=== PATIENT | male | born 2000 | race Caucasian/White ===

== ENCOUNTER 2022-08-26 15:40 | Emergency (ER) | payer BC, SELFPAY ==
[2022-08-26 15:51] VITALS: BP 135/107; PULSE 92; TEMP 37; O2SAT 97; BMI 24.4
--- NOTE | 2022-08-26 16:00 | CRLHL7_ITS ---
For Patients: As a result of the Century Cures Act, medical imaging exams and procedure reports are released immediately into your electronic medical record. You may view this report before your referring provider. If you have questions, please contact your health care provider. CLINICAL HISTORY: Right testicular pain TECHNIQUE: Alexandre scale imaging was performed of the scrotum. In addition color Doppler and spectral Doppler analysis was performed of the testes. FINDINGS: The testes demonstrate normal arterial and venous blood flow on color Doppler and spectral Doppler analysis. The testes have uniform echogenicity with no evidence of a suspicious mass or area of inflammation. The right testis measures 4.4 x 2.4 x 3 cm in size and the left testis measures 4 x 2.4 x 2.9. The epididymis appears normal bilaterally. There is no evidence of a hydrocele or varicocele. IMPRESSION: Unremarkable scrotal ultrasound Dictated by Evi Min MD @ 08/26/2022 5:34:05 PM (Electronically Signed)
--- NOTE | 2022-08-26 16:13 | ED_ITS ---
HPI - General Adult General Time Seen by Provider: 16:13 <Santy Parks MD - Last Filed: 08/26/22 16:16> Date Seen: 08/26/22 <Santy Parks MD - Last Filed: 08/26/22 16:16> Chief complaint: Urogenital Problems, Male <Santy Parks MD - Last Filed: 08/26/22 16:16> Stated complaint: Testicular pain <Santy Parks MD - Last Filed: 08/26/22 16:16> Time Seen by Provider: 08/26/22 15:55 <Santy Parks MD - Last Filed: 08/26/22 16:16> Source: patient <Santy Parks MD - Last Filed: 08/26/22 16:16> Mode of arrival: ambulatory <Santy Parks MD - Last Filed: 08/26/22 16:16> Limitations: no limitations <Santy Parks MD - Last Filed: 08/26/22 16:16> History of Present Illness HPI narrative: Patient is a very pleasant 22 year white male who has developed some right testicular pain over the last couple of days, he does not report any trauma, recent sexual contacts. Patient denies dysuria. He is active in lift weights regularly. He has had no similar symptoms reports the pain is just above his testicle on the right. No palpable bulging or herniations. His medical history is reviewed including she even arthritis some anxiety palpitations, history of concussion <Santy Parks MD - Last Filed: 08/26/22 16:16> Related Data Home medications: Home Medications Medication Instructions Recorded Confirmed isotretinoin 40 mg capsule mg PO 08/26/22 (Claravis) Previous Rx's Medication Instructions Recorded sulfamethoxazole 800 1 tab PO BID 7 days #14 tabs 08/26/22 mg-trimethoprim 160 mg tablet <Santy Parks MD - Last Filed: 08/26/22 16:16> Allergies/adverse reactions: Allergies Allergy/AdvReac Type Severity Reaction Status Date / Time No Known Drug Allergy Allergy Unknown Uncoded 08/07/22 21:29 <Santy Parks MD - Last Filed: 08/26/22 16:16> Review of Systems Status of ROS: Reports: 6 or more systems reviewed and unremarkable except as noted in History and below <Santy Parks MD - Last Filed: 08/26/22 16:16> [facility] Medical History: Medical History Concussion Thumb injury <Santy Parks MD - Last Filed: 08/26/22 16:16> Social History: Social History Smoking Status: Never smoker Do you use any of these nicotine containing products: None Second hand tobacco smoke exposure: No How often do you have a drink containing alcohol: monthly or less How many standard drinks containing alcohol do you have on a typical day: 3 or 4 How often do you have six or more drinks on one occasion: Never AUDIT-C Alcohol total score: 2 Non-prescribed substance use: denies use <Santy Parks MD - Last Filed: 08/26/22 16:16> Exam Narrative: Exam Narrative: Objective: Patient's right testicle shows some mild epididymal tenderness the testicle itself is not tender he has got no redness or erythema or no swelling in his groin testicle is not high riding does not appear to be have a lateral lie <Santy Parks MD - Last Filed: 08/26/22 16:16> Const: Vital Signs, click to edit/add: Vital Signs - 24 hr 08/26/22 15:51 Temperature 98.6 F Pulse Rate [Left P ulse Oximeter] 92 Blood Pressure [Le ft Upper Arm] 135/107 H Pulse Oximetry 97 Oxygen Delivery Me thod Room Air <Santy Parks MD - Last Filed: 08/26/22 16:16> Vital Signs, click to edit/add: Vital Signs - 24 hr 08/26/22 15:51 Temperature 98.6 F Pulse Rate [Left P ulse Oximeter] 92 Blood Pressure [Le ft Upper Arm] 135/107 H Pulse Oximetry 97 Oxygen Delivery Me thod Room Air <Michelle Friend MD - Last Filed: 08/26/22 17:40> Course Course Hospital Course: Ultrasound was done and was unremarkable. <Santy Parks MD - Last Filed: 08/26/22 16:16> Vital Signs Vital signs: Initial Vital Signs Temperature 98.6 F 08/26/22 15:51 Temperature Source Temporal Artery Scan 08/26/22 15:51 Pulse Rate 92 08/26/22 15:51 Blood Pressure 135/107 H 08/26/22 15:51 Blood Pressure Mean 116 08/26/22 15:51 Blood Pressure Position Supine 08/26/22 15:51 Pulse Oximetry 97 08/26/22 15:51 Oxygen Delivery Method 08/26/22 15:51 Vital Signs Temperature 98.6 F 08/26/22 15:51 Pulse Rate 92 08/26/22 15:51 Blood Pressure 135/107 H 08/26/22 15:51 Pulse Oximetry 97 08/26/22 15:51 Oxygen Delivery Method 08/26/22 15:51 Temperature 98.6 F 08/26/22 15:51 Pulse Rate 92 08/26/22 15:51 Blood Pressure 135/107 H 08/26/22 15:51 Pulse Oximetry 97 08/26/22 15:51 Oxygen Delivery Method 08/26/22 15:51 <Santy Parks MD - Last Filed: 08/26/22 16:16> Initial Vital Signs Temperature 98.6 F 08/26/22 15:51 Temperature Source Temporal Artery Scan 08/26/22 15:51 Pulse Rate 92 08/26/22 15:51 Blood Pressure 135/107 H 08/26/22 15:51 Blood Pressure Mean 116 08/26/22 15:51 Blood Pressure Position Supine 08/26/22 15:51 Pulse Oximetry 97 08/26/22 15:51 Oxygen Delivery Method 08/26/22 15:51 Vital Signs Temperature 98.6 F 08/26/22 15:51 Pulse Rate 92 08/26/22 15:51 Blood Pressure 135/107 H 08/26/22 15:51 Pulse Oximetry 97 08/26/22 15:51 Oxygen Delivery Method 08/26/22 15:51 Temperature 98.6 F 08/26/22 15:51 Pulse Rate 92 08/26/22 15:51 Blood Pressure 135/107 H 08/26/22 15:51 Pulse Oximetry 97 08/26/22 15:51 Oxygen Delivery Method 08/26/22 15:51 <Michelle Friend MD - Last Filed: 08/26/22 17:40> Medical Decision Making MDM Narrative Medical decision making narrative: Patient is a very pleasant 22 year white male with right testicular pain likely epididymitis rule out torsion. Patient will get a scrotal ultrasound. If this is negative a or only shows epididymal tenderness would recommend antibiotics. Because of the interaction of isotretinoin and doxycycline, would give him Septra DS 1 p.o. b.i.d. x7 days as he is at low risk for an STD per up-to-date. Will need light activity, firm fitting underwear, follow-up primary care in the next few days if not resolved. Would also recommend Aleve 2 twice a day for the next few days as well. Change of shift Dr. Friend will follow up the ultrasound results. <Santy Parks MD - Last Filed: 08/26/22 16:16> Imaging Data Scrotal US: Attestation: I have reviewed the pertinent imaging results. <Michelle Friend MD - Last Filed: 08/26/22 17:40> Radiologist's impression: TECHNIQUE: Alexandre scale imaging was performed of the scrotum. In addition color Doppler and spectral Doppler analysis was performed of the testes. FINDINGS: The testes demonstrate normal arterial and venous blood flow on color Doppler and spectral Doppler analysis. The testes have uniform echogenicity with no evidence of a suspicious mass or area of inflammation. The right testis measures 4.4 x 2.4 x 3 cm in size and the left testis measures 4 x 2.4 x 2.9. The epididymis appears normal bilaterally. There is no evidence of a hydrocele or varicocele. IMPRESSION: Unremarkable scrotal ultrasound <Michelle Friend MD - Last Filed: 08/26/22 17:40> Discharge Plan Discharge Clinical Impression: Acute epididymitis <Santy Parks MD - Last Filed: 08/26/22 16:16> Patient Disposition: Home, Self-Care <Santy Parks MD - Last Filed: 08/26/22 16:16> Condition: Stable <Santy Parks MD - Last Filed: 08/26/22 16:16> Additional Instructions: Firm fitting underwear, Septra DS 1 p.o. b.i.d. x7 days. Will need light activity, firm fitting underwear, follow-up primary care in the next few days if not resolved. Would also recommend Aleve 2 twice a day for the next few days as well. <Santy Parks MD - Last Filed: 08/26/22 16:16> Activity Level: Light activity <Santy Parks MD - Last Filed: 08/26/22 16:16> Light activity <Michelle Friend MD - Last Filed: 08/26/22 17:40> Discharge Diet: Regular <Santy Parks MD - Last Filed: 08/26/22 16:16> Regular <Michelle Friend MD - Last Filed: 08/26/22 17:40> Prescriptions: New sulfamethoxazole-trimethoprim 800-160 mg tablet 1 tab PO BID 7 Days Qty: 14 0RF No Action isotretinoin [Claravis] 40 mg capsule PO Label Comments: TAKE ONE PILL ONCE DAILY FOR ACNE. <Santy Parks MD - Last Filed: 08/26/22 16:16> Follow Up/Referrals: Demarco Lyn MD [Primary Care Provider] - <Santy Parks MD - Last Filed: 08/26/22 16:16> Stand Alone Forms: [facility] Info Instructions <Santy Parks MD - Last Filed: 08/26/22 16:16>
--- OUTSIDE RECORDS SUMMARY | 2022-08-26 16:25 | XMS_ITS | Encounter Summary ---
:2000 Author Organization [facility] Address [address] [place] [id number] Care Team Providers Name Role Phone Josh Parekh MD Unavailable Mary Dowell DO Primary Care Provider Encounter Details Date Type Department Care Team Description 04/12/[address] [phone] Social History Tobacco Use Types Packs/Day Years Used Date Never Smoker 0 Smokeless Tobacco: Never Used Alcohol Use Standard Drinks/Week Comments Not Asked 0 (1 standard drink = 0.6 oz pure alcoho l) Sex Assigned at Date Recorded Not on file documented as of this encounter Plan of Treatment Not on filedocumented as of this encounter Visit Diagnoses Not on filedocumented in this encounter Care Teams Stockkeeper Relationship Specialty Start Date End Date Mary Dowell DO PCP - General 12/27/18 [facility] [address] [place] [address] Josh Parekh MD MD Pediatrics 11/30/[address] [place] [id number] documented as of this encounter
--- OUTSIDE RECORDS SUMMARY | 2022-08-26 16:25 | XMS_ITS | Encounter Summary ---
:2000 Author Organization [facility] Address [address] [place] [address] Care Team Providers Name Role Phone Josh Parekh MD Unavailable Mary Dowell DO Primary Care Provider Encounter Details Date Type Department Care Team Description 05/03/2021 Immunization [facility] - [facility] [id number] [place] [phone] Social History Tobacco Use Types Packs/Day Years [...] on filedocumented in this encounter Care Teams Biscuit Machine Operator Relationship Specialty Start Date End Date Mary Dowell DO PCP - General 12/27/18 [facility] [address] [place] [address] Josh Parekh MD MD Pediatrics 11/30/[address] [place] [id number] documented as of this encounter
--- OUTSIDE RECORDS SUMMARY | 2022-08-26 16:25 | XMS_ITS | Encounter Summary ---
:2000 Author Organization [facility] Address [address] [facility] [place] [address] Care Team Providers Name Role Phone Josh Parekh MD Unavailable Mary Dowell DO Primary Care Provider Reason for Visit Reason Comments Urgent Care Throat Pain st, white spots on tonsils, red spotted rash developing all over his body x 3d Was tested negative for strep, then rash started developing and itching rash. Mom would like strep test re-done Encounter Details Date Type Department Care Team Description 08/27/2019 Office Visit [facility] Billy, Throat lawrence n (Primary Dx); Urgent Care Eddie Porter, [place] [address] [place] [phone] Social History Tobacco Use Types Packs/Day Years Used Date Never Smoker 0 Smokeless Tobacco: Never Used Alcohol Use Standard Drinks/Week Comments Not Asked 0 (1 standard drink = 0.6 oz pure alcoho l) Sex Assigned at Date Recorded Not on file documented as of this encounter Last Filed Vital Signs Vital Sign Reading Time Taken Comments Blood Pressure 124/70 08/27/2019 8:26 PM CDT Pulse 78 08/27/2019 8:26 PM CDT Temperature 37.1 ??C (98.8 ??F) 08/27/2019 8:26 PM CDT Respiratory Rate 16 08/27/2019 8:26 PM CDT Oxygen Saturation 99% 08/27/2019 8:26 PM CDT Inhaled Oxygen Concentration - - Weight 73.5 kg (162 lb) 08/27/2019 8:26 PM CDT Height 181.6 cm (5' 11.5) 08/27/2019 8:26 PM CDT Body Mass Index 22.28 08/27/2019 8:26 PM CDT Body Mass Index Percentile 61.76 % 08/27/2019 8:26 PM CD T Growth Chart: [facility] (Boys, 2-20 Years) documented in this encounter Patient Instructions Patient InstructionsDeGerman merino CNP - 08/27/2019 8:05 PM CDT Prednisone daily for 5 days Vistaril three times a day as needed for itching Push Fluids Plenty of rest Tylenol and ibuprofen to help with pain or fever Humidified air can help with congestion Nasal saline or Flonase nasal spray to help with congestion Salt water gargles, anesthetic throat spray, or lozenges to help with sore throat. Can continue with over the counter anti-itch cream documented in this encounter Progress Notes German Cervantes CNP - 08/27/2019 8:05 PM CDT SUBJECTIVE: Cameron Manuel is a 19 year old male presenting with a chief complaint of Chief Complaint Patient presents with ??? Urgent Care ??? Throat Pain st, white spots on tonsils, red spotted rash developing all over his body x 3d Was tested negative for strep, then rash started developing and itching rash. Mom would like strep test re-done He is a new patient of [facility]. URI Peds Onset of symptoms was 3 day(s) ago. Course of illness is same. Severity moderate Current and Associated symptoms: fever, stuffy nose, sore throat, headache and body aches, rash Treatment measures tried include None tried Predisposing factors include ill contact: School Rash Onset of rash was 3 day(s) ago. Course of illness is unchanged. Severity moderate Current and Associated symptoms: itching and red Location of the rash: abdomen, back and neck. Previous history of a similar rash? No Recent exposure history: none known Denies exposure to: animals, environmental allergens, medications, new household products, new skincare products, recent immunization and strep Associated symptoms include: sore throat and fever. Treatment measures tried include: anti-itch cream Review of Systems Constitutional: Positive for fever. HENT: Positive for congestion, ear pain, rhinorrhea and sore throat. Respiratory: Negative for cough. Gastrointestinal: Negative for abdominal pain, diarrhea, nausea and vomiting. Musculoskeletal: Positive for neck pain. Negative for myalgias. Skin: Positive for rash. Neurological: Positive for light-headedness and headaches. Past Medical History: Diagnosis Date ??? 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 Other speech disturbance Family History Problem Relation Age of Onset ??? Diabetes Other paternal family hx of diabetes- great grandfather ??? Heart Disease Paternal Grandfather pace maker placed when father was in 40's ??? Musculoskeletal Disorder Paternal Uncle MD ??? Arthritis Paternal Grandmother ??? Arthritis Paternal Aunt ??? Cancer Maternal Uncle lymphoma ??? Heart Disease Other paternal great-grandfather of [place] Current Outpatient Medications Medication Sig Dispense Refill ??? FLUoxetine (PROZAC) 20 MG capsule TAKE 1 CAPSULE BY MOUTH ONCE DAILY 0 ??? hydrOXYzine (VISTARIL) 25 MG capsule Take 1 capsule (25 mg) by mouth 3 times daily as needed foritching 30 capsule 0 ??? predniSONE (DELTASONE) 20 MG tablet Take 2 tablets (40 mg) by mouth daily for 5 days 10 tablet 0 ??? busPIRone (BUSPAR) 5 MG tablet Take 5 mg by mouth 2 times daily 1 ??? omeprazole (PRILOSEC) [address] capsule TAKE 1 CAPSULE BY MOUTH ONCE DAILY 0 Social History Tobacco Use ??? Smoking status: Never Smoker ??? Smokeless tobacco: Never Used Substance Use Topics ??? Alcohol use: Not on file OBJECTIVE BP 124/70 (BP Location: Right arm, Patient Position: Sitting, Cuff Size: Adult Regular) Pulse 78 Temp 98.8 ??F (37.1 ??C) (Tympanic) Resp 16 Ht 1.816 m (5' 11.5) Wt 73.5 kg (162 lb) SpO2 99% BMI 22.28 kg/m?? Physical Exam Vitals signs and nursing note reviewed. Constitutional: Appearance: He is well-developed. HENT: Head: Normocephalic and atraumatic. Right Ear: Tympanic membrane, ear canal and external ear normal. Left Ear: Tympanic membrane, ear canal and external ear normal. Nose: Rhinorrhea present. Right Sinus: No maxillary sinus tenderness or frontal sinus tenderness. Left Sinus: No maxillary sinus tenderness or frontal sinus tenderness. Mouth/Throat: Pharynx: Posterior oropharyngeal erythema present. No oropharyngeal exudate. Tonsils: No tonsillar exudate or tonsillar abscesses. Swellin+ on the right. 1+ on the left. Eyes: Conjunctiva/sclera: Conjunctivae normal. Pupils: Pupils are equal, round, and reactive to light. Neck: Musculoskeletal: Normal range of motion and neck supple. Cardiovascular: Rate and Rhythm: Normal rate and regular rhythm. Heart sounds: Normal heart sounds. Pulmonary: Effort: Pulmonary effort is normal. Breath sounds: Normal breath sounds. Lymphadenopathy: Head: Right side of head: Submandibular and tonsillar adenopathy present. Left side of head: Submandibular and tonsillar adenopathy present. Cervical: Cervical adenopathy present. Skin: General: Skin is warm and dry. Capillary Refill: Capillary refill takes less than 2 seconds. Comments: Patient has papular rash to back, neck, and chest Neurological: Mental Status: He is alert and oriented to person, place, and time. Psychiatric: Behavior: Behavior is cooperative. Labs: Results for orders placed or performed in visit on 08/27/19 (from the past 24 hour(s)) Rapid strep screen Result Value Ref Range Specimen Description Throat Rapid Strep A Screen NEGATIVE: No Group A streptococcal antigen detected by immunoassay, await culture report. WBC with Diff Result Value Ref Range WBC 8.8 4.0 - 11.0 10e9/L Diff Method Automated Method % Neutrophils 57.6 % % Lymphocytes 28.9 % % Monocytes 11.5 % % Eosinophils 1.8 % % Basophils 0.2 % Absolute Neutrophil 5.1 1.3 - 7.0 10e9/L Absolute Lymphocytes 2.6 1.0 - 5.8 10e9/L Absolute Monocytes 1.0 0.0 - 1.3 10e9/L Absolute Eosinophils 0.2 0.0 - 0.7 10e9/L Absolute Basophils 0.0 0.0 - 0.2 10e9/L Mononucleosis screen Result Value Ref Range Mononucleosis Screen Negative NEG^Negative X-Ray was not done. ASSESSMENT: ICD-10-CM 1. Throat pain R07.0 Rapid strep screen Beta strep group A culture WBC with Diff Mononucleosis screen 2. Rash R21 WBC with Diff hydrOXYzine (VISTARIL) 25 MG capsule predniSONE (DELTASONE) 20 MG tablet Medical Decision Making: Differential Diagnosis: URI Adult/Peds: Laryngitis, Mononucleosis, Sinusitis, Strep pharyngitis, Tonsilitis, Viral pharyngitis and Viral upper respiratory illness Rash: Dermatitis Drug eruption Folliculitis Inflammation Non-specific rash Rash Viral exanthem Serious Comorbid Conditions: Peds: None PLAN: Discussed with patient and mom that rapid strep was negative. Will do confirmatory testing. WBC was normal. [place] was negative. Favor a viral illness with viral exanthem. Will do prednisone daily for 5 days and vistaril three times a day as needed. Additional symptomatic treatment recommendations discus sed. Education was added to AVS. Patient was agreeable to plan and verbalized understanding. Followup: If not improving 3-5 days or if condition worsens, follow up with your Primary Care Provider Patient Instructions Prednisone daily for 5 days Vistaril three times a day as needed for itching Push Fluids Plenty of rest Tylenol and ibuprofen to help with pain or fever Humidified air can help with congestion Nasal saline or Flonase nasal spray to help with congestion Salt water gargles, anesthetic throat spray, or lozenges to help with sore throat. Can continue with over the counter anti-itch cream documented in this encounter Plan of Treatment Not on filedocumented as of this encounter Procedures Procedure Name Priority Date/Time Associated Comments Diagnosis WBC AND DIFFERENTIAL Routine 08/27/2019 8:58 PM Throat p ain Results for this CDT Rash procedure are i n the results section. MONONUCLEOSIS SCREEN Routine 08/27/2019 8:58 PM Throat pain R esults for this CDT procedure are i n the results section. BETA HEMOLYTIC STREP Routine 08/27/2019 8:47 PM Throat pain R esults for this GROUP A CULTURE CDT procedure ar e in the results section. RAPID STREP SCREEN Routine 08/27/2019 8:29 PM Throat pain Res ults for this THROAT SWAB CDT procedure are i n the results section. documented in this encounter Results Mononucleosis screen (08/27/2019 8:58 PM CDT) [facility] [employer] Method Time Signature Mononucleosis Negative NEG^Negat 08/27/2019 [place] Screen gilles 9:21 PM CDT [facility] Specimen Anatomical Collection Method Collection Time Receive d Time (Source) Location / / Volume Laterality Blood specimen 08/27/2019 8:58 PM 019 9:04 (specimen) CDT PM CDT German Cervantes CNP LAB - BLOOD ORDERABLES Performing Organization Address City/State/ZIP Code Phon e Number [facility] [id number] [place] [address] WBC with Diff (08/27/2019 8:58 PM CDT) [facility] [employer] Method Time Signature WBC 8.8 4.0 - 08/27/2019 [place] 11.0 9:22 PM CDT [facility] 10e9/L [place] Diff Method Automated 08/27/2019 [place] Method 9:22 PM CDT [facility] % Neutrophils 57.6 % 08/27/2019 [place] 9:22 PM CDT [facility] [place] % Lymphocytes 28.9 % 08/27/2019 [place] 9:22 PM CDT [facility] [place] % Monocytes 11.5 % 08/27/2019 [place] 9:22 PM CDT [facility] % Eosinophils 1.8 % 08/27/2019 [place] 9:22 PM CDT [facility] [place] % Basophils 0.2 % 08/27/2019 [place] 9:22 PM CDT [facility] [place] Absolute 5.1 1.3 - 7.0 08/27/2019 [place] Neutrophil 10e9/L 9:22 PM CDT [facility] [place] Absolute 2.6 1.0 - 5.8 08/27/2019 [place] Lymphocytes 10e9/L 9:22 PM CDT [facility] [place] Absolute 1.0 0.0 - 1.3 [facility] Monocytes 10e9/L 9:22 PM CDT [facility] [place] Absolute 0.2 0.0 - 0.7 08/27/2019 [facility] Eosinophils 10e9/L 9:22 PM CDT [facility] Absolute 0.0 0.0 - 0.2 08/27/2019 [place] Basophils 10e9/L 9:22 PM CDT [facility] Specimen Anatomical Collection Method Collection Time Receive d Time (Source) Location / / Volume Laterality Blood specimen 08/27/2019 8:58 PM 019 9:04 (specimen) CDT PM CDT German Cervantes CNP LAB - BLOOD ORDERABLES Performing Organization Address City/[facility]/ZIP Code Phon e Number [facility] [id number] [place] [address] Beta strep group A culture (08/27/2019 8:47 PM CDT) Component Value Ref Test Analysis [facility] Range Method Time Signature Specimen Throat [facility] Culture Micro No beta 08/28/2019 [place] hemolytic 7:49 PM CDT [facility] Streptococcus [place] Group A isolated Specimen Anatomical Collection Method Collection Time Receive d Time (Source) Location / / Volume Laterality Specimen from 08/27/2019 8:47 PM 08/27/20 19 8:52 throat CDT PM CDT (specimen) Germanpatrick Khannaamanda [place] LAB - MICRO GENERAL ORDERABL ES Performing Organization Address City/[facility]/ZIP Code Phon e Number [facility] [id number] [place] [address] Rapid strep screen (08/27/2019 8:29 PM CDT) Component Value Ref Test Analysis Performed At [facility] gist Range Method Time Signature Specimen Throat [facility] Rapid Strep A NEGATIVE: No 08/27/2019 [place] Screen Group A 8:51 PM CDT CLINICS streptococcal [place] antigen detected by immunoassay, await culture report. Specimen Anatomical Collection Method Collection Time Receive d Time (Source) Location / / Volume Laterality Specimen from 08/27/2019 8:29 PM 08/27/20 19 8:34 throat CDT PM CDT (specimen) German Khannaamanda [place] [facility] - MICRO GENERAL ORDERABL ES Performing Organization Address City/[facility]/ZIP Code Phon e Number [facility] [id number] [place] [address] documented in this encounter Visit Diagnoses Diagnosis Throat pain - Primary Rash Rash and other nonspecific skin eruption documented in this encounter Care Teams Laboratory Animal Facility Supervisor Relationship Specialty Start Date End Date Mary Dowell DO PCP - General 12/27/18 [facility] [address] [place] [address] Josh Parekh MD MD Pediatrics 11/30/16 [address] [place] [address] documented as of this encounter
--- OUTSIDE RECORDS SUMMARY | 2022-08-26 16:25 | XMS_ITS | Encounter Summary ---
:2002 Author Organization [facility] Address [address] [facility] [place] [address] Care Team Providers Name Role Phone Josh Parekh MD Unavailable Mary Dowell DO Primary Care Provider Reason for Visit Reason Comments Urgent Care Stomache on and off Fever Started last Sun. they come and go Dizziness Started yesterday night, no longer today, felt like vertigo Anxiety States he has health anxiety Cough With sore throat Encounter Details Date Type Department Care Team Description 09/26/[address] [facility] Deepali Barrera Sorethr oat (Primary Dx); Urgent Care Eddie gauthier MD Fever in adult; [id number] Ear congestion, bilateral [place], [place] [address] [phone] [place], [place] [phone] [id number] Social History Tobacco Use Types Packs/Day Years Used Date Never Smoker 0 Smokeless Tobacco: Never Used Alcohol Use Standard Drinks/Week Comments Not Asked 0 (1 standard drink = 0.6 oz pure alcoho l) Sex Assigned at Date Recorded Not on file COVID-19 Exposure Response Date Recorded In the last month, have you been in contact with No / Unsure 09/26/2020 11:09 AM AUTOMOTIVE AIRCONDITIONING MECHANIC someone who was confirmed or suspected to have Coronavirus / COVID-19? documented as of this encounter Last Filed Vital Signs Vital Sign Reading Time Taken Comments Blood Pressure 131/72 09/26/2020 11:16 AM AUTOMOTIVE AIRCONDITIONING MECHANIC Pulse 88 09/26/2020 11:16 AM AUTOMOTIVE AIRCONDITIONING MECHANIC Temperature 36.5 ??C (97.7 ??F) 09/26/2020 11:16 AM AUTOMOTIVE AIRCONDITIONING MECHANIC Respiratory Rate 16 09/26/2020 11:16 AM AUTOMOTIVE AIRCONDITIONING MECHANIC Oxygen Saturation 100% 09/26/2020 11:16 AM AUTOMOTIVE AIRCONDITIONING MECHANIC Inhaled Oxygen Concentration - - Weight 74.8 kg (165 lb) 09/26/2020 11:16 AM AUTOMOTIVE AIRCONDITIONING MECHANIC per pt. Height - - Body Mass Index 22.69 08/27/2019 8:26 PM CDT Body Mass Index Percentile 58.04 % 09/26/2020 11:[address] Growth Chart: [facility] (Boys, 2-20 Years) documented in this encounter Progress Notes Deepali Barrera MD - 09/26/2020 11:10 AM CST Chief Complaint Patient presents with ??? Urgent Care Stomache on and off ??? Fever Started last Sun. they come and go ??? Dizziness Started yesterday night, no longer today, felt like vertigo ??? Anxiety States he has health anxiety ??? Cough With sore throat SUBJECTIVE: Cameron Manuel is a 20 year old male presenting with a chief complaint of sore throat. He is anestablished patient of [facility]. Onset of symptoms was 3 day(s) ago., there was no noted high fever Temp max was less than 99.8 Course of illness is waxing and waning. Severity moderate Current and Associated symptoms: some dizziness which is resolved now Treatment measures tried include Tylenol/Ibuprofen. Predisposing factors include None. Has some dry coughing Full PPE was worn to see the pt Past Medical History: Diagnosis Date ??? 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 Other speech disturbance Current Outpatient Medications Medication Sig Dispense Refill ??? busPIRone (BUSPAR) 5 MG tablet Take 5 mg by mouth 2 times daily 1 ??? FLUoxetine (PROZAC) 20 MG capsule TAKE 1 CAPSULE BY MOUTH ONCE DAILY 0 ??? hydrOXYzine (VISTARIL) 25 MG capsule Take 1 capsule (25 mg) by mouth 3 times daily as needed foritching (Patient not taking: Reported on 09/26/2020) 30 capsule 0 ??? omeprazole (PRILOSEC) [address] capsule TAKE 1 CAPSULE BY MOUTH ONCE DAILY 0 Social History Tobacco Use ??? Smoking status: Never Smoker ??? Smokeless tobacco: Never Used Substance Use Topics ??? Alcohol use: Not on file Family History Problem Relation Age of Onset ??? Diabetes Other paternal family hx of diabetes- great grandfather ??? Heart Disease Paternal Grandfather pace maker placed when father was in 40's ??? Musculoskeletal Disorder Paternal Uncle MD ??? Arthritis Paternal Grandmother ??? Arthritis Paternal Aunt ??? Cancer Maternal Uncle lymphoma ??? Heart Disease Other paternal great-grandfather of [place] ROS: 10 point ROS of systems including Constitutional, Eyes, Respiratory, Cardiovascular, Gastroenterology, Genitourinary, Integumentary, Muscularskeletal, Psychiatric were all negative except for pertinentpositives noted in my HPI OBJECTIVE: BP 131/72 Pulse 88 Temp 97.7 ??F (36.5 ??C) Resp 16 Wt 74.8 kg (165 lb) SpO2 100% BMI 22.69 kg/m?? GENERAL APPEARANCE: healthy, alert and no distress EYES: EOMI, PERRL, conjunctiva clear HENT: ear canals and TM's normal. Nose and mouth without ulcers, erythema or lesions NECK: supple, nontender, no lymphadenopathy RESP: lungs clear to auscultation - no rales, rhonchi or wheezes CV: regular rates and rhythm, normal S1 S2, no murmur noted ABDOMEN: soft, nontender, no HSM or masses and bowel sounds normal SKIN: no suspicious lesions or rashes PSYCH: mentation appears normal Physical Exam X-Ray was not done. Medical Decision Making: Differential Diagnosis: URI Adult/Peds: Bronchitis-viral, Sinusitis, Strep pharyngitis, Tonsilitis, Viral pharyngitis, Viralsyndrome, Viral upper respiratory illness and covid ASSESSMENT: Cameron was seen today for urgent care, fever, dizziness, anxiety and cough. Diagnoses and all orders for this visit: Sorethroat - Streptococcus A Rapid Scr w Reflx to PCR - Cancel: Symptomatic COVID-19 Virus (Coronavirus) by PCR Fever in adult - Streptococcus A Rapid Scr w Reflx to PCR - Symptomatic COVID-19 Virus (Coronavirus) by PCR Ear congestion, bilateral Results for orders placed or performed in visit on 09/26/20 Streptococcus A Rapid Scr w Reflx to PCR Status: None Specimen: Throat Result Value Ref Range Strep Specimen Description Throat Streptococcus Group A Rapid Screen Negative NEG^Negative PLAN: Tylenol, Ibuprofen, Fluids, Rest, Saline gargles, Saline nasal spray and Vaporizer See orders in Epic Discussed dizziness is possibly from ear congestion Suggested to do antihistamines with decongestants Follow up if symptoms fail to improve or worsens Pt understood and agreed with plan Deepali Barrera MD MOTIVE AIRCONDITIONING MECHANIC documented in this encounter Plan of Treatment Not on filedocumented as of this encounter Procedures Procedure Name Priority Date/Time Associated Comments Diagnosis COVID-19 VIRUS Routine 09/26/2020 11:25 Fever in adult Results for this (CORONAVIRUS) BY PCR AM AUTOMOTIVE AIRCONDITIONING MECHANIC procedu re are in the results section. STREPTOCOCCUS A RAPID Routine 09/26/2020 11:19 Fever in adult Results for this SCREEN W REFELX TO PCR AM AUTOMOTIVE AIRCONDITIONING MECHANIC proce dure are in the results section. GROUP A STREPTOCOCCUS Routine 09/26/2020 11:19 Sorethroat Re sults for this PCR THROAT SWAB AM AUTOMOTIVE AIRCONDITIONING MECHANIC procedure ar e in the results section. documented in this encounter Results Symptomatic COVID-19 Virus (Coronavirus) by PCR (09/26/2020 11:25 AM AUTOMOTIVE AIRCONDITIONING MECHANIC) [facility] Method Time Signature COVID-19 Nasopharyngeal 09/26/2020 [facility] to 11:53 AM [facility] - AUTOMOTIVE AIRCONDITIONING MECHANIC [place] Source COVID-19 Not Detected 09/27/2020 [facility] Virus PCR to 6:31 PM AUTOMOTIVE AIRCONDITIONING MECHANIC [facility] - DIAGNOSTIC Result LABORATORY, [facility] Comment: Collection of multiple specimens from th e same patient may be necessary to detect the virus. The possibility of a f alse negative should be considered if the patient's recent exposure or clinica l presentation suggests 2019 nCOV infection and diagnostic tests for other causes of illness are negative. Repeat testing may be considered in this setting. Patient sample was heat inactivated and amplified using the HDPCR SARS-CoV-2 assay ([employer] The HDPCRTM STIVEN S-CoV-2 assay is a reverse senior administrative associate real-time polymerase chain reaction (qRT-PCR) test intended for the qualitative detection of nucleic aci d from SARS-CoV-2 in human nasopharyngeal swabs, oropharyngeal swabs, anterior nasal swabs, mid-turbinate nasal swabs a s well as nasal aspirate, nasal wash, and bronchoalveolar lavage (BAL) specime ns from individuals who are suspected of COVID-19 by their healthcare provider . A negative result does not rule out the presence of real-time PCR inhibitors in the specimen or COVID-19 RNA in fabricio ntrations below the limit of detection of the assay. The possibility of a fals e negative should be considered if the patients recent exposure or clinical pr esentation suggests COVID-19. Additional testing or repeat testing req uires consultation with the laboratory. Nasopharyngeal specimen is the preferred choice for swab-based SARS CoV2 testing. When collection of a nasopharyn geal swab is not possible the following are acceptable alternatives: an oropharyngeal (OP) specimen collected by a healthcare professional, or a nasal mid-turbinate (NMT) swab collected by a healthcare professional or by onsite self-collection (using a flocked tapered swab), or an anterior nares specimen collected by a healthcare profe ssional or by onsite self-collection (using a round foam swab). (Centers for Disease Control) Testing performed by [facility] ([facility]) [address] [address] [facility] [address] The test performance characteristics wer e determined by [facility]. It has not been cleared or approved by the FDA. The laboratory is regulated under the Cl inical Laboratory Improvement Amendments of 1988 (CLIA-88) as qualifie d to perform high-complexity testing. This test is used for clinical purposes. It should not be regarded as investigational or for research. Specimen (Source) Anatomical Collection Method Collection Time Re ceived Time Location / / Volume Laterality Specimen from 09/26/2020 11:25 09/26/2020 nasopharyngeal AM AUTOMOTIVE AIRCONDITIONING MECHANIC 11:51 AM AUTOMOTIVE AIRCONDITIONING MECHANIC structure (specimen) Deepali Barrera MD LAB - MICRO GENERAL ORDERABL ES Performing Organization Address City/State/ZIP Code Phon e Number [employer] [place] [address] DIAGNOSTIC LABORATORY, [address] [place] [address] [address] [address] Group A Streptococcus PCR Throat Swab (09/26/2020 11:19 AM AUTOMOTIVE AIRCONDITIONING MECHANIC) [facility] Method Time Signature Specimen Throat 09/26/2020 [place] Description 11:[address] [facility] Strep Group A Not Detected NDET^Not 09/26/2020 [facility] PCR Detected 4:04 PM [facility] Comment: Group A Streptococcus DNA is not detecte d. FDA approved assay performed using [employer] GeneXpert real-time PCR. Specimen Anatomical Collection Method Collection Time Receive d Time (Source) Location / / Volume Laterality Specimen from 09/26/2020 11:19 09/26/2020 throat AM AUTOMOTIVE AIRCONDITIONING MECHANIC 11:24 AM AUTOMOTIVE AIRCONDITIONING MECHANIC (specimen) Deepali Barrera MD LAB - MICRO GENERAL ORDERABL ES Performing Organization Address City/State/ZIP Code Phon e Number [id number] [place] [id number] [place] [address] Streptococcus A Rapid Scr w Reflx to PCR (09/26/2020 11:19 AM AUTOMOTIVE AIRCONDITIONING MECHANIC) [facility] Method Time Signature Strep Specimen Throat 09/26/2020 [place] Description 11:23 AM [facility] Streptococcus Negative NEG^Negat 09/26/2020 [place] Group A Rapid gilles 11:54 AM [facility] Comment: No Group A streptococcal antigen detecte d by immunoassay. Confirmatory testing in progress. Specimen Anatomical Collection Method Collection Time Receive d Time (Source) Location / / Volume Laterality Specimen from 09/26/2020 11:19 09/26/2020 throat AM AUTOMOTIVE AIRCONDITIONING MECHANIC 11:24 AM AUTOMOTIVE AIRCONDITIONING MECHANIC (specimen) Deepali Barrera MD LAB - MICRO GENERAL ORDERABL ES Performing Organization Address City/State/ZIP Code Phon e Number [facility] [address] [facility] [place] [address] documented in this encounter Visit Diagnoses Diagnosis Sorethroat - Primary Acute pharyngitis Fever in adult Ear congestion, bilateral documented in this encounter Additional Health Concerns Infection Onset Date Last Indicated Resolved Time Rule Out COVID-19 09/26/2020 09/26/2020 09/27/2020 6:3 4 PM AUTOMOTIVE AIRCONDITIONING MECHANIC documented as of this encounter Care Teams Coat Hanger Shaper Machine Operator Relationship Specialty Start Date End Date Mary Dowell DO PCP - General 12/27/18 [facility] [address] [place] [address] Josh Parekh MD MD Pediatrics 11/30/16 [address] [place] [address] documented as of this encounter
--- OUTSIDE RECORDS SUMMARY | 2022-08-26 16:25 | XMS_ITS | Encounter Summary ---
:2002 Author Organization [facility] Address [address] [place] [address] Care Team Providers Name Role Phone Josh Parekh MD Unavailable Mary Dowell DO Primary Care Provider Encounter Details Date Type Department Care Team Description 09/26/2020 Travel Social History Tobacco Use Types Packs/Day Years Used Date Never Smoker 0 Smokeless Tobacco: Never Used Alcohol Use Standard Drinks/Week Comments Not Asked 0 (1 standard drink = 0.6 oz pure alcoho l) Sex Assigned at Date Recorded Not on file COVID-19 Exposure Response Date Recorded In the last month, have you been in contact with No / Unsure 09/26/2020 11:09 AM HOMICIDE SQUAD COMMANDING OFFICER someone who was confirmed or suspected to have Coronavirus / COVID-19? documented as of this encounter Plan of Treatment Not on filedocumented as of this encounter Visit Diagnoses Not on filedocumented in this encounter Additional Health Concerns Infection Onset Date Last Indicated Resolved Time Rule Out COVID-19 09/26/2020 09/26/2020 09/27/2020 6:3 4 PM HOMICIDE SQUAD COMMANDING OFFICER documented as of this encounter Care Teams Engine Hostler Relationship Specialty Start Date End Date Mary Dowell, PCP - General 12/27/18 [facility] [address] [place] [address] Josh Parekh MD MD Pediatrics 11/30/[address] [place] [address] documented as of this encounter
--- OUTSIDE RECORDS SUMMARY | 2022-08-26 16:25 | XMS_ITS | Encounter Summary ---
:2002 Author Organization [facility] Address [address] [place] [address] Care Team Providers Name Role Phone Josh Parekh MD Unavailable Mary Dowell DO Primary Care Provider Reason for Visit Reason Comments acp Encounter Details Date Type Department Care Team Description 07/18/2022 Documentation Only [place] Maryjo Ackerman acp [address] [facility] [address] [place] [phone] Social History Tobacco Use Types Packs/Day Years [...] on filedocumented in this encounter Care Teams Automobile Service Advisor Relationship Specialty Start Date End Date Mary Dowell, PCP - General 12/27/18 [facility] [address] [place] [address] Josh Parekh MD MD Pediatrics 11/30/[address] [place] [id number] documented as of this encounter
--- OUTSIDE RECORDS SUMMARY | 2022-08-26 16:25 | XMS_ITS | Encounter Summary ---
:2002 Author Organization [facility] Address [address] [place] [address] Care Team Providers Name Role Phone Josh Parekh MD Unavailable Mary Dowell DO Primary Care Provider Encounter Details Date Type Department Care Team Description 08/27/2019 Travel Social History Tobacco Use Types Packs/Day [...] on filedocumented in this encounter Care Teams Car Wash Manager Relationship Specialty Start Date End Date Mary Dowell, PCP - General 12/27/18 [facility] [address] [place], [place] [id number] Josh Parekh MD MD Pediatrics 11/30/[address] [place] [address] documented as of this encounter
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
--- OUTSIDE RECORDS SUMMARY | 2022-08-26 16:25 | XMS_ITS | Encounter Summary ---
:2000 Author Organization [facility] Address [address] [place] [id number] Care Team Providers Name Role Phone Josh Parekh MD Unavailable Mary Dowell DO Primary Care Provider Encounter Details Date Type Department Care Team Description 08/06/2022 Travel Social History Tobacco Use Types Packs/Day [...] have Coronavirus/COVID-19? documented as of this encounter Plan of Treatment Not on filedocumented as of this encounter Visit Diagnoses Not on filedocumented in this encounter Care Teams Field Counsel Relationship Specialty Start Date End Date Mary Dowell, PCP - General 12/27/18 [facility] [address] [place] [address] Josh Parekh MD MD Pediatrics 11/30/[address] [place] [id number] documented as of this encounter
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
--- OUTSIDE RECORDS SUMMARY | 2022-08-26 16:25 | XMS_ITS | Encounter Summary ---
:2002 Author Organization [facility] Address [address] [place] [address] Care Team Providers Name Role Phone Josh Parekh MD Unavailable Mary Dowell DO Primary Care Provider Encounter Details Date Type Department Care Team Description 05/04/2021 Documentation Only INTERFACED REPORT Unknown, Provider Social History Tobacco Use Types Packs/Day Years [...] on filedocumented in this encounter Care Teams Telecom Specialist Relationship Specialty Start Date End Date Mary Dowell, PCP - General 12/27/18 [facility] [address], [place] [id number] Josh Parekh MD MD Pediatrics 11/30/[address] [place] [address] documented as of this encounter
--- OUTSIDE RECORDS SUMMARY | 2022-08-26 16:26 | XMS_ITS | Encounter Summary ---
:2002 Author Organization [facility] Address [address] [place] [address] Care Team Providers Name Role Phone Kumar Celestin MD Primary Care Provider Encounter Details Date Type Department Care Team Description 08/30/2011 Medical Correspondence [facility] Galilea Celestin [facility] Patricia Newman MD [address] [place] [phone] Social History Tobacco Use Types Packs/Day Years Used Date Never Smoker Alcohol Use Standard Drinks/Week Comments Not Asked 0 (1 standard drink = 0.6 oz pure alcoho l) Sex Assigned at Date Recorded Not on file documented as of this encounter Plan of Treatment Not on filedocumented as of this encounter Visit Diagnoses Not on filedocumented in this encounter Care Teams Limehouse Worker Relationship Specialty Start Date End Date Kumar Celestin MD PCP - General 02 12/26/[address] [place] [address] documented as of this encounter
--- OUTSIDE RECORDS SUMMARY | 2022-08-26 16:26 | XMS_ITS | Encounter Summary ---
:2002 Author Organization [facility] Address [address] [place] [address]. [place] [address] Care Team Providers Name Role Phone Kumar Celestin MD Primary Care Provider Encounter Details Date Type Department Care Team Description 10/17/2010 Office Visit-[facility] Natalya Muñiz MD [facility] [address] [place] [address] 16 Social History Tobacco Use Types Packs/Day Years Used Date Never Smoker Alcohol Use Standard Drinks/Week Comments Not Asked 0 (1 standard drink = 0.6 oz pure alcoho l) Sex Assigned at Date Recorded Not on file documented as of this encounter Progress Notes Natalya Sky L - 10/17/2010 12:00 AM CST Patient Scheduling Manager: Natalya Sky Status: Final - Signature Encounter: 17 Oct 2010 Type: Chart Note Recorded as Task Date: 10/02/2010 06:16 PM, Created By: Natalya Sky Task Name: Follow Up Assigned To: Natalya Sky Regarding Patient: TAHMINA MARY, Status: Active Comment: Natalya Sky - 02 Oct 2010 6:16 PM TASK CREATED Chris Love. Tahmina's creatinine is a little elevated, and, hemoglobin and platelets were missed with the labs checked at his recent appointment. Can you please have them obtain repeat labs (CBC/diff/platelets, BUN and creatinine) within the next week or two? Much thanks! Kate De Souza - 19 Oct 2010 9:07 AM TASK REPLIED TO: Previously Assigned To Kate De Souza Tahmina had repeat labs (in [employer] now). Creatinine is still a little high. Mom said that Tahmina hasn't really been taking Naprosyn very consistently for the last month and completely stopped it 2 weeks ago becauase he was feeling so good. Natalya Sky - 21 Oct 2010 10:14 AM TASK REPLIED TO: Previously Assigned To Josh Parekh Dr., Tahmina's Cr is a little elevated, but his UA (Sep 23) and BPs have been normal. Not takingNSAID regularly. We'll just monitor. Ok? Josh Parekh - 24 Oct 2010 5:16 PM TASK REPLIED TO: Previously Assigned To Josh Parekh Electronically signed by:Natalya Newell M.D.,Fellow Oct 24 2010 8:30PM EQUITY RESEARCH ANALYST Co-author TY RESEARCH ANALYST documented in this encounter Plan of Treatment Not on filedocumented as of this encounter Visit Diagnoses Not on filedocumented in this encounter Care Teams Marine Cargo Specialist Relationship Specialty Start Date End Date Kumar Celestin MD PCP - General 02 12/26/18 [address] [facility] [address] [place] [phone] documented as of this encounter
--- OUTSIDE RECORDS SUMMARY | 2022-08-26 16:26 | XMS_ITS | Encounter Summary ---
:2002 Author Organization [facility] Address [address] [place] [address]. [place] [address] Care Team Providers Name Role Phone Omid Celestin MD Primary Care Provider Reason for Visit Reason Comments RECHECK JRA return Encounter Details Date Type Department Care Team Description [facility] [address] [place] [address] [facility] [place], [place] enth esitis related [address]ldg [address] arthritis (H) 12th Floor (Primary Dx) [address] [place] [address] [place] [address] Social History Tobacco Use Types Packs/Day Years Used Date Never Smoker Alcohol Use Standard Drinks/Week Comments Not Asked 0 (1 standard drink = 0.6 oz pure alcoho l) Sex Assigned at Date Recorded Not on file documented as of this encounter Last Filed Vital Signs Vital Sign Reading Time Taken Comments Blood Pressure 107/72 10/09/2013 10:11 AM NATURAL SCIENCES DEPARTMENT CHAIR Pulse 98 10/09/2013 10:11 AM NATURAL SCIENCES DEPARTMENT CHAIR Temperature 36.7 ??C (98.1 ??F) 10/09/2013 10:11 AM NATURAL SCIENCES DEPARTMENT CHAIR Respiratory Rate - - Oxygen Saturation - - Inhaled Oxygen Concentration - - Weight 38.4 kg (84 lb 10.5 oz) 10/09/2013 10:11 AM NATURAL SCIENCES DEPARTMENT CHAIR Height 149.9 cm (4' 11.02) 10/09/2013 10:11 AM NATURAL SCIENCES DEPARTMENT CHAIR Body Mass Index 17.09 10/09/2013 10:11 AM NATURAL SCIENCES DEPARTMENT CHAIR Body Mass Index Percentile 44.45 % 10/09/2013 10:[address] Growth Chart: [facility] (Boys, 2-20 Years) documented in this encounter Patient Instructions Patient InstructionsCatherine Delaney GILBERT Zapata - 10/09/2013 10:13 AM CST ?? Continue prednisone 10 mg once daily through next Sunday, then switch to half pill daily (or one pill every other day) for another week, then try to stop ?? Start naproxen ?? Labs in 1 month at any [facility] Pediatric Rheumatology -- General Help For routine appointments, please call the Pediatric Call Center at [phone]. For other general help (such as medical records), please call [phone] or toll free at [email or web address] ([phone]). -- Specific Help If you have any questions or concerns about your child, please do not hesitate to call us. Corey Townsend, our??administrative??coordinator, can help with appointments, prescription refills, records forwarding, and other office matters. She can be reached directly at [phone] or toll free via [phone] ([phone]). YEHUDA Jara, our primary nurse for the Division of Pediatric Rheumatology, can help answer questions about your child's rheumatic condition, medications, and tests. She can be reached directly [phone] or toll free via [email or web address] ([phone]). For emergencies after hours or on the weekends, please call the paging barrel line operator at [phone] or toll free at [phone] ([phone])and ask to speak to the physician on-call for Pediatric Rheumatology. More information can be found at: [email or web address] RAL SCIENCES DEPARTMENT CHAIR documented in this encounter Progress Notes Josh Parekh MD - 10/09/2013 12:19 PM CST Allergies: Allergies Allergen Reactions ??? No Known Drug Allergies Medications: As of completion of this visit: Current Outpatient Prescriptions Medication Status Sig ??? naproxen (NAPROSYN) 375 MG tablet Active Take 1 tablet (375 mg) by mouth 2 times daily (with meals) ??? predniSONE (DELTASONE) 10 MG tablet Active Take 2-3 tabs once a day for five days then decrease by one tablet every 4 days. ??? FISH OIL Active ??? CHILDRENS ASPIRIN PO Active Take by mouth. 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 As noted in Epic, he started having symptoms flare about 4 weeks ago with really no explanation. In the past has had trouble flare up withinfectious illnesses but in this case there was not an obvious infectious trigger. He has been active in basketball but that has not clearly been the trigger. He was evaluated last week, including lab work, and this evaluation was reassuring. He has now developed symptoms in the last 4 days with some sniffles and a little bit of a cough and sore throat. In the last day, he has had a little trouble with hearing from his left ear. The cough he had when he was evaluated last week, which only appeared during the visit, has disappeared. His mother wonders if there is something about whether having set this off or maybe the traveling basketball. She knows that if he plays really hard, he will be sore the next day, but it does not seem to explain the whole story. They are still using the heating pad as they have done before. He can no longer do special seating such as a large ball at school, so he does get a little more sore at school. They started meloxicam when symptoms appeared, but it provided no relief whatsoever. He therefore started prednisone last Sunday at a dose of 30 mg daily through Sunday, then on Sunday dropped to 20mg and then 2 days ago dropped to 10 mg. Comprehensive Review of Systems is otherwise negative. Information per our standardized questionnaire is as below: Last Exam Last Eye Exam: 05/22/11 Self Report Patient Pain Status: 7.5 Patient Global Assessment Of Disease Activity: 5.5 Score Reported By: Mom/Stepmom Arthritis History Morning stiffness in the past week: > 15 - 30 min Has your arthritis stopped from trying any athletic or rigorous activities, or interfaced with your ability to do these activities: Yes Have you been limited your ability to do normal daily activities in the past week: No Did you needed help from other people to do normal activities in the past week: No Have you used any aids or devices to help you do normal daily activities in the past week: No Important Medical Events Hospitalized Since Last Visit: No Examination: Blood pressure 107/72, pulse 98, temperature 98.1 ??F (36.7 ??C), temperature source Tympanic, height 4' 11.02 (149.9 cm), weight 84 lb 10.5 oz (38.4 kg). Cameron appears generally well and in good spirits. Head: Normal head and hair. Eyes: No scleral injection, pupils normal. Ears: Normal external structures, tympanic membranes normal except for retraction on left. Nose: No cartilage deformity; clear nasal congestion. Mouth: Normal teeth, gums, tongue, mucosa. Throat: Normal, without erythema or exudate. Neck: Normal, without thyromegaly Nodes: No cervical, supraclavicular, axillary, inguinal adenopathy. Lungs: Normal effort, clear to ausculation. Heart: Regular rate and rhythm, S1 and S2, no murmurs; normal peripheral pulses and perfusion. Abdomen: Soft, non-tender, without hepatomegaly, splenomegaly, or masses. Skin: No inflammatory lesions, only normal scratches and bruises. Nails: No pitting, infection. Neurological: Alert, appropriately interactive, normal cranial nerves, no deficits, normal gait. Musculoskeletal: No evidence of current synovitis of the cervical spine, TMJ, sternoclavicular, acromioclavicular, glenohumeral, elbow, wrists, finger, sacroiliac, hip, knee, ankle, or toe joints. No tendonitis or bursitis. No enthesitis. Last Lab Results: Office Visit on 09/30/2013 Component Date Value ??? Sodium 09/30/2013 144* ??? Potassium 09/30/2013 4.2 ??? Chloride 09/30/2013 104 ??? Carbon Dioxide 09/30/2013 26 ??? Anion Gap 09/30/2013 15 ??? Glucose 09/30/2013 100* ??? Urea Nitrogen 09/30/2013 17 ??? Creatinine 09/30/2013 0.56 ? ? GFR Estimate 09/30/2013 GFR not calculated, patient <16 years old. ? ? GFR Estimate If Black 09/30/2013 GFR not calculated, patient <16 years old. ??? Calcium 09/30/2013 9.4 ? ? Bilirubin Total 09/30/2013 <0.1* ??? Albumin 09/30/2013 4.2 ??? Protein Total 09/30/2013 7.2 ??? Alkaline Phosphatase 09/30/2013 165 ??? ALT 09/30/2013 33 ??? AST 09/30/2013 25 ??? Antistreptolysin O 09/30/2013 119 ? ? CRP Inflammation 09/30/2013 <5.0 ??? Color Urine 09/30/2013 Yellow ??? Appearance Urine 09/30/2013 Slightly Cloudy ??? Glucose Urine 09/30/2013 Negative ??? Bilirubin Urine 09/30/2013 Negative ??? Ketones Urine 09/30/2013 Negative ??? Specific [place] Urine 09/30/2013 1.025 ??? Blood Urine 09/30/2013 Negative ??? pH Urine 09/30/2013 7.0 ??? Protein Albumin Urine 09/30/2013 Negative ??? Urobilinogen Urine 09/30/2013 0.2 ??? Nitrite Urine 09/30/2013 Negative ??? Leukocyte Esterase Urine 09/30/2013 Negative ??? Source 09/30/2013 Value:Midstream Urine Midstream Urine ??? WBC 09/30/2013 5.6 ??? RBC Count 09/30/2013 4.69 ??? Hemoglobin 09/30/2013 12.7 ??? Hematocrit 09/30/2013 38.3 ??? MCV 09/30/2013 82 ??? MCH 09/30/2013 27.1 ??? MCHC 09/30/2013 33.2 ??? RDW 09/30/2013 12.9 ??? Platelet Count 09/30/2013 279 ??? Diff Method 09/30/2013 Automated Method ??? % Neutrophils 09/30/2013 47.2 ??? % Lymphocytes 09/30/2013 40.4 ??? % Monocytes 09/30/2013 10.9 ??? % Eosinophils 09/30/2013 1.3 ??? % Basophils 09/30/2013 0.2 ??? Absolute Neutrophil 09/30/2013 2.7 ??? Absolute Lymphocytes 09/30/2013 2.3 ??? Absolute Monoctyes 09/30/2013 0.6 ??? Absolute Eosinophils 09/30/2013 0.1 ??? Absolute Basophils 09/30/2013 0.0 ??? ANT DNASE B ANTIBODIES 09/30/2013 Value:<50 A single DNase B analysis may not be meaningful due to the variability of DNse B values within the normal population. Both clinical and laboratory findings should be considered in reaching a diagnosis. ??? WBC Urine 09/30/2013 O - 2 ??? RBC Urine 09/30/2013 O - 2 ??? Amorphous Crystals 09/30/2013 Many* Assessment: Cameron has a reassuring physical examination at this time. He has a little bit of retraction of his left ear drum which would explain his hearing difficulty, but I do not see another infectious illness besides his nasal congestion, and I do not see anything that requires additional treatment. Because he had mood sensitivity on the 30 mg of prednisone, I suggest we very slowly back him off his remaining dose of prednisone. In addition, I think having an NSAID on board again like naproxen would be a good idea. Change Since Last Visit: Same ACR Functional Class: Normal Provider Global Assessment Of Disease Activity: Inactive (0) (This is measured on the scale of 0(Inactive)-10) On Medication For Treatment Of NAFISA?: No Normal ESR: Not Done Normal CRP: Not Done MORENA Status: Negative Rheumatoid Factor: Negative In Compliance With Screening Interval For NAFISA: Yes Plan: 1. Continue prednisone 10 mg once daily through next Sunday, then switch to half pill daily (or one pill every other day) for another week, then try to stop 2. He will start Naproxen 375 mg twice a day in place of the Meloxicam. 3. If he has additional difficulty with his ear or with his current URI, he will follow up with Dr. Celestin. 4. If he stays on the naproxen, he needs labs every 4 months and a standing order was placed, so he can have labs done at any [facility] lab. 5. I would like to see him back for reevaluation in the next 3 months. Josh Parekh MD CC Patient Care Team: Omid Celestin MD as PCP - General OMID CELESTIN Copy to patient Lucrecia Manuel [address] [facility] [phone] RAL SCIENCES DEPARTMENT CHAIR documented in this encounter Nursing Notes 10/09/2013 10:00 AM CST >> Delaney Alexander LPN [facility] Oct 09, 2013 10:13 AM Patient presents with: RECHECK - JRA return Delaney Alexander LPN documented in this encounter Plan of Treatment Not on filedocumented as of this encounter Visit Diagnoses Diagnosis NAFISA (juvenile idiopathic arthritis), ent hesitis related arthritis (H) - Primary Other specified inflammatory polyarthrop athies documented in this encounter Care Teams Central Supply Aide Relationship Specialty Start Date End Date Omid Celestin MD PCP - General 02 12/26/18 [address] [facility] [address] [place] [address] documented as of this encounter
--- OUTSIDE RECORDS SUMMARY | 2022-08-26 16:26 | XMS_ITS | Encounter Summary ---
:2000 Author Organization [place] Address [address] [place] [address] Care Team Providers Name Role Phone Kumar Celestin MD Primary Care Provider Encounter Details Date Type Department Care Team Description 05/27/2010 Office Visit-[facility] D[facility] [address], 3rd [address] [place] [address] [place] [address] [place] [address] Social History Tobacco Use Types Packs/Day Years Used Date Never Smoker Alcohol Use Standard Drinks/Week Comments Not Asked 0 (1 standard drink = 0.6 oz pure alcoho l) Sex Assigned at Date Recorded Not on file documented as of this encounter Progress Notes Natalya Sky - 05/27/2010 10:00 AM CDT Rest Room Matron: Natalya Sky Status: Final - Signature Encounter: 27 May 2010 Type: Peds Visit Division of Pediatric Rheumatology Department of Pediatrics [place] Mail Code 587 [address] [place] [address] Office: [phone] [facility] - [facility] Fourth Floor, Clinic [address] [place] [address] RE: Cameron Manuel : 2000 JULIAN: 05/27/2010 OUTPATIENT VISIT NOTE MEDICATIONS: None. 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 Our last visit was on March 02. He demonstrated some improvement on treatment with naproxen, but continued to have tight hamstrings and plantar fasciitis. We had anticipated that he would achieve further benefit with ongoing medical therapy as well as PT, OT and institution of SMO orthotics. In the interim of that visit, Cameron has continued to improve. On a scale for how much pain he has had in the past week, with zero being no pain and ten being very severe pain, he miranda a zero. On a similar scale for how well he has been doing this past week, he miranda very well. He reports no joint stiffness or difficulty moving first thing in the morning. Arthralgias and enthesalgias have not stopped him from trying any athletics or rigorous activities. He participated fully in his baseball season and has been spending timewith his cousins playing at [employer]. As he was doing so well, he stopped taking naproxen a couple of weeks ago. He took two doses six days ago for achiness precipitated by activity. Shortly after our last visit, several household members developed a presumed viral illness. His mother and sister developed significant arthralgias and enthesalgias (involving the Achilles and plantar fascia). His mother saw a technology recruiter who suspected she had fibromyalgia. Both have now recovered. Although Cameron did have strep pharyngitis in April, his musculoskeletal symptoms have not worsened. As he was continuing to improve and other family members were dealing with illness, he was not seen for followup in PT or OT. SMO orthotics have not been obtained. Today he is wearing tennis shoes although often during the summer does wear flip-flops. He himself feels he is 100% better. REVIEW OF SYSTEMS: A comprehensive 12-point review of systems was obtained, is as already noted above, and is otherwise negative. PHYSICAL EXAMINATION: VITAL SIGNS: Temperature is 97.9 degrees Fahrenheit. Blood pressure is 93/59. Pulse rate is 91, and respiratory rate is 16. Height is 133.5 cm, which is a 2.7-cm increase from the previous visit. Weight is 28.3 kg, which is a 0.1-kg decrease. APPEARANCE: Cameron appears to be in excellent health and comfortable. HEENT: Head and hair are normal. Sclerae and conjunctivae are clear. Pupils are equal, round and reactive to light. Nasal passages are clear. There are no oral or nasal lesions. Mucous membranes are moist, and there is good saliva pool. The TMs are normal bilaterally. The gingiva and dentition appear healthy. The oropharynx is clear. NECK: Supple. No mass. NODES: No cervical, occipital, or supraclavicular lymphadenopathy. LUNGS: Normal pattern and effort and respiration. Clear to auscultation bilaterally. HEART: Regular rate and rhythm. Normal S1 and S2. No murmurs, gallops or rubs. Hands and feet are well-perfused. No edema. ABDOMEN: Flat. Bowel sounds normoactive. No hepatosplenomegaly. No mass. Nontender to palpation. SKIN: Clear of rash. No nodules. NEURO: Alert. No focal deficits appreciated. Coordination is normal. MUSCULOSKELETAL: The mandible appears symmetric. Cameron is able to open his mouth wide with ease. There is no abnormal tracking of the jaw appreciated. There is no swelling or pain with pressure at the temporomandibular, sternoclavicular, or acromioclavicular joints. There is no pain with range of motion, and range of motion is normal at the C-spine, hips and subtalar joints. There is no swelling, no pain with range of motion or pressure, and the range of motion is full at the shoulders, elbows, wrists, knees, ankles, MCPs, MTPs, PIPs, and DIPs. There is no pain with pressure at the sacroiliac joints or tendon insertions onto the pelvis. There continues to be very mild discomfort reported on pressure along the right Achilles tendon. There is no tenderness along the left Achilles tendon. There is no pain at the plantar fascia insertions today. There is no pain on palpation of any of his muscles. He hyperextends his elbows, but not greater than 10 degrees. He is hypermobile at the hips, with nearly 180-degree rotational ability per hip. He also is able to hyperextend at both knees, but not as remarkably. Straight leg raising is still limited to approximately 45 degrees bilaterally. On standing, he continues to flatten his arches but does not have prominent pronation. He is not able to touch histoes when keeping his knees straight, although forward flexion of the spine appears normal. Ambulation is normal, and he runs with ease. IMPRESSION: In summary, Cameron is a nearly myqba-tafb-tvj with arthralgias and a history of enthesitis, who previously demonstrated clinical and laboratory improvement in inflammatory markers on treatment with naproxen, and who is currently symptom-free off of medical therapy. Although he is hypermobile in several areas, he is quite tight in the hamstrings and has pes planus, which in the group home, may contribute to musculoskeletal problems. PLAN: 1. At this time, we will see how Cameron does off of NSAID therapy. As he has discontinued naproxen, laboratory studies for therapeutic drug monitoring are not needed today. Should problems recur, we have asked that his mother notify us. We anticipate that we would reinstitute treatment, as well as assess markers of inflammation. We advised followup with Physical Therapy to establish a home regimen for stretching of the hamstrings and core muscle strengthening. A new prescription was provided. For followup, we have asked that Cameron return in four to six months. His mother was encouraged to call should problems arise in the interim. I have personally examined the patient, reviewed and edited the fellow's note, and agree with the plan of care. Josh Parekh M.D. [facility] Pediatric Rheumatology [phone] Dictated by Natalya Newell M.D., Pediatric Rheumatology Fellow TW:11 cc: Kumar Celestin MD [facility] [address] [facility] [address] [place] [address] Parents of Cameron Manuel [address] [place] [address] DD 05/28/2010 Electronically signed by:Josh Parekh M.D. Jun 01 2010 7:30PM MASH TUB COOKER documented in this encounter Plan of Treatment Not on filedocumented as of this encounter Visit Diagnoses Not on filedocumented in this encounter Care Teams Scheduler Relationship Specialty Start Date End Date Kumar Celestin MD PCP - General 02 12/26/18 [facility] [address] [address] documented as of this encounter
--- OUTSIDE RECORDS SUMMARY | 2022-08-26 16:26 | XMS_ITS | Encounter Summary ---
:2000 Author Organization [place] Address [address] [place] [address]. [place] [address] Care Team Providers Name Role Phone Kumar Celestin MD Primary Care Provider Reason for Visit Reason Comments RECHECK Patient here for follow up o n bilateral leg pain. Knee, ankle and feet pain, some back pain as well. Has enthicitis, is going to starting taking Aleve instead of meloxicam, as it isn't working. Was supposed to see PMD as they can't see thier specialist u ntil October. 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 [address] [place] [address] arthriti s), [place] [address] enthesitis related [place], [place] arthritis ( H) [phone] (Primary Dx) [phone] (Wo rk) Social History Tobacco Use Types Packs/Day Years Used Date Never Smoker Alcohol Use Standard Drinks/Week Comments Not Asked 0 (1 standard drink = 0.6 oz pure alcoho l) Sex Assigned at Date Recorded Not on file documented as of this encounter Last Filed Vital Signs Vital Sign Reading Time Taken Comments Blood Pressure - - Pulse - - Temperature 37 ??C (98.6 ??F) 09/30/2013 3:00 PM BOILER REPAIRMAN Respiratory Rate - - Oxygen Saturation - - Inhaled Oxygen Concentration - - Weight 38.5 kg (84 lb 12.8 oz) 09/30/2013 3:00 PM BOILER REPAIRMAN Height 149.9 cm (4' 11) 09/30/2013 3:00 PM BOILER REPAIRMAN Body Mass Index 17.13 09/30/2013 3:00 PM BOILER REPAIRMAN Body Mass Index Percentile 45.47 % 09/30/2013 3:00 PM CS T Growth Chart: [facility] (Boys, 2-20 Years) documented in this encounter Progress Notes Kumar Celestin MD - 09/30/2013 3:00 PM CST SUBJECTIVE: Cmaeron Manuel is a 13 year old male who presents to clinic today for the following health issues: Bilateral leg pain, back pain, hands hurting, has enthicitis and can't see specialist until October. NAFISA. Has history of flaring with infections. No obvious symptoms or illness, but coughed 2-3 times and was deep. Breathing ok, no fever, no vomiting or diarrhea.runny nose. Little bit of headaches, he gets lots of headaches. Car sick headache. Has history of his pain issues getting worse with mild infections. Physical Exam: 13 year old well developed, well nourished male in no apparent distress. Tympanic membranes with good landmarks bilaterally. Normal color. Conjunctiva without erythema or mattering. Nares without erythema or drainage. Throat without erythema or exudate. No tonsilar hypertrophy. No lymphadenopathy Lungs clear to auscultation. Abdomen soft, non-distended, non-tender, no hepatosplenomegally. No obvious swelling or redness. Assessment: Enthesitis. No obvious infection. Really looks good on exam. Plan: Discussed with cooking chef international sales representative. Recommend prednisone as ordered. Labs. Can stop previous med while on prednisone and to follow up in clinic with rheumatology. ER REPAIRMAN documented in this encounter Nursing Notes 09/30/2013 2:40 PM CST >> LASHONDA Steele Sep 30, 2013 3:01 PM Patient presents with: RECHECK - Patient here for follow up on bilateral leg pain. Knee, ankle and feet pain, some back pain as well. Has enthicitis, is going to starting taking Aleve instead of meloxicam, as it isn't working. Was supposed to see PMD as they can't see thier specialist until October. Initial Temp 98.6 ??F (37 ??C) (Oral) Ht 4' 11 (1.499 m) Wt 84 lb 12.8 oz (38.465 kg) BMI 17.13 kg/m2 Estimated Body mass index is 17.13 kg/(m^2) as calculated from the following: Height as of this encounter: 4' 11(1.499 m). Weight as of this encounter: 84 lb 12.8 oz(38.465 kg). BP completed using cuff size: NA (Not Taken). Lashonda Tomlin CMA documented in this encounter Plan of Treatment Not on filedocumented as of this encounter Procedures Procedure Name Priority Date/Time Associated Comments Diagnosis URINE MICROSCOPIC Routine 09/30/2013 4:47 Results for this PM BOILER REPAIRMAN procedure are i n the results section. UA MACROSCOPIC WITH Routine 09/30/2013 4:47 NAFISA (juvenile Resu lts for this REFLEX TO MICROSCOPIC PM BOILER REPAIRMAN idiopathic proced ure are in AND CULTURE arthritis), the results enthesitis related section. arthritis (H) ANTI DNASE ANTIBODIES Routine 09/30/2013 4:46 NAFISA (juvenile Re sults for this PM BOILER REPAIRMAN idiopathic procedure are i n arthritis), the results enthesitis related section. arthritis (H) CBC WITH PLATELETS & Routine 09/30/2013 4:46 NAFISA (juvenile Res ults for this DIFFERENTIAL PM BOILER REPAIRMAN idiopathic procedure are i n arthritis), the results enthesitis related section. arthritis (H) CRP INFLAMMATION Routine 09/30/2013 4:46 NAFISA (juvenile Results for this PM BOILER REPAIRMAN idiopathic procedure are i n arthritis), the results enthesitis related section. arthritis (H) COMPREHENSIVE METABOLIC Routine 09/30/2013 4:46 NAFISA (juvenile Results for this PANEL PM BOILER REPAIRMAN idiopathic procedure are i n arthritis), the results enthesitis related section. arthritis (H) ANTISTREPTOLYSIN O Routine 09/30/2013 4:46 NAFISA (juvenile Resul ts for this PM BOILER REPAIRMAN idiopathic procedure are i n arthritis), the results enthesitis related section. arthritis (H) documented in this encounter Results (ABNORMAL) Urine Microscopic (09/30/2013 4:47 PM BOILER REPAIRMAN) Analysis Performed At Patho logist Time Signature WBC Urine O - 2 0 - 2 /HPF [facility] RBC Urine O - 2 0 - 2 /HPF [facility] Amorphous Many (A) NEG /HPF [place] Crystals [facility] Specimen Anatomical Collection Method Collection Time Receive d Time (Source) Location / / Volume Laterality 09/30/2013 4:47 PM 3 4:49 BOILER REPAIRMAN PM BOILER REPAIRMAN Kumar Celestin MD LAB - URINE ORDERABLES Performing Organization Address [facility]/ZIP [facility] Phon e Number [facility] [address] [place] [address] [address] *UA reflex to Microscopic and Culture (09/30/2013 4:47 PM BOILER REPAIRMAN) [facility] Method Time Signature Color Urine Yellow [facility] Appearance Urine Slightly [place] Cloudy [facility] Glucose Urine Negative NEG mg/dL [facility] Bilirubin Urine Negative NEG [facility] Ketones Urine Negative NEG mg/dL [facility] Specific [place] 1.025 1.003 - [place] Urine 1.035 [facility] Blood Urine Negative NEG [facility] pH Urine 7.0 5.0 - 7.0 [place] pH [facility] Protein Albumin Negative NEG mg/dL [place] Urine [facility] Urobilinogen 0.2 0.2 - 1.0 [place] Urine EU/dL [facility] Nitrite Urine Negative NEG [facility] Leukocyte Negative NEG [place] Esterase Urine [facility] Source Midstream Urine [place] Midstream Urine [facility] Specimen Anatomical Collection Method Collection Time Receive d Time (Source) Location / / Volume Laterality Urine specimen 09/30/2013 4:47 PM 013 4:49 (specimen) BOILER REPAIRMAN PM BOILER REPAIRMAN Kumar Celestin MD LAB - URINE ORDERABLES Performing Organization Address City/[facility]/ZIP Code Phon e Number [facility] [address] [place], [place] [address] [address] Anti Dnase B antibody (09/30/2013 4:46 PM BOILER REPAIRMAN) [facility] Method Time Signature ANT DNASE B <50 <188 U/mL [facility] ANTIBODIES A single DNase B analysis ma y not be meaningful due to the variability of DNse B UNIVERSITY values within the normal population. ??Both cli nical and laboratory findings CAMPUS LABS should be considered in reaching a diagnosis. Specimen Anatomical Collection Method Collection Time Receive d Time (Source) Location / / Volume Laterality Blood specimen 09/30/2013 4:46 PM 013 4:48 (specimen) BOILER REPAIRMAN PM BOILER REPAIRMAN Kumar Celestin MD LAB - BLOOD ORDERABLES Performing Organization Address City/State/ZIP Code Phon e Number [facility] [address] [place], [place] [id number] [place] [address] LABS CBC with platelets and differential (09/30/2013 4:46 PM BOILER REPAIRMAN) [facility] gist Method Time Signature WBC 5.6 4.0 - [facility] 11.0 CLINICS 10e9/L [place] RBC Count 4.69 3.7 - 5.3 [place] 10e12/L [facility] Hemoglobin 12.7 11.7 - [place] 15.7 g/dL [facility] Hematocrit 38.3 35.0 - [place] 47.0 % [facility] MCV 82 77 - 100 [place] fl [facility] MCH 27.1 26.5 - [facility] 33.0 pg [facility] MCHC 33.2 31.5 - [place] 36.5 g/dL [facility] RDW 12.9 10.0 - [place] 15.0 % [facility] Platelet Count 279 150 - 450 [place] 10e9/L [facility] Diff Method Automated [facility] % Neutrophils 47.2 % [facility] % Lymphocytes 40.4 % [facility] % Monocytes 10.9 % [facility] % Eosinophils 1.3 % [facility] % Basophils 0.2 % [facility] Absolute 2.7 1.3 - 7.0 [place] Neutrophil 10e9/L [facility] Absolute 2.3 1.0 - 5.8 [place] Lymphocytes 10e9/L [facility] Absolute 0.6 0.0 - 1.3 [place] Monocytes 10e9/L [facility] Absolute 0.1 0.0 - 0.7 [place] Eosinophils 10e9/L [facility] Absolute 0.0 0.0 - 0.2 [place] Basophils 10e9/L [facility] Specimen Anatomical Collection Method Collection Time Receive d Time (Source) Location / / Volume Laterality Blood specimen 09/30/2013 4:46 PM 013 4:48 (specimen) BOILER REPAIRMAN PM BOILER REPAIRMAN uKmar Celestin MD LAB - BLOOD ORDERABLES Performing Organization Address City/[facility]/ZIP Code Phon e Number [facility] [address] [place], [place] [address] [address] CRP, inflammation (09/30/2013 4:46 PM BOILER REPAIRMAN) Analysis Performed At Patho logist Time Signature CRP Inflammation <5.0 0.0 - 8.0 [facility] mg/L [facility] LABS Specimen Anatomical Collection Method Collection Time Receive d Time (Source) Location / / Volume Laterality Blood specimen 09/30/2013 4:46 PM 013 4:48 (specimen) BOILER REPAIRMAN PM BOILER REPAIRMAN Kumar Celestin MD LAB - BLOOD ORDERABLES Performing Organization Address City/[facility]/ZIP Code Phon e Number [facility] [address] [place] [address] [facility] LABS Antistreptolysin O (09/30/2013 4:46 PM BOILER REPAIRMAN) [facility] Method Time Signature Antistreptolysin O 119 0 - 320 [facility] IU/mL [facility] LABS Comment: A single ASO analysis may not be meaning ful due to the variability of ASO values within the normal population. ??Both cl inical and laboratory findings should be considered in reaching a diagnosis. ??A single analysis may be less informative than a repeat analysis showing a change . Specimen Anatomical Collection Method Collection Time Receive d Time (Source) Location / / Volume Laterality Blood specimen 09/30/2013 4:46 PM 013 4:48 (specimen) BOILER REPAIRMAN PM BOILER REPAIRMAN Kumar Celestin MD LAB - BLOOD ORDERABLES Performing Organization Address City/[facility]/ZIP Code Phon e Number [facility] [address] [place] [address] [facility] LABS (ABNORMAL) Comprehensive metabolic panel (BMP + Alb, Alk Phos, ALT, AST, Total. Bili, TP) (09/30/2013 4:46 PM BOILER REPAIRMAN) [facility] Method Time Signature Sodium 144 (H) 133 - 143 [place] mmol/L [facility] Potassium 4.2 3.4 - 5.3 [place] mmol/L [facility] Chloride 104 98 - 110 [place] mmol/L [facility] Carbon Dioxide 26 20 - 32 [place] mmol/L [facility] Anion Gap 15 6 - 17 [place] mmol/L [facility] Glucose 100 (H) 60 - 99 [place] mg/dL [facility] Urea Nitrogen 17 5 - 24 [place] mg/dL [facility] Creatinine 0.56 0.39 - [place] 0.73 [facility] mg/dL GFR Estimate GFR not mL/min/1. [facility] calculated, 7m2 [facility] patient <16 years old. GFR Estimate If GFR not mL/min/1. [facility] Black calculated, 7m2 [facility] patient <16 years old. Calcium 9.4 8.7 - [facility] 10.8 [facility] mg/dL Bilirubin Total <0.1 (L) 0.2 - 1.3 [place] mg/dL [facility] Albumin 4.2 3.9 - 5.1 [place] g/dL [facility] Comment: Reference range changed on 07/21. Protein Total 7.2 6.8 - 8.8 g/dL [place] [facility] [place] Comment: As of 08, reference range reflects plasma specimen type. Alkaline Phosphatase 165 130 - 530 U/L [facility] IEW [facility] COLT ALT 33 0 - 50 U/L [facility] EA [place] AST 25 0 - 50 U/L [facility] EA [place] Specimen Anatomical Collection Method Collection Time Receive d Time (Source) Location / / Volume Laterality Blood specimen 09/30/2013 4:46 PM 013 4:48 (specimen) BOILER REPAIRMAN PM BOILER REPAIRMAN Kumar Celestin MD LAB - BLOOD ORDERABLES Performing Organization Address City/State/ZIP Code Phon e Number [facility] [address] [place] [address] documented in this encounter Visit Diagnoses Diagnosis NAFISA (juvenile idiopathic arthritis), 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
--- OUTSIDE RECORDS SUMMARY | 2022-08-26 16:26 | XMS_ITS | Encounter Summary ---
:2000 Author Organization [facility] Address [address] [place] [address]. [place] [address] Care Team Providers Name Role Phone Omid Celestin MD Primary Care Provider Josh Parekh MD Unavailable Reason for Referral Rehab Therapy Physical Therapy - Closed Specialty Diagnoses / Procedures Referred By Contact Refer red To Contact Diagnoses NAFISA (juvenile idiopathic arthritis), enthesitis related arthritis (H) Josh Parekh MD [address] [place] [address] [phone] Referral ID Status Reason Start Date Expiration Date Visits Requ ested Visits Authorized [id number] Closed 12/13/2016 12/13/2017 1 1 NICAL ASSOCIATE Reason for Visit Reason Comments RECHECK pATIENT IS HERE TODAY FOR JI A (juvenile idiopathic arthritis), enthesitis related arthritis (H) follow up Encounter Details Date Type Department Care Team Description 12/13/2016 Office Visit [facility] Josh Parekh MD NAFISA (juvenile [facility] [address] [place] [address] [facility]io [facility] arthritis), [facility] [place], [place] enthesit is related CLinic [id number] arthritis (H) [address] [place] [address] (Primary Dx) [facility] [address] Social History Tobacco Use Types Packs/Day Years Used Date Never Smoker Alcohol Use Standard Drinks/Week Comments Not Asked 0 (1 standard drink = 0.6 oz pure alcoho l) Sex Assigned at Date Recorded Not on file documented as of this encounter Last Filed Vital Signs Vital Sign Reading Time Taken Comments Blood Pressure 127/67 12/13/2016 1:37 PM TECHNICAL ASSOCIATE Pulse 75 12/13/2016 1:37 PM TECHNICAL ASSOCIATE Temperature 37 ??C (98.6 ??F) 12/13/2016 1:37 PM TECHNICAL ASSOCIATE Respiratory Rate 18 12/13/2016 1:37 PM TECHNICAL ASSOCIATE Oxygen Saturation 100% 12/13/2016 1:37 PM TECHNICAL ASSOCIATE Inhaled Oxygen Concentration - - Weight 55.3 kg (121 lb 14.6 oz) 12/13/2016 1:37 PM TECHNICAL ASSOCIATE Height 170.3 cm (5' 7.05) 12/13/2016 1:37 PM TECHNICAL ASSOCIATE Body Mass Index 19.07 12/13/2016 1:37 PM TECHNICAL ASSOCIATE Body Mass Index Percentile 43.20 % 12/13/2016 1:37 PM CS T Growth Chart: [facility] (Boys, 2-20 Years) documented in this encounter Patient Instructions Patient InstructionsJohana Flannery LPN - 12/13/2016 1:38 PM CST [facility] Pediatric Rheumatology For Help: The Pediatric Call Center at [phone] can help with scheduling of routine follow up visits. Corey Townsend is the Rivet Sticker for the Division of Pediatric Rheumatology and is available Sunday through Sunday from 7:00am to 3:30pm. Please call Corey at [phone] to: ??? Schedule joint injections ??? Coordinate your follow up visits with other specialties or procedure for the same day ??? Request a call back from a nurse or your child???s doctor ??? Request refills or lab and x-ray orders ??? Forward medical records ??? Schedule or cancel infusions (please give us 72 hours so other patients can benefit from this opening). Please try to schedule infusions 3 months in advance. Note: Insurance authorization must be obtained before any infusion can be scheduled. If you change health insurance, you must notify our office as soon as possible, so that the infusion can be reauthorized. Ktae De Souza and Mary Karimi are the Nurse Coordinators for the Division of Pediatric Rheumatology and can be reached directly at [phone]. They can help with questions about your child???s rheumatic condition, medications, and test results. For emergencies after hours or on the weekends, please call the page mine motor operator at [phone] and ask to speak to the physician on-call for Pediatric Rheumatology. Please do not use tydy for urgent requests. Main [employer]: [phone] o Hmong/Wes/Sinhala: [phone] o Angolan: [phone] o Sudanese: [phone] o NICAL ASSOCIATE documented in this encounter Progress Notes Josh Parekh MD - 12/13/2016 4:49 PM CST Problem list: Patient Active Problem List Diagnosis Date Noted ??? NAFISA (juvenile idiopathic arthritis), enthesitis related arthritis (H) 08/29/2012 Allergies: Allergies Allergen Reactions ??? No Known Drug Allergies Medications: No current outpatient prescriptions on file. Subjective: Cameron is a 16 year old male who was seen in Pediatric Rheumatology clinic today for follow up. Cameronwas last seen in our clinic on 10/09/2013 and returns today accompanied by his mother. The encounterdiagnosis was NAFISA (juvenile idiopathic arthritis), enthesitis related arthritis (H). Cameron is seen back in followup for his history of enthesitis related NAFISA. The thing that brings him back is injuries. On 09/26/2016, he felt something pop behind his right knee. He ended up with a swollen calf. He was evaluated at urgent care in [facility] and it was thought that this was due to a ruptured plantaris tendon. He needed to wear a boot and use crutches because he simply could not bear weight, and it took 5 weeks to recover. He then injured himself again on 11/29/2016 but in this case it was the left side. Again, while he is a basketball play, it doesn't sound as though he did anything terribly unusual. He was getting out of the shower and suddenly he had trouble with his left leg. His examination raised the question for problems with an insertion of a tendon or the tendon itself. Ibuprofen, crutches and a boot were recommended as well as Rheumatology followup. He used the crutches only briefly. He was out of the boot within a week and a half. Currently, he is not having any trouble with these areas or joints. He is not aware of any enthesitis. He is in basketball and knows that he is sensitive to what happens there. Just this past weekend, his ankles became quite sore because of basketball. This used to not be such a problem. It has been a while since I saw them last and they brought along some information regarding family history. It has been found that there are autoimmune disorders in multiple family members on dad's side. The paternal grandmother has lupus. A paternal uncle as Crohn disease. He also has a mutation of the LMNA gene and there is workup going on to see the relevance. Mom knows that there is both musculardystrophy and cardiomyopathy-like problems. She is not aware of Ratthrw-Aamjm-Rihtk in the family, something of interest given Cameron's high arches. The specific mutations been found in Cameron's uncle julien C. 961C>T change. There is also written on a sheet P. [id number]. Dad has not yet been tested. The only other problem Cameron has had is that his heart sometimes seems to race after he eats a bag of chips (an entire multiserve package of chips); he has not checked his heart rate. He does have a history of what sounds like GERD as an infant, having to sleep sitting upright. Comprehensive Review ofSystems is otherwise negative. He is currently in 8th grade. Examination: Blood pressure 127/67, pulse 75, temperature 98.6 ??F (37 ??C), temperature source Oral, resp. rate 18, height 5' 7.05 (170.3 cm), weight 121 lb 14.6 oz (55.3 kg), SpO2 100 %. Cameron appears generally well and in good spirits. Head: Normal head and hair. Eyes: No scleral injection, pupils normal. Ears: Normal external structures, tympanic membranes. Nose: No cartilage deformity, congestion. Mouth: Normal teeth, gums, tongue, mucosa. [...] cervical spine, TMJ, sternoclavicular, acromioclavicular, glenohumeral, elbow, wrist, finger, lumbar spine, sacroiliac (?tender), hip, knee, ankle, or toe joints. No tendonitis or bursitis. No enthesitis. SLR ~ 50 degrees. Assessment: Cameron has a reassuring examination at this time without evidence of enthesitis or arthritis. He mentioned a little bit of minimal irritation of his SI joints when I palpate him, but he had no visible reaction and this is within the limits of normal. His straight leg raising angle is limited and that means he has predisposed to injuries and would benefit from stretching exercises. As a rapidly growing, tall, gangly kid, I really think conditioning if necessary for him to participate in sports like basketball. He needs to optimize both his strength and his flexibility if he is to avoid injuries. As to his heart racing, I think the first steps would be dietary modification and actual measurement of his pulse rate during an episode. Plan: 1. I recommended that he see physical therapy and I would particularly emphasize Sports Medicine oriented physical therapy evaluation. They could also work with an industrial trainer if that is an easieroption in their area. 2. I do not see a need for labs or x-rays today. 3. As to the family history, he is certainly at risk for enthesitis related NAFISA given his uncle's health problems. 4. In terms of Genetics, it would be important to first make sure that dad is tested. If dad has LMNA mutation then Cameron will need testing as well and may need followup in Genetics or Neurology. 5. At this point, any followup with me can just be on an as needed basis. If there are any new questions or concerns, I would be glad to help and can be reached through our main office at [phone] or our paging mine motor operator at [phone]. Josh Parekh MD CC Patient Care Team: Omid Celestin MD as PCP - General Josh Parekh MD as MD (Pediatrics) OMID CELESTIN Copy to patient Lucrecia Manuel [facility] [id number] NICAL ASSOCIATE documented in this encounter Nursing Notes Johana Flannery LPN - 12/13/2016 1:37 PM CST Chief Complaint Patient presents with ??? RECHECK pATIENT IS HERE TODAY FOR NAFISA (juvenile idiopathic arthritis), enthesitis related arthritis (H) follow up BP 127/67 mmHg Pulse 75 Temp(Src) 98.6 ??F (37 ??C) (Oral) Resp 18 Ht 1.703 m (5' 7.05) Wt 55.3 kg (121 lb 14.6 oz) BMI 19.07 kg/m2 SpO2 100% Johana Flannery LPN NICAL ASSOCIATE documented in this encounter Plan of Treatment Scheduled Referrals Name Type Priority Associated Diagnoses Order S [facility] PHYSICAL THERAPY Referral Routine NAFISA (juvenile idiopathic Ordered: 12/13/2016 REFERRAL arthritis), enthesitis related arthritis (H) documented as of this encounter Visit Diagnoses Diagnosis NAFISA (juvenile idiopathic arthritis), ent hesitis related arthritis (H) - Primary Other specified inflammatory polyarthrop athies documented in this encounter Care Teams Wildlife Veterinarian Relationship Specialty Start Date End Date Omid Celestin MD PCP - General 02 12/26/[address] [place] [address] Josh Parekh MD MD Pediatrics 11/30/16 [address] [place] [address] documented as of this encounter
--- OUTSIDE RECORDS SUMMARY | 2022-08-26 16:26 | XMS_ITS | Encounter Summary ---
:2002 Author Organization [facility] Address [address] [place] [address] Care Team Providers Name Role Phone Kumar Celestin MD Primary Care Provider Josh Parekh MD Unavailable Mary Dowell DO Primary Care Provider Reason for Visit Reason Onset Date Comments Panel Management 06/12/2018 Encounter Details Date Type Department Care Team Description 06/12/2018 Telephone [employer] Kumar Celestin MD Panel Management [place] [address] [place] [address] [place], [place] [phone] [address] (Wo rk) Social History Tobacco Use Types Packs/Day Years Used Date Never Smoker Alcohol Use Standard Drinks/Week Comments Not Asked 0 (1 standard drink = 0.6 oz pure alcoho l) Sex Assigned at Date Recorded Not on file documented as of this encounter Miscellaneous Notes Telephone Encounter - Guadalupe Richardsonmulugeta F - 06/12/2018 2:38 PM CDT Pediatric Panel Management Review Patient has the following on his problem list: Immunizations Immunizations are needed. Patient is due for:Well Child Hep A, HPV and Menactra. Summary: Patient is due/failing the following: Immunizations. Action needed: Patient needs office visit for well child and immunization. Type of outreach: Sent letter Questions for provider review: None. Torin Richardson MA Chart routed to No Action Needed . 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
--- OUTSIDE RECORDS SUMMARY | 2022-08-26 16:26 | XMS_ITS | Encounter Summary ---
:2000 Author Organization [place] Address [address] [facility] [place] [address] Care Team Providers Name Role Phone Josh Parekh MD Unavailable Mary Dowell DO Primary Care Provider Reason for Visit Reason Comments Abdominal Pain Encounter Details Date Type Department Care Team Description 12/27/2018 [facility] [place] Shahbaz Ponce MD Abdominal pain, [facility] [facility] generalized [address] [place], [place] [id number] [place], [place] [phone] (Wo rk) Social History Tobacco Use Types Packs/Day Years Used Date Never Smoker Alcohol Use Standard Drinks/Week Comments Not Asked 0 (1 standard drink = 0.6 oz pure alcoho l) Sex Assigned at Date Recorded Not on file documented as of this encounter Last Filed Vital Signs Vital Sign Reading Time Taken Comments Blood Pressure 134/73 12/27/2018 4:49 PM [employer] CLAIM EXAMINER Pulse 102 12/27/2018 4:49 PM [employer] INS[employer]ANCE CLAIM EXAMINER Temperature 37.1 ??C (98.7 ??F) 12/27/2018 1:40 PM [employer] CLAIM EXAMINER Respiratory Rate 20 12/27/2018 1:40 PM [employer] INS[employer]ANCE CLAIM EXAMINER Oxygen Saturation 98% 12/27/2018 4:49 PM [employer] INS[employer]ANCE CLAIM EXAMINER Inhaled Oxygen Concentration - - Weight - - Height - - Body Mass Index - - documented in this encounter Discharge Instructions Discharge InstructionsShahbaz Ponce MD - 12/27/2018 7:09 PM CST Discharge Instructions Abdominal Pain Abdominal pain (belly pain) can be caused by many things. Your evaluation today does not show the exact cause for your pain. Your provider today has decided that it is unlikely your pain is due to a life threatening problem, or a problem requiring surgery or hospital admission. Sometimes those problems cannot be found right away, so it is very important that you follow up as directed. Sometimes only the changes which occur over time allow the cause of your pain to be found. Generally, every Emergency Department visit should have a follow-up clinic visit with either a primary or a specialty clinic/provider. Please follow-up as instructed by your emergency provider today. With abdominal pain, we often recommend very close follow-up, such as the following day. ADULTS: Return to the Emergency Department right away if: You get an oral temperature above 102oF or as directed by your provider. You have blood in your stools. This may be bright red or appear as black, tarry stools. You keep vomiting (throwing up) or cannot drink liquids. You see blood when you vomit. You cannot have a bowel movement or you cannot pass gas. Your stomach gets bloated or bigger. Your skin or the whites of your eyes look yellow. You faint. You have bloody, frequent or painful urination (peeing). You have new symptoms or anything that worries you. MORE INFORMATION: Appendicitis: A possible cause of abdominal pain in any person who still has their appendix is acuteappendicitis. Appendicitis is often hard to diagnose. Testing does not always rule out early appendicitis or other causes of abdominal pain. Close follow-up with your provider and re-evaluations may beneeded to figure out the reason for your abdominal pain. Follow-up: It is very important that you make an appointment with your clinic and go to the appointment. If you do not follow-up with your primary provider, it may result in missing an important development which could result in permanent injury or disability and/or lasting pain. If there is any problem keeping your appointment, call your provider or return to the Emergency Department. Medications: Take your medications as directed by your provider today. Before using [id number], ask your provider and make sure to take the medications as directed. If you have any questions about medications, ask your provider. Diet: Resume your normal diet as much as possible, but do not eat fried, fatty or spicy foods while you have pain. Do not drink alcohol or have caffeine. Do not smoke tobacco. Probiotics: If you have been given an antibiotic, you may want to also take a probiotic pill or eat yogurt with live cultures. Probiotics have good bacteria to help your intestines stay healthy. Studies have shown that probiotics help prevent diarrhea (loose stools) and other intestine problems (including C. diff infection) when you take antibiotics. You can buy these without a prescription in the pharmacy section of the store. If you were given a prescription for medicine here today, be sure to read all of the information (including the package insert) that comes with your prescription. This will include important information about the medicine, its side effects, and any warnings that you need to know about. The pharmacist who fills the prescription can provide more information and answer questions you may have about the medicine. If you have questions or concerns that the pharmacist cannot address, please call or return to the Emergency Department. Remember that you can always come back to the Emergency Department if you are not able to see your regular provider in the amount of time listed above, if you get any new symptoms, or if there is anything that worries you. [employer]BI[employer] INSURANCE CLAIM EXAMINER documented in this encounter Medications at Time of Discharge Medication Sig Dispensed Refills Start Date End Date ranitidine (ZANTAC) 150 Take 1 tablet (150 20 tablet 0 06/201901/06/2019 MG tablet mg) by mouth 2 times daily for 10 days documented as of this encounter Progress Notes Shanae Johnson CCLS - 12/27/2018 4:35 PM CST 12/27/18 1635 Child Life Location ED Intervention Initial Assessment;Therapeutic Intervention;Procedure Support;Supportive Check In Anxiety Appropriate Major Change/Loss/Stressor/Fears denies Techniques to [place] with Loss/Stress/Change diversional activity;family presence Outcomes/Follow Up Continue to Follow/Support [employer]ANCE CLAIM EXAMINER documented in this encounter ED Notes Nel Cook RN - 12/27/2018 1:42 PM CST Patient brought in by mother states he was seen on 12/[address] scan with early appendicitis. Patient was placed on antibiotics and was feeling better until Sunday when he began having abdominal pain and nausea again. ABC Intact alert and no distress. MOBILE INSURANCE CLAIM EXAMINER Shahbaz Ponce MD - 12/27/2018 1:19 PM CST History Chief Complaint: Abdominal Pain HPI Cameron Manuel is an immunized 18 year old male with a history of enthesitis who presents with his mother for evaluation of abdominal pain. The patient reports that around 11/28 he developed severe generalized abdominal pain and bloating. This pain floats around his abdomen, but he notes that thepain often ends up in the right lower quadrant. He was seen at urgent care shortly after, where CT was obtained as seen below. The CT showed early appendicitis, and the patient was started on antibiotics. He did finish the course of antibiotics, and was able to go home. He does note he felt somewhat improved after eating at that time. This week, his mother states that the generalized abdominal pain and bloating returned, and he developed nausea, vomiting, and diarrhea two days ago. This abdominal pain does not radiate into his groin, and he does not note any alleviating factors. The mother also reports that the patient had a fever yesterday. The patient attests to developing new lower back pain while sitting up on his was into the ED today. He does have medical history of enthesitis, although he denies any pain from this currently. CT Abdomen/Pelvis- 12/05/2018: Findings most consistent with an early appendicitis. No abscess or free air identified. Allergies: No known drug allergies Medications: The patient is currently on no regular medications. Past Medical History: Juvenile idiopathic arthritis, enthesitis related arthritis Other speech disturbance Past Surgical History: History reviewed. No pertinent surgical history. Family History: History reviewed. No pertinent family history. Social History: The patient presents to the ED accompanied by is mother. The patient is up-to-date on most immunizations. Smoking status: Never smoker Review of Systems Constitutional: Positive for fever. Gastrointestinal: Positive for abdominal distention, abdominal pain (generalized, floating), diarrhea, nausea and vomiting. Musculoskeletal: Positive for back pain (lower back). Negative for arthralgias. All other systems reviewed and are negative. Physical Exam Patient Vitals for the past 24 hrs: BP Temp Pulse Resp SpO2 12/27/18 1649 134/73 -- 102 -- 98 % 12/27/18 1340 127/86 98.7 ??F (37.1 ??C) 114 20 97 % Physical Exam Constitutional: vitals reviewed HENT: Moist oral mucosa. Eyes: Grossly normal vision. Pupils are equal and round. Extraocular movements intact. Sclera clear and without icterus. Cardiovascular: Normal rate. Regular rhythm. Respiratory: Effort normal. Clear breath sounds bilaterally. Gastrointestinal: Soft. No distension. Mild tenderness of the periumbilical region. No rebound or guarding. Neurologic: Alert and awake. Coordinated movement of extremities. Speech normal. Skin: No diaphoresis, rashes, ecchymoses, or lesions. Musculoskeletal: No lower extremity edema. No gross deformity. No joint swelling. Psychiatric: Appropriate affect. Behavior is normal. Intact recent and remote memory. Linear thoughtprocess. Emergency Department Course Imaging: Radiographic findings were communicated with the patient who voiced understanding of the findings. Abd/Pel CT, IV Contrast Only- Trauma/AAA: No acute abnormality in the abdomen or pelvis. No cause for abdominal pain is identified. As read by Radiology. US Appendix Only Nonvisualization of the appendix. Appendicitis cannot be excluded on the basis of this exam. As read by Radiology. Laboratory: CBC: WNL (WBC 6.6, HGB 15.2, PLT 208) CMP: WNL (Creatinine 0.67) Lipase: 41 Lactic Acid: 1.7 Interventions: 1650: GI Cocktail - Maalox 15 mL, Viscous Lidocaine 15 mL, 30 mL suspension PO 1735: LR 2L IV Bolus Emergency Department Course: Past medical records, nursing notes, and vitals reviewed. 1540: I performed an exam of the patient and obtained history, as documented above. IV inserted and blood drawn. The patient was sent for an ultrasound of the appendix and CT of the abdomen/pelvis while in the emergency department, findings above. I rechecked the patient. Findings and plan explained to the patient and mother. Patient discharged home with instructions regarding supportive care, medications, and reasons to return. The importance of close follow-up was reviewed. Impression & Plan Medical Decision Making: Patient who presents with ongoing abdominal pain and worsening symptoms over the last few days sincebeing diagnosed with potential early appendicitis approximately [address] scan. The read for this CT scan is visible, and shows inflammation consistent with early appendicitis. He was treatedwith antibiotics alone and had some improvement, but is now worsening again. His symptoms are very atypical for appendicitis, although the presence of antibiotics confounds his presentation and this needs to be ruled out. Other potential etiologies are gastritis, given that the patient has alleviationof symptoms after using Tums. It could also be a side effect of antibiotics causing GI discomfort. He has finished his antibiotics at this point. His laboratory studies are unremarkable. Ultrasound is unable to visualize the appendix. CT scan without abnormality. The patient had no recurrence of his symptoms in the emergency department. We will treated as gastritis given that he has improvement in Tums and that his symptoms seem to be predominant at nighttime. He was given a set 10-day course of Zantac. He was instructed to poultry picker and start taking probiotics. Follow-up with primary care. Return precautions were discussed for worsening symptoms, and especially localized and persistent right lower quadrant pain. He left the emergency department in stable condition. Diagnosis: ICD-10-CM 1. Abdominal pain, generalized R10.84 Disposition: Discharged to home with his mother. Discharge Medications: Started ranitidine 150 MG tablet Commonly known as: ZANTAC 150 mg, Oral, 2 TIMES DAILY Sea Panchal 12/27/2018 [facility] EMERGENCY DEPARTMENT I, Sea Panchal, am serving as a scribe at 3:40 PM on 12/27/2018 to document services personally performed by Shahbaz Ponce MD based on my observations and the provider's statements to me. Shahbaz Ponce MD 12/27/181940 [employer]BILE INSURANCE CLAIM EXAMINER documented in this encounter Plan of Treatment Not on filedocumented as of this encounter Procedures Procedure Name Priority Date/Time Associated Comments Diagnosis CT ABDOMEN PELVIS W STAT 12/27/2018 6:35 PM Re sults for this CONTRAST [employer] CLAIM EXAMINER procedure are i n the results section. US APPENDIX ONLY STAT 12/27/2018 5:24 PM Resul ts for this [employer]ANCE CLAIM EXAMINER procedure are i n the results section. CBC WITH PLATELETS & STAT 12/27/2018 4:30 PM R esults for this DIFFERENTIAL [employer]ANCE CLAIM EXAMINER procedure are i n the results section. LIPASE STAT 12/27/2018 4:30 PM Results f or this [employer]ANCE CLAIM EXAMINER procedure are i n the results section. LACTIC ACID WHOLE STAT 12/27/2018 4:30 PM Resu lts for this BLOOD [employer]ANCE CLAIM EXAMINER procedure are i n the results section. COMPREHENSIVE STAT 12/27/2018 4:30 PM Results for this METABOLIC PANEL [employer]BILE INSURANCE CLAIM EXAMINER procedure ar e in the results section. documented in this encounter Results Abd/pelvis CT, IV contrast only TRAUMA / AAA (12/27/2018 6:35 PM AUTOMOBILE INSURANCE CLAIM EXAMINER) Anatomical Region Laterality Modality Abdomen/Pelvis, SUBRAD CT BODY, UMP CT ABDOMEN PELVIS, Computed Tomography RAD CT Specimen (Source) Anatomical Location Collection Method / Collectio n Time Received Time / Laterality Volume Impressions 12/27/2018 8:43 PM AUT[employer]OBILE INSURANCE CLAIM EXAMINER IMPRESSION: No acute abnormality in the abdomen or pelvis. No cause for abdominal pain is identified. WANDER CAMPOS MD Narrative 12/27/2018 8:43 PM AUTOMOBILE INSURANCE CLAIM EXAMINER CT ABDOMEN AND PELVIS WITH CONTRAST ?? 12/27/2018 6:35 PM HISTORY: Abdominal pain. TECHNIQUE: 61mL Isovue-370 IV were admin istered. After contrast administration, volumetric helical secti ons were acquired from the lung bases to the ischial tuberosities. Coronal images were also reconstructed. Radiation dose for this s can was reduced using automated exposure control, adjustment o f the mA and/or kV according to patient size, or iterative reconstruc tion technique. COMPARISON: None. FINDINGS: No bowel obstruction. The appe ndix is partially visualized, and appears unremarkable where seen. No convincing evidence for appendicitis. No evidence for colitis or diverticulitis. No free fluid in the pelvis. The liver, gallbladder, s pleen, adrenal glands, pancreas, and kidneys are unremarkable. No hydronephrosis. The visualized lung bases are clear. Procedure Note Wander Campos MD - 12/27/2018Forma tting of this note might be different from the original. CT ABDOMEN AND PELVIS WITH CONTRAST 2018 6:35 PM HISTORY: Abdominal pain. TECHNIQUE: 61mL Isovue-370 IV were admin istered. After contrast administration, volumetric helical secti ons were acquired from the lung bases to the ischial tuberosities. Coronal images were also reconstructed. Radiation dose for this s can was reduced using automated exposure control, adjustment o f the mA and/or kV according to patient size, or iterative reconstruc tion technique. COMPARISON: None. FINDINGS: No bowel obstruction. The appe ndix is partially visualized, and appears unremarkable where seen. No convincing evidence for appendicitis. No evidence for colitis or diverticulitis. No free fluid in the pelvis. The liver, gallbladder, s pleen, adrenal glands, pancreas, and kidneys are unremarkable. No hydronephrosis. The visualized lung bases are clear. IMPRESSION: No acute abnormality in the abdomen or pelvis. No cause for abdominal pain is identified. WANDER CAMPOS MD Shahbaz Ponce MD [facility] CT ORDERABLES US Appendix Only (12/27/2018 5:24 PM AUTOMOBILE INSURANCE CLAIM EXAMINER) Anatomical Region Laterality Modality Abdomen/Pelvis Ultrasound Specimen (Source) Anatomical Location Collection Method / Collectio n Time Received Time / Laterality Volume Impressions 12/27/2018 5:32 PM [employer] INSURANCE CLAIM EXAMINER IMPRESSION: Nonvisualization of the appendix. Appendicitis cannot be excluded on the basis of this exam. WANDER CAMPOS MD Narrative 12/27/2018 5:32 PM AUT[employer]OBILE INSURANCE CLAIM EXAMINER US APPENDIX ONLY ?? 12/27/2018 5:24 PM HISTORY: Abdominal pain. COMPARISON: None. FINDINGS: The appendix is not visualized , and therefore appendicitis cannot be excluded. No right lower quadr ant masses or fluid collections are identified. No other son ographic abnormalities are seen in the right lower quadrant. Procedure Note Wander Campos MD - 12/27/2018Forma tting of this note might be different from the original. US APPENDIX ONLY 12/27/2018 5:24 PM HISTORY: Abdominal pain. COMPARISON: None. FINDINGS: The appendix is not visualized , and therefore appendicitis cannot be excluded. No right lower quadr ant masses or fluid collections are identified. No other son ographic abnormalities are seen in the right lower quadrant. IMPRESSION: Nonvisualization of the appe ndix. Appendicitis cannot be excluded on the basis of this exam. WANDER CAMPOS MD Shahbaz Ponce MD [facility] US ORDERABLES Lactic acid whole blood (12/27/2018 4:30 PM AUTOMOBILE INSURANCE CLAIM EXAMINER) athologist Signature Lactic Acid 1.7 0.7 - 2.0 12/27/2018 [facility] mmol/L 4:41 PM [facility] Specimen Anatomical Collection Method Collection Time Receive d Time (Source) Location / / Volume Laterality Blood specimen 12/27/2018 4:30 PM 019 4:36 (specimen) [employer] INSURANCE CLAIM EXAMINER PM [employer] INSURANCE CLAIM EXAMINER Shahbaz Ponce MD LAB - BLOOD ORDERABLES Performing Organization Address [facility]/ZIP [facility] Phon e Number [facility] [address], [place] [address] [facility] [address] [address], [facility] [phone] Lipase (12/27/2018 4:30 PM AUTOMOBILE INSURANCE CLAIM EXAMINER) P athologist Signature Lipase 41 0 - 194 U/L 12/27/2018 [facility] 5:03 PM [facility] Specimen Anatomical Collection Method Collection Time Receive d Time (Source) Location / / Volume Laterality Blood specimen 12/27/2018 4:30 PM 019 4:36 (specimen) [employer] INSURANCE CLAIM EXAMINER PM [employer] INSURANCE CLAIM EXAMINER Shahbaz Ponce MD LAB - BLOOD ORDERABLES Performing Organization Address City/[facility] Phon e Number [facility] [address], [place] [address] [address] [address] [place], [place] [address], [facility] [phone] Comprehensive metabolic panel (12/27/2018 4:30 PM AUT[employer]OBILE INSURANCE CLAIM EXAMINER) Patholo gist Method Time Signature Sodium 137 133 - 144 12/27/2018 [facility] mmol/L 4:55 PM [facility] Potassium 4.2 3.4 - 5.3 12/27/2018 [facility] mmol/L 4:55 PM [facility] Chloride 101 98 - 110 12/27/2018 [facility] mmol/L 4:55 PM [facility] Carbon Dioxide 25 20 - 32 12/27/2018 [facility] mmol/L 5:00 PM [facility] Anion Gap 11 3 - 14 12/27/2018 [facility] mmol/L 5:00 PM [facility] Glucose 82 70 - 99 12/27/2018 [facility] mg/dL 5:00 PM [facility] Urea Nitrogen 11 7 - 21 12/27/2018 [facility] mg/dL 5:00 PM [facility] Creatinine 0.67 0.50 - 12/27/2018 [facility] 1.00 5:00 PM [facility] mg/dL [facility] GFR Estimate GFR not >60 12/27/2018 [facility] calculated, mL/min/{1 5:00 PM [facility] patient <18 .73_m2} HOSPITAL years old. Comment: Non GFR Calc Starting 11/05/2018, serum creatinine ba sed estimated GFR (eGFR) will be calculated using the Chronic Kidney Dise [facility] Epidemiology Collaboration (CKD-EPI) equation. GFR Estimate GFR not >60 mL/min/{1.73_m2} 12/27/2018 5:00 [place] If Black calculated, PM [facility] patient <18 years HOSPITAL old. Comment: GFR Calc Starting 11/05/2018, serum creatinine ba sed estimated GFR (eGFR) will be calculated using the Chronic Kidney Dise [facility] Epidemiology Collaboration (CKD-EPI) equation. Calcium 9.7 9.1 - 10.3 mg/dL 12/27/2018 5:00 PM [facility] Bilirubin Total 0.5 0.2 - 1.3 mg/dL 12/27/2018 5:03 PM [facility] Albumin 4.4 3.4 - 5.0 g/dL 12/27/2018 5:03 PM [facility] Protein Total 8.7 6.8 - 8.8 g/dL 12/27/2018 5:03 PM [facility] Alkaline Phosphatase 100 65 - 260 U/L 12/27/2018 5:03 PM [facility] ALT 16 0 - 50 U/L 12/27/2018 5:03 PM [facility] AST 19 0 - 35 U/L 12/27/2018 5:03 PM [facility] Specimen Anatomical Collection Method Collection Time Receive d Time (Source) Location / / Volume Laterality Blood specimen 12/27/2018 4:30 PM 019 4:36 (specimen) AUTOMOBILE INSURANCE CLAIM EXAMINER [facility] Shahbaz Ponce MD LAB - BLOOD ORDERABLES Performing Organization Address City/State/ZIP Code Phon e Number [facility] [address] [address] [facility] [address] [phone] (ABNORMAL) CBC with platelets differential (12/27/2018 4:30 PM [facility]) [facility] gist Method Time Signature WBC 6.6 4.0 - 12/27/2018 [facility] 11.0 4:44 PM [facility] 10e9/L [facility] RBC Count 5.51 (H) 3.7 - 5.3 12/27/2018 [facility] 10e12/L 4:44 PM [facility] Hemoglobin 15.2 11.7 - 12/27/2018 [facility] 15.7 g/dL 4:44 PM [facility] Hematocrit 45.8 35.0 - 12/27/2018 [facility] 47.0 % 4:44 PM [facility] MCV 83 77 - 100 12/27/2018 [facility] fl 4:44 PM [facility] MCH 27.6 26.5 - 12/27/2018 [facility] 33.0 pg 4:44 PM [facility] MCHC 33.2 31.5 - 12/27/2018 [facility] 36.5 g/dL 4:44 PM [facility] RDW 12.1 10.0 - 12/27/2018 [facility] 15.0 % 4:44 PM [facility] Platelet Count 208 150 - 450 12/27/2018 [facility] 10e9/L 4:44 PM [facility] Diff Method Automated 12/27/2018 [facility] Method 5:54 PM [facility] % Neutrophils 72.1 % 12/27/2018 [facility] 5:54 PM [facility] % Lymphocytes 16.4 % 12/27/2018 [facility] 5:54 PM [facility] % Monocytes 10.0 % 12/27/2018 [facility] 5:54 PM [facility] % Eosinophils 0.9 % 12/27/2018 [facility] 5:54 PM [facility] % Basophils 0.3 % 12/27/2018 [facility] 5:54 PM [facility] % Immature 0.3 % 12/27/2018 [facility] Granulocytes 5:54 PM [facility] Nucleated RBCs 0 0 /100 12/27/2018 [facility] 5:54 PM [facility] Absolute 4.7 1.3 - 7.0 12/27/2018 [facility] Neutrophil 10e9/L 5:54 PM [facility] Absolute 1.1 1.0 - 5.8 12/27/2018 [facility] Lymphocytes 10e9/L 5:54 PM [facility] Absolute 0.7 0.0 - 1.3 12/27/2018 [facility] Monocytes 10e9/L 5:54 PM [facility] Absolute 0.1 0.0 - 0.7 12/27/2018 [facility] Eosinophils 10e9/L 5:54 PM [facility] Absolute 0.0 0.0 - 0.2 12/27/2018 [facility] Basophils 10e9/L 5:54 PM [facility] Abs Immature 0.0 0 - 0.4 12/27/2018 [facility] Granulocytes 10e9/L 5:54 PM [facility] Absolute 0.0 12/27/2018 [facility] Nucleated RBC 5:54 PM [facility] RBC Morphology Consistent 12/27/2018 [place] with reported 5:54 PM [facility] HOSPITAL Platelet Automated 12/27/2018 [place] Estimate count 5:54 PM [facility] confirmed. HOSPITAL Platelet morphology is normal. Specimen Anatomical Collection Method Collection Time Receive d Time (Source) Location / / Volume Laterality Blood specimen 12/27/2018 4:30 PM 019 4:36 (specimen) [employer] CLAIM EXAMINER PM [employer]UR[employer] CLAIM EXAMINER Shahbaz Ponce MD LAB - BLOOD ORDERABLES Performing Organization Address City/State/ZIP Code Phon e Number [place] [address] [phone] documented in this encounter Visit Diagnoses Diagnosis Abdominal pain, generalized documented in this encounter Administered Medications Inactive Administered Medications - up to 3 most recent administrations Medication Order MAR Action Action Date Dose Rate Site 0.9% sodium chloride BOLUS New Bag 12/27/2018 6:24 PM [employer] CLAIM EXAMINER 56 mLs Intravenous, 100 mL, ONCE, On Sun12/27/18 at 1825, For 1 dose iopamidol (ISOVUE-370) solution 500 mL Given 12/27/2018 6:24 PM [employer] INSURANCE CLAIM EXAMINER 61 mLs 500 mL, Intravenous, ONCE, On Sun12/27/18 at 1825, For 1 dose lactated ringers BOLUS 2,000 mL New Bag 12/27/2018 5:35 PM [employer] INSURANCE CLAIM EXAMINER 2,000 mLs 2000 mL/hr Intravenous, 2,000 mL, ONCE, at 2,000 mL/hr, Administer over 1 Hours, On Sun12/27/18 at 1550, For 1 dose lidocaine VISCOUS (XYLOCAINE) 2 % 15 mL, alum Given 4:50 PM [employer] INSURANCE CLAIM EXAMINER 30 mLs & mag hydroxide-simethicone (MYLANTA ES/MAALOX ES) 15 mL GI Cocktail 30 mL, Oral, ONCE, On Sun12/27/18 at 1550, For 1 dose documented in this encounter Active and Recently Administered Medications Times are shown in [employer] CLAIM EXAMINER. Scheduled Medication Order 12/25/2018 12/26/2018 12/27/2018 0.9% sodium chloride BOLUS (COMPLETED) 1823 (New Bag - Provider: Jose Guadalupe Hernandez)183 (Stopped - Provider: Jose Guadalupe Hernandez) Intravenous, 100 mL, ONCE, Sun12/27/18 at 1825, For 1 dose iopamidol (ISOVUE-370) solution 500 mL (COMPLETED) 182 (Given - Provider: Jose Guadalupe Hernandez) 500 mL, Intravenous, ONCE, Sun12/27/18 at 1825, For 1 dose lactated ringers BOLUS 2,000 mL (COMPLETED) 1735 (New Bag - Provider: Cortez Henriquez, ADÁN)1917 (Stopped - Provider: Timothy Schulz RN) Intravenous, 2,000 mL, ONCE, at 2,000 mL /hr, Administer over 1 Hours, On Sun12/27/18 at 1550, For 1 dose lidocaine VISCOUS (XYLOCAINE) 2 % 15 mL, alum & mag hydroxide-simethicone (MYLANTA ES/MAALOX ES) 15 mL GI Cocktail (COMPLETED) 1650 (Given - Provider: Cortez Henriquez, ADÁN) 30 mL, Oral, ONCE, Sun12/27/18 at 1550, For 1 dose ondansetron (ZOFRAN) injection 4 mg 1550 (Canceled Entry - Provider: Orders Generic Provider - Comment: Automatically canceled at discontinue of medication order) 4 mg, Intravenous, ONCE, Administer over 2-5 Minutes, Sun12/27/18 at 1550, For 1 dose, Irritant. For ordered IV doses 0.1-4 mg, give IV Push undiluted over 2-5 minutes. documented in this encounter Care Teams Quartz Miner Blasting Relationship Specialty Start Date End Date Mary Dowell DO PCP - General 12/27/18 [facility] [address] [place] [address] Josh Parekh MD MD Pediatrics 11/30/16 [facility] [place] [address] documented as of this encounter
--- OUTSIDE RECORDS SUMMARY | 2022-08-26 16:26 | XMS_ITS | Encounter Summary ---
:2000 Author Organization [facility] Address [address] [place] [address]. [place] [address] Care Team Providers Name Role Phone Kumar Celestin MD Primary Care Provider Reason for Visit Reason Onset Date Comments Previsit 11/21/2013 Encounter Details Date Type Department Care Team Description 11/21/2013 PRE VISIT [facility], [facility] Peds Nurse Previsit Pediatric Specialty Clinic Explorer [facility] 12th [address] [place], [place] [phone] Social History Tobacco Use Types Packs/Day Years Used Date Never Smoker Alcohol Use Standard Drinks/Week Comments Not Asked 0 (1 standard drink = 0.6 oz pure alcoho l) Sex Assigned at Date Recorded Not on file documented as of this encounter Miscellaneous Notes Telephone Encounter - Madeline Bell LPN - 11/21/2013 9:54 AM CST Patient: Cameron Manuel : 2000 Encounter: 11/21/13 Pre Visit Assessment Patient confirmed he/she will attend appointment: Left VM If no, transferred to call center? NA Parent/guardian was notified to arrive 15 mins prior to appointment/lab: Yes MADELINE BELL E MANAGER documented in this encounter Plan of Treatment Not on filedocumented as of this encounter Visit Diagnoses Not on filedocumented in this encounter Care Teams Felt Hanger Relationship Specialty Start Date End Date Kumar Celestin MD PCP - General 02 12/26/18 [address] [facility] [address] [place] [address] documented as of this encounter
--- OUTSIDE RECORDS SUMMARY | 2022-08-26 16:26 | XMS_ITS | Encounter Summary ---
:2000 Author Organization [place] Address [address] [place] [address] Care Team Providers Name Role Phone Kumar Celestin MD Primary Care Provider Encounter Details Date Type Department Care Team Description 07/21/2012 Medical Correspondence [facility] Galilea Celestin [facility] Patricia Newman MD [address] [place] [address] [place] [phone] Social History Tobacco Use Types Packs/Day Years Used Date Never Smoker Alcohol Use Standard Drinks/Week Comments Not Asked 0 (1 standard drink = 0.6 oz pure alcoho l) Sex Assigned at Date Recorded Not on file documented as of this encounter Plan of Treatment Not on filedocumented as of this encounter Visit Diagnoses Not on filedocumented in this encounter Care Teams Sales And Business Development Manager Relationship Specialty Start Date End Date Kumar Celestin MD PCP - General 02 12/26/[address] [place] [address] documented as of this encounter
--- OUTSIDE RECORDS SUMMARY | 2022-08-26 16:26 | XMS_ITS | Encounter Summary ---
:2000 Author Organization [facility] Address [address] [place] [address] Care Team Providers Name Role Phone Kumar Celestin MD Primary Care Provider Reason for Visit Reason Comments Derm Problem Patient here to have wart on right great toe treated. Has tried OTC with no help. Encounter Details Date Type Department Care Team Description 11/25/2015 Office Visit [facility] Kumar Celestin, Com mon lori (Primary Clinic Patricia STEVENS Dx) [address] [place] [address] [place] [address] [place] [phone] (Wo rk) Social History Tobacco Use Types Packs/Day Years Used Date Never Smoker Alcohol Use Standard Drinks/Week Comments Not Asked 0 (1 standard drink = 0.6 oz pure alcoho l) Sex Assigned at Date Recorded Not on file documented as of this encounter Last Filed Vital Signs Vital Sign Reading Time Taken Comments Blood Pressure 101/54 11/25/2015 3:14 PM BUTTON FACING MACHINE OPERATOR Pulse 75 11/25/2015 3:14 PM BUTTON FACING MACHINE OPERATOR Temperature 36.2 ??C (97.1 ??F) 11/25/2015 3:14 PM BUTTON FACING MACHINE OPERATOR Respiratory Rate - - Oxygen Saturation - - Inhaled Oxygen Concentration - - Weight 48.4 kg (106 lb 9.6 oz) 11/25/2015 3:14 PM BUTTON FACING MACHINE OPERATOR Height 160.7 cm (5' 3.25) 11/25/2015 3:14 PM BUTTON FACING MACHINE OPERATOR Body Mass Index 18.73 11/25/2015 3:14 PM BUTTON FACING MACHINE OPERATOR Body Mass Index Percentile 49.27 % 11/25/2015 3:14 PM CS T Growth Chart: [facility] (Boys, 2-20 Years) documented in this encounter Progress Notes Kumar Celestin MD - 11/25/2015 3:16 PM CST SUBJECTIVE: Cameron Manuel is a 15 year old male who presents to clinic today with mother because of: Chief Complaint Patient presents with ??? Derm Problem Patient here to have wart on right great toe treated. Has tried OTC with no help. HPI: Large wart and several satellitees. Frozen.. SUBJECTIVE: Cameron is a 15 year old male who presents today with concerns over wart(s). Pt. has 1 wart(s) locatedin the following areas: toes. OBJECTIVE: Exam shows lesion(s) in the above mentioned areas. Size(s) 5 mm. Treatment discussed with patient. Cameron agrees to treatment with liquid nitrogen. Liquid nitrogen is then applied for 15-20 seconds. Procedure tolerated well. ASSESSMENT: Viral wart removal (078.10) PLAN: Post-treatment care instructions discussed. Follow-up in 2-3 weeks for retreatment prn. ON FACING MACHINE OPERATOR documented in this encounter Nursing Notes Lashonda Tomlin - 11/25/2015 3:15 PM CST Chief Complaint Patient presents with ??? Derm Problem Patient here to have wart on right great toe treated. Has tried OTC with no help. Initial BP 101/54 mmHg Pulse 75 Temp(Src) 97.1 ??F (36.2 ??C) (Oral) Ht 5' 3.25 (1.607 m) Wt 106 lb 9.6 oz (48.353 kg) BMI 18.72 kg/m2 Estimated body mass index is 18.72 kg/(m^2) as calculated from the following: Height as of this encounter: 5' 3.25 (1.607 m). Weight as of this encounter: 106 lb 9.6 oz (48.353 kg). BP completed using cuff size: regular. Lashonda Nabor, CONCRETE MIXER OPERATOR ON FACING MACHINE OPERATOR documented in this encounter Plan of Treatment Not on filedocumented as of this encounter Procedures Procedure Name Priority Date/Time Associated Diagnosis Comme nts HC DESTRUCT BENIGN Routine 01/05/2016 11:24 PM BUTTON FACING MACHINE OPERATOR Common wart LESION, UP TO 14 documented in this encounter Visit Diagnoses Diagnosis Common wart - Primary Other specified viral warts documented in this encounter Care Teams Renal Nurse Relationship Specialty Start Date End Date Kumar Celestin MD PCP - General 02 12/26/18 [address] [facility] [address] [place] [address] documented as of this encounter
--- OUTSIDE RECORDS SUMMARY | 2022-08-26 16:26 | XMS_ITS | Encounter Summary ---
:2000 Author Organization [facility] Address [address] [place] [address]. [place] [address] Care Team Providers Name Role Phone Kumar Celestin MD Primary Care Provider Encounter Details Date Type Department Care Team Description 03/02/2010 Office Visit-[facility]PT Unknown, Provider Social History Tobacco Use Types Packs/Day Years Used Date Never Smoker Alcohol Use Standard Drinks/Week Comments Not Asked 0 (1 standard drink = 0.6 oz pure alcoho l) Sex Assigned at Date Recorded Not on file documented as of this encounter Progress Notes Unknown, Provider - 03/02/2010 1:20 PM CDT Entomology Professor: Angella Glover Status: Final Encounter: 02 Mar 2010 Type: Rooming Note Informant Parent is informant unless otherwise noted. Reason For Visit Check-up. Do you have any other appointments, tests or procedures within the [facility] system for this same day? No. Pain Eval Current history of pain associated with this visit is as follows: Location: Legs, ankles, cafs Quality: feelings like someone is squeezing them Severity: 5 (Pain scale 1-10, with 10 being the worst) Duration: off and on Timing: NA Context: NA Modifying factors: basketball, running makes worse, sit makes but not sitting for a long period of time Associated signs/symptoms: sitting, running. 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 Personal Hx Behavioral history: No tobacco use. Home environment: No secondhand tobacco smoke in home. Vital Signs Position for height measurement: standing Blood pressure taken with: electronic BP machine. Recorded by [email or web address] on 02 Mar 2010 01:15 PM BP:104/56, RUE, Sitting, HR: 107 b/min, R Radial, Normal, Resp: 16 r/min, Temp: 95.6 F, Oral, Height: 130.8 cm, Weight: 28.4 kg, BMI: 16.6 kg/m2, Pain Scale: 0. Immunizations Immunizations are reported as current. Allergies No Known Allergies No Known Drug Allergy. Current Meds Med list offered and patient declined. Naproxen 125 MG/5ML Suspension;TAKE 10 ML TWICE DAILY WITH FOOD; Rx AAA-MED RECONCILE;Per patient.; RPT. Signature Signed By: Angella Glover MA; 03/02/2010 1:18 PM PRECISION DANCER. documented in this encounter Plan of Treatment Not on filedocumented as of this encounter Visit Diagnoses Not on filedocumented in this encounter Care Teams Optomechanical Engineer Relationship Specialty Start Date End Date Kumar Celestin MD PCP - General 02 12/26/18 [address] [facility] [address] [place] [address] documented as of this encounter
--- OUTSIDE RECORDS SUMMARY | 2022-08-26 16:26 | XMS_ITS | Encounter Summary ---
:2000 Author Organization [place] Address [address] [place] [address] Care Team Providers Name Role Phone Kumar Celestin MD Primary Care Provider Encounter Details Date Type Department Care Team Description 09/23/2010 Abstract [facility] Abstract, Provider DIAG NOSIS NOT YET [facility] [place] DEFINED (Primary Dx) [address] [place] [address] Social History Tobacco Use Types Packs/Day Years Used Date Never Smoker Alcohol Use Standard Drinks/Week Comments Not Asked 0 (1 standard drink = 0.6 oz pure alcoho l) Sex Assigned at Date Recorded Not on file documented as of this encounter Plan of Treatment Not on filedocumented as of this encounter Procedures Procedure Name Priority Date/Time Associated Diagnosis Comme nts AST Routine 09/23/2010 DIAGNOSIS NOT YET DEFINED Re sults for this procedure are i n the results section . ALT Routine 09/23/2010 DIAGNOSIS NOT YET DEFINED Re sults for this procedure are i n the results section . documented in this encounter Results ALT (09/23/2010) P athologist Signature ALT 14@ U/L [facility] Specimen (Source) Anatomical Location Collection Method / Collectio n Time Received Time / Laterality Volume Blood specimen (specimen) Impressions [facility] - 09/23/2010 LAB RESULT FROM RHEUMATOLOGY CONSULT [facility] ED: 09/23/2010 Provider Abstract LAB - BLOOD ORDERABLES Performing Organization Address City/State/ZIP Code Phon e Number [facility] AST (09/23/2010) P athologist Signature AST 31@ U/L [facility] Specimen (Source) Anatomical Location Collection Method / Collectio n Time Received Time / Laterality Volume Blood specimen (specimen) Impressions [facility] - 09/23/2010 LAB RESULT FROM RHEUMATOLOGY CONSULT DANISHA ED: 09/23/2010 Provider Abstract LAB - BLOOD ORDERABLES Performing Organization Address City/State/ZIP Code Phon e Number [facility] documented in this encounter Visit Diagnoses Diagnosis DIAGNOSIS NOT YET DEFINED - Primary documented in this encounter Care Teams Mechanical Engineering Teacher Relationship Specialty Start Date End Date Kumar Celestin MD PCP - General 02 12/26/[address] [facility] [address] [place] [address] documented as of this encounter
--- OUTSIDE RECORDS SUMMARY | 2022-08-26 16:26 | XMS_ITS | Encounter Summary ---
:2000 Author Organization [place] Address [facility] [place] [address] Care Team Providers Name Role Phone Kumar Celestin MD Primary Care Provider Encounter Details Date Type Department Care Team Description 09/23/2010 Office Visit-[facility] Josh Parekh MD [facility] [address] [facility] [place] [address] [facility] [address] [place] [address] [address] [place] [phone] Social History Tobacco Use Types Packs/Day Years Used Date Never Smoker Alcohol Use Standard Drinks/Week Comments Not Asked 0 (1 standard drink = 0.6 oz pure alcoho l) Sex Assigned at Date Recorded Not on file documented as of this encounter Progress Notes Josh Parekh - 09/23/2010 10:40 AM CDT Substance Abuse Services Director: Josh Parekh Status: Final - Signature Encounter: 23 Sep 2010 Type: Peds Visit Division of Pediatric Rheumatology Department of Pediatrics [place] Mail [address] [place] [address] Office: [phone] Pediatric [facility]ty [facility] - [facility] Fourth Floor, Clinic [address] [place] [address] RE: Cameron Manuel : 2000 JULIAN: 09/23/2010 OUTPATIENT VISIT NOTE MEDICATIONS: Naproxen 250 mg twice daily with food. INTERIM HISTORY: Cameron is an [id number] male who presents accompanied by his mother and sister for follow-up of arthralgias and enthesitis. Our last visit was on May 27. He previously demonstrated clinical improvement and improvement of inflammatory markers on treatment with naproxen. At the time of our last visit, he was symptom-free off of medical therapy. He has hypermobility affecting several areas and has tight hamstrings and pes planus, which have contributed to his musculoskeletal problems. Following our last visit he remained off of NSAID therapy for approximately three weeks, but ultimately restartedtreatment due to obvious reemergence of his previous complaints when he had enthesitis. Since resuming the medication, he has significantly improved. On our survey, he miranda his neck, low back and both heels. He reports that his neck is sore sometimes in the morning. He has been advised by his mother to sleep with one pillow, although at times does sleep with two. His mother has noticed that he seems to move stiffly in the neck area in the mornings. He has complained of his mid lower back hurting when he gets into the car after school or when sitting to eat a snack. After a long day of play and going up stairs (two sets) at home, he has had pain at the proximal aspect of the Achilles tendons and has requested help from his mother. He was evaluated by physical therapy on August 04. The visit note was reviewed. The therapist noted that he was having significantly less pain than when he was first evaluated in February and that hehad less passive motion of both feet, which was an improvement. He had tight musculature throughout the trunk and lower extremities. He was prescribed a home exercise program including quad stretches in prone, assisted hamstring stretches in supine and trunk strength stretches in supine over a ball. They had planned to see him back for additional visits. However, his mother received a letter from [employer] that P.T. would no longer be covered. In addition to the home regimen, P.T. recomme nded that Cameron receive an O.T. evaluation through the school system and that he have a chair at school that fits him well, so that his feet may rest on the floor and improve posture. They advised using a ball for sitting in school at his desk, and that he have some sort of support when doing floor time with his classmates, such as a corner chair. Cameron's mother reports that the school requires a letter in order for them to accommodate these recommendations. Cameron adds that when he is cold he seems to be more stiff. His mother plans for him to use hand warmers regularly this winter. He has been participating fully in gym and has not been sitting out of activities during recess. On a scale for how much pain he has had this past week with ten being very severe pain and zero being no pain he miranda between a one and two. On a similar scale for how well he has been doing, with ten being very poorly and zero being very well, he miranda between a zero and one. He agrees that his chair and desk need to be higher at school. REVIEW OF SYSTEMS: Cameron reports that he occasionally gets canker sores right before he gets a cold,although he has had no none recently. Occasionally he feels some discomfort under his rib cage likesome air is stuck. His mother reports that he has developed some back pain and lower abdominal painwhen he has held his urine for prolonged periods. The remainder of a ten point comprehensive review of systems was obtained, is as already noted above and is otherwise negative. PHYSICAL EXAMINATION: Vital signs: Temperature is 98.8 degrees Fahrenheit, blood pressure is 92/60, pulse rate is 85. Weight is 28.8 kilograms which is a 0.5 kilogram increase. Height is 134.8 centimeters, which is a 1.3 centimeter increase. Appearance: Cameron appears to be in excellent health and comfortable. HEENT: Head and hair are normal. Sclerae and conjunctiva are clear. Pupils are equal, round and reactive to light. He has some dried mucous adherent to his nasal passages and his turbinates are mildly edematous. There are no oral or nasal lesions. Mucous membranes are moist and there is a normal salival pool. The TMs are normal bilaterally. The gingivae and dentition appear healthy. The oropharynx isclear. Neck: Supple, no mass. Nodes: No cervical, occipital, or supraclavicular lymphadenopathy. Lungs: Normal pattern and effort. Clear to auscultation bilaterally. Heart: Regular rate and rhythm. Normal S1 and S2. No murmurs, gallops or rubs. Hands and feet are warm and well perfused. No livedo or cyanosis. No edema. Abdomen: Flat, bowel sounds are normoactive. No hepatosplenomegaly. No mass. Nontender to palpation. Skin: Clear of rash. No nodules. Neuro: Alert. Coordination is normal. Musculoskeletal: The mandible appears symmetric. He is able to open his mouth wide with ease and there is no abnormal tracking of the jaw. There is no swelling or pain with pressure at the TM, SC or ACjoints. There is no pain with range of motion and range of motion is full at the c-spine, hips and subtalar joints. There is no evidence for synovitis at the shoulders, elbows, wrist, knees, ankles, MCPs, MPTs, PIPs and DIPs. There is no pain with pressure at the SI joints or tendon insertions onto the pelvis. There continues to be discomfort reported on pressure along the right Achilles tendon. There is no tenderness along the left Achilles tendon. There is no pain at the plantar fascia insertions today. There is no pain on palpation of any of his muscles. He is hypermobile at the c-spine. He hyperextend's his elbows but not greater than ten degrees. He remains hypermobile at the hips, with nearly 180 degree rotational ability per hip. He is also able to hyperextend both knees but not as remarkab ly. Straight leg raising is improved from previous (45 degrees bilaterally) although remains limited(60 degrees bilaterally). On standing his arches seem a little better preserved and he no longer hasprominent pronation. He is not able to touch his toes when keeping his knees straight although forward flexion of the spine appears normal. Modified Clifton distance is normal. Ambulation is normal andhe runs with ease. IMPRESSION: In summary, Cameron is an [age] year old with enthesitis as well as arthralgias related tohypermobility. He had a clear reemergence of symptoms when off of naproxen and has demonstrated improvement since resuming the medication, although still has some relatively minor complaints. It is suspected that the c- spine and low back complaints remain mechanical in nature and that addressing theseissues, as was also advised by the physical therapist, is warranted. PLAN: 1. Laboratory studies were obtained today for monitoring of his medical therapy and markers of inflammation. WBC count is 9,800 with a normal absolute differential; hemoglobin 12.7; platelets 296,000; albumin 4.6; AST 31, ALT 14; CRP < 5.0; ESR 5. These are normal. UA has a few amorphous crystals and is otherwise normal. Creatinine is 0.57. In February, creatinine was 0.44. Given the change in creatinine, we will ask that creatinine be repeated in the next couple of weeks. If it remains elevated, wewill adjust his NSAID treatment. He will continue naproxen 250 mg p.o. twice daily with food. Should he continue to have problems despite addressing the mechanical issues and during this winter, the family will notify us. Should this occur, we would consider a trial of another NSAID such as meloxicam. He would benefit from follow-up with physical therapy as well as from an occupational therapy assessment at school. A letter will be written to his insurance company as well as to the school in supportof this. He received an influenza vaccine in clinic today. He should have an eye exam annually. We've asked that he return for follow-up in four months. His mother was encouraged to call should problems arise in the interim. Thank you for allowing us to continue to take part in the care of Cameron. Please feel free to contactus if you have questions regarding the above. I have personally examined the patient, reviewed and edited the fellow's note and agree with the plan of care. Josh Parekh M.D. [facility] Pediatric Rheumatology [phone] Dictated by Natalya Carballo M.D. Pediatric Rheumatology Fellow [id number] cc: Kumar Celestin MD [facility] [address] [facility] [address] [place] [address] Parents of Cameron Manuel [id number] [place] [address] DD 09/23/2010 Electronically signed by:Josh Parekh M.D. Oct 03 2010 7:51AM CORK FLOOR INSTALLER documented in this encounter Plan of Treatment Not on filedocumented as of this encounter Visit Diagnoses Not on filedocumented in this encounter Care Teams Physician Support Coordinator Relationship Specialty Start Date End Date Kumar Celestin MD PCP - General 02 12/26/18 [address] [place] [phone] documented as of this encounter
--- OUTSIDE RECORDS SUMMARY | 2022-08-26 16:26 | XMS_ITS | Encounter Summary ---
:2000 Author Organization [place] Address [address] [place] [address]. [place] [address] Care Team Providers Name Role Phone Omid Celestin MD Primary Care Provider Reason for Visit Reason Comments Other JRA check Encounter Details Date Type Department Care Team Description 08/29[facility] ([facility] [address] [place] [address] [facility] [place], [place] enth esitis related [address] [id number] arthritis (H) 12th Floor (Primary Dx) [address] [place] [address] [place] [address] Social History Tobacco Use Types Packs/Day Years Used Date Never Smoker Alcohol Use Standard Drinks/Week Comments Not Asked 0 (1 standard drink = 0.6 oz pure alcoho l) Sex Assigned at Date Recorded Not on file documented as of this encounter Last Filed Vital Signs Vital Sign Reading Time Taken Comments Blood Pressure 105/71 08/29/2012 11:09 AM CDT Pulse 68 08/29/2012 11:09 AM CDT Temperature 37.1 ??C (98.8 ??F) 08/29/2012 11:09 AM CDT Respiratory Rate - - Oxygen Saturation - - Inhaled Oxygen Concentration - - Weight 34.1 kg (75 lb 2.8 oz) 08/29/2012 11:09 AM CDT Height 144.9 cm (4' 9.05) 08/29/2012 11:09 AM CDT Body Mass Index 16.24 08/29/2012 11:09 AM CDT Body Mass Index Percentile 39.41 % 08/29/2012 11:09 AM C DT Growth Chart: [facility] (Boys, 2-20 Years) documented in this encounter Patient Instructions Patient InstructionsAiden Jacobs MD - 08/29/2012 11:38 AM CDT 1. If a flare, can use ibuprofen (up to 2 tablets three times a day) or naproxen (up to 1 tablet three times a day) with food, or meloxicam one tablet once a day. 2. If he gets a medicine most days, then labs should be done to make sure things are being used safely. Those recommendations will be in the clinic note. documented in this encounter Progress Notes Aiden Jacobs MD - 08/29/2012 12:36 PM CDT Allergies: Allergies Allergen Reactions ??? No Known Drug Allergies Medications: As of completion of this visit: Current Outpatient Prescriptions Medication Sig ??? meloxicam (MOBIC) 7.5 MG tablet Take 1 tablet by mouth daily. 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 I saw him last in 03/2011 and he did great after that except for until just recently. He took Meloxicam for about a week, then came off of it. He was able play soccer, basketball and baseball without any real problems. However, at the start, right after the start of the school year he developed a sore throat and fever and this seemed to precipitate a flare of musculoskeletal pain. He has not had strep infection according to a Rapid Strep screen and on the culture he grew a form of strep thatsounds like non-group A beta hemolytic strep. He has not been treated with antibiotics. In the last day or so he is just starting to feel well after 2-3 weeks of difficulty. He had his last eye examination sometime during the summer of 2010 and this was reassuring. He has had no other health concerns,suggesting a generalized flare or other associated problems developing. Comprehensive Review of Systems is otherwise negative. He is in 4th grade this year. Information per our standardized questionnaire is as below: Last Exam Last Eye Exam: 05/22/11 Self Report Patient Pain Status: 5 Patient Global Assessment Of Disease Activity: 5 Score Reported By: Mom/Stepmom Arthritis History Morning stiffness in the past week: > 15 - 30 min Has your arthritis stopped from trying any athletic or rigorous activities, or interfaced with your ability to do these activities: No Have you been limited your ability to do normal daily activities in the past week: No Did you needed help from other people to do normal activities in the past week: No Have you used any aids or devices to help you do normal daily activities in the past week: No Important Medical Events Hospitalized Since Last Visit: No Examination: Blood pressure 105/71, pulse 68, temperature 98.8 ??F (37.1 ??C), temperature source Oral, height 4'9.05 (144.9 cm), weight 75 lb 2.8 oz (34.1 kg). Cameron appears generally well and in good spirits. Head: Normal head and hair. Eyes: No scleral or conjunctival injection, pupils normal. Ears: Normal external structures, tympanic membranes. Nose: No cartilage deformity, congestion. Mouth: Normal teeth, gums, tongue, mucosa. Throat: Normal, without erythema or exudate. Neck: Normal, without thyromegaly, Nodes: No cervical, supraclavicular, axillary, inguinal adenopathy. Lungs: Normal effort, clear to ausculation. Heart: Regular rate and rhythm, S1 and S2, no murmurs; normal peripheral pulses and perfusion. Abdomen: Soft, non-tender, without hepatomegaly, splenomegaly, or masses. Skin: No inflammatory lesions, only normal scratches and bruises. Nails: No pitting, infection. Neurological: Alert, appropriately interactive, normal cranial nerves, no deficits, normal strength. Musculoskeletal: No evidence of current or past synovitis of the cervical spine, TMJ, sternoclavicular, acromioclavicular, glenohumeral, elbow, wrists, finger, hip, knee, ankle, or toe joints. No tendonitis or bursitis. No enthesitis. He is generally hypermobile. NAFISA Exam Details: Axial Skeleton Sacro-Iliac: R Tender;L Tender Upper Extremity Normal Lower Extremity Normal Entheses Normal Last Imaging Results: Radiology results from 03/20/11 -X-RAY SACROILIAC JOINT IMAGECAST RESULT Value: EXAM: Single view of the SI joints 03/20/2011 at 1100 hours. HISTORY: Pain, evaluate for arthritis. COMPARISON: Radiograph of the abdomen and pelvis 01/29/2005. FINDINGS: The bilateral sacroiliac joints are unremarkable. No evidence of erosions or sclerosis. IMPRESSION: Normal sacroiliac joints. I have personally reviewed the image and initial interpretation, and I agree with findings. Assessment: Cameron appears to be doing well today, but had a significant flareup recently of his musculoskeletal pain (not entirely clear whether it was all arthritis or enthesitis). I explained that in kids with enthesitis related NAFISA are prone to infectious illnesses triggering flares. Since this does not appearto be a group A beta hemolytic strep related illness and no further laboratory testing is needed to specifically to look for the Infectious trigger or to treat it. At this point, it could be purely symptomatic management. The expectation would be that he might still have a few days of breakthrough symptoms out to 6 weeks, but then he should be basically fine. If not, we would want to reassess him. Change Since Last Visit: Same ACR Functional Class: Normal Provider Global Assessment Of Disease Activity: 0.5 (This is measured on the scale of 0(Inactive)-10) On Medication For Treatment Of NAFISA?: No Normal ESR: Not Done Normal CRP: Not Done MORENA Status: Negative Rheumatoid Factor: Negative In Compliance With Screening Interval For NAFISA: No Plan: 1. Instructions were provided regarding safe use of an NSAID, such as ibuprofen 400 mg up to 3 timesa day, Naproxen sodium 220 mg up to 3 times a day or Meloxicam 7.5 mg once a day. These should always be given with food. 2. If he stays on him regularly he should have monitoring labs periodically (usually a month after starting then every 3-4 months thereafter). These labs include a CBC with differential and platelet count, ALT, creatinine, urinalysis and I would do a followup ESR and CRP. 3. I did not schedule a followup at this point, but I would see him back in a year's time if he is still having ups and downs and needs this medication, or sooner if he is having more trouble. 4. I would recommend getting a slit lamp eye examination annually to make sure we do not overlook a rare case of silent uveitis. AIDEN JACOBS MD CC Patient Care Team: Omid Celestin MD as PCP - General OMID CELESTIN Copy to patient Lucrecia Manuel [facility] [phone] documented in this encounter Nursing Notes 08/29/2012 11:20 AM CDT >> MADELINE BELL [facility] Aug 29, 2012 11:09 AM Patient presents with: Other - JRA check Madeline Bell documented in this encounter Plan of Treatment Not on filedocumented as of this encounter Visit Diagnoses Diagnosis NAFISA (juvenile idiopathic arthritis), ent hesitis related arthritis (H) - Primary Other specified inflammatory polyarthrop athies documented in this encounter Care Teams Capacitor Inspector Relationship Specialty Start Date End Date Omid Celestin MD PCP - General 02 12/26/18 [facility] [address] [place] [address] documented as of this encounter
--- OUTSIDE RECORDS SUMMARY | 2022-08-26 16:26 | XMS_ITS | Encounter Summary ---
:2000 Author Organization [place] Address [address] [place] [address]. [place] [address] Care Team Providers Name Role Phone Kumar Celestin MD Primary Care Provider Encounter Details Date Type Department Care Team Description 10/17/2010 Historic Results Specialty Infusion and Vehe, Ri drew Newman MD Procedure Center [address] [place], [place] [address] [place] [phone] Social History Tobacco Use Types Packs/Day Years Used Date Never Smoker Alcohol Use Standard Drinks/Week Comments Not Asked 0 (1 standard drink = 0.6 oz pure alcoho l) Sex Assigned at Date Recorded Not on file documented as of this encounter Plan of Treatment Not on filedocumented as of this encounter Procedures Procedure Name Priority Date/Time Associated Comments Diagnosis CBC WITH PLATELETS & Routine 10/17/2010 3:50 PM R esults for this DIFFERENTIAL HARVEST CONTRACTOR procedure are i n the results section. UREA NITROGEN (BUN) Routine 10/17/2010 3:50 PM Re sults for this HARVEST CONTRACTOR procedure are i n the results section. CREATININE Routine 10/17/2010 3:50 PM Results f or this HARVEST CONTRACTOR procedure are i n the results section. documented in this encounter Results Urea nitrogen (10/17/2010 3:50 PM HARVEST CONTRACTOR) P athologist Signature Urea Nitrogen 16 5 - 24 MISYS mg/dL Specimen Anatomical Collection Method Collection Time Receive d Time (Source) Location / / Volume Laterality 10/17/2010 3:50 PM 0 3:43 HARVEST CONTRACTOR PM HARVEST CONTRACTOR Josh Parekh MD LAB - BLOOD ORDERABLES Performing Organization Address City/State/ZIP Code Phon e Number MISYS (ABNORMAL) CBC with platelets differential (10/17/2010 3:50 PM HARVEST CONTRACTOR) [facility] gist Method Time Signature MCV 78 70 - 100 [place]IS[place] fl MCH 25.4 (L) 26.5 - MISYS 33.0 pg MCHC 32.5 31.5 - MISYS 36.5 g/dL RDW 13.5 10.0 - MIS[facility] 15.0 % WBC 10.1 5.0 - MISYS 14.5 10e9/L RBC Count 4.88 3.7 - 5.3 MIS[facility] 10e12/L Hemoglobin 12.4 10.5 - MISYS 14.0 g/dL Hematocrit 38.2 31.5 - MISYS 43.0 % % Neutrophils 61 (H) 32 - 54 % MISYS % Lymphocytes 28 27 - 57 % MISYS % Monocytes 10 0 - 10 % MISYS % Eosinophils 1 0 - 6 % MISYS % Basophils 0 0 - 1 % MIS[facility] Platelet Count 259 150 - 450 MIS[facility] 10e9/L Absolute 6.1 1.3 - 8.1 M[facility] Neutrophil 10e9/L Absolute 2.8 1.1 - 8.6 MIS[facility] Lymphocytes 10e9/L Absolute 1.0 0.0 - 1.1 MIS[facility] Monocytes 10e9/L Absolute 0.1 0.0 - 0.7 MIS[facility] Eosinophils 10e9/L Absolute 0.0 0.0 - 0.2 MIS[facility] Basophils 10e9/L Diff Method Automated MISYS Method Specimen Anatomical Collection Method Collection Time Receive d Time (Source) Location / / Volume Laterality 10/17/2010 3:50 PM 0 3:43 HARVEST CONTRACTOR PM HARVEST CONTRACTOR Josh Parekh MD LAB - BLOOD ORDERABLES Performing Organization Address City/State/[facility] Code Phon e Number MISYS (ABNORMAL) Creatinine (10/17/2010 3:50 PM HARVEST CONTRACTOR) athologist Signature Creatinine 0.59 (H) 0.15 - 0.53 MISYS mg/dL Comment: New IDMS-traceable calibration beginning 03/19/08 GFR Estimate GFR not calculated, patient <16 years mL/min/1.7m2 MISYS old. GFR Estimate If Black GFR not calculated, patient <16 years mL/min/1. 7m2 MISYS old. Specimen Anatomical Collection Method Collection Time Receive d Time (Source) Location / / Volume Laterality 10/17/2010 3:50 PM 0 3:43 HARVEST CONTRACTOR PM HARVEST CONTRACTOR Josh Parekh MD LAB - BLOOD ORDERABLES Performing Organization Address City/State/ZIP Code Phon e Number MISYS documented in this encounter Visit Diagnoses Not on filedocumented in this encounter Care Teams Phlebotomist Supervisor/Instructor Relationship Specialty Start Date End Date Kumar Celestin MD PCP - General 02 12/26/18 [address] [place] [id number] documented as of this encounter
--- OUTSIDE RECORDS SUMMARY | 2022-08-26 16:26 | XMS_ITS | Encounter Summary ---
:2000 Author Organization [place] Address [address] [place] [address]. [place] [address] Care Team Providers Name Role Phone Kumar Celestin MD Primary Care Provider Reason for Visit Reason Onset Date Comments Pre Visit Planning - Done 08/26/2012 for appt 08-29 Dr. Parekh Encounter Details Date Type Department Care Team Description 08/26/2012 PRE VISIT [place] [id number], [facility] [place] Peds Pre Visi t Planning - Explorer Pediatric Nurse Done (for appt 08-29-[address] Parekh) Explorer Clinic [facility] 12th Floor [facility] [place] [address] Social History Tobacco Use Types Packs/Day Years Used Date Never Smoker Alcohol Use Standard Drinks/Week Comments Not Asked 0 (1 standard drink = 0.6 oz pure alcoho l) Sex Assigned at Date Recorded Not on file documented as of this encounter Miscellaneous Notes Telephone Encounter - John Mclaughlin - 08/26/2012 12:59 PM CDT Patient: Cameron Manuel : 2000 Encounter: 08/26/12 Pre Visit Assessment Patient confirmed he/she will attend appointment: Yes If no, transferred to call center? ALDA Mclaughlin CMA documented in this encounter Plan of Treatment Not on filedocumented as of this encounter Visit Diagnoses Not on filedocumented in this encounter Care Teams Pilot Plant Operator Relationship Specialty Start Date End Date Kumar Celestin MD PCP - General 02 12/26/18 [address] [place] [id number] documented as of this encounter
--- OUTSIDE RECORDS SUMMARY | 2022-08-26 16:26 | XMS_ITS | Encounter Summary ---
:2000 Author Organization [place] Address [facility] [place] [address] Care Team Providers Name Role Phone Kumar Celestin MD Primary Care Provider Encounter Details Date Type Department Care Team Description 12/02/2010 Office Visit-[facility] Josh Parekh MD [facility] Pediatric [address] [facility] [address] [facility] [address] [place] [address] [address] [place] [phone] Social History Tobacco Use Types Packs/Day Years Used Date Never Smoker Alcohol Use Standard Drinks/Week Comments Not Asked 0 (1 standard drink = 0.6 oz pure alcoho l) Sex Assigned at Date Recorded Not on file documented as of this encounter Progress Notes Josh Parekh - 12/02/2010 12:00 AM CST Surgical Instrument Technician: Josh Parekh Status: Final - Signature Encounter: 02 Dec 2010 Type: Peds Letter Division of Pediatric Rheumatology Department of Pediatrics [place] Mail Code [address] [place] [address] Office: [phone] Pediatric [facility] - [facility] Fourth Floor, Clinic [address] [place] [address] December 02, 2010 RE: Cameron Manuel : 2000 JULIAN: 12/02/2010 Dear Application Support Consultant: I am writing on behalf of my patient, Cameron Manuel. 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 Hypermobility refers to joints that stretch farther than normal. Patients with hypermobility syndrome may experience many difficulties. Their joints may be easily injured (being more pr one to dislocation), they may develop problems from muscle fatigue (as muscles work harder to compensate for excessive weakness of the ligaments that support the joints), and they may develop chronic pain. Some experience problems with handwriting tasks, have major limitations in physical activities and miss significant periods of schooling because of symptoms. The assessment and management of patients with hypermobility is often complicated, requiring a comprehensive patient-centered approach and coordinated input from a range of medical, health and fitness professionals. The functional rehabilitation process is frequently lengthy. Education of the patient and family, carefully prescribed and monitored physical therapy interventions and facilitation of lifestyle and behavior modifications are the mainstays of treatment. If not adequately managed, hypermobility affects the patient's quality of life, and may lead to joint damage, early degenerative arthritis and significant disability. Cameron has already demonstrated apparent benefit from physical therapy. His physical therapist noted that over a period of six months, he was having significantly less pain and that he had less passive motion of both feet, which was an improvement. He had tight musculature throughout the trunk and lower extremities. Additional physical therapy sessions were recommended. However, his mother received a letter from you that physical therapy would no longer be covered. Over the past six months, since physical therapy was discontinued, his pain has reemerged. Please reconsider coverage for additional physical therapy for Cameron. As it has in the past, physical therapy guided by a pediatric physical therapist will allow us to achieve better control of the symptoms of his hypermobility. Furthermore, additional sessions will allow for the follow-up assessmentsthat are best provided by an expert in physical therapy, and should allow for facilitation of lifestyle and behavior modifications, including a reinforcement of the home exercise program which should help prevent disability in the long-term. Please feel free to contact me if you have additional questions regarding this request. Sincerely, Josh Parekh M.D. Developmental Mathematics Instructor of Pediatrics Pediatric Rheumatology [phone] Dictated by Natalya Carballo M.D. Pediatric Rheumatology Fellow References: 1. Morgan N, et al. Rheumatology ([place]) 2005; 44(2) 416-45. Oh DYSON and Jose E JACOBS. [employer] therapy 2008; 13: e1-e11.2. RV:11 Electronically signed by:Josh Parekh M.D. Dec 07 2010 7:55AM ALARM SECURITY OR SURVEILLANCE MONITOR M SECURITY OR SURVEILLANCE MONITOR documented in this encounter Plan of Treatment Not on filedocumented as of this encounter Visit Diagnoses Not on filedocumented in this encounter Care Teams Running Specialist Relationship Specialty Start Date End Date Kumar Celestin MD PCP - General 02 12/26/18 [address] [phone] documented as of this encounter
--- OUTSIDE RECORDS SUMMARY | 2022-08-26 16:26 | XMS_ITS | Encounter Summary ---
:2000 Author Organization [place] Address [address] [facility] [place] [address] Care Team Providers Name Role Phone Kumar Celestin MD Primary Care Provider Encounter Details Date Type Department Care Team Description 09/23/[address] [facility] Osiris Hermosillo Explorer Pediatric Natalya Zapata MD Specialty Clinic DWAIN SPEARS [facility] [address] [place] [address] [address] [facility] [place] [address] Social History Tobacco Use Types [...] Associated Comments Diagnosis WBC AND DIFFERENTIAL Routine 09/23/2010 12:03 Res ults for this PANEL PM CDT procedure are i n the results section. WBC COUNT Routine 09/23/2010 12:03 Results for this PM CDT procedure are i n the results section. ROUTINE UA WITH Routine 09/23/2010 12:03 Results for this MICROSCOPIC PM CDT procedure are i n the results section. PROTEIN RANDOM URINE Routine 09/23/2010 12:03 Res ults for this PM CDT procedure are i n the results section. PLATELET COUNT Routine 09/23/2010 12:03 Results f or this PM CDT procedure are i n the results section. HEMOGLOBIN Routine 09/23/2010 12:03 Results for this PM CDT procedure are i n the results section. HEMATOCRIT Routine 09/23/2010 12:03 Results for this PM CDT procedure are i n the results section. ERYTHROCYTE Routine 09/23/2010 12:03 Results for this SEDIMENTATION RATE PM CDT procedure are in AUTO the results section. CRP INFLAMMATION Routine 09/23/2010 12:03 Results for this PM CDT procedure are i n the results section. CREATININE URINE Routine 09/23/2010 12:03 Results for this CALCULATION ONLY (LAB PM CDT proced ure are in ONLY) the results section. CREATININE Routine 09/23/2010 12:03 Results for this PM CDT procedure are i n the results section. AST Routine 09/23/2010 12:03 Results for this PM CDT procedure are i n the results section. ALT Routine 09/23/2010 12:03 Results for this PM CDT procedure are i n the results section. documented in this encounter Results ALT (09/23/2010 12:03 PM CDT) athologist Signature ALT 14 0 - 50 U/L MISYS Specimen Anatomical Collection Method Collection Time Receive d Time (Source) Location / / Volume Laterality 09/23/2010 12:03 09/23/2010 PM CDT 12:04 PM CDT Natalya Hermosillo MD LAB - BLOOD ORDERABLES Performing Organization Address City/State/[facility] Code Phon e Number MISYS AST (09/23/2010 12:03 PM CDT) athologist Signature AST 31 0 - 50 U/L MISYS Specimen Anatomical Collection Method Collection Time Receive d Time (Source) Location / / Volume Laterality 09/23/2010 12:03 09/23/2010 PM CDT 12:04 PM CDT Natalya Hermosillo MD LAB - BLOOD ORDERABLES Performing Organization Address City/State/ZIP Code Phon e Number MISYS (ABNORMAL) Creatinine (09/23/2010 12:03 PM CDT) athologist Signature Creatinine 0.57 (H) 0.15 - 0.53 MISYS mg/dL Comment: New IDMS-traceable calibration beginning 03/19/08 GFR Estimate GFR not calculated, patient <16 years mL/min/1.7m2 MISYS old. GFR Estimate If Black GFR not calculated, patient <16 years mL/min/1. 7m2 MISYS old. Specimen Anatomical Collection Method Collection Time Receive d Time (Source) Location / / Volume Laterality 09/23/2010 12:03 09/23/2010 PM CDT 12:04 PM CDT Natalya Hermosillo MD LAB - BLOOD ORDERABLES Performing Organization Address City/State/[facility] Code Phon e Number MISYS CRP inflammation (09/23/2010 12:03 PM CDT) P athologist Signature CRP Inflammation <5.0 0.0 - 8.0 MISYS mg/L Specimen Anatomical Collection Method Collection Time Receive d Time (Source) Location / / Volume Laterality 09/23/2010 12:03 09/23/2010 PM CDT 12:04 PM CDT Natalya Hermosillo MD LAB - BLOOD ORDERABLES Performing Organization Address City/[facility] Code Phon e Number MISYS (ABNORMAL) WBC AND DIFFERENTIAL PANEL (09/23/2010 12:03 PM CDT) Patholo gist Method Time Signature % Neutrophils 67 (H) 32 - 54 % MISYS % Lymphocytes 20 (L) 27 - 57 % MISYS % Monocytes 12 (H) 0 - 10 % MISYS % Eosinophils 1 0 - 6 % MISYS % Basophils 0 0 - 1 % MISYS Absolute 6.7 1.3 - 8.1 MISYS Neutrophil 10e9/L Absolute 1.9 1.1 - 8.6 MISYS Lymphocytes 10e9/L Absolute 1.1 0.0 - 1.1 MISYS Monocytes 10e9/L Absolute 0.1 0.0 - 0.7 MISYS Eosinophils 10e9/L Absolute 0.0 0.0 - 0.2 MISYS Basophils 10e9/L Diff Method Automated MISYS Method Specimen Anatomical Collection Method Collection Time Receive d Time (Source) Location / / Volume Laterality 09/23/2010 12:03 09/23/2010 PM CDT 12:04 PM CDT Natalya Hermosillo MD LAB - BLOOD ORDERABLES Performing Organization Address City/State/[facility] Code Phon e Number MISYS Erythrocyte sedimentation rate auto (09/23/2010 12:03 PM CDT) athologist Signature Sed Rate 5 0 - 15 mm/h MISYS Specimen Anatomical Collection Method Collection Time Receive d Time (Source) Location / / Volume Laterality 09/23/2010 12:03 09/23/2010 PM CDT 12:04 PM CDT Natalya Hermosillo MD LAB - BLOOD ORDERABLES Performing Organization Address City/State/ZIP Code Phon e Number MISYS (ABNORMAL) Routine UA with microscopic (09/23/2010 12:03 PM CDT) [facility] gist Method Time Signature Source Voided Urine MISYS Color Urine Yellow MISYS Appearance Urine Slightly MISYS Cloudy Glucose Urine Negative NEG mg/dL MISYS Bilirubin Urine Negative NEG MISYS Ketones Urine Negative NEG mg/dL MISYS Specific [place] 1.016 1.003 - MISYS Urine 1.035 Blood Urine Negative NEG MISYS pH Urine 6.0 5.0 - 7.0 MISYS pH Protein Albumin Negative NEG mg/dL MISYS Urine Urobilinogen Normal 0.0 - 2.0 MISYS mg/dL mg/dL Nitrite Urine Negative NEG MISYS Leukocyte Negative NEG MISYS Esterase Urine WBC Urine 1 0 - 2 MISYS /HPF RBC Urine 1 0 - 2 MISYS /HPF Amorphous Few (A) NEG /HPF MISYS Crystals Mucous Urine Present (A) NEG /LPF MISYS Specimen Anatomical Collection Method Collection Time Receive d Time (Source) Location / / Volume Laterality 09/23/2010 12:03 09/23/2010 PM CDT 12:05 PM CDT Natalya Hermosillo MD LAB - URINE ORDERABLES Performing Organization Address City/State/ZIP Code Phon e Number MISYS Creatinine urine calculation only (09/23/2010 12:03 PM CDT) athologist Signature Creatinine Urine 87 mg/dL MISYS Specimen Anatomical Collection Method Collection Time Receive d Time (Source) Location / / Volume Laterality 09/23/2010 12:03 09/23/2010 PM CDT 12:05 PM CDT Natalya Hermosillo MD LAB - URINE ORDERABLES Performing Organization Address City/State/ZIP Code Phon e Number MISYS Protein random urine (09/23/2010 12:03 PM CDT) P athologist Signature Protein Random 0.06 g/L MISYS Urine Protein Total 0.07 0 - 0.2 MISYS Urine g/gr g/g Cr Creatinine Specimen Anatomical Collection Method Collection Time Receive d Time (Source) Location / / Volume Laterality 09/23/2010 12:03 09/23/2010 PM CDT 12:05 PM CDT Natalya Hermosillo MD LAB - URINE ORDERABLES Performing Organization Address City/[facility] Phon e Number MISYS WBC count (09/23/2010 12:03 PM CDT) P athologist Signature WBC 9.8 5.0 - 14.5 MISYS 10e9/L Specimen Anatomical Collection Method Collection Time Receive d Time (Source) Location / / Volume Laterality 09/23/2010 12:03 09/23/2010 2:54 PM CDT PM CDT Natalya Hermosillo MD LAB - BLOOD ORDERABLES Performing Organization Address [facility] Phon e Number MISYS Hematocrit (09/23/2010 12:03 PM CDT) P athologist Signature Hematocrit 38.5 31.5 - 43.0 MISYS % Specimen Anatomical Collection Method Collection Time Receive d Time (Source) Location / / Volume Laterality 09/23/2010 12:03 10/02/2010 6:46 PM CDT PM WINDOWS SYSTEMS ADMINISTRATOR Natalya Hermosillo MD LAB - BLOOD ORDERABLES Performing Organization Address City/[facility] Code Phon e Number MISYS Hemoglobin (09/23/2010 12:03 PM CDT) P athologist Signature Hemoglobin 12.7 10.5 - 14.0 MISYS g/dL Specimen Anatomical Collection Method Collection Time Receive d Time (Source) Location / / Volume Laterality 09/23/2010 12:03 10/02/2010 6:46 PM CDT PM WINDOWS SYSTEMS ADMINISTRATOR Natalya Hermosillo MD LAB - BLOOD ORDERABLES Performing Organization Address City/[facility]/ZIP Code Phon e Number MISYS Platelet count (09/23/2010 12:03 PM CDT) P athologist Signature Platelet Count 296 150 - 450 MISYS 10e9/L Specimen Anatomical Collection Method Collection Time Receive d Time (Source) Location / / Volume Laterality 09/23/2010 12:03 10/02/2010 6:46 PM CDT PM WINDOWS SYSTEMS ADMINISTRATOR Natalya Hermosillo MD LAB - BLOOD ORDERABLES Performing Organization Address City/State/ZIP Code Phon e Number MISYS documented in this encounter Visit Diagnoses Not on filedocumented in this encounter Care Teams Billet Heater Operator Relationship Specialty Start Date End Date Kumar Celestin MD PCP - General 02 12/26/18 [address] [address] documented as of this encounter
--- OUTSIDE RECORDS SUMMARY | 2022-08-26 16:26 | XMS_ITS | Encounter Summary ---
:2000 Author Organization [facility] [address] Care Team Providers Name Role Phone Kumar Celestin MD Primary Care Provider Encounter Details Date Type Department Care Team Description 08/04/2010 Consultation [facility] Katy Sanchez, PT [facility] Results [address] [facility] [address] [place] [address] (Wo rk) Social History Tobacco Use Types Packs/Day Years Used Date Never Smoker Alcohol Use Standard Drinks/Week Comments Not Asked 0 (1 standard drink = 0.6 oz pure alcoho l) Sex Assigned at Date Recorded Not on file documented as of this encounter Procedure Notes Thi Sanchez - 08/06/2010 11:29 AM CDTAssociated Order(s): CONSULT MOO (PT & CHIRO) FINAL PEDIATRIC PHYSICAL THERAPY EVALUATION [facility] Summary: Tahmina Mary is an 10-year-old boy referred to physical therapy by Dr. Natalya Hector. He has a diagnosis of enthesitis. Tahmina was evaluated by physical therapy in February this year, and returns for a physical therapy visit today following [facility].Goals for this evaluation and visit are instruction in home exercise program for a tight lumbar areaas well as bilateral hamstrings and quads. Tahmina has had significantly less pain than when he was last evaluated in February this year. He also has less passive motion of both feet and may not require orthotics that were suggested at the February visit. PT Diagnosis: Tight musculature throughout trunk and lower extremities creating pain. Practice Pattern: Musculoskeletal. Impairments: Pain with prolonged sitting, increased muscle tightness with prolonged activity. Prognosis: Good. Plan of Care: A home exercise program was given to Tahmina and his mother including quad stretches inprone, assisted hamstring stretches in supine and trunk stretches in supine over a ball. We plan to see Tahmina back for 1 more physical therapy visit to update home exercise program as needed and monitor progress. Short Term Goals For Physical Therapy: To be met by approximately 10/04/2010. 1. The patient will be independent with home exercise program. 2. The patient will have pain-free gait and activity in order to participate in school and community life. Alf Goals: Tahmina will be able to manage muscle tightness and resulting pain on his own through good positioning and exercise. Interventions this session: Evaluation of muscle length and strength as compared to a visit in February, and formulation and practice of home exercise program. The patient, family and staff are in agreement with this plan of care. EXAMINATION: Physical Therapy Order/ Medical Diagnosis: Evaluate and treat enthesitis. Chief Complaint/ Functional Limitations: Pain with prolonged sitting, muscle tightness with prolonged activity. Pain: Tahmina has significantly less pain than he had earlier this spring. He does feel some pain in his low back and buttocks with prolonged sitting. He does feel tightness and pain in his hamstrings and gastrocs with prolonged walking and running. Patient Educational Assessment: Learning Barriers: None noted. Educational Needs: How to perform home exercise program with good technique. Caregiver Educational Assessment: Learning Barriers: None noted. Educational Needs: How to help Tahmina with stretching exercise program. Patient/Caregiver Stated Goals for Physical Therapy: To help decrease pain with activity. SYSTEMS REVIEW: MUSCULOSKELETAL SYSTEM Gross Symmetry: Tahmina is grossly symmetrical. Gross ROM: Tahmina does show some tightness at approximately 70 degrees in his straight leg raise of bilateral hamstrings. He does show significantly decreased mobility in his lower thoracic and lumbar spine. Gross Strength: Functional. Gross Motor Skills - Tests and Measures: Tahmina is an independent ambulator and runner. He has independent heel and toe walking. He is independent on stairs. NEUROMUSCULAR SYSTEM Righting and Protective Responses: In place. Sensation: No loss of sensation is noted. Tone: Within normal limits. Treatment today included: Home exercise program given today including the following exercises for core trunk strengthening as well as increased flexibility throughout the trunk and lower extremities. The home exercise program included the following recommended exercises: 1. Situps 5-10 reps. 2. All fours position with arch and sag for trunk; however, Tahmina needs to be careful of any upper extremity or wrist pain or fatigue that he may feel in this position. 3. Hamstring stretch. This is to be performed with the assistance of a parent. The hamstring stretch cannot be independently performed at this time due to compensations that Tahmina shows throughout his lower trunk. 4. Prone stretch for quads. This is to be performed with the assistance of an adult, as when Tahmina performs this activity on his own, he feels strain in his shoulders. 5. Ball activities in sit to increase balance and improve posture. Recommend [id number] activities with arms overhead or out to the side. 6. Lying supine on the ball that is large enough to support the entire spine to allow for gentle stretch of entire back. Also recommend that Tahmina receive an OT evaluation through the school system as he is experiencing some difficulties with handwriting. Also recommended that Tahmina have a chair at school that fits him well and so his feet may rest on the floor for decreased pain and improved posture. We also recommended that when Tahmina is doing floor time with his classmates that he have some sort of support when he is sitting such as a corner chair. It may also be useful for Tahmina to use a ball for sitting in school at his desk as this would allow for him to have easier weight shift and decreased pressure on his spine and pelvis. Thank you for referring Tahmina Mary to physical therapy. If you have questions, please call at [phone]. Electronically signed on 08/10/2010 09:56 by THI SANCHEZ PT MT: jeffrey Name: THAMINA MARY Account: [id number] : 2000 Visit Date: 08/04/2010 Sex: M Age: 10 Document: [id number] documented in this encounter Plan of Treatment Not on filedocumented as of this encounter Procedures Procedure Name Priority Date/Time Associated Diagnosis Comme safia [facility] PT AND HAND 08/05/2010 6:10 PM Res ults for this REFERRAL CDT procedure are i n the results section. documented in this encounter Results CONSULT MOO (PT & CHIRO) (08/05/2010 6:10 PM CDT) Transcriptions Thi Sanchez - 08/06/2010 11:29 AM CD T FINAL PEDIATRIC PHYSICAL THERAPY EVALUATION [facility] Summary: Tahmina Mary is an 10-year -old boy referred to physical therapy by Dr. Natalya Choudhury. He has a diagnosis of enthesitis. Tahmina was evaluated by physical therapy in February this year, and returns for a physical therapy visit today following his [facility] visit [facility]. Goals for this evaluation and visit are instruction in home exercise program for a tight lumbar area as well as bilateral hamstrings and quads. Tahmina has had sign ificantly less pain than when he was last evaluated in February this year. He also has less passive motion of both feet and may not require orthotics that were suggested at the February visit. PT Diagnosis: Tight musculature through out trunk and lower extremities creating pain. Practice Pattern: Musculoskeletal. Impairments: Pain with prolonged sittin g, increased muscle tightness with prolonged activity. Prognosis: Good. Plan of Care: A home exercise program w as given to Tahmina and his mother including quad stretches in prone, assisted hamstring stretches in supine and trunk stretches in supine over a ball. We plan to see Tahmina back for 1 more physical therapy visit to update ho ia exercise program as needed and monitor progress. Short Term Goals For Physical Therapy: To be met by approximately 10/04/2010. 1. The patient will be independent with home exercise program. 2. The patient will have pain-free gait and activity in order to participate in school and community life. Alf Goals: Tahmina will be able to manage muscle tightness and resulting pain on his own through good positioning and exercise. Interventions this session: Evaluation of muscle length and strength as compared to a visit in February, and formulation and practice of home exercise program. The patient, family and staff are in ag reement with this plan of care. EXAMINATION: Physical Therapy Order/ Medical Diagnos is: Evaluate and treat enthesitis. Chief Complaint/ Functional Limitations : Pain with prolonged sitting, muscle tightness with prolonged activity. Pain: Tahmina has significantly less pain than he had earlier this spring. He does feel some pain in his low back and buttocks with prolonged sitting. He does feel tightness and pain in his hamstrings and gastrocs with prolonged walking and running. Patient Educational Assessment: Learning Barriers: None noted. Educational Needs: How to perform home exercise program with good technique. Caregiver Educational Assessment: Learning Barriers: None noted. Educational Needs: How to help Tahmina wi th stretching exercise program. Patient/Caregiver Stated Goals for Phys ical Therapy: To help decrease pain with activity. SYSTEMS REVIEW: MUSCULOSKELETAL SYSTEM Gross Symmetry: Tahmina is grossly symmet rical. Gross ROM: Tahmina does show some tightne ss at approximately 70 degrees in his straight leg raise of bilateral hamstrings. He does show significantly decreased mobility in his lower thoracic and lumbar spine. Gross Strength: Functional. Gross Motor Skills - Tests and Measures : Tahmina is an independent ambulator and runner. He has independent heel and toe walking. He is independent on stairs. NEUROMUSCULAR SYSTEM Righting and Protective Responses: In p lace. Sensation: No loss of sensation is note d. Tone: Within normal limits. Treatment today included: Home exercise program given today including the following exercises for core trunk strengthening as well as increased flexibility throughout the trunk and lower extremities. The home exercise program included the following recommend ed exercises: 1. Situps 5-10 reps. 2. All fours position with arch and sag for trunk; however, Tahmina needs to be careful of any upper extremity or wrist pain or fatigue that he may feel in this position. 3. Hamstring stretch. This is to be performed with the assistance of a parent. The hamstrin g stretch cannot be independently performed at this time due to compensations that Tahmina shows throughout his lower trunk. 4. Prone stretch for quads. This is to be performed with the assistance of an adult, as when Swapnil johns performs this activity on his own, he feels strain in his shoulders. 5. Ball activities in sit to increase balance and improve posture. Recommend [id number] activities with arms overhead or out to the side. 6 . Lying supine on the ball that is large enough to support the entire spine to allow for gentle stretch of entire back. Also recommend that Tahmina receive an OT evaluation through the school system as he is experiencing some difficulties with handwriting. Also recommended that Tahmina have a chair at school that fits him well and so his feet may rest on the floor for decre ased pain and improved posture. We also recommended that when Tahmina is doing floor time with his classmates that he have some sort of support when he is sitting such as a corner chair. It may also be useful for Tahmina haile use a ball for sitting in school at his desk as this would allow for him to have easier weight shift and decreased pressure on his spine and pelvis. Thank you for referring Tahmina Servin us to physical therapy. If you have questions, please call at [phone]. Electronically signed on 08/10/2010 09: 56 by THI SANCHEZ PT MT: jeffrey Name: TAHMINA MARY MRN: [id number] Account: [id number] : 2000 Visit Date: 08/04/2010 Sex: M Age: 10 Document: [id number] Thi Sanchez PT REFERRAL documented in this encounter Visit Diagnoses Not on filedocumented in this encounter Care Teams Wildlife Removal Specialist Relationship Specialty Start Date End Date Kumar Celestin MD PCP - General 02 12/26/18 [address] [facility] [address] [place] [id number] documented as of this encounter
--- OUTSIDE RECORDS SUMMARY | 2022-08-26 16:26 | XMS_ITS | Encounter Summary ---
:2000 Author Organization [facility] Address [address] [place] [address] Care Team Providers Name Role Phone Kumar Celestin MD Primary Care Provider Reason for Referral Rehab Therapy Physical Therapy - Closed Specialty Diagnoses / Procedures Referred By Contact Refer red To Contact Diagnoses NAFISA (juvenile idiopathic arthritis), enthesitis related arthritis (H) Kumar Celestin MD [address] [place] [address] Referral ID Status Reason Start Date Expiration Date Visits Requ ested Visits Authorized [id number] Closed 04/02/2015 09/29/2015 1 1 Reason for Visit Reason Comments Well Child 14 yr px Encounter Details Date Type Department Care Team Description 04/02/2015 Office Visit [facility] Kumar Celestin Rou tine infant or child health check (Primary Dx); [facility] NAFISA (juvenile idiopathic arthritis), ent hesitis related arthritis (H) [address] [place] [address] [place] [address] [place] [phone] (Wo rk) Social History Tobacco Use Types Packs/Day Years Used Date Never Smoker Alcohol Use Standard Drinks/Week Comments Not Asked 0 (1 standard drink = 0.6 oz pure alcoho l) Sex Assigned at Date Recorded Not on file documented as of this encounter Last Filed Vital Signs Vital Sign Reading Time Taken Comments Blood Pressure 94/44 04/02/2015 3:27 PM CDT Pulse - - Temperature 37 ??C (98.6 ??F) 04/02/2015 3:27 PM CDT Respiratory Rate - - Oxygen Saturation - - Inhaled Oxygen Concentration - - Weight 44.8 kg (98 lb 12.8 oz) 04/02/2015 3:27 PM CDT Height 157.5 cm (5' 2) 04/02/2015 3:27 PM CDT Body Mass Index 18.07 04/02/2015 3:27 PM CDT Body Mass Index Percentile 45.56 % 04/02/2015 3:27 PM CD T Growth Chart: CDC (Boys, 2-20 Years) documented in this encounter Patient Instructions Patient InstructionsLashonda Tomlin Car - 04/02/2015 3:28 PM CDT Preventive Care at the 12 - 14 Year Visit Growth Percentiles & Measurements Weight: 98 lbs 12.8 oz / 44.82 kg / 50%ile based on CDC 2-20 Years [id number] data using vitals from 04/02/2015. Length: 5' 2 / 157.5 cm 63%ile based on CDC 2-20 Years [id number] data using vitals from 04/02/2015. BMI: Body mass index is 18.07 kg/(m^2). 46%ile based on CDC 2-20 Years BMI-for-age data using vitalsfrom 04/02/2015. Blood Pressure: 7.7% systolic and 5.0% diastolic of BP percentile by age, sex, and height. Acetaminophen (Tylenol) Doses: For a child who weighs over 96 pounds, the dose would be (640mg): 20mL of the Children's Acetaminophen (160mg/5mL) every 4 hours as needed OR 2 tablets of the Regular Strength Tylenol (325mg each) every 4 hours as needed Ibuprofen (Motrin, Advil) Doses: For a child who weighs Over 96 pounds, the dose would be (400mg): 20mL of the Children's Ibuprofen (100mg/5mL) every 6 hours as needed OR 4 tablets of the Children's Ibuprofen (100mg per tablet) every 6 hours as needed OR 2 caplets or tablets of Adult Ibuprofen (200mg per tablet) every 6 hours as needed Next Visit ??? Continue to see your health care provider every one to two years for preventive care. Nutrition ??? It???s very important to eat breakfast. This will help you make it through the morning. ??? Sit down with your family for a meal on a regular basis. ??? Eat healthy meals and snacks, including fruits and vegetables. Avoid salty and sugary snack foods. ??? Be sure to eat foods that are high in calcium and iron. ??? Avoid or limit caffeine (often found in soda pop). Sleeping ??? Your body needs about 9 hours of sleep each night. ??? Keep screens (TV, computer, and video) out of the bedroom / sleeping area. They can lead to poorsleep habits and increased obesity. Health ??? Limit TV, computer and video time to one to two hours per day. ??? Set a goal to be physically fit. Do some form of exercise every day. It can be an active sport like skating, running, swimming, team sports, etc. ??? Try to get 30 to 60 minutes of exercise at least three times a week. ??? Make healthy choices: don???t smoke or drink alcohol; don???t use drugs. In your teen years, you can expect . . . ??? To develop or strengthen hobbies. ??? To build strong friendships. ??? To be more responsible for yourself and your actions. ??? To be more independent. ??? To use words that best express your thoughts and feelings. ??? To develop self-confidence and a sense of self. ??? To see big differences in how you and your friends grow and develop. ??? To have body odor from perspiration (sweating). Use underarm deodorant each day. ??? To have some acne, sometimes or all the time. (Talk with your doctor or nurse about this.) ??? Girls will usually begin puberty about two years before boys. o Girls will develop breasts and pubic hair. They will also start their menstrual periods. o Boys will develop a larger penis and testicles, as well as pubic hair. Their voices will change, and they???ll start to have ???wet dreams.?? Sexuality ??? It is normal to have sexual feelings. ??? Find a supportive person who can answer questions about puberty, sexual development, sex, abstinence (choosing not to have sex), sexually transmitted diseases (STDs) and control. ??? Think about how you can say no to sex. Safety ??? Accidents are the greatest threat to your health and life. ??? Always wear a seat belt in the car. ??? Practice a fire escape plan at home. Check smoke detector batteries twice a year. ??? Keep electric items (like blow dryers, razors, curling irons, etc.) away from water. ??? Wear a helmet and other protective gear when bike riding, skating, skateboarding, etc. ??? Use sunscreen to reduce your risk of skin cancer. ??? Learn first aid and CPR (cardiopulmonary resuscitation). ??? Avoid dangerous behaviors and situations. For example, never get in a car if the company tanker truck driver has beendrinking or using drugs. ??? Avoid peers who try to pressure you into risky activities. ??? Learn skills to manage stress, anger and conflict. ??? Do not use or carry any kind of weapon. ??? Find a supportive person (teacher, parent, health provider, counselor) whom you can talk to whenyou feel sad, angry, lonely or like hurting yourself. ??? Find help if you are being abused physically or sexually, or if you fear being hurt by others. As a teenager, you will be given more responsibility for your health and health care decisions. While your parent or guardian still has an important role, you will likely start spending some time alonewith your health care provider as you get older. Some teen health issues are actually considered confidential, and are protected by law. Your health care team will discuss this and what it means with you. Our goal is for you to become comfortable and confident caring for your own health. documented in this encounter Progress Notes Kumar Celestin MD - 04/02/2015 4:05 PM CDT Had been heel and even jaw in past. Now bottom of foot insertation areas, knees, back. Going back to Dr. Parekh at end of April. Wants PT referral. Kumar Celestin MD - 04/02/2015 3:28 PM CDT SUBJECTIVE: Cameron Manuel is a 14 year old male, here for a routine health maintenance visit, accompanied by his mother. Patient was roomed by: Lashonda Tomlin CMA QUESTIONS/CONCERNS: Would like PT referral to help with enthesitis sxs. Also, needs sports form and vaccines. HOME Family members in house: mother, 2 sisters and stepfather Language(s) spoken at home: Tajik Recent family changes/social stressors: none noted HEALTH / RISKS TB exposure: No Cardiac risk assessment: none Do you monitor your child's screen use? Yes VISION: Testing not done--No concerns. HEARING: Testing not done: No concerns. DENTAL Dental health HIGH risk factors: none Water source: well water SPORTS QUESTIONNAIRE: School: [employer] Grade: 7th Sports: [employer]X, soccer, basketball, golf SAFETY Car seat belt always worn: Yes Helmet worn for bicycle/roller blades/skateboard? Yes Guns/firearms in the home: No ELECTRONIC MEDIA TV in bedroom: No < 2 hours/ day EDUCATION School performance / Academic skills: doing well in school Days of school missed: 5 or fewer Concerns: no ACTIVITIES Do you get at least 60 minutes per day of physical activity, including time in and out of school: Yes Extra-curricular activities: Organized / team sports: none DIET Do you get at least 4 helpings of a fruit or vegetable every day: Yes Do you eat breakfast every day: Yes How many servings of juice, non-diet soda, punch or sports drinks per day: Does your family eat out (take out, delivery, fast food, restaurant) more than one day per week: No SLEEP No concerns, sleeps well through night Allergies Allergen Reactions ??? No Known Drug Allergies Immunization History Administered Date(s) Administered ??? Comvax (HIB/HepB) 2002, 2002, 06/05/2003 ? ? DTAP (<7y) 2002, 2002, 2002, 09/07/2003, 08/15/2007 ??? IPV 2002, 2002, 03/06/2003, 08/15/2007 ??? Influenza (IIV3) 01/02/2007 ??? Influenza Intranasal Vaccine 09/05/2011 ??? MMR 09/07/2003, 08/15/2007 ??? Pneumococcal (PCV 7) 2002, 2002, 03/06/2003, 06/05/2003 ??? Varicella 06/05/2003, 08/15/2007 Patient Active Problem List Diagnosis ??? NAFISA (juvenile idiopathic arthritis), enthesitis related arthritis HEALTH HISTORY SINCE LAST VISIT No surgery, major illness or injury since last physical exam DRUGS Smoking: no Passive smoke exposure: no Alcohol: no Drugs: no SEXUALITY Sexual activity: No PSYCHO-SOCIAL/DEPRESSION General screening: No screening tool used No concerns Patient Active Problem List Diagnosis ??? NAFISA (juvenile idiopathic arthritis), enthesitis related arthritis Allergies Allergen Reactions ??? No Known Drug Allergies Immunization History Administered Date(s) Administered ??? Comvax (HIB/HepB) 2002, 2002, 06/05/2003 ? ? DTAP (<7y) 2002, 2002, 2002, 09/07/2003, 08/15/2007 ??? IPV 2002, 2002, 03/06/2003, 08/15/2007 ??? Influenza (IIV3) 01/02/2007 ??? Influenza Intranasal Vaccine 09/05/2011 ??? MMR 09/07/2003, 08/15/2007 ??? Pneumococcal (PCV 7) 2002, 2002, 03/06/2003, 06/05/2003 ??? Varicella 06/05/2003, 08/15/2007 ROS GENERAL: See health history, nutrition and daily activities SKIN: No rash, hives or significant lesions HEENT: Hearing/vision: see above. No eye, nasal, ear symptoms. RESP: No cough or other concerns CV: No concerns GI: See nutrition and elimination. No concerns. : See elimination. No concerns NEURO: No headaches or concerns. OBJECTIVE: EXAM BP 94/44 Temp(Src) 98.6 ??F (37 ??C) (Oral) Ht 5' 2 (1.575 m) Wt 98 lb 12.8 oz (44.815 kg) BMI 18.07 kg/m2 63%ile based on CDC 2-20 Years [id number] data using vitals from 04/02/2015. 50%ile based on CDC 2-20 Years [id number] data using vitals from 04/02/2015. 46%ile based on CDC 2-20 Years BMI-for-age data using vitals from 04/02/2015. 7.7% systolic and 5.0% diastolic of BP percentile by age, sex, and height. GENERAL: Active, alert, in no acute distress. SKIN: Clear. No significant rash, abnormal pigmentation or lesions HEAD: Normocephalic EYES: Sharp optic discs. Pupils equal, round, reactive, Extraocular muscles intact. Normal conjunctivae. EARS: Normal canals. Tympanic membranes are normal; merritt and translucent. NOSE: Normal without discharge. MOUTH/THROAT: Clear. No oral lesions. Teeth without obvious abnormalities. NECK: Supple, no masses. No thyromegaly. LYMPH NODES: No adenopathy LUNGS: Clear. No rales, rhonchi, wheezing or retractions HEART: Regular rhythm. Normal S1/S2. No murmurs. Normal pulses. ABDOMEN: Soft, non-tender, not distended, no masses or hepatosplenomegaly. Bowel sounds normal. NEUROLOGIC: No focal findings. Cranial nerves grossly intact: DTR's normal. Normal gait, strength and tone BACK: Spine is straight, no scoliosis. EXTREMITIES: high archers. Tender all thorugh plantar fascia area. No tenderness achilles. -M: Normal male external genitalia. Caden stage 1, both testes descended, no hernia. ASSESSMENT/PLAN: 1. Healthy with normal growth and development 2. Enthesitis. Starting to be more active and has contacted rheumatology for follow up, told to get PT. Question if little plantar fascitis, but other areas hurting mean more likely to be inflamatory. DENTAL VARNISH Dental Varnish not indicated Anticipatory Guidance The following topics were discussed: SOCIAL/ FAMILY: Peer pressure Increased responsibility NUTRITION: Healthy food choices HEALTH/ SAFETY: Adequate sleep/ exercise Sleep issues Dental care SEXUALITY: Preventive Care Plan Immunizations ?? Reviewed, up to date Referrals/Ongoing Specialty care: No See other orders in EpicCare. Dental visit recommended: Yes Vision: normal Hearing: normal Cleared for sports: Yes BMI at 46%ile based on CDC 2-20 Years BMI-for-age data using vitals from 04/02/2015. No weight concerns. FOLLOW-UP: in 1 year for a Preventive Care visit Kumar Celestin MD, MD [facility] documented in this encounter Nursing Notes Lashonda Tomlin - 04/02/2015 3:28 PM CDT Chief Complaint Patient presents with ??? Well Child 14 yr px Initial BP 94/44 Temp(Src) 98.6 ??F (37 ??C) (Oral) Ht 5' 2 (1.575 m) Wt 98 lb 12.8 oz (44.815 kg) BMI 18.07 kg/m2 Estimated body mass index is 18.07 kg/(m^2) as calculated from the following: Height as of this encounter: 5' 2 (1.575 m). Weight as of this encounter: 98 lb 12.8 oz (44.815 kg). BP completed using cuff size: regular. Lashonda Tomlin CMA documented in this encounter Plan of Treatment Scheduled Referrals Name Type Priority Associated Diagnoses Order S tavo PHYSICAL THERAPY Referral Routine NAFISA (juvenile idiopathic Ordered: 04/02/2015 REFERRAL arthritis), enthesitis related arthritis (H) documented as of this encounter Visit Diagnoses Diagnosis Routine or child health check - P rimary NAFISA (juvenile idiopathic arthritis), ent hesitis related arthritis (H) Other specified inflammatory polyarthrop athies documented in this encounter Care Teams Manager Pediatric Relationship Specialty Start Date End Date Kumar Celestin MD PCP - General 02 12/26/18 [facility] [address] [phone] documented as of this encounter
--- OUTSIDE RECORDS SUMMARY | 2022-08-26 16:26 | XMS_ITS | Encounter Summary ---
:2002 Author Organization [facility] Address [address] [place] [address] Care Team Providers Name Role Phone Josh Parekh MD Unavailable Mary Dowell DO Primary Care Provider Encounter Details Date Type Department Care Team Description 12/27/2018 Travel Social History Tobacco Use Types Packs/Day Years Used Date Never Smoker Alcohol Use Standard Drinks/Week Comments Not Asked 0 (1 standard drink = 0.6 oz pure alcoho l) Sex Assigned at Date Recorded Not on file documented as of this encounter Plan of Treatment Not on filedocumented as of this encounter Visit Diagnoses Not on filedocumented in this encounter Care Teams Special Needs Tutor Relationship Specialty Start Date End Date Mary Dowell, PCP - General 12/27/18 [facility] [address] [place] [address] Josh Parekh MD MD Pediatrics 11/30/16 [facility], [id number] [place], [place] [address] documented as of this encounter
--- OUTSIDE RECORDS SUMMARY | 2022-08-26 16:26 | XMS_ITS | Encounter Summary ---
:2002 Author Organization [facility] Address [address] [place] [address] Care Team Providers Name Role Phone Kumar Celestin MD Primary Care Provider Encounter Details Date Type Department Care Team Description 03/20/2011 Orders Only [facility] Abstract, Provider DIAG NOSIS NOT YET Clinic [place] DEFINED (Primary Dx) [address] [place] [address] Social History Tobacco Use Types Packs/Day Years Used Date Never Smoker Alcohol Use Standard Drinks/Week Comments Not Asked 0 (1 standard drink = 0.6 oz pure alcoho l) Sex Assigned at Date Recorded Not on file documented as of this encounter Plan of Treatment Not on filedocumented as of this encounter Procedures Procedure Name Priority Date/Time Associated Diagnosis Comme nts NON-CLINIC SCANNED LAB Routine 03/20/2011 DIAGNOSIS NOT YET DEFINED documented in this encounter Results NON-CLINIC SCANNED LAB (03/20/2011) Narrative This result has an attachment that is no t available. Provider Abstract LABORATORY Performing Organization Address City/State/ZIP Code Phon e Number [facility]IS[place] documented in this encounter Visit Diagnoses Diagnosis DIAGNOSIS NOT YET DEFINED - Primary documented in this encounter Care Teams [place] Bottom Maker Relationship Specialty Start Date End Date Kumar Celestin MD PCP - General 02 12/26/18 [address] [place] [id number] documented as of this encounter
--- OUTSIDE RECORDS SUMMARY | 2022-08-26 16:26 | XMS_ITS | Encounter Summary ---
:2000 Author Organization [place] Address [facility] [place] [address] Care Team Providers Name Role Phone Kumar Celestin MD Primary Care Provider Encounter Details Date Type Department Care Team Description 03/02/2010 Office Visit-[facility] Josh Parekh MD [facility] [address] [facility] [place] [address] [facility] [address] [place] [address] [address] [place] [phone] Social History Tobacco Use Types Packs/Day Years Used Date Never Smoker Alcohol Use Standard Drinks/Week Comments Not Asked 0 (1 standard drink = 0.6 oz pure alcoho l) Sex Assigned at Date Recorded Not on file documented as of this encounter Progress Notes Josh Parekh - 03/02/2010 1:20 PM CDT Restorer Paper And Prints: Josh Parekh Status: Final - Signature Encounter: 02 Mar 2010 Type: Peds Visit Division of Pediatric Rheumatology Department of Pediatrics [place] Mail Code [address] [place] [address] Office: [phone] Pediatric [facility] - [facility] Fourth Floor, Clinic [address] [place] [address] RE: Cameron Manuel : 2000 JULIAN: 03/02/2010 OUTPATIENT VISIT NOTE MEDICATIONS: Naproxen 250 mg p.o. twice daily with food. INTERIM HISTORY: Cameron is a zwhzv-[id number]-jse male who presents accompanied by his mother for followup of arthralgias and enthesitis. We initially saw Cameron on January 14, 2010. Our most recent visit was January 19. At that time, he had evidence for hypermobility in several joints as well as pain to pressure along the Achilles tendons (right more so than left), and pain along the plantar fascia insertions bilaterally (left more so than right). It was suspected that the intensity of his pain was related to hypermobility, pes planus, and enthesitis, and was likely increased related to recent illness. His medical treatment regimen was unchanged. Cameron feels that in comparison to our previous visit, he is doing much better. At the time of our last visit, on the 10-point visual analog scale for how much pain he had had in the previous week, he had marked between a 5 and a 6; this time he miranda between a 2 and a 3, with 10 being very severe painand 0 being no pain. On a similar scale for how well he has been doing this past week, he had markedbetween a 4 and a 5, but today miranda between a 2 and a 3, with 10 being very poorly and 0 being verywell. For additional supportive care, they have been using a heating blanket at night for the past three weeks. Whereas they started at a level of a warmth level of 5, he is now doing well with the heating blanket at a level of 2. He reports that when he awakens in the morning, he hurts for less or equal to 15 minutes. He describes this further as his thighs and feet ache. He then gets his muscles going. His mother notes that he is still fumbly with putting on his pants, but overall is much better. Earlier today, he was evaluated by Thi Tatum in Physical Therapy for an initial assessment. He was evaluated by Occupational Therapy as well. SMO orthosis was recommended. He has not been limping in the morning. However, after having undergone physical and occupational therapy today, and being tothe cafeteria and walking [place] [facility] [employer] [facility], he started limping on his way to clinic here. After sitting for five minutes, he also started to complain to his mother that his back was starting to ache. Just during physical therapy today, he complained that his hips ached. He and his mother have noticed a pattern of pain that is worsened the morning following a day of increased activity. Forexample, on Sunday, he played kickball for four hours. The next morning, he had significant difficulty with pain in his feet. Whereas previously his symptoms stopped him from trying athletic or rigorous activities, now he feels unrestricted. He received some tips today from the occupational therapist with regard to assistance with writing; a followup appointment is anticipated in six months. He has not needed any help from other people to do normal daily activities such as getting up or down,getting around, dressing, eating or writing. He has not been ill since our previous visit. Last night, when walking back from a neighborhood park, he grasped part of a fence where fiberglass was exposed; fiberglass was dispersed over his right hand. He was seen in the emergency department in [place] and advised to use masking tape to remove the fiberglass as much as possible. This has helped. REVIEW OF SYSTEMS: A comprehensive 12-point review of systems was obtained, is as already noted above, and is otherwise negative. PHYSICAL EXAMINATION: VITAL SIGNS: Temperature is 95.6 degrees Fahrenheit. Blood pressure is 104/56. Pulse rate is 107, and respiratory rate is 16. Height is 130.8 cm, which is a 0.5 cm increase. Weight is 28.4 kg, which julien 0.5 kg increase. APPEARANCE: Cameron appears to be in excellent health and comfortably during our visit. HEENT: Head is normocephalic. There is no alopecia. Sclerae and conjunctivae are clear. Pupils are equal, round and reactive to light. Nasal turbinates are very mildly edematous and erythematous; the passages are otherwise clear. There are no nasal or oral ulcers. Mucous membranes are moist, and thereis a good saliva pool. The TMs are normal bilaterally. The gingiva and dentition appear healthy. Theoropharynx is clear. NECK: Supple. No mass. NODES: No cervical, occipital or supraclavicular lymphadenopathy. LUNGS: Normal pattern and effort of respiration. Clear to auscultation bilaterally. HEART: Regular rate and rhythm. Normal S1 and S2. No murmurs, gallops or rubs. Hands and feet are warm and well-perfused. No edema. ABDOMEN: Flat. Bowel sounds are normoactive. No hepatosplenomegaly. No mass. Nontender to palpation. SKIN: Mildly dry patches of skin noted over the anterior aspect of the knees and extensor surfaces of the elbows. There are no excoriations. Nails and nailfolds appear normal. There continues to be faint erythema noted over the lateral aspect of the cheeks. There is no malar rash. No nodules. NEURO: Alert. No focal deficits appreciated. Coordination is normal. MUSCULOSKELETAL: Mandible appears symmetric. Cameron is able to fit at least three fingers between his incisors. There is no abnormal tracking of the jaw appreciated. There is no swelling or pain with pressure at the temporomandibular, sternoclavicular or acromioclavicular joints. There is no pain with range of motion, and range of motion is normal at the C-spine, hips, and subtalar joints. There is no swelling, no pain with range of motion or pressure, and range of motion is full to shoulders, elbows, wrists, knees, ankles, MCPs, MTPs, PIPs, and DIPs. There is no pain with pressure at the sacroiliac joints or tendoninsertions into the pelvis. There continues to be very mild discomfort reported on pressure along the right Achilles tendon but no longer on the left. There is pain at the plantar fascia insertions bilaterally. There is no pain elicited on palpation of any of his muscles. He hyperextends at the elbows, but not greater than 10 degrees. He is hypermobile at the hips, with nearly 180-degree rotational ab ility per hip. He is also able to hyperextend at both knees, but not as remarkably. He is not able to touch his toes when keeping his knees straight, although forward flexion of the spine is normal. Straight leg raising is still limited at approximately 45 degrees bilaterally. On standing, he continues to flatten his arches but does not have prominent pronation. He climbs onto the examination table with ease, but on getting down and when running, he is somewhat careful on putting pressure on his feet. IMPRESSION: In summary, Cameron is a htexj-fzfm-oik with arthralgias and enthesalgias. On exam, he continues to have evidence for hypermobility in several joints and signs of plantar fasciitis. Plantar fasciitis may be considered a type of enthesitis, although also may be more mechanical in nature. He has demonstrated clinical improvement on the current treatment with naproxen. It is anticipated that he will achieve further benefit with the current medical therapy as well as on-going PT, OT, and institution of orthotics. He appears to be tolerating NSAID therapy well. PLAN: 1. Laboratory studies were obtained for therapeutic drug monitoring and are normal. Creatinine is 0.44. Urine analysis is normal. WBC count is 6,500 with a normal differential; hemoglobin is 12.2 with normal red cell indices; platelet count is 372,000; AST is 38; and, albumin is 4.2. An ESR and CRP were obtained as part of monitoring for systemic signs of inflammation. ESR is now normal at 5, which is improved from the previous levels of 54 in December and 17 in January. CRP is now < 5, which is improved from 18 in December and 7.9 in January. For treatment of enthesitis and plantar fasciitis, Cameron should continue naproxen 250 mg p.o. b.i.d.with food. For symptomatic relief for episodes of more severe pain, Tylenol and additional supportive measures such as application of a heating pad have been advised. We concur with the recommendation for orthotics; a prescription for FMO orthosis was provided today. Cameron will be continuing physical therapy and occupational therapy. For followup, we have asked that Cameron return in two to three months. His mother was encouraged to call should problems arise in the interim. I personally examined the patient, reviewed and edited the fellow's note, and agree with the plan ofcare. Josh Parekh M.D. Military Equipment Specialist of Pediatrics Pediatric Rheumatology [phone] Dictated by Natalya Newell M.D., Pediatric and Adult Rheumatology Fellow RV:[id number] cc: Kumar Celestin MD [facility] [address] [facility] [address] [place] [address] Parents of Cameron Manuel [address] [facility] [place] [address] DD 03/02/2010 Electronically signed by:Josh Parekh M.D. Mar 06 2010 7:46PM SOFTWARE TOOLS DEVELOPER documented in this encounter Plan of Treatment Not on filedocumented as of this encounter Visit Diagnoses Not on filedocumented in this encounter Care Teams Blow Machine Tender Starch Spraying Relationship Specialty Start Date End Date Kumar Celestin MD PCP - General 02 12/26/18 [address] [address] documented as of this encounter
--- OUTSIDE RECORDS SUMMARY | 2022-08-26 16:26 | XMS_ITS | Encounter Summary ---
:2000 Author Organization [place] Address [address] [place] [address] Care Team Providers Name Role Phone Kumar Celestin MD Primary Care Provider Encounter Details Date Type Department Care Team Description 03/20/2011 Office Visit-[facility] DEPT Unknown, Provider Social History Tobacco Use Types Packs/Day Years Used Date Never Smoker Alcohol Use Standard Drinks/Week Comments Not Asked 0 (1 standard drink = 0.6 oz pure alcoho l) Sex Assigned at Date Recorded Not on file documented as of this encounter Progress Notes Unknown, Provider - 03/20/2011 9:20 AM CDT Ampoule Inspector: Rosalie Jung Status: Final Encounter: 2011-03-20 09:20:00.000 Type: Rooming Note Informant Parent is informant unless otherwise noted. Reason For Visit Arthalgias and enthesitis] Do you have any other appointments, tests or procedures within the [facility] system for this same day? No. Pain Eval Current history of pain associated with this visit is as follows: Location: knees Quality: aching Severity: 3 (Pain scale 1-10, with 10 being the worst) Duration: most of day Context: JRA Modifying factors: rest . Personal Hx Behavioral history: No tobacco use. Home environment: No secondhand tobacco smoke in home. Vital Signs Position for height measurement: standing Blood pressure taken with: electronic BP machine. Recorded by Rosalie Jung on 20 Mar 2011 09:43 AM BP:108/66, RUE, Sitting, HR: 92 b/min, Temp: 97.5 F, Height: 137.1 cm, Weight: 30.7 kg, BMI: 16.3 kg/m2. Immunizations Immunizations are reported as current. Allergies No Known Allergies No Known Drug Allergy. Current Meds Med list offered and patient declined. Naproxen 125 MG/5ML Suspension;TAKE 10 ML TWICE DAILY WITH FOOD; Rx AAA-MED RECONCILE;per mother; RPT. Signature Signed By: Rosalie EwingPDionne; 03/20/2011 9:49 AM MATERIALS TECHNICIAN. documented in this encounter Plan of Treatment Not on filedocumented as of this encounter Visit Diagnoses Not on filedocumented in this encounter Care Teams Employment Case Manager Relationship Specialty Start Date End Date Kumar Celestin MD PCP - General 02 12/26/[address] [phone] documented as of this encounter
--- OUTSIDE RECORDS SUMMARY | 2022-08-26 16:26 | XMS_ITS | Encounter Summary ---
:2000 Author Organization [place] Address [address] [place] [address]. [place] [id number] Care Team Providers Name Role Phone Kumar Celestin MD Primary Care Provider Reason for Visit Reason Onset Date Comments Flare 09/30/2013 Encounter Details Date Type Department Care Team Description 09/30/2013 Telephone [facility] Courtney Bonner MD [facility] [address] [place] [address] [address]th [address] [place], [place] [address] [place] [address] [place] [phone] Social History Tobacco Use Types Packs/Day Years Used Date Never Smoker Alcohol Use Standard Drinks/Week Comments Not Asked 0 (1 standard drink = 0.6 oz pure alcoho l) Sex Assigned at Date Recorded Not on file documented as of this encounter Miscellaneous Notes Telephone Encounter - Courtney José MD - 09/30/2013 4:[address] Celestin paged me at 1610 this afternoon to discuss Cameron. See telephone note from our RN, Kate De Souza, earlier today re: recent flare of enthesitis symptoms. Cameron presented to Dr. Celestin this afternoon for evaluation given recent flare, to assess for possible infection, etc. Same history related to Dr. Celestin: 3 weeks of symptoms of mostly knee and ankle pain, no association with ill symptoms (as previous flares have been). Been taking mobic x 3 weeks and worsening. Pain has been 5-6/10 in am, gets better as day progresses. No swelling, redness, fever. Worst this AM, new onset shoulder pain. Had to crawl down stairs this morning to breakfast. In the office afebrile. Looks good. Normal exam. ROS otherwise negative (See Dr. Celestin's note). Sound suspicious for enthesitis/synovitis flare with improved exam in end of day. Discussed options with Dr. Celestin, that if no suspicion for underlying infection, reasonable to do steroid burst afterobtaining labs (CBC d/p, ESR, CRP, hepatic panel, creatinine, UA and ASO/DNase B). Would do 20-30 mg prednisone (0.75 mg/kg) x 5 days and taper off. Should restart naproxen after steroids. Will work on getting follow up with Dr. Parekh. Courtney José M.D. Machine Cleaner of Pediatrics Pediatric Rheumatology LING BROKER documented in this encounter Plan of Treatment Not on filedocumented as of this encounter Visit Diagnoses Not on filedocumented in this encounter Care Teams Tallow Maker Relationship Specialty Start Date End Date Kumar Celestin MD PCP - General 02 12/26/18 [address] [facility] [address] [place] [phone] documented as of this encounter
--- OUTSIDE RECORDS SUMMARY | 2022-08-26 16:26 | XMS_ITS | Encounter Summary ---
:2000 Author Organization [facility] Address [address] [place] [address]. [place] [address] Care Team Providers Name Role Phone Kumar Celestin MD Primary Care Provider Encounter Details Date Type Department Care Team Description 05/27/2010 Office Visit-[facility] DEPT Unknown, Provider Social History Tobacco Use Types Packs/Day Years Used Date Never Smoker Alcohol Use Standard Drinks/Week Comments Not Asked 0 (1 standard drink = 0.6 oz pure alcoho l) Sex Assigned at Date Recorded Not on file documented as of this encounter Progress Notes Unknown, Provider - 05/27/2010 10:00 AM CDT Airport Manager: Danielle Cedeno Status: Final Encounter: 27 May 2010 Type: Rooming Note Informant Parent is informant unless otherwise noted. Reason For Visit Reason for visit: TAHMINA MARY is 9 year old male seen for follow up on Ethesopathy of the knee. Do you have any other appointments, tests or procedures within the [facility] system for this same day? No. Pain Eval Current history of pain associated with this visit is denied. 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 Personal Hx Behavioral history: No tobacco use. Home environment: No secondhand tobacco smoke in home. Vital Signs Position for height measurement: standing Blood pressure taken with: electronic BP machine. Recorded by Danielle Cedeno on 27 May 2010 10:35 AM BP:93/59, RUE, Sitting, HR: 91 b/min, Resp: 16 r/min, Normal, Temp: 97.9 F, Oral, Height: 133.5 cm, Weight: 28.3 kg, BMI: 15.9 kg/m2. Immunizations Immunizations are reported as current. Allergies No Known Allergies No Known Drug Allergy. Current Meds Meds List Printed and given to patient. Naproxen 125 MG/5ML Suspension;TAKE 10 ML TWICE DAILY WITH FOOD; Rx AAA-MED RECONCILE;per mother; RPT. Signature Signed By: Danielle Cedeno LPN; 05/27/2010 10:37 AM SAIL MAKER. documented in this encounter Plan of Treatment Not on filedocumented as of this encounter Visit Diagnoses Not on filedocumented in this encounter Care Teams Union Carpenter Relationship Specialty Start Date End Date Kumar Celestin MD PCP - General 02 12/26/18 [address] [facility] [address] [place] [address] documented as of this encounter
--- OUTSIDE RECORDS SUMMARY | 2022-08-26 16:26 | XMS_ITS | Encounter Summary ---
:2000 Author Organization [facility] Address [address] [place] [address]. [place] [address] Care Team Providers Name Role Phone Kumar Celestin MD Primary Care Provider Reason for Visit Reason Onset Date Comments Patient/info Update 09/30/2013 arthritis Encounter Details Date Type Department Care Team Description 09/30/2013 Telephone [facility] Kumar Celestin Pat ient/info Update Clinic Patricia STEVENS (arthritis) [address] [place], [place] [phone] [place] [phone] (Wo rk) Social History Tobacco Use Types Packs/Day Years Used Date Never Smoker Alcohol Use Standard Drinks/Week Comments Not Asked 0 (1 standard drink = 0.6 oz pure alcoho l) Sex Assigned at Date Recorded Not on file documented as of this encounter Miscellaneous Notes Telephone Encounter - Kasi, Krystina Zapata - 10/02/2013 9:14 AM CST Called and spoke with mom. Prednisone was started on Sunday evening. Mom has been administering 20 mg in the am and 10 mg in the pm. Pt's pain has improved, but he continues to have pain in his feet, one leg and knee. He has been a little mopey and has also had a little bit of tingling in his extremities. Mom has stopped the Aleve. Message routed to as an fyi. No call back needed unless there is a change in the treatment plan. Krystina Villaseñor RN N SERVICES CASE MANAGER Telephone Encounter - Kumar Celestin MD - 09/30/2013 6:15 PM CST Mom had left by time got call back from specialist (had long wait prior to being seen) and have leftmessage with following instructions. Start prednisone 30 mg per day and continue for 5 days. Cut down to 20 if any side effect issues. Wean off by one tablet every 3-4 days after done with 5 day course. Stop other meds and sounded like wanted to restart current medication once prednisone done, but could check in with rheumatology at that point. Labs recommended and done. Some still pending but those that are back are normal. This information was left on the mother's answering machine, please verify that she received and letme know if any questions. N SERVICES CASE MANAGER documented in this encounter Plan of Treatment Not on filedocumented as of this encounter Visit Diagnoses Not on filedocumented in this encounter Care Teams Senior Group Manager Relationship Specialty Start Date End Date Kumar Celestin MD PCP - General 02 12/26/18 [address] [facility] [address] [place] [phone] documented as of this encounter
--- OUTSIDE RECORDS SUMMARY | 2022-08-26 16:26 | XMS_ITS | Encounter Summary ---
:2000 Author Organization [facility] Address [address] [place] [address] Care Team Providers Name Role Phone Kumar Celestin MD Primary Care Provider Reason for Visit Reason Comments Flu Shot Encounter Details Date Type Department Care Team Description 09/05/2011 Allied Health/Nurse [facility] Flu Shot Visit [place] [address] [place] [address] Social History Tobacco Use Types Packs/Day Years Used Date Never Smoker Alcohol Use Standard Drinks/Week Comments Not Asked 0 (1 standard drink = 0.6 oz pure alcoho l) Sex Assigned at Date Recorded Not on file documented as of this encounter Progress Notes Lauren Parker - 09/05/2011 7:02 PM CDT INTRANASAL INFLUENZA IMMUNIZATION DOCUMENTATION 1. Has the patient received the information for the intranasal influenza vaccine? YES 2. Does the patient have any of the following contraindications: Severe allergy to eggs? No Severe allergic reaction to a previous intranasal influenza vaccine? No Severe allergic reaction to components of intranasal flu vaccine: MSG, arginine, gentamycin or gelatin? No Have a long-term health problem of chronic heart or lung disease, asthma, kidney or liver disease, metabolic disease (e.g. Diabetes), anemia or other blood disorders? No Have a weakened immune system because of HIV/AIDS or another disease that affects the immune system, long-term treatment with drugs such as steroids, or cancer treatment with radiation or drugs? No Live with or expect to have close contact with a person whose immune system is severely compromisedor work with bone marrow transplant or chemotherapy patients? No Have a muscle or nerve disorder, such as a seizure disorders or cerebral palsy, that can lead to breathing or swallowing problems? No A nasal condition serious enough to make breathing difficult, such as a very stuffy nose. No A child between the ages of 2 and 5 years with asthma or one or more episodes of wheezing within the past year? No A child or adolescent on long-term aspirin treatment? No Currently have moderate or severe illness? No Have received a live vaccine (MMR, MMRV, varicella, or yellow fever) within the last 4 weeks? No Have you been on any anti-viral medication within the last 48 hours (for example, Tamiflu)? No 3. Is the patient or planning on becoming within the next month? No 4. Is the patient between the ages of 2 years and 49 years of age? YES 5. The vaccine has been administered and the patient was instructed to wait 15 minutes before leaving the building in the event of an allergic reaction: YES Vaccine given by: Lauren Parker [facility] ([facility]) documented in this encounter Plan of Treatment Not on filedocumented as of this encounter Visit Diagnoses Diagnosis Need for prophylactic vaccination and in oculation against influenza - Primary documented in this encounter Care Teams Senior Systems Architect Relationship Specialty Start Date End Date Kumar Celestin MD PCP - General 02 12/26/18 [address] [phone] documented as of this encounter
--- OUTSIDE RECORDS SUMMARY | 2022-08-26 16:26 | XMS_ITS | Encounter Summary ---
:2002 Author Organization [place] Address [facility] [place] [address] Care Team Providers Name Role Phone Kumar Celestin MD Primary Care Provider Encounter Details Date Type Department Care Team Description 03/20/2011 Office Visit-[facility] Blanco Parekh MD [facility] [place] [address] (Wo rk) Social History Tobacco Use Types Packs/Day Years Used Date Never Smoker Alcohol Use Standard Drinks/Week Comments Not Asked 0 (1 standard drink = 0.6 oz pure alcoho l) Sex Assigned at Date Recorded Not on file documented as of this encounter Progress Notes Josh Parekh - 03/20/2011 9:20 AM CDT Tariff Clerk: Satishdisha Josh Status: Final - Signature Encounter: 2011-03-20 09:20:00.000 Type: Peds Letter Josh Parekh - 03/20/2011 9:20 AM CDT Tariff Clerk: Izabella Josh Status: Final - Signature Encounter: 2011-03-20 09:20:00.000 Type: Peds Visit documented in this encounter Plan of Treatment Not on filedocumented as of this encounter Visit Diagnoses Not on filedocumented in this encounter Care Teams Bark Spudder Relationship Specialty Start Date End Date Kumar Celestin MD PCP - General 02 12/26/18 [address] [facility] [address] [place] [address] documented as of this encounter
--- OUTSIDE RECORDS SUMMARY | 2022-08-26 16:26 | XMS_ITS | Encounter Summary ---
:2002 Author Organization [facility] Address [address] [place] [address]. [place] [address] Care Team Providers Name Role Phone Kumar Celestin MD Primary Care Provider Encounter Details Date Type Department Care Team Description 09/23/2010 Office Visit-[facility] Natalya Muñiz MD [facility] [facility] [address] [place] [address] 16 Social History Tobacco Use Types Packs/Day Years Used Date Never Smoker Alcohol Use Standard Drinks/Week Comments Not Asked 0 (1 standard drink = 0.6 oz pure alcoho l) Sex Assigned at Date Recorded Not on file documented as of this encounter Progress Notes Natalya Sky L - 09/23/2010 10:40 AM CDT Senior Advisor: Natalya Sky Status: Amended, Final Encounter: 23 Sep 2010 Type: Rooming Note Informant Parent is informant unless otherwise noted. Reason For Visit Patient is being seen today for enthesitis. Do you have any other appointments, tests or procedures within the [facility] system for this same day? No. Pain Eval Current history of pain associated with this visit is as follows: Location: left ankle Quality: dull Severity: 2 (Pain scale 1-10, with 10 being the worst) Duration: since school started Timing: intermittent Context: unknown Modifying factors: n/a Associated signs/symptoms: n/a. 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 Personal Hx Behavioral history: No tobacco use. Home environment: No secondhand tobacco smoke in home. Vital Signs Recorded by Tyrel Avelar on 23 Sep 2010 10:32 AM BP:92/60, RUE, Sitting, HR: 85 b/min, Temp: 98.8 F, Oral, Height: 134.8 cm, Weight: 28.8 kg, BMI: 15.8 kg/m2, Pain Scale: 2. Position for height measurement: standing Blood pressure taken with: electronic BP machine. Immunizations Immunizations are reported as current. Allergies No Known Allergies No Known Drug Allergy. Current Meds Naproxen 125 MG/5ML Suspension;TAKE 10 ML TWICE DAILY WITH FOOD; Rx [facility]-MED RECONCILE;per mother; RPT. Med list offered and patient declined. Signature Signed By: Tyrel Avelar MA; 09/23/2010 10:37 AM REMOVABLE PROSTHODONTIST. Signed By: Natalya Newell M.D.,Fellow; 10/02/2010 5:24 PM REMOVABLE PROSTHODONTIST; Acknowledgement. documented in this encounter Plan of Treatment Not on filedocumented as of this encounter Visit Diagnoses Not on filedocumented in this encounter Care Teams Plisse Machine Operator Relationship Specialty Start Date End Date Kumar Celestin MD PCP - General 02 12/26/18 [address] [address] documented as of this encounter
--- OUTSIDE RECORDS SUMMARY | 2022-08-26 16:26 | XMS_ITS | Encounter Summary ---
:2002 Author Organization [place] Address [address] [place] [address] Care Team Providers Name Role Phone Kumar Celestin MD Primary Care Provider Encounter Details Date Type Department Care Team Description 03/02/2010 Office Visit-[facility] INTERFACE [facility] DE[facility] Coordinator, [facility] P eds Rheumatology Care Social History Tobacco Use Types Packs/Day Years Used Date Never Smoker Alcohol Use Standard Drinks/Week Comments Not Asked 0 (1 standard drink = 0.6 oz pure alcoho l) Sex Assigned at Date Recorded Not on file documented as of this encounter Progress Notes Coordinator, [facility] Peds Rheumatology Care - 03/02/2010 1:35 PM CDT Weather Algorithm Scientist: Peds, Care Status: Final Encounter: 02 Mar 2010 Type: Nurse Note Visit Closing Mother verbalized an understanding of the clinic visit and plan of care. Medication refills were addressed. Mother's questions and concerns related to the plan of care were addressed. Parents will be notified with outstanding test/study results. Family is aware of and understands the plan of care: Yes Other: Given order for orthotics and information on foot supports that can be ordered through [facility]. Mother verbalized an understanding of the clinic visit and plan of care. Signature Signed By: Kate De Souza RN; 03/03/2010 10:32 AM WATER TAXI DRIVER. documented in this encounter Plan of Treatment Not on filedocumented as of this encounter Visit Diagnoses Not on filedocumented in this encounter Care Teams Grader Tender Relationship Specialty Start Date End Date Kumar Celestin MD PCP - General 02 12/26/18 [address] [facility] [address] [place] [address] documented as of this encounter
--- OUTSIDE RECORDS SUMMARY | 2022-08-26 16:26 | XMS_ITS | Encounter Summary ---
:2002 Author Organization [place] Address [address] [place] [address]. [place] [address] Care Team Providers Name Role Phone Kumar Celestin MD Primary Care Provider Reason for Visit Reason Onset Date Comments Arthritis 09/30/2013 Encounter Details Date Type Department Care Team Description 09/30/2013 Telephone [facility] Explore Josh Parekh MD [facility] [address] [place] [address] [facility] Floor [address] [place] [address] [place] [phone] Social History Tobacco Use Types Packs/Day Years Used Date Never Smoker Alcohol Use Standard Drinks/Week Comments Not Asked 0 (1 standard drink = 0.6 oz pure alcoho l) Sex Assigned at Date Recorded Not on file documented as of this encounter Miscellaneous Notes Telephone Encounter - Kate De Souza RN - 09/30/2013 9:08 AM CST Last saw Cameron in Aug, 2012. Given Mobic to use if needed.. Mom said that Cameron has only had a couple of flares and has taken Mobic for only a week at a time. However, about 3 weeks ago, he started having more enthesitis. Unlike previous episodes, Mom said this one was not associated with an illness. Cameron has been taking Mobic for the past 3 weeks, but is getting worse. At first he was complaining about his feet in the morning or after activity. Now is is having trouble all day with his hips, kneesand back (shoulder one day, but that is better now). Mom said he is starting to limp and could barely walk today. She says that he has not been sick and this is exactly how he has presented in the past(just worse). 1) We will try to get him on the schedule 2) Mom may try one of the other NSAIDs as outlined in the clinic note to see if they work better. (can add tylenol if needed) 3) Mom will take him in to see Dr. Heath and make sure nthing else is going on--she has the on-call page# so he can call if needed. K AND CASE MAKER documented in this encounter Plan of Treatment Not on filedocumented as of this encounter Visit Diagnoses Not on filedocumented in this encounter Care Teams Materials Recycler Relationship Specialty Start Date End Date Kumar Celestin MD PCP - General 02 12/26/18 [address] [phone] documented as of this encounter
--- OUTSIDE RECORDS SUMMARY | 2022-08-26 16:26 | XMS_ITS | Encounter Summary ---
:2002 Author Organization [facility] Address [address] [place] [address] Care Team Providers Name Role Phone Kumar Celestin MD Primary Care Provider Reason for Visit Reason Comments Cough has had a cough and woke up this morning with a sore throat, fever this morning of 99.9. Encounter Details Date Type Department Care Team Description 11/11/2012 Office Visit [facility] Kumar Celestin, Sin usitis (Primary Clinic Patricia STEVENS Dx) [address] [place] [address] [place] [address] [place] [phone] (Wo rk) Social History [...] Pressure - - Pulse - - Temperature 38.2 ??C (100.8 ??F) 11/11/2012 10:12 AM WET END TESTER Respiratory Rate - - Oxygen Saturation - - Inhaled Oxygen Concentration - - Weight 34.9 kg (77 lb) 11/11/2012 10:12 AM WET END TESTER Height 146.1 cm (4' 9.5) 11/11/2012 10:12 AM WET END TESTER Body Mass Index 16.37 11/11/2012 10:12 AM WET END TESTER Body Mass Index Percentile 40.03 % 11/11/2012 10:[address] Growth Chart: [facility] (Boys, 2-20 Years) documented in this encounter Progress Notes Kumar Celestin MD - 11/11/2012 10:29 AM CST Low grade fever, hint of runny nose, Headache. Sore throat. Stomach ache. No appetite. Drinking ok. No wheeze, shortness of breath, or lethargy. 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 Cough for couple weeks. Mild but not improving. Physical Exam: 12 year old well developed, well nourished male in no apparent distress. Tympanic membranes with good landmarks bilaterally. Normal color. Conjunctiva without erythema or mattering. Nares without erythema or drainage. Throat without erythema or exudate. No tonsilar hypertrophy. No lymphadenopathy Lungs clear to auscultation. Assessment: Sinusitis Plan: Symptomatic treatment reviewed. Prescription(s) given today as per orders. Follow-up in clinic if symptoms not resolving 1 week. END TESTER documented in this encounter Nursing Notes 11/11/2012 10:15 AM CST >> SOFIA CHOUDHARY Mon Nov 11, 2012 10:14 AM Patient presents with: Cough - has had a cough and woke up this morning with a sore throat, fever this morning of 99.9. Initial Temp(Src) 100.8 ??F (38.2 ??C) (Oral) Ht 4' 9.5 (1.461 m) Wt 77 lb (34.927 kg) BMI 16.37 kg/m2 Estimated Body mass index is 16.37 kg/(m^2) as calculated from the following: Height as of this encounter: 4' 9.5(1.461 m). Weight as of this encounter: 77 lb(34.927 kg).. BP completed using cuff size: NA (Not Taken) Sofia Choudhary CMA documented in this encounter Plan of Treatment Not on filedocumented as of this encounter Procedures Procedure Name Priority Date/Time Associated Diagnosis Comme nts RAPID STREP SCREEN Routine 11/11/2012 10:20 AM Sinusitis Re sults for this THROAT SWAB WET END TESTER procedure are i n the results section. BETA HEMOLYTIC Routine 11/11/2012 10:20 AM Sinusitis Result s for this STREP GROUP A WET END TESTER procedure are in CULTURE the results section. documented in this encounter Results Beta strep group A culture (11/11/2012 10:20 AM WET END TESTER) Component Value Ref Test Analysis Performed At Patholo gist Range Method Time Signature Specimen Throat [facility] Culture Micro No Beta [place] Streptococcus [facility] Micro Report FINAL 11/13/2012 [facility] LAB Specimen Anatomical Collection Method Collection Time Receive d Time (Source) Location / / Volume Laterality Specimen from 11/11/2012 10:20 11/11/2012 throat AM WET END TESTER 10:30 AM WET END TESTER (specimen) Kumar Celestin MD LAB - MICRO GENERAL ORDERABL ES Performing Organization Address City/[facility]/ZIP Code Phon e Number [facility] [address] [place], [place] [address] [address] [facility] LAB Rapid strep screen (11/11/2012 10:20 AM WET END TESTER) Component Value Ref Test Analysis Performed At [facility] gist Range Method Time Signature Specimen Throat [facility] Rapid Strep A NEGATIVE: No Group A strepto coccal antigen detected by immunoassay, await [place] Screen culture report. [facility] Micro Report FINAL 11/11/2012 [facility] LAB Specimen Anatomical Collection Method Collection Time Receive d Time (Source) Location / / Volume Laterality Specimen from 11/11/2012 10:20 11/11/2012 throat AM WET END TESTER 10:30 AM WET END TESTER (specimen) Kumar Celestin MD LAB - MICRO GENERAL ORDERABL ES Performing Organization Address City/[facility]/ZIP Code Phon e Number [facility] [address] [place], [place] [address] [address] [facility] documented in this encounter Visit Diagnoses Diagnosis Sinusitis - Primary Unspecified sinusitis (chronic) documented in this encounter Care Teams Interior Design Faculty Member Relationship Specialty Start Date End Date Kumar Celestin MD PCP - General 02 12/26/18 [address] [place] [phone] documented as of this encounter
--- OUTSIDE RECORDS SUMMARY | 2022-08-26 16:27 | XMS_ITS | Encounter Summary ---
:2002 Author Organization [facility] Address [address] [place] [address] Care Team Providers Name Role Phone Kumar Celestin MD Primary Care Provider Reason for Visit Reason Comments Cough cough mostly at noc and with exertion-sometimes leads to emesis, also low grade fevers at noc, itchy e yes too, last tylenol 930 Encounter Details Date Type Department Care Team Description 01/06/2009 Office Visit [facility] Kumar Celestin, Fev er, Unspecified Clinic Patricia STEVENS (Primary Dx) [address] [place] [address] [place] [address] [place] [phone] (Wo rk) Social History [...] Pressure - - Pulse - - Temperature 36.6 ??C (97.9 ??F) 01/06/2009 1:45 PM GEOSCIENCE TECHNICIAN Respiratory Rate - - Oxygen Saturation - - Inhaled Oxygen Concentration - - Weight 23.6 kg (52 lb) 01/06/2009 1:45 PM GEOSCIENCE TECHNICIAN Height 123.8 cm (4' 0.75) 01/06/2009 1:45 PM GEOSCIENCE TECHNICIAN Body Mass Index 15.38 01/06/2009 1:45 PM GEOSCIENCE TECHNICIAN Body Mass Index Percentile 48.29 % 01/06/2009 1:45 PM CS T Growth Chart: [facility] (Boys, 2-20 Years) documented in this encounter Progress Notes Kumar Celestin - 01/06/2009 2:02 PM CST 2.5 weeks of coughing, worse and first thing in am. Post tussive emesis. Fever was present at start for 1.5 weeeks went away and now back night since Sunday (5-6 days). Fevers up to 100-101. Coughing with exercise. Hint f runny nose at start. No short of breath. Headches off/on. Stomache ache real intermitant. Has wondered about asthma in past but not definite. No wheezing in past that momaware of. Physical Exam: 8 year old well developed, well nourished male in no apparent distress. Tympanic membranes with good landmarks bilaterally. Normal color. Conjunctiva without erythema or mattering. Nasal drainage thick. Throat without erythema or exudate. No tonsilar hypertrophy. No lymphadenopathy Lungs clear to auscultation. Assessment: Sinusitis Plan: Symptomatic treatment reviewed. Prescription(s) given today as per orders. Follow-up in clinic if no improvment 24-48 hours. Follow-up in clinic if symptoms not resolving 1-2 weeks. CIENCE TECHNICIAN documented in this encounter Nursing Notes 01/06/2009 1:45 PM CST >> OMAYRA LOO Wed Jan 06, 2009 1:48 PM Cameron Manuel presents for a cough at noc and with exertion, aslo fevers, itchy eyes. Initial Temp (Src) 97.9 ??F (36.6 ??C) (Oral) Ht 4' 0.75 (1.238 m) Wt 52 lb (23.587 kg) Body mass index is 15.38 kg/(m^2).. BP completed using cuff size: NA (Not Taken) documented in this encounter Plan of Treatment Not on filedocumented as of this encounter Procedures Procedure Name Priority Date/Time Associated Diagnosis Comme nts HC CHEST TWO VIEWS, Routine 01/06/2009 2:16 PM Fever, unspecif ied Results for this FRONT/LAT GEOSCIENCE TECHNICIAN procedure are i n the results section. documented in this encounter Results CHEST X-RAY 2 VW (01/06/2009 2:16 PM GEOSCIENCE TECHNICIAN) Anatomical Region Laterality Modality Other Specimen (Source) Anatomical Collection Method Collection Time Re ceived Time Location / / Volume Laterality 01/06/2009 2:16 PM GEOSCIENCE TECHNICIAN Impressions 01/06/2009 4:00 PM GEOSCIENCE TECHNICIAN CHEST, PA AND LATERAL ?? January 06 2:16:00 PM HISTORY: Fever. COMPARISON: None. IMPRESSION: Negative. Lungs are clear. Kumar Celestin MD GENERAL IMAGING documented in this encounter Visit Diagnoses Diagnosis Fever, unspecified - Primary documented in this encounter Care Teams Information Clerk Brokerage Relationship Specialty Start Date End Date Kumar Celestin MD PCP - General 02 12/26/18 [address] [facility] [address] [place] [phone] documented as of this encounter
--- OUTSIDE RECORDS SUMMARY | 2022-08-26 16:27 | XMS_ITS | Encounter Summary ---
:2002 Author Organization [place] Address [address] [place] [address] Care Team Providers Name Role Phone Kumar Celestin MD Primary Care Provider Reason for Visit Reason Comments Flu Shot Encounter Details Date Type Department Care Team Description 01/02/2007 Allied Health/Nurse [facility] Flu Shot Visit [place] [address] [place] [address] Social History Tobacco Use Types Packs/Day Years Used Date Never Smoker Alcohol Use Standard Drinks/Week Comments Not Asked 0 (1 standard drink = 0.6 oz pure alcoho l) Sex Assigned at Date Recorded Not on file documented as of this encounter Progress Notes Lizzette Varela - 01/02/2007 2:38 PM CST .1. Has the patient received the information for the influenza vaccine? YES 2. Does the patient have any of the following contraindications? Allergy to eggs? No Allergic reaction to previous influenza vaccines? No Any other problems to previous influenza vaccines? No Paralyzed by Guillain-Quentin syndrome? No Currently ? NO Current moderate or severe illness? No Allergy to contact lens solution? No 3. The vaccine has been administered in the usual fashion and the patient was instructed to wait 20 minutes before leaving the building in the event of an allergic reaction: YES T WAREHOUSE MANAGER documented in this encounter Plan of Treatment Not on filedocumented as of this encounter Visit Diagnoses Diagnosis Need for prophylactic vaccination and in oculation against influenza - Primary documented in this encounter Care Teams Tobacco Stripper Relationship Specialty Start Date End Date Kumar Celestin MD PCP - General 02 12/26/18 [address] [facility] [address] [place] [address] documented as of this encounter
--- OUTSIDE RECORDS SUMMARY | 2022-08-26 16:27 | XMS_ITS | Encounter Summary ---
:2002 Author Organization [place] Address [address] [place] [address] Care Team Providers Name Role Phone Kumar Celestin MD Primary Care Provider Reason for Referral Referral not Required - Closed Specialty Diagnoses / Procedures Referred By Contact Refer red To Contact Diagnoses Foot pain Kumar Celestin MD [facility] [address] [place] [phone] [facility] [address] [place] [address] Phone: [phone] Fax: Referral ID Status Reason Start Date Expiration Date Visits Requ ested Visits Authorized [id number] Closed 12/24/2009 11/18/2011 1 1 WAINER Reason for Visit Reason Onset Date Comments Patient Request 12/24/2009 Encounter Details Date Type Department Care Team Description 12/24/[address] [facility] Kumar Celestin MD Patient Request [place] [address] [place] [phone] (Wo rk) Social History Tobacco Use Types Packs/Day Years Used Date Never Smoker Alcohol Use Standard Drinks/Week Comments Not Asked 0 (1 standard drink = 0.6 oz pure alcoho l) Sex Assigned at Date Recorded Not on file documented as of this encounter Miscellaneous Notes Telephone Encounter - VinnyMaryse torres - 12/24/2009 1:49 PM CST Mom informed. WAINER Telephone Encounter - VinnyMaryse - 12/24/2009 12:20 PM CST Left message for mom to call back. WAINER Telephone Encounter - Kumar Celestin - 12/24/2009 12:01 PM CST Please notify of referral. WAINER Telephone Encounter - Tierra Miranda - 12/24/2009 8:28 AM CST Mom explains pt saw Outreach Worker a couple of weeks ago. That MD did not find anything wrong. The xray was negative & they gave patient an arch support. Pt continues with bilat. Foot pain which seems more frequent to mom & more painful. In addition, he now c/o bilat. Hand & neck pain. Mom is interested in Rheumatology referral as previously discussed. Please advise. WAINER documented in this encounter Plan of Treatment Not on filedocumented as of this encounter Procedures Procedure Name Priority Date/Time Associated Diagnosis Comme nts ZZ CONSULT RHEUMATOLOGY Routine 03/20/2011 Foot pain documented in this encounter Results CONSULT RHEUMATOLOGY (03/20/2011) Narrative This result has an attachment that is no t available. Kumar Celestin MD REFERRAL documented in this encounter Visit Diagnoses Diagnosis Foot pain - Primary Pain in limb documented in this encounter Care Teams Soft Boarder Relationship Specialty Start Date End Date Kumar Celestin MD PCP - General 02 12/26/18 [address] [facility] [address] [place] [phone] documented as of this encounter
--- OUTSIDE RECORDS SUMMARY | 2022-08-26 16:27 | XMS_ITS | Encounter Summary ---
:2002 Author Organization [facility] Address [address] [place] [address]. [place] [address] Care Team Providers Name Role Phone Kumar Celestin MD Primary Care Provider Encounter Details Date Type Department Care Team Description 03/02/2010 Historic Results Specialty Infusion and Vehe, Ri drew Newman MD Procedure Center [address] [place], [place] [address] [place] [phone] Social History Tobacco Use Types Packs/Day Years Used Date Never Smoker Alcohol Use Standard Drinks/Week Comments Not Asked 0 (1 standard drink = 0.6 oz pure alcoho l) Sex Assigned at Date Recorded Not on file documented as of this encounter Plan of Treatment Not on filedocumented as of this encounter Procedures Procedure Name Priority Date/Time Associated Comments Diagnosis ROUTINE UA WITH Routine 03/02/2010 2:15 PM Result s for this MICROSCOPIC CDT procedure are i n the results section. CBC WITH PLATELETS & Routine 03/02/2010 2:14 PM R esults for this DIFFERENTIAL CDT procedure are i n the results section. ERYTHROCYTE Routine 03/02/2010 2:14 PM Results f or this SEDIMENTATION RATE CDT procedure are in AUTO the results section. CRP INFLAMMATION Routine 03/02/2010 2:14 PM Resul ts for this CDT procedure are i n the results section. CREATININE Routine 03/02/2010 2:14 PM Results f or this CDT procedure are i n the results section. AST Routine 03/02/2010 2:14 PM Results f or this CDT procedure are i n the results section. ALBUMIN LEVEL Routine 03/02/2010 2:14 PM Results for this CDT procedure are i n the results section. documented in this encounter Results (ABNORMAL) Routine UA with microscopic (03/02/2010 2:15 PM CDT) [facility] Method Time Signature Source Midstream MISYS Urine Color Urine Yellow MISYS Appearance Urine Clear MISYS Glucose Urine Negative NEG mg/dL MISYS Bilirubin Urine Negative NEG MISYS Ketones Urine Negative NEG mg/dL MISYS Specific [place] 1.024 1.003 - MISYS Urine 1.035 Blood Urine Negative NEG MISYS pH Urine 7.0 5.0 - 7.0 MISYS pH Protein Albumin Negative NEG mg/dL MISYS Urine Urobilinogen Normal 0.0 - 2.0 MISYS mg/dL mg/dL Nitrite Urine Negative NEG MISYS Leukocyte Negative NEG MISYS Esterase Urine WBC Urine 1 0 - 2 MISYS /HPF RBC Urine 2 0 - 2 MISYS /HPF Squamous <1 0 - 1 MISYS Epithelial /HPF /HPF Urine Amorphous Few (A) NEG /HPF MISYS Crystals Mucous Urine Present (A) NEG /LPF MISYS Specimen Anatomical Collection Method Collection Time Receive d Time (Source) Location / / Volume Laterality 03/02/2010 2:15 PM 0 2:16 CDT PM CDT Josh Parekh MD LAB - URINE ORDERABLES Performing Organization Address City/State/ZIP Code Phon e Number MISYS Albumin level (03/02/2010 2:14 PM CDT) athologist Signature Albumin 4.2 3.9 - 5.1 MISYS g/dL Specimen Anatomical Collection Method Collection Time Receive d Time (Source) Location / / Volume Laterality 03/02/2010 2:14 PM 0 2:16 CDT PM CDT Josh Parekh MD LAB - BLOOD ORDERABLES Performing Organization Address City/State/ZIP Code Phon e Number MISYS AST (03/02/2010 2:14 PM CDT) athologist Signature AST 38 0 - 50 U/L MISYS Specimen Anatomical Collection Method Collection Time Receive d Time (Source) Location / / Volume Laterality 03/02/2010 2:14 PM 0 2:16 CDT PM CDT Josh Parekh MD LAB - BLOOD ORDERABLES Performing Organization Address City/State/ZIP Code Phon e Number MISYS (ABNORMAL) CBC with platelets differential (03/02/2010 2:14 PM CDT) [facility] Method Time Signature MCV 78 70 - 100 MISYS fl MCH 25.1 (L) 26.5 - MISYS 33.0 pg MCHC 32.1 31.5 - MISYS 36.5 g/dL RDW 14.4 10.0 - MISYS 15.0 % WBC 6.5 5.0 - MISYS 14.5 10e9/L RBC Count 4.86 3.7 - 5.3 MISYS 10e12/L Hemoglobin 12.2 10.5 - MISYS 14.0 g/dL Hematocrit 38.0 31.5 - MISYS 43.0 % % Neutrophils 44 32 - 54 % MISYS % Lymphocytes 43 27 - 57 % MISYS % Monocytes 11 (H) 0 - 10 % MISYS % Eosinophils 2 0 - 6 % MISYS % Basophils 0 0 - 1 % MISYS Platelet Count 372 150 - 450 MISYS 10e9/L Absolute 2.8 1.3 - 8.1 MISYS Neutrophil 10e9/L Absolute 2.8 1.1 - 8.6 MISYS Lymphocytes 10e9/L Absolute 0.7 0.0 - 1.1 MISYS Monocytes 10e9/L Absolute 0.1 0.0 - 0.7 MISYS Eosinophils 10e9/L Absolute 0.0 0.0 - 0.2 MISYS Basophils 10e9/L Diff Method Automated MISYS Method Specimen Anatomical Collection Method Collection Time Receive d Time (Source) Location / / Volume Laterality 03/02/2010 2:14 PM 0 2:16 CDT PM CDT Josh Parekh MD LAB - BLOOD ORDERABLES Performing Organization Address City/[facility] Phon e Number MISYS Creatinine (03/02/2010 2:14 PM CDT) athologist Signature Creatinine 0.44 0.15 - 0.53 MISYS mg/dL Comment: New IDMS-traceable calibration beginning 5/1/08 GFR Estimate GFR not calculated, patient <16 years mL/min/1.7m2 MISYS old. GFR Estimate If Black GFR not calculated, patient <16 years mL/min/1. 7m2 MISYS old. Specimen Anatomical Collection Method Collection Time Receive d Time (Source) Location / / Volume Laterality 03/02/2010 2:14 PM 0 2:16 CDT PM CDT Josh Parekh MD LAB - BLOOD ORDERABLES Performing Organization Address City/State/ZIP Code Phon e Number MISYS CRP inflammation (03/02/2010 2:14 PM CDT) P athologist Signature CRP Inflammation <5.0 0.0 - 8.0 MISYS mg/L Specimen Anatomical Collection Method Collection Time Receive d Time (Source) Location / / Volume Laterality 03/02/2010 2:14 PM 0 2:16 CDT PM CDT Josh Parekh MD LAB - BLOOD ORDERABLES Performing Organization Address City/[facility]/ZIP Code Phon e Number MISYS Erythrocyte sedimentation rate auto (03/02/2010 2:14 PM CDT) P athologist Signature Sed Rate 5 0 - 15 mm/h MISYS Specimen Anatomical Collection Method Collection Time Receive d Time (Source) Location / / Volume Laterality 03/02/2010 2:14 PM 0 2:16 CDT PM CDT Josh Parekh MD LAB - BLOOD ORDERABLES Performing Organization Address City/[facility]/ZIP Code Phon e Number MISYS documented in this encounter Visit Diagnoses Not on filedocumented in this encounter Care Teams Retail Store Clerk Relationship Specialty Start Date End Date Kumar Celestin MD PCP - General 02 12/26/[address] [place] [address] documented as of this encounter
--- OUTSIDE RECORDS SUMMARY | 2022-08-26 16:27 | XMS_ITS | Encounter Summary ---
:2002 Author Organization [facility] Address [address] [place] [id number] Care Team Providers Name Role Phone Kumar Celestin MD Primary Care Provider Reason for Visit Reason Comments Ear Problem right ear pain since 1 week ago Encounter Details Date Type Department Care Team Description 01/17/2010 Office Visit [facility] Simón Coello Otitis Media Treated Clinic Patricia Sinha MD with Antibiotics in [address] the Past 60 Day [address] [place] (Primary Dx) [place] [address] Social History Tobacco Use Types Packs/Day Years Used Date Never Smoker Alcohol Use Standard Drinks/Week Comments Not Asked 0 (1 standard drink = 0.6 oz pure alcoho l) Sex Assigned at Date Recorded Not on file documented as of this encounter Last Filed Vital Signs Vital Sign Reading Time Taken Comments Blood Pressure - - Pulse - - Temperature 36.7 ??C (98 ??F) 01/17/2010 2:25 PM SALES DEVELOPMENT COORDINATOR Respiratory Rate - - Oxygen Saturation - - Inhaled Oxygen Concentration - - Weight 28.1 kg (62 lb) 01/17/2010 2:25 PM SALES DEVELOPMENT COORDINATOR Height - - Body Mass Index 16.6 01/10/2010 2:32 PM SALES DEVELOPMENT COORDINATOR Body Mass Index Percentile 70.64 % 01/17/2010 2:25 PM CS T Growth Chart: [facility] (Boys, 2-20 Years) documented in this encounter Progress Notes Simón Coello R - 01/27/2010 8:03 AM CST Cameron is here today for cold symptoms of 4 days days duration. Main symptom(s) congestion, cough andproductive cough. Fever absent. Associated symptoms include right ear pain. Pertinent negatives include shortness of breath, wheezing, or lethargy. Recently treated for ear infection Physical Exam: 9 year old well developed, well nourished male in no apparent distress. Ears left catia,right TM red and dulll. Throat and pharynx normal. Neck supple. No adenopathy or masses in the neck or supraclavicular regions. Sinuses non tender.. Nasal drainage colored. Lungs clear to auscultation. Heart regular rate and rhythm without murmurs. No tachycardia. The abdomen is soft without tenderness, guarding, mass or organomegaly. Bowel sounds are normal. No CVA tenderness or inguinal adenopathy noted.. Assessment: Acute Otitis Media Plan: Prescription(s) given today as per orders. Follow-up in clinic in 1-2 weeks. OTC medications for respiratory symptom control. Examples and dosages reviewed. Follow up if symptomduration greater than two weeks or worsening symptoms. Otherwise per orders. S DEVELOPMENT COORDINATOR documented in this encounter Nursing Notes 01/17/2010 2:15 PM CST >> MADISON EWING Mon Jan 17, 2010 2:26 PM Patient presents with: Ear Problem - right ear pain since 1 week ago Initial Temp(Src) 98 ??F (36.7 ??C) (Oral) Wt 62 lb (28.123 kg) Estimated Body mass index is 16.60kg/(m^2) as calculated from the following: Height as of 01/10/10: 4' 3.25(1.302 m). Weight as of this encounter: 62 lb(28.123 kg). BP completed using cuff size: NA (Not Taken). Madison Ewing BACK ROLL LATHE OPERATOR (AAMA) documented in this encounter Plan of Treatment Not on filedocumented as of this encounter Visit Diagnoses Diagnosis Otitis media treated with antibiotics in the past 60 days - Primary Unspecified otitis media documented in this encounter Care Teams Wafer Fabrication Operator Relationship Specialty Start Date End Date Kumar Celestin MD PCP - General 02 12/26/18 Timbo FUNG [facility] [address] [place] [id number] documented as of this encounter
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
--- OUTSIDE RECORDS SUMMARY | 2022-08-26 16:27 | XMS_ITS | Encounter Summary ---
:2002 Author Organization [facility] Address [address] [place] [address] Care Team Providers Name Role Phone Kumar Celestin MD Primary Care Provider Encounter Details Date Type Department Care Team Description 01/19/2010 Office Visit-[facility] INTERFACE [facility] DEPT Coordinator, [facility] P eds Rheumatology Care Social History Tobacco Use Types Packs/Day Years Used Date Never Smoker Alcohol Use Standard Drinks/Week Comments Not Asked 0 (1 standard drink = 0.6 oz pure alcoho l) Sex Assigned at Date Recorded Not on file documented as of this encounter Progress Notes Coordinator, [facility] Peds Rheumatology Care - 01/19/2010 1:00 PM CST Marine Engineer: Peds, Care Status: Final Encounter: 19 Jan 2010 Type: Nurse Note Visit Closing Mother verbalized an understanding of the clinic visit and plan of care. Mother's questions and concerns related to the plan of care were addressed. Mother verbalized an understanding of upcoming tests and appointments. Family is aware of and understands the plan of care: Yes Other: f/u on OT/PT referral . Signature Signed By: Kate De Souza RN; 01/20/2010 9:04 AM HAIR ROOTING MACHINE OPERATOR. documented in this encounter Plan of Treatment Not on filedocumented as of this encounter Visit Diagnoses Not on filedocumented in this encounter Care Teams Steward/Stewardess Second Class Relationship Specialty Start Date End Date Kumar Celestin MD PCP - General 02 12/26/18 [address] [facility] [address] [place] [address] documented as of this encounter
--- OUTSIDE RECORDS SUMMARY | 2022-08-26 16:27 | XMS_ITS | Encounter Summary ---
:2000 Author Organization [place] Address [address] [place] [address]. [place] [address] Care Team Providers Name Role Phone Kumar Celestin MD Primary Care Provider Reason for Visit Reason Comments Fever starting on Sunday (101.8) c ough . vomiting since Sunday. Last emesis was this am. Taking clear li quids with succes since then. Pharyngitis started on Sunday along with cough. C/o headache as well. Last Tylenol at 2:30 pm Derm Problem raised red rash on face and extremities. Encounter Details Date Type Department Care Team Description 01/04/2010 Office Visit [facility] Amanda Saldana, Acute Pharyngitis (Primary Dx); Urgent Care Hernesto Chiu PA-C Cough [address] [address] [phone] Social History Tobacco Use Types Packs/Day Years Used Date Never Smoker Alcohol Use Standard Drinks/Week Comments Not Asked 0 (1 standard drink = 0.6 oz pure alcoho l) Sex Assigned at Date Recorded Not on file documented as of this encounter Last Filed Vital Signs Vital Sign Reading Time Taken Comments Blood Pressure - - Pulse - - Temperature 39.4 ??C (103 ??F) 01/04/2010 6:48 PM DEAF/HARD OF HEARING SPECIALIST Respiratory Rate 36 01/04/2010 6:48 PM DEAF/HARD OF HEARING SPECIALIST Oxygen Saturation - - Inhaled Oxygen Concentration - - Weight 27.5 kg (60 lb 11.2 oz) 01/04/2010 6:48 PM DEAF/HARD OF HEARING SPECIALIST Height - - Body Mass Index - - documented in this encounter Progress Notes Margarita Feliciano - 01/04/2010 7:14 PM CST SUBJECTIVE: Tahmina Mary is a 9 year old male presenting with a chief complaint of cough . Onset of symptoms was 4 day(s) ago. Post tussive emesis x 3 x 2 days. 2 emesis without cough. Fever up to 103. Sore throat. Course of illness is worsening.with sore throat and increasing fevers. Severity moderate Current and Associated symptoms: as above Treatment measures tried include OTC meds: last tylenol was 5 hours ago, but did not help fever much. Predisposing factors include None. Patient has an eczematous rash on his cheeks and arms which has been more red since he has had fevers. Had H1N1 nasal mist vaccination x 2, but did not have seasonal flu vaccination Past Medical History Diagnosis Date ??? Other Speech Disturbance Patient Active Problem List Diagnoses Code (none) - all problems resolved or deleted History Substance Use Topics ??? Tobacco Use: Never ??? Alcohol Use: Not on file ROS: CONSTITUTIONAL:NEGATIVE for fever, chills, change in weight ENT/MOUTH: NEGATIVE for ear, mouth and throat problems RESP:NEGATIVE for significant cough or SOB CV: NEGATIVE for chest pain, palpitations or peripheral edema OBJECTIVE :Temp 103 ??F (39.4 ??C) Resp 36 Wt 60 lb 11.2 oz (27.533 kg) GENERAL APPEARANCE: healthy, alert and no distress EYES: EOMI, PERRL, conjunctiva clear HENT: ear canals and TM's normal. Nose without ulcers, erythema or lesions HENT: erythematous OP with strong odor NECK: supple, nontender, no lymphadenopathy RESP: a few scatttered rhonchi posterior lower lung marquis. No respiratory distress. CV: regular rates and rhythm, normal S1 S2, no murmur noted ABDOMEN: soft, nontender, no HSM or masses and bowel sounds normal NEURO: Normal strength and tone, sensory exam grossly normal, normal speech and mentation SKIN: no suspicious lesions or rashes CXR: no infiltrates as per my interpretation. 462 Acute Pharyngitis (primary encounter diagnosis) Plan: STREP GROUP A ANTIGEN (RAPID), BETA STREP CONFIRM, CBC WITH PLATELETS, DIFF, MONO HETEROPHILE, CHEST X-RAY 2 VW, INFLUENZA A/B ANTIGEN, ZITHROMAX 200 MG/5ML OR SUSR Comment: with strep like odor to breath, will presumptively treat given his symptoms and clinical presentation. 786.2 Cough Plan: INFLUENZA A/B ANTIGEN, ZITHROMAX 200 MG/5ML OR SUSR Comment: F/U with PCP within 2-3 days for re-check. TO ED should symptoms persist or worsen. Try Ibuprofen alternating with Tylenol to control fever. /HARD OF HEARING SPECIALIST documented in this encounter Nursing Notes 01/04/2010 6:15 PM CST >> MADISON JOYCE Ivette Jan 04, 2010 6:51 PM Patient presents with: Fever - starting on Sunday (101.8) cough . vomiting since Sunday. Last emesis was this am. Taking clear liquids with succes since then. Pharyngitis - started on Sunday along with cough. C/o headache as well. Last Tylenol at 2:30 pm Derm Problem - raised red rash on face and extremities. Initial Temp 103 ??F (39.4 ??C) Resp 36 Wt 60 lb 11.2 oz (27.533 kg) Estimated Body mass index is 16.25 kg/(m^2) as calculated from the following: Height as of 12/13/09: 4' 3.25(1.302 m). Weight as of this encounter: 60 lb 11.2 oz(27.533 kg).. BP complted using cuff size: NA (Not Taken) ATimmRN documented in this encounter Plan of Treatment Not on filedocumented as of this encounter Procedures Procedure Name Priority Date/Time Associated Diagnosis Comme nts INFLUENZA A/B Routine 01/04/2010 7:44 PM Acute Pharyng itis Results for this ANTIGEN DEAF/HARD OF HEARING SPECIALIST Cough procedure are i n the results section. CL AFF CBC WITH Routine 01/04/2010 7:11 PM Acute Pharyngitis R esults for this PLATELETS, DIFF DEAF/HARD OF HEARING SPECIALIST procedure ar e in the results section. HCL MONO TEST Routine 01/04/2010 7:11 PM Acute Pharyngitis Res ults for this DEAF/HARD OF HEARING SPECIALIST procedure are i n the results section. HCL STREP GROUP A Routine 01/04/2010 6:58 PM Acute Pharyngitis Results for this ANTIGEN (RAPID) DEAF/HARD OF HEARING SPECIALIST procedure ar e in the results section. HCL BETA STREP Routine 01/04/2010 6:58 PM Acute Pharyngitis Re sults for this CONFIRM DEAF/HARD OF HEARING SPECIALIST procedure are i n the results section. HC CHEST TWO VIEWS, Routine 01/04/2010 Acute Pharyngitis Res ults for this FRONT/LAT procedure are i n the results section. documented in this encounter Results INFLUENZA A/B ANTIGEN (01/04/2010 7:44 PM DEAF/HARD OF HEARING SPECIALIST) [facility] Method Time Signature Influenza A/B Nasopharyngeal [place] Agn Specimen [facility] Influenza A Negative NEG [facility] Influenza B Negative NEG [facility] Specimen Anatomical Collection Method Collection Time Receive d Time (Source) Location / / Volume Laterality 01/04/2010 7:44 PM 0 7:49 DEAF/HARD OF HEARING SPECIALIST PM DEAF/HARD OF HEARING SPECIALIST Margarita Saldana PA-C LABORATORY Performing Organization Address City/[facility]/ZIP Code Phon e Number [facility] [address] [place] [id number] [facility] MONO HETEROPHILE (01/04/2010 7:11 PM DEAF/HARD OF HEARING SPECIALIST) [facility] Method Time Signature Mononucleosis Negative NEG [place] Screen [facility] Specimen Anatomical Collection Method Collection Time Receive d Time (Source) Location / / Volume Laterality 01/04/2010 7:11 PM 0 7:16 DEAF/HARD OF HEARING SPECIALIST PM DEAF/HARD OF HEARING SPECIALIST Margarita Saldana PA-C LABORATORY Performing Organization Address City/[facility] Code Phon e Number [facility] [address] [place] [id number] [facility] (ABNORMAL) CBC WITH PLATELETS, DIFF (01/04/2010 7:11 PM DEAF/HARD OF HEARING SPECIALIST) [facility] Method Time Signature WBC 7.3 5.0 - [place] 14.5 [facility] 10[facility] RBC Count 5.09 3.7 - 5.3 [place] 10e12/L [facility] Hemoglobin 13.2 10.5 - [place] 14.0 g/dL [facility] Hematocrit 39.8 31.5 - [place] 43.0 % [facility] MCV 78 70 - 100 [place] fl [facility] MCH 26.0 (L) 26.5 - [place] 33.0 pg [facility] MCHC 33.3 31.5 - [place] 36.5 g/dL [facility] RDW 10.7 10.0 - [place] 15.0 % [facility] Platelet Count 222 150 - 450 [place] 10e9/L [facility] Diff Method Automated [place] Method [facility] % Neutrophils 67 (H) 32 - 54 % [facility] % Lymphocytes 19 (L) 27 - 57 % [facility] % Monocytes 12 (H) 0 - 10 % [facility] % Eosinophils 0 0 - 6 % [facility] % Basophils 2 (H) 0 - 1 % [facility] Absolute 4.9 1.3 - 8.1 [place] Neutrophil 10e9/L [facility] Absolute 1.4 1.1 - 8.6 [place] Lymphocytes 10e9/L [facility] Absolute 0.8 0.0 - 1.1 [place] Monocytes 10e9/L [facility] Absolute 0.0 0.0 - 0.7 [place] Eosinophils 10e9/L [facility] Absolute 0.1 0.0 - 0.2 [place] Basophils 10e9/L [facility] Specimen Anatomical Collection Method Collection Time Receive d Time (Source) Location / / Volume Laterality 01/04/2010 7:11 PM 0 7:16 DEAF/HARD OF HEARING SPECIALIST PM DEAF/HARD OF HEARING SPECIALIST Margarita Saldana PA-C LABORATORY Performing Organization Address City/State/ZIP Code Phon e Number [facility] [address] [place] [address] [facility] BETA STREP CONFIRM (01/04/2010 6:58 PM DEAF/HARD OF HEARING SPECIALIST) Component Value Ref Test Analysis Performed At [facility] gist Range Method Time Signature Specimen Throat [place] Description [facility] Culture Micro No Beta [place] Streptococcus [facility] Report status FINAL 01/06/2010 [facility] Specimen Anatomical Collection Method Collection Time Receive d Time (Source) Location / / Volume Laterality 01/04/2010 6:58 PM 0 7:03 DEAF/HARD OF HEARING SPECIALIST PM DEAF/HARD OF HEARING SPECIALIST Margarita Saldana PA-C LABORATORY Performing Organization Address City/[facility]/ZIP Code Phon e Number [facility] [address] [place] [id number] [facility] STREP GROUP A ANTIGEN (RAPID) (01/04/2010 6:58 PM DEAF/HARD OF HEARING SPECIALIST) Component Value Ref Test Analysis Performed At [facility] Range Method Time Signature Specimen Throat [facility] Rapid Strep A NEGATIVE: No Group A strepto coccal antigen detected by immunoassay, await [place] Screen culture report. [facility] Report status FINAL 01/04/2010 [facility] Specimen Anatomical Collection Method Collection Time Receive d Time (Source) Location / / Volume Laterality 01/04/2010 6:58 PM 0 7:03 DEAF/HARD OF HEARING SPECIALIST PM DEAF/HARD OF HEARING SPECIALIST Margarita Saldana PA-C LABORATORY Performing Organization Address City/[facility]/ZIP Code Phon e Number [facility] [address] [place] [phone] [facility] CHEST X-RAY 2 VW (01/04/2010) Anatomical Region Laterality Modality Other Impressions 01/04/2010 REPORT OF OUTSIDE FILMS FROM [facility] TAHMINA MARY ?: 02 CHEST TWO VIEWS: 01/04/10 HISTORY: Cough and fever for four days. FINDINGS: Normal. Yovani Hoffman M.D./puma D/ Electronically filed by Courtney Stevens ??01/05/2010 ??11:25 AM Margarita Saldana PA-C GENERAL IMAGING documented in this encounter Visit Diagnoses Diagnosis Acute pharyngitis - Primary Cough documented in this encounter Care Teams System Configuration Specialist Relationship Specialty Start Date End Date Kumar Celestin MD PCP - General 02 12/26/18 [address] [facility] [address] [place] [address] documented as of this encounter
--- OUTSIDE RECORDS SUMMARY | 2022-08-26 16:27 | XMS_ITS | Encounter Summary ---
:2002 Author Organization [facility] Address [address] [place] [address] Care Team Providers Name Role Phone Kumar Celestin MD Primary Care Provider Reason for Visit Reason Comments Well Child 7 yr px Encounter Details Date Type Department Care Team Description 08/15/2007 Office Visit [facility] Kumar Celestin [facility] Patricia STEVENS EXAM (Primary Dx) [address] [place] [address] [place] [phone] (Wo rk) Social History Tobacco Use Types Packs/Day Years Used Date Never Smoker Alcohol Use Standard Drinks/Week Comments Not Asked 0 (1 standard drink = 0.6 oz pure alcoho l) Sex Assigned at Date Recorded Not on file documented as of this encounter Last Filed Vital Signs Vital Sign Reading Time Taken Comments Blood Pressure 84/44 08/15/2007 3:00 PM CDT Pulse - - Temperature 37.2 ??C (99 ??F) 08/15/2007 3:00 PM CDT Respiratory Rate - - Oxygen Saturation - - Inhaled Oxygen - - Concentration Weight 19.3 kg (42 lb 8 08/15/2007 3:00 Simultaneous f iling. oz) PM CDT User may not hav e seen previous data. Height 115.6 cm (3' 9.5) 08/15/2007 3:00 Simultaneous filing. PM CDT User may not hav e seen previous data. Yaouox-hjs-Orvzez 19.68 % 08/15/2007 3:00 Percentile PM CDT Growth Chart: [facility] (Boys, 2-20 Years) Body Mass Index 14.43 08/15/2007 3:00 PM CDT Body Mass Index Percentile 17.72 % 08/15/2007 3:00 PM CD T Growth Chart: [facility] (Boys, 2-20 Years) documented in this encounter Progress Notes Kumar Celestin - 08/15/2007 3:45 PM CDT Dry skin. Keratosis pilaris. Cameron is an 7 year old male here for a routine health maintenance visit. There are no current concerns.No significant parental concerns about growth, development, or behaviors. DAILY ACTIVITIES: Cameron is making satisfactory progress at school. No problems have been noted with peer interaction. No specific behavioral or emotional concerns noted. ROS: Review of systems negative for constitutional, HEENT, respiratory, cardiovascular, gastrointestinal,genitourinary, endocrine, neurological, skin, and hematologic issues, other than as above. PAST MEDICAL HISTORY: Past Medical History Diagnosis Date ??? SPEECH DISTURBANCE NEC No past surgical history on file. FAMILY / SOCIAL HISTORY: No recent family changes or environmental risk factors identified. PHYSICAL EXAMINATION: BP 84/44 Temp (Src) 99 (Oral) Ht 3' 9.5 (1.16m) Wt 42 lbs 8.0 oz (19.3kg) GENERAL: Alert, vigorous, in no acute distress. SKIN: Skin is clear of rashes SKIN: bumpy texture upper arm.. HEAD: The head is normocephalic. EYES: The eyes are normal. The conjunctivae and cornea normal. Corneal light reflex symmetric. No abnormalities noted on fundoscopic exam. EARS: The external auditory canals are clear and the tympanic membranes are normal. NOSE: Clear of drainage. Turbinates normal size and color. THROAT: The throat is clear. No tonsillar hypertrophy. NECK: The neck is supple and thyroid is nonpalpable. LYMPH NODES: There are no palpably enlarged lymph nodes. LUNGS: The lung marquis are clear to auscultation. HEART: The precordium is quiet. Regular rate and rhythm without murmur. S1 and S2 are normal. The femoral pulses are normal. ABDOMEN: . Abdomen is soft. No masses. No hepatosplenomegally. The bowel sounds are normal. GENITALIA: Caden stage I. Testes down bilaterally. No inguinal herniae are present. EXTREMITIES: FROM all joints. No rotational or angulation deformities. NEUROLOGIC: Normal tone throughout. Normal reflexes for age ANTICIPATORY GUIDANCE: Discussed monitoring TV content and issues, reasonable TV limits, and encouraging exercise. Regular dental care reviewed. Balanced diet and avoidance of snack foods reviewed. Discussed safety issues including general accident prevention (bike, rollerblade, household). IMMUNIZATIONS: Immunizations reviewed. No significant previous reactions. Shots per orders discussed and administered. ASSESSMENT: 7 year old Well Child Visit with normal growth. No problems identified today PLAN: No prescriptions or referrals given. RTC 6-7 year old well child visit. Addendum. Hives after vaccine. Did cry hard first. ?allergic rxn vs physical stim causing hives. Benadryl and monitored 20 minutes. Resolving. documented in this encounter Nursing Notes 08/15/2007 3:00 PM CDT >> LASHONDA TOMLIN 08/15/2007 4:17 pm 1.5 tsp Benadryl given after immunizations for itching where MMR and Varicella vaccines were given. Patient was instructed to wait for 15 mins to monitor for a more severe reaction. Lashonda Tomlin INVENTORY SPECIALIST >> LASHONDA TOMLIN 08/15/2007 3:00 pm Cameron is an 7 year old male here for a routine health maintenance visit, accompanied by his mother and sister(s). There are no concerns. No changes in family history since last physical. No recent social changes/stressors. [place] Prescreen: Form not completed at time roomed. Lead Risk Questionaire: Form not completed at time roomed. 4 years and older - Vision, hearing: No concerns. documented in this encounter Plan of Treatment Not on filedocumented as of this encounter Procedures Procedure Name Priority Date/Time Associated Diagnosis Comme nts HCL UA MICRO IF Routine 08/15/2007 4:42 PM Routine Child Healt h Results for this POSITIVE CDT Exam procedure are i n the results section. documented in this encounter Results UA MICRO IF POSITIVE (08/15/2007 4:42 PM CDT) Patholo gist Method Time Signature Color Urine Yellow [facility] Appearance Urine Clear [facility] Glucose Urine Negative NEG mg/dL [facility] Bilirubin Urine Negative NEG [facility] Ketones Urine Negative NEG mg/dL [facility] Specific [place] 1.025 1.003 - [place] Urine 1.035 [facility] Blood Urine Negative NEG [facility] pH Urine 5.0 5.0 - 7.0 [place] pH [facility] Protein Albumin Negative NEG mg/dL [place] Urine [facility] Urobilinogen 0.2 0.2 - 1.0 [place] Urine EU/dL [facility] Nitrite Urine Negative NEG [facility] Leukocyte Negative NEG [place] Esterase Urine [facility] Source [facility] Specimen Anatomical Collection Method Collection Time Receive d Time (Source) Location / / Volume Laterality 08/15/2007 4:42 PM 7 4:47 CDT PM CDT Kumar Celestin MD LABORATORY Performing Organization Address City/State/[facility] Code Phon e Number [facility] [address] [place] [address] [facility] documented in this encounter Visit Diagnoses Diagnosis Routine or child health check - P rimary documented in this encounter Care Teams Cargo And Container Inspector Relationship Specialty Start Date End Date Kumar Celestin MD PCP - General 02 12/26/18 [address] [place] [address] documented as of this encounter
--- OUTSIDE RECORDS SUMMARY | 2022-08-26 16:27 | XMS_ITS | Encounter Summary ---
:2002 Author Organization [facility] Address [address] [place] [address]. [place] [address] Care Team Providers Name Role Phone Kumar Celestin MD Primary Care Provider Reason for Visit Reason Comments Ear Problem onset 1 week. seen 5 days ag o at . neg. strep and flu. Tx'd with zithromax. c/o ear pain yest erday. Encounter Details Date Type Department Care Team Description 01/09/2010 Office Visit [facility] Villaseñor A cute Otitis Media Care MD (Primary Dx) [address] [place] [address] [place] [address] JOSSUE Jones [phone] JOSSUE GREGORY [id number] (Wo rk) Social History Tobacco Use Types Packs/Day Years Used Date Never Smoker Alcohol Use Standard Drinks/Week Comments Not Asked 0 (1 standard drink = 0.6 oz pure alcoho l) Sex Assigned at Date Recorded Not on file documented as of this encounter Last Filed Vital Signs Vital Sign Reading Time Taken Comments Blood Pressure - - Pulse - - Temperature 36.9 ??C (98.5 ??F) 01/09/2010 10:23 AM SYSTEMS INTEGRATION MANAGER Respiratory Rate 16 01/09/2010 10:23 AM SYSTEMS INTEGRATION MANAGER Oxygen Saturation - - Inhaled Oxygen Concentration - - Weight 27.3 kg (60 lb 3 oz) 01/09/2010 10:23 AM SYSTEMS INTEGRATION MANAGER Height - - Body Mass Index - - documented in this encounter Progress Notes Quyen [place] - 01/20/2010 9:46 PM CST SUBJECTIVE: Cameron Manuel is a 9 year old male who presents with right ear pain. Was seen in 5 days agoand treated with azithromycin. Last day of fever was . Ear pain worsened yesterday. Timing:sudden onset and worsening. Pain is severe, to the point of tears. Past Medical History Diagnosis Date ??? Other Speech Disturbance History Substance Use Topics ??? Tobacco Use: Never ??? Alcohol Use: Not on file ROS: Review of systems negative except as stated above. OBJECTIVE: Temp(Src) 98.5 ??F (36.9 ??C) (Oral) Resp 16 Wt 60 lb 3 oz (27.301 kg) EXAM: The right TM is bulging, erythematous and large purulent effusion. The right auditory canal is normal and without drainage, edema or erythema The left TM is normal: no effusions, no erythema, and normal landmarks The left auditory canal is normal and without drainage, edema or erythema Oropharynx exam is normal: no lesions, erythema, adenopathy or exudate. GENERAL: in mild distress due to pain EYES: conjunctiva clear NECK: supple, non-tender to palpation, no adenopathy noted RESP: lungs clear to auscultation - no rales, rhonchi or wheezes CV: regular rates and rhythm, normal S1 S2, no murmur noted SKIN: no suspicious lesions or rashes ASSESSMENT: Acute otitis media, right PLAN: See orders in [facility] for amoxicillin and Auralgan. F/U if not better in 3 days, sooner if worsening. EMS INTEGRATION MANAGER documented in this encounter Nursing Notes 01/09/2010 10:00 AM CST >> KAYLYN Upton Jan 09, 2010 10:25 AM Patient presents with: Ear Problem - onset 1 week. seen 5 days ago at . neg. strep and flu. Tx'd with zithromax. c/o earpain yesterday. Initial Temp(Src) 98.5 ??F (36.9 ??C) (Oral) Resp 16 Wt 60 lb 3 oz (27.301 kg) Estimated Body mass index is 16.11 kg/(m^2) as calculated from the following: Height as of 12/13/09: 4' 3.25(1.302 m). Weight as of this encounter: 60 lb 3 oz(27.301 kg).. BP completed using cuff size: NA (Not Taken) Kaylyn Vaca LPN documented in this encounter Plan of Treatment Not on filedocumented as of this encounter Visit Diagnoses Diagnosis Acute otitis media - Primary Unspecified otitis media documented in this encounter Care Teams Water Plant Pump Operator Supervisor Relationship Specialty Start Date End Date Kumar Celestin MD PCP - General 02 12/26/18 [address] [facility] [address] [place] [address] documented as of this encounter
--- OUTSIDE RECORDS SUMMARY | 2022-08-26 16:27 | XMS_ITS | Encounter Summary ---
:2002 Author Organization [facility] Address [address] [place] [address] Care Team Providers Name Role Phone Kumar Celestin MD Primary Care Provider Reason for Visit Reason Onset Date Comments Patient/info Update 01/14/2010 recent notes sent to Rheumatology Encounter Details Date Type Department Care Team Description 01/14/2010 Telephone [facility] Kumar Celestin Pat ient/info Update Clinic Patricia STEVENS (recent notes sent to [address] Rhe[facility]) [place], [place] [address] [place], [place] [phone] (Wo rk) Social History Tobacco Use Types Packs/Day Years Used Date Never Smoker Alcohol Use Standard Drinks/Week Comments Not Asked 0 (1 standard drink = 0.6 oz pure alcoho l) Sex Assigned at Date Recorded Not on file documented as of this encounter Miscellaneous Notes Telephone Encounter - Tierra Miranda - 01/14/2010 8:13 AM CST Per mom's request, recent notes (last 2 weeks) faxed to Rheumatology at [phone] attn: Becky. Walter mcintosh appt this a.m. TENDER documented in this encounter Plan of Treatment Not on filedocumented as of this encounter Visit Diagnoses Not on filedocumented in this encounter Care Teams Delivery Room Clerk Relationship Specialty Start Date End Date Kumar Celestin MD PCP - General 02 12/26/18 [address] [facility] [address] [place] [address] documented as of this encounter
--- OUTSIDE RECORDS SUMMARY | 2022-08-26 16:27 | XMS_ITS | Encounter Summary ---
:2000 Author Organization [place] Address [address] [facility] [place] [address] Care Team Providers Name Role Phone Kumar Celestin MD Primary Care Provider Reason for Referral - Closed Specialty Diagnoses / Procedures Referred By Contact Refer red To Contact Diagnoses Other speech disturbance Simón Coello MD [address] [place] [address] Referral ID Status Reason Start Date Expiration Date Visits Requ ested Visits Authorized [id number] Closed 05/17/2006 11/18/2011 1 1 Reason for Visit Reason Comments Well Child Encounter Details Date Type Department Care Team Description 05/17/2006 Office Visit [facility] Simón Coello SPEECH DISTURBANCE NEC (Primary Dx); Clinic Patricia Sinha MD ROUTINE CHILD HEALTH EXAM [address] [place] [phone] Social History Tobacco Use Types Packs/Day Years Used Date Never Smoker Alcohol Use Standard Drinks/Week Comments Not Asked 0 (1 standard drink = 0.6 oz pure alcoho l) Sex Assigned at Date Recorded Not on file documented as of this encounter Last Filed Vital Signs Vital Sign Reading Time Taken Comments Blood Pressure 84/44 05/17/2006 1:45 PM CDT Pulse - - Temperature 36.8 ??C (98.2 ??F) 05/17/2006 1:45 PM CDT Respiratory Rate - - Oxygen Saturation - - Inhaled Oxygen Concentration - - Weight 16.1 kg (35 lb 8 oz) 05/17/2006 1:45 PM CDT Height 106 cm (3' 5.75) 05/17/2006 1:45 PM CDT Ulzlzf-flv-Xafsuj Percentile 14.79 % 05/17/2006 1:45 PM CDT Growth Chart: [facility] (Boys, 2-20 Years) Body Mass Index 14.32 05/17/2006 1:45 PM CDT Body Mass Index Percentile 9.09 % 05/17/2006 1:45 PM CD T Growth Chart: [facility] (Boys, 2-20 Years) documented in this encounter Patient Instructions Patient InstructionsSimón Coello Aram - 05/27/2006 11:16 AM CDT [age]-YEAR OLD VISIT Date: 05/27/2006 Measurements: Blood pressure 84/44, temperature 98.2, temperature source Oral, height 3' 5.75 (1.06m), weight 35 lbs 8.0 oz (16.1 kg). Acetaminophen dose Today's visit includes: ?? Physical examination. ?? Review of your child's health, growth and development. ?? Blood pressure, vision and hearing check. Some things you might discuss at this visit: ?? How things are going at home; child-care arrangements. ?? Toilet training. ?? Keeping your child safe - car seat, crib, smoke-free environment, foods that cause choking, dealing with strangers. ?? Your child's eating and sleeping habits. ?? Thoughts about setting limits, child guidance and discipline; temper tantrums. ?? Oral health - assist with brushing teeth - visit the dentist. Your toddler's growth and development, what to expect: ?? Increasing vocabulary (about 1000 words), sentences of about four words. ?? Learning to sing, count and say the alphabet. ?? It's normal to be curious about body parts - can learn correct terms. ?? Showing signs of readiness for preschool, Sunday school and other opportunities. ?? Likes routine in daily activity. ?? Can dress and undress self; can ride a tricycle. The next visit will include: ?? Physical examination. ?? Your child's vision, hearing and blood pressure will be checked. Getting ready for the [age] year visit: ?? Keep track of illnesses and injuries, including visits to other health care facilities, emergencyrooms, urgent care, etc. ?? Bring in questions and observations about your child's sleeping and eating behaviors and possiblefood allergies. ?? Visit the dentist. ?? Be ready to talk about the safety of your home and neighborhood. ?? Keep a list of things you would like to discuss at the visit. ?? Fill out and bring in preschool health forms for the doctor to complete if appropriate. ?? Bring your child's Health and Immunization Record. NOTES: documented in this encounter Progress Notes Simón Coello - 05/27/2006 11:16 AM CDT Cameron Manuel is an 5 year old male here for a routine health maintenance visit, accompanied by his mother. QUESTIONS/CONCERNS: 1.speech 2.lump on the back of the head FAMILY/ SOCIAL HISTORY Child lives with: mother and father child care supervisor: Home with family member: mother Recent family changes/social stressors: none Family History: No changes since last physical Language(s) spoken at home: [place] ENVIRONMENTAL RISK ASSESSMENT Is your child around anyone who smokes? NO Car seat/ booster seat? YES Bike/sport helmet? N/A TB exposure? NO HEARING/VISION no concern REQUIRED VITAL SIGNS COMPLETED: yes BP 84/44 Temp (Src) 98.2 (Oral) Ht 3' 5.75 (1.06m) Wt 35 lbs 8.0 oz (16.1kg) 83.24% of growth percentile based on kiuuhlb-chz-ypb. 48.90% of growth percentile based on vggnos-lgf-jiz. 9.07% of growth percentile based on BMI-for-age. HEALTH HISTORY SINCE LAST VISIT No surgery, major illness or injury since last physical exam Immunization History Name Date(s) Administered ??? Comvax (HIB/HepB) 2002, 2002, 06/05/2003 ??? DTaP 2002, 2002, 2002, 09/07/2003 ??? IPV 2002, 2002, 03/06/2003 ??? MMR 09/07/2003 ??? Prevnar (Ped. Pneumococcal) 2002, 2002, 03/06/2003, 06/05/2003 ??? Varicella 06/05/2003 Allergies Allergen Reactions ??? No Known Drug Allergies DAILY ACTIVITIES NUTRITION: good appetite, eats variety of foods SLEEP: No concerns, sleeps well through night ELIMINATION: Normal bowel movements and Normal urination EXERCISE/ RECREATION: Age appropriate activities TV/ MEDIA: < 2 hours/ day DEVELOPMENT Screening tool used, reviewed with parent/guardian: PDQ- [place]: passed, not passed in the speech area ROS GENERAL: See health history, nutrition and daily activities SKIN: No rash, hives or significant lesions HEENT: Hearing/vision: see above. No eye redness/discharge, nasal congestion, sneezing, snoring HEAD: see history RESP: No cough, wheezing, SOB CV: No cyanosis, palpitations, syncope GI: See nutrition and elimination : See elimination MS: No swelling, arthralgia, weakness, gait problem NEURO: No headaches PSYCH: See development and behavior, or mental health EXAM GENERAL: Active, alert, in no acute distress. SKIN: Clear. No significant rash, abnormal pigmentation or lesions HEAD: Normocephalic. EYES: Symmetric light reflex and no eye movement on cover/uncover test. Normal conjunctivae. EARS: Normal canals. Tympanic membranes [...] no masses or hepatosplenomegaly. Bowel sounds normal. GENITALIA: Normal male external genitalia. Caden stage I, both testes descended, no hernia or hydrocele. EXTREMITIES: Full range of motion, no deformities NEUROLOGIC: No focal findings. Cranial nerves grossly intact: DTR's normal. Normal gait, strength and tone ANTICIPATORY GUIDANCE The following topics were discussed: SOCIAL/ FAMILY: Toilet training Positive discipline Outdoor activity/ physical play Reading to child Limit TV NUTRITION: Avoid food struggles Age related decreased appetite Healthy meals & snacks HEALTH/ SAFETY: Dental care Water/ playground safety Car seat ASSESSMENT 1. Well child with normal growth and development except speech delay PLAN Immunizations: Reviewed, up to date See other orders in EpicCare Referrals/Ongoing Specialty care: Yes, see orders in EpicCare Dental visit recommended: YES RTC: 6 y RHM visit documented in this encounter Nursing Notes 05/17/2006 1:45 PM CDT >> PATRICK FAJARDO 05/17/2006 1:48 pm Cameron is an 5 year old male here for a routine health maintenance visit, accompanied by his mother, father and sister(s). There are concerns about speech; check back of head has a lump; check tongue has red spot on end.. No recent social changes/stressors. [place] Prescreen: No items reported no below age in 90% column (passed). Lead Risk Questionaire: Negative for all risk factors on questionnaire documented in this encounter Plan of Treatment Not on filedocumented as of this encounter Procedures Procedure Name Priority Date/Time Associated Diagnosis Comme nts [facility] RE[facility]AB THERAPY PEDS REFERRAL Routine 06/21/2006 Speech Dis turbance Nec documented in this encounter Results CONSULT PEDS THERAPY (06/21/2006) Narrative This result has an attachment that is no t available. Simón Coello MD REFERRAL documented in this encounter Visit Diagnoses Diagnosis Other speech disturbance - Primary Routine or child health check documented in this encounter Care Teams Fundraising Assistant Relationship Specialty Start Date End Date Kumar Celestin MD PCP - General 02 12/26/18 [address] [facility] [address] [place] [address] documented as of this encounter
--- OUTSIDE RECORDS SUMMARY | 2022-08-26 16:27 | XMS_ITS | Encounter Summary ---
:2002 Author Organization [place] Address [address] [place] [address]. [place] [address] Care Team Providers Name Role Phone Kumar Celestin MD Primary Care Provider Encounter Details Date Type Department Care Team Description 01/14/2010 Historic Results Specialty Infusion and Vehe, Ri drew Newman MD Procedure Center [address] [place] [address] [address] [place] [phone] Social History Tobacco Use Types Packs/Day Years Used Date Never Smoker Alcohol Use Standard Drinks/Week Comments Not Asked 0 (1 standard drink = 0.6 oz pure alcoho l) Sex Assigned at Date Recorded Not on file documented as of this encounter Plan of Treatment Not on filedocumented as of this encounter Procedures Procedure Name Priority Date/Time Associated Comments Diagnosis IGG Routine 01/14/2010 12:31 Results for this PM RAISIN SEPARATOR OPERATOR procedure are i n the results section. CBC WITH PLATELETS & Routine 01/14/2010 12:31 Res ults for this DIFFERENTIAL PM RAISIN SEPARATOR OPERATOR procedure are i n the results section. ROUTINE UA WITH Routine 01/14/2010 12:31 Results for this MICROSCOPIC PM RAISIN SEPARATOR OPERATOR procedure are i n the results section. IGA Routine 01/14/2010 12:31 Results for this PM RAISIN SEPARATOR OPERATOR procedure are i n the results section. ERYTHROCYTE Routine 01/14/2010 12:31 Results for this SEDIMENTATION RATE PM RAISIN SEPARATOR OPERATOR procedure are in AUTO the results section. CRP INFLAMMATION Routine 01/14/2010 12:31 Results for this PM RAISIN SEPARATOR OPERATOR procedure are i n the results section. CREATININE Routine 01/14/2010 12:31 Results for this PM RAISIN SEPARATOR OPERATOR procedure are i n the results section. AST Routine 01/14/2010 12:31 Results for this PM RAISIN SEPARATOR OPERATOR procedure are i n the results section. documented in this encounter Results AST (01/14/2010 12:31 PM RAISIN SEPARATOR OPERATOR) P athologist Signature AST 28 0 - 50 U/L MISYS Specimen Anatomical Collection Method Collection Time Receive d Time (Source) Location / / Volume Laterality 01/14/2010 12:31 01/14/2010 PM RAISIN SEPARATOR OPERATOR 12:33 PM RAISIN SEPARATOR OPERATOR Josh Parekh MD LAB - BLOOD ORDERABLES Performing Organization Address City/State/ZIP Code Phon e Number MIS[facility] (ABNORMAL) CBC with platelets differential (01/14/2010 12:31 PM RAISIN SEPARATOR OPERATOR) Patholo gist Method Time Signature MCV 77 70 - 100 [facility] fl MCH 25.1 (L) 26.5 - MIS[facility] 33.0 pg MCHC 32.8 31.5 - MIS[facility] 36.5 g/dL RDW 13.1 10.0 - MIS[facility] 15.0 % WBC 6.7 5.0 - [facility]IS[facility] 14.5 10e9/L RBC Count 4.66 3.7 - 5.3 M[facility] 10e12/L Hemoglobin 11.7 10.5 - MISYS 14.0 g/dL Hematocrit 35.7 31.5 - MISYS 43.0 % % Neutrophils 48 32 - 54 % MISYS % Lymphocytes 37 27 - 57 % MISYS % Monocytes 14 (H) 0 - 10 % MISYS % Eosinophils 1 0 - 6 % MISYS % Basophils 0 0 - 1 % M[facility] Platelet Count 489 (H) 150 - 450 [facility] 10e9/L Absolute 3.2 1.3 - 8.1 [facility] Neutrophil 10e9/L Absolute 2.5 1.1 - 8.6 M[facility] Lymphocytes 10e9/L Absolute 1.0 0.0 - 1.1 [facility] Monocytes 10e9/L Absolute 0.1 0.0 - 0.7 M[facility] Eosinophils 10e9/L Absolute 0.0 0.0 - 0.2 M[facility] Basophils 10e9/L Diff Method Automated M[facility] Method Specimen Anatomical Collection Method Collection Time Receive d Time (Source) Location / / Volume Laterality 01/14/2010 12:31 01/14/2010 PM RAISIN SEPARATOR OPERATOR 12:33 PM RAISIN SEPARATOR OPERATOR Josh Parekh MD LAB - BLOOD ORDERABLES Performing Organization Address City/State/ZIP Code Phon e Number MISYS Creatinine (01/14/2010 12:31 PM RAISIN SEPARATOR OPERATOR) athologist Signature Creatinine 0.46 0.15 - 0.53 MISYS mg/dL Comment: New IDMS-traceable calibration beginning 03/19/08 GFR Estimate GFR not calculated, patient <16 years mL/min/1.7m2 MISYS old. GFR Estimate If Black GFR not calculated, patient <16 years mL/min/1. 7m2 MISYS old. Specimen Anatomical Collection Method Collection Time Receive d Time (Source) Location / / Volume Laterality 01/14/2010 12:31 01/14/2010 PM RAISIN SEPARATOR OPERATOR 12:33 PM RAISIN SEPARATOR OPERATOR Josh Parekh MD LAB - BLOOD ORDERABLES Performing Organization Address City/[facility] Phon e Number MISYS (ABNORMAL) CRP inflammation (01/14/2010 12:31 PM RAISIN SEPARATOR OPERATOR) [facility] Method Time Signature CRP Inflammation 18.0 (H) 0.0 - 8.0 MISYS mg/L Specimen Anatomical Collection Method Collection Time Receive d Time (Source) Location / / Volume Laterality 01/14/2010 12:31 01/14/2010 PM RAISIN SEPARATOR OPERATOR 12:33 PM RAISIN SEPARATOR OPERATOR Josh Parekh MD LAB - BLOOD ORDERABLES Performing Organization Address City/[facility]/ZIP Code Phon e Number MISYS (ABNORMAL) IgA (01/14/2010 12:31 PM RAISIN SEPARATOR OPERATOR) athologist Signature IGA 288 (H) 30 - 200 MISYS mg/dL Specimen Anatomical Collection Method Collection Time Receive d Time (Source) Location / / Volume Laterality 01/14/2010 12:31 01/14/2010 PM RAISIN SEPARATOR OPERATOR 12:33 PM RAISIN SEPARATOR OPERATOR Josh Parekh MD LAB - BLOOD ORDERABLES Performing Organization Address City/[facility]/ZIP Code Phon e Number MISYS IgG (01/14/2010 12:31 PM RAISIN SEPARATOR OPERATOR) athologist Signature IGG 1040 610 - 1230 MISYS mg/dL Specimen Anatomical Collection Method Collection Time Receive d Time (Source) Location / / Volume Laterality 01/14/2010 12:31 01/14/2010 PM RAISIN SEPARATOR OPERATOR 12:33 PM RAISIN SEPARATOR OPERATOR Josh Parekh MD LAB - BLOOD ORDERABLES Performing Organization Address City/State/ZIP Code Phon e Number MISYS (ABNORMAL) Routine UA with microscopic (01/14/2010 12:31 PM RAISIN SEPARATOR OPERATOR) Patholo gist Method Time Signature Source Midstream MISYS Urine Color Urine Yellow MISYS Appearance Urine Clear MISYS Glucose Urine Negative NEG mg/dL MISYS Bilirubin Urine Negative NEG MISYS Ketones Urine Negative NEG mg/dL MISYS Specific [place] 1.026 1.003 - MISYS Urine 1.035 Blood Urine Negative NEG MISYS pH Urine 5.0 5.0 - 7.0 MISYS pH Protein Albumin Negative NEG mg/dL MISYS Urine Urobilinogen Normal 0.0 - 2.0 MISYS mg/dL mg/dL Nitrite Urine Negative NEG MISYS Leukocyte Negative NEG MISYS Esterase Urine WBC Urine <1 0 - 2 MISYS /HPF RBC Urine 0 0 - 2 MISYS /HPF Mucous Urine Present (A) NEG /LPF MISYS Specimen Anatomical Collection Method Collection Time Receive d Time (Source) Location / / Volume Laterality 01/14/2010 12:31 01/14/2010 PM RAISIN SEPARATOR OPERATOR 12:33 PM RAISIN SEPARATOR OPERATOR Josh Parekh MD LAB - URINE ORDERABLES Performing Organization Address City/[facility] Phon e Number MISYS (ABNORMAL) Erythrocyte sedimentation rate auto (01/14/2010 12:31 PM RAISIN SEPARATOR OPERATOR) P athologist Signature Sed Rate 54 (H) 0 - 15 mm/h MISYS Specimen Anatomical Collection Method Collection Time Receive d Time (Source) Location / / Volume Laterality 01/14/2010 12:31 01/14/2010 PM RAISIN SEPARATOR OPERATOR 12:33 PM RAISIN SEPARATOR OPERATOR Josh Parekh MD LAB - BLOOD ORDERABLES Performing Organization Address City/[facility]/ZIP [facility] Phon e Number MISYS documented in this encounter Visit Diagnoses Not on filedocumented in this encounter Care Teams Electronic Assembler Relationship Specialty Start Date End Date Kumar Celestin MD PCP - General 02 12/26/18 [address] [facility] [address] [place] [address] documented as of this encounter
--- OUTSIDE RECORDS SUMMARY | 2022-08-26 16:27 | XMS_ITS | Encounter Summary ---
:2002 Author Organization [place] Address [address] [place] [address]. [place] [address] Care Team Providers Name Role Phone Kumar Celestin MD Primary Care Provider Encounter Details Date Type Department Care Team Description 01/14/2010 Office Visit-[facility] INTERFACE [facility] DEPT Coordinator, [facility] P eds Rheumatology Care Social History Tobacco Use Types Packs/Day Years Used Date Never Smoker Alcohol Use Standard Drinks/Week Comments Not Asked 0 (1 standard drink = 0.6 oz pure alcoho l) Sex Assigned at Date Recorded Not on file documented as of this encounter Progress Notes Coordinator, [facility] Peds Rheumatology Care - 01/14/2010 10:15 AM CST School Occupational Therapist: Peds, Care Status: Final Encounter: 14 Jan 2010 Type: Nurse Note Visit Closing Mother verbalized an understanding of the clinic visit and plan of care. Medication list updated per medication changes made during the visit. Mother's questions and concerns related to the plan of care were addressed. Mother verbalized an understanding of upcoming tests and appointments. Mother will be notified with outstanding test/study results. Family is aware of and understands the plan of care: Yes Education: JRA book given to Mom Other: Referral to PT @ [facility] given to Mom (and faxed) Mother verbalized an understanding of the clinic visit and plan of care. Signature Signed By: Kate De Souza RN; 01/14/2010 1:24 PM HYDROTHERAPIST. documented in this encounter Plan of Treatment Not on filedocumented as of this encounter Visit Diagnoses Not on filedocumented in this encounter Care Teams Creping Machine Operator Relationship Specialty Start Date End Date Kumar Celestin MD PCP - General 02 12/26/18 [address] [facility] [address] [place] [address] documented as of this encounter
--- OUTSIDE RECORDS SUMMARY | 2022-08-26 16:27 | XMS_ITS | Encounter Summary ---
:2002 Author Organization [place] Address [address] [place] [address] Care Team Providers Name Role Phone Kumar Celestin MD Primary Care Provider Reason for Visit Reason Comments Well Child 9 yr px Encounter Details Date Type Department Care Team Description 07/19/2009 Office Visit [facility] Kumar Celestin Rou tine or Clinic Patricia STEVENS Child Health Check [address] (Primary Dx) [place] [address] [place] [phone] (Wo rk) Social History Tobacco Use Types Packs/Day Years Used Date Never Smoker Alcohol Use Standard Drinks/Week Comments Not Asked 0 (1 standard drink = 0.6 oz pure alcoho l) Sex Assigned at Date Recorded Not on file documented as of this encounter Last Filed Vital Signs Vital Sign Reading Time Taken Comments Blood Pressure 96/46 07/19/2009 10:46 AM CDT Pulse - - Temperature 37.2 ??C (98.9 ??F) 07/19/2009 10:46 AM CDT Respiratory Rate - - Oxygen Saturation - - Inhaled Oxygen Concentration - - Weight 26.8 kg (59 lb) 07/19/2009 10:46 AM CDT Height 127.6 cm (4' 2.25) 07/19/2009 10:46 AM CDT Body Mass Index 16.43 07/19/2009 10:46 AM CDT Body Mass Index Percentile 70.89 % 07/19/2009 10:46 AM C DT Growth Chart: [facility] (Boys, 2-20 Years) documented in this encounter Progress Notes Kumar Celestin - 07/19/2009 11:27 AM CDT Headaches still. Glasses now. Mostly in the car that might get headache. Rare otherwise since glasses. Speech graduated. Kg went great last yaer. Made lot of progress. Cameron is an 9 year old male here for a routine health maintenance visit. There are no current concerns. No current emotional, behavioral, or schoolastic concerns. DAILY ACTIVITIES: Cameron is making satisfactory progress at school. No problems have been noted with peer interaction. No specific behavioral or emotional concerns noted. ROS: Review of systems negative for constitutional, HEENT, respiratory, cardiovascular, gastrointestinal,genitourinary, endocrine, neurological, skin, and hematologic issues, other than as above. PAST MEDICAL HISTORY: Past Medical History Diagnosis Date ??? Other Speech Disturbance No past surgical history on file. FAMILY / SOCIAL HISTORY: No recent family changes or environmental risk factors identified. PHYSICAL EXAMINATION: BP 96/46 Temp (Src) 98.9 ??F (37.2 ??C) (Oral) Ht 4' 2.25 (1.276 m) Wt 59 lb (26.762 kg) GENERAL: Alert, vigorous, in no acute distress. SKIN: Skin is clear of rashes HEAD: The head is normocephalic. EYES: The conjunctivae and cornea normal. Corneal light reflex symmetric. PERRLA. No abnormalities noted on funduscopic exam. EARS: The external auditory canals are clear and the tympanic membranes are normal. NOSE: Clear of drainage. Turbinates normal size and color. THROAT: The throat is clear. No tonsilar hypertrophy. MOUTH: Normal mouth. No obvious dental caries. NECK: The neck is supple and thyroid is non-palpable. LYMPH NODES: There are no palpably enlarged lymph nodes. LUNGS: The lung marquis are clear to auscultation. HEART: The precordium is quiet. Regular rate and rhythm without murmur. S1 and S2 are normal. The femoral pulses are normal. ABDOMEN: . Abdomen is soft. No masses. No hepatosplenomegally. The bowel sounds are normal. GENITALIA: Caden stage I. Testes down bilaterally. No inguinal hernia are present. EXTREMITIES: FROM all joints. NEUROLOGIC: Normal tone throughout. Normal reflexes for age ANTICIPATORY GUIDANCE: Parenting issues including monitoring TV content, reasonable TV limits, encouraging exercise and encouraging age appropriate decision making. Play/development issues including demonstrating interest in child's activities. Health issues including regular dental care. Nutrition issues including balanced diet and healthy snacks. Safety issues including accident prevention. IMMUNIZATIONS: Immunizations reviewed. No immunizations given today. ASSESSMENT: 9 year old Well Child Visit with normal growth. No problems identified today PLAN: No prescriptions or referrals given. RTC 1-2 years for next health maintenance visit. documented in this encounter Nursing Notes 07/19/2009 11:00 AM CDT >> KAILA Lazcano Jul 19, 2009 10:48 AM Cameron is here for a physical today. There are no concerns. No changes in family history since last physical. No recent social changes/stressors. Hearing: and Vision: No concerns. documented in this encounter Plan of Treatment Not on filedocumented as of this encounter Visit Diagnoses Diagnosis Routine or child health check - P rimary documented in this encounter Care Teams Talent Associate Relationship Specialty Start Date End Date Kumar Celestin MD PCP - General 02 12/26/18 [address] [place] [address] documented as of this encounter
--- OUTSIDE RECORDS SUMMARY | 2022-08-26 16:27 | XMS_ITS | Encounter Summary ---
:2000 Author Organization [facility] Address [facility] [place] [address] Care Team Providers Name Role Phone Kumar Celestin MD Primary Care Provider Encounter Details Date Type Department Care Team Description 01/14/2010 Office Visit-[facility] Josh Parekh MD [facility] [address] [facility] [place] [address] [facility] [address] [place] [address] [address] [place] [id number] Social History Tobacco Use Types Packs/Day Years Used Date Never Smoker Alcohol Use Standard Drinks/Week Comments Not Asked 0 (1 standard drink = 0.6 oz pure alcoho l) Sex Assigned at Date Recorded Not on file documented as of this encounter Progress Notes Josh Parekh - 01/14/2010 10:00 AM CST Contemporary Or Modern Dancer: Josh Parekh Status: Final - Signature Encounter: 14 Jan 2010 Type: Peds Visit Division of Pediatric Rheumatology Department of Pediatrics [place] Mail Code [address] [place] [address] Office: [phone] Pediatric Specialty [facility] - [facility] Fourth Floor, Clinic [address] [place] [address] RE: Cameron Manuel : 2000 JULIAN: 01/14/2010 CONSULTATION HISTORY OF PRESENT ILLNESS: Cameron is a previously-healthy vkmln-[id number]-fcu male who presents accompanied by his mother and maternal aunt for further evaluation of bilateral limb pain and arthralgias. He receives primary care from Dr. Kumar Celestin. He was recently seen by Dr. Miguel Lopez in Podiatry, who requested this consultation. Cameron was in his usual state of excellent health until approximately four months ago, when he began complaining of pain along the arches of his feet. The pain has progressed over the last two months toinvolve pain at the heels and bottom of the MTPs. He has also complained that his ankles hurt, particularly along the anterior aspects. Over the last three weeks, he has complained of pain at the back of his knees, and at the middle of the knees anteriorly. On January 03, Cameron became ill with fever and vomiting. Additional symptoms included a sore throat and cough. He was treated with azithromycin. Fever resolved, but recurred within a few days; he was seen for follow-up and found to have left otitis media. He has two days remaining of a course of amoxicillin for this. He finished the course of azithromycin. He missed school every day last week and Sunday of this week. During that time, he continued to have the pain mentioned above. In addition, hereported pain in his hands. He describes this further as the palms of his hands burning, and feeling hot and sweaty. He felt a stretching sensation. He also reports that they were easy to crack. D uring the course of the illness, Cameron's mother recalls that the hands looked puffy. One day after swimming last week, the feet appeared puffy, and there was a mottled appearance to the bottom of the feet. The puffiness has resolved. For the past 1-1/2 weeks, he has reported pain on the proximal aspect of his thighs. Yesterday, he complained of pain in the left hip (pointing to the lateral aspect). His mother has noticed that he ishaving trouble going up and down stairs. He has modified the way that he does so; he has been sitting in order to scoot down on his buttocks. Cameron reports that his hands and feet bother him whether heis laying or standing. The other lower extremity complaints are bothersome only when he is particularly active. He returned to school over the past three days and participated in gym class. However, Sunday night, after doing a kick as an expression of excitement, he collapsed and began crying in pain. He reports that it felt like the thigh stretched so far that it popped. While kids playing in [employer] recently, while his mother was signing him up for self-defense class, she noticed that Cameron ran to play basketball, but ultimately stopped and stood against the wall for the duration of the time, not wanting to play due to pain. For the pain, Cameron was given lsfq-wdi-[id number] Children's Motrin three times daily for one week, without noted improvement. They have noticed that it is harder for Cameron to get up in the morning over the last couple of weeks. They have attributed this to illness. He has had some loose bowel movements, which have been attributed to antibiotic therapy. He has not had blood in his stool. Cameron reports that he has had canker sores in the past twice, but none recently. He carries a diagnosis of eczema, which his mother has noticed has gotten worse over his knees and the extensor surfaces of his upper extremities. His eczema is not pruritic. He has not had additional rashes and has not had symptoms concerning for Raynaud's. He is no longer having fevers. They have not noticed swelling or warmth in any of the joints. Cameron was evaluated by Miguel Lopez DPM, on December 24. With weightbearing, he was noted to have a significant decrease in the medial longitudinal arch bilaterally. Weightbearing x-rays reportedly demonstrated no sign of osseous abnormality. Supportive footwear, including orthotics, was recommended. For the recent illness, he was evaluated by Dr. Amanda Saldana on January 04. He was febrile to103 degrees F. Examination demonstrated a few scattered rhonchi. Given a strep-like odor to his breath, he was given a diagnosis of acute pharyngitis, and treatment with Zithromax was begun. Rapid strep screen and throat culture were negative. White blood cell count was 7300, with an automated differential showing an ANC of 4900 and an ALC of 1400, hemoglobin of 13.2 with normal red cell indices, and a platelet count of 222,000. Monospot testing was negative. Two-view chest x-ray was reportedly normal. Influenza A and B antigens were negative. He was seen at [facility] by Dr. Quyen Phillips January 09 for development of ear pain. Fever had resolved, but had recurred on the . He was seen by Dr. Simón Coello on January 12 for fever and ongoing symptoms, despite amoxicillin. The right tympanic membrane was noted to be injected and dull, but not significantly. The impression was that of a viral upper respiratory infection and resolving acute otitis media. White blood cell count was 13,200 with an ANC of 9200, an ALC of 2400, an AMC of 1600, hemoglobin of 12.4, and a plateletcount of 301,000. ESR was 37. Repeat chest x- ray was reportedly normal. Urinalysis was normal. PAST MEDICAL HISTORY: Cameron was born four to six weeks early by for breech presentation. He was 6 pounds, 4 ounces at . He did not require a NICU stay. He has otherwise never been hospitalized. He has not had any surgeries. No history of fractures or major injuries. He does have a history of a cough that lingers with chest colds, and this is suspected to be due to reactive airway disease, although he does not carry a diagnosis of asthma. He has never had pneumonia and has not had frequent infections. ALLERGIES: No known allergies. REVIEW OF SYSTEMS: Yesterday Cameron started to complain of periumbilical abdominal pain after using the bathroom. He reports today that this happens after urinating, as well as having a bowel movement. During one episode, he cried. He reports that the pain lasts no longer than two minutes. He has also h ad headaches, which seem to be related to car rides. The remainder of a comprehensive 17-point review of systems is as already noted above and is otherwise negative. FAMILY HISTORY: Cameron's paternal uncle has Crohn's disease, as well as a form of undefined muscular dystrophy. A paternal aunt has psoriatic arthritis. A paternal grandmother also has arthritis of an unknown type. Cousins on the maternal side of the family have a history of growing pains. The maternal grandmother had rheumatic fever as a child. One grandparent has diabetes. Family history is negativefor RA/JRA, SLE, dermatomyositis/polymyositis, scleroderma, Sjogren's syndrome, joint replacement, immune deficiency, ankylosing spondylitis, Jayesh's syndrome, bone spurs, tendinitis, iritis/uveitis, thyroid disease or multiple sclerosis. SOCIAL HISTORY: Cameron lives at home with his mother, as well as his younger sisters, ages three and five. He also visits and stays with his father, who lives with his paternal grandmother. His father works in [employer], and his mother is a vp ad sales west. Cameron is in the first grade at [employer]. He enjoys gym and music the most, and plans to become President. PHYSICAL EXAMINATION: Vital Signs: Temperature is 97.8 degrees F., blood pressure is 92/64, pulse rate is 97, and respiratory rate is 20. Height is 130.5 cm and weight is 26.6 kg, which is just above the 75th percentile, and between the 50th and 75th percentiles for gender and age, respectively. Appearance: Cameron appears to be in excellent health and comfortable throughout the visit. HEENT: Head is normocephalic. There is no alopecia. Sclera and conjunctiva are clear. Pupils are equal, round and reactive to light. The nasal turbinates are mildly edematous and erythematous with dried mucoid drainage adherent. There are no nasopharyngeal or oral lesions. Mucous membranes are moist, and there is good salival pool. The right TM is dull and injected. The left TM is normal. The gingivaand dentition appear healthy. The oropharynx is clear. Neck: Supple. No mass. Nodes: No cervical, occipital, supraclavicular or axillary lymphadenopathy. Tonsillar nodes are palpable, but are not abnormal. Lungs: Normal pattern and effort of respiration, clear to auscultation bilaterally. Heart: Regular rate and rhythm. Normal S1 and S2. No murmurs, gallops or rubs. Hands and feet are warm and well-perfused. No clubbing, cyanosis or edema. Abdomen: Flat. Bowel sounds are present. No hepatosplenomegaly. No mass. No guarding. Nontender to palpation throughout. Skin: Dry patches of skin that, on closer inspection, are somewhat coalescing, flesh-colored, flat-topped maculopapular lesions are appreciated over the anterior aspect of the knees, as well as the extensor surface of the elbows and along the arms. There are no excoriations noted. Nails and nail foldsappear normal. There is faint scale and erythema noted over the lateral aspects of the cheeks. Thereis no malar rash. No nodules. Neuro: Alert. Behavior is appropriate. He asks and answers questions appropriately. Cranial nerves III through XII are intact. No focal deficits appreciated. Musculoskeletal: The mandible is symmetric. There is no abnormal retro- or micrognathia. Cameron is able to open his mouth wide with ease, and there is no malalignment appreciated. There is no swelling or pain with pressure at the temporomandibular, sternoclavicular, or acromioclavicular joints. There is no pain on range of motion, and range of motion is normal at the C-spine. There is no swelling, no pain with range of motion or pressure, and range of motion is full at the shoulders, elbows, wrists, knees, ankles, MCPs, MTPs, PIPs, and DIPs. There is pain reported with pressure at both sacroiliac joints, but also along the tendon insertionsonto the pelvis, more laterally along the gluts. There is pain reported at the plantar fascia insertions, patella insertions, as well as the Achilles insertions bilaterally. There is pain along the Achilles tendon, at the right more so than the left. There is no pain elicited on palpation of any of his muscles and no additional tender points elicited. Cameron hyperextends at the elbows, but not greater than 10 degrees. He is not able to touch his thumbs to his ipsilateral forearms. He is hypermobile at the hips, with approximately 180-degree rotational ability per hip. He also is able to hyperextend both knees, but not as remarkably. Modified Clifton's distance is 6 cm. He is not able to touch his toes when keeping his knees straight. Straight leg raising is 45 degrees bilaterally, and he gives rather easily on motor strength testing of his thighs.On standing, he flattens his arches but does not have prominent pronation. When barefoot, he is noted to be somewhat cautious on walking and running. When wearing socks, his ambulation and run appear normal. IMPRESSION: In summary, Cameron is a previously-healthy [id number]-cxmu-pqn, with arthralgias and enthesalgias (pain at tendon insertion sites). On exam, he has evidence for hypermobility in several joints. His skin findings may be consistent with eczema, although given the lack of pruritus, they are certainly suspicious for possible evolving psoriasiform rash. The finding of significant enthesalgia/enthesitis is most commonly seen with one of the spondyloarthopathies, including undifferentiated, psoriatic, IBD-associated, and reactive forms, for which his family history increases his risk. The pain that Cameron is experiencing is likely related to enthesalgia and his hypermobility, including pes planus. Our impressions and diagnostic considerations, and managment options were discussed at length. PLAN: 1. We concur with the recommendation for supportive footwear, including orthotics. An order for physical therapy to address hypermobility (injury prevention and muscle strengthening),as well as stretching of the hamstrings, was provided. This could be a very important part of management of his pain. For treatment of enthesitis, Cameron will be starting naproxen 250 mg p.o. b.i.d. with food. NSAID therapy was discussed. For routine monitoring and baseline studies, laboratory studies were obtained today. Urinalysis and creatinine are normal. IgG is normal at 1040 and IgA is elevated at 288 (with 200 being the upper limit of normal). White blood cell count is 6700, with 14% monocytes and normal distribution of absolutecell counts. Hemoglobin is 11.7, with a normal MCV and RDW. Platelet count is elevated at 489,000. ESR is 54 and CRP is 18. AST is 28. The white blood cell count is within normal limits, and is furtherimproved in comparison to the previous value. The platelet count has increased, as has the ESR, and along with the elevated IgA are consistent with progressive inflammation. We do not have a previous CRP for comparison. This value is consistent with systemic inflammation as well. With these inflammatory markers out of proportion to his findings, potential occult processes such as IBD or infection need to be carefully considered and monitored. For followup, we have asked that Cameron return in six to eight weeks. His mother was encouraged to call, should questions or problems arise in the interim. Thank you for allowing us to participate in the care of Cameron. Please feel free to contact us if youhave questions regarding the above or if we may be of further assistance. I have personally examined the patient, reviewed and edited the fellow's note and agree with the plan of care. Josh Parekh M.D. [employer] Developer of Pediatrics Pediatric Rheumatology [phone] Dictated by Natalya Newell M.D. RV:11 cc: Kumar Celestin MD [facility] [address] [place] [address] The Parents of Cameron Manuel [address] [place] [address] [address] [facility] [address] [facility] [address] Miguel Lopez M [address] [place] [address] Electronically signed by:Josh Parekh M.D. Jan 18 2010 4:11PM RADAR OPERATOR R OPERATOR documented in this encounter Plan of Treatment Not on filedocumented as of this encounter Visit Diagnoses Not on filedocumented in this encounter Care Teams Business Risk Analyst Relationship Specialty Start Date End Date Kumar Celestin MD PCP - General 02 12/26/[address] [place] [id number] documented as of this encounter
--- OUTSIDE RECORDS SUMMARY | 2022-08-26 16:27 | XMS_ITS | Encounter Summary ---
:2000 Author Organization [facility] Address [address] [place] [address] Care Team Providers Name Role Phone Kumar Celestin MD Primary Care Provider Encounter Details Date Type Department Care Team Description 01/14/2010 Office Visit-[facility] INTERFACE [facility] DEPT Provider, [facility] Nurs e Social History Tobacco Use Types Packs/Day Years Used Date Never Smoker Alcohol Use Standard Drinks/Week Comments Not Asked 0 (1 standard drink = 0.6 oz pure alcoho l) Sex Assigned at Date Recorded Not on file documented as of this encounter Progress Notes Provider, [facility] Nurse - 01/14/2010 10:00 AM CST Coating Operator: Pallavi Win Status: Final Encounter: 14 Jan 2010 Type: Rooming Note Informant Parent is informant unless otherwise noted. Reason For Visit Rheumatology eval. Do you have any other appointments, tests or procedures within the [facility] system for this same day? No. Pain Eval Current history of pain associated with this visit is as follows: Location: feet, legs, knees, hands, hip, ankles Quality: burning, sharp, pulling, stretching Severity: 5-8 (Pain scale 1-10, with 10 being the worst) Duration: 30 minutes Timing: started with feet 4 months ago Context: all day, after activity Modifying factors: resting, stretching Associated signs/symptoms: none. Personal Hx Behavioral history: No tobacco use. Home environment: No secondhand tobacco smoke in home. Vital Signs Position for height measurement: standing Blood pressure taken with: electronic BP machine. Recorded by Pallavi Win on 14 Jan 2010 10:27 AM BP:92/64, RUE, Sitting, HR: 97 b/min, Temp: 97.8 F, Oral, Height: 130.5 cm, Weight: 26.6 kg, BMI: 15.6 kg/m2, Pain Scale: 5. Immunizations Immunizations are reported as current. Allergies No Known Drug Allergy. Current Meds Meds List Printed and given to patient. Amoxicillin 250 MG Capsule;TAKE 3 CAPSULE TWICE DAILY 10 day regimen for otitis media.; RPT [facility]ON[facility];; RPT. Signature Signed By: Pallavi Win MA; 01/14/2010 10:38 AM POSTAL INSPECTOR. documented in this encounter Plan of Treatment Not on filedocumented as of this encounter Visit Diagnoses Not on filedocumented in this encounter Care Teams Powerhouse Electrician Relationship Specialty Start Date End Date Kumar Celestin MD PCP - General 02 12/26/18 [address] [phone] documented as of this encounter
--- OUTSIDE RECORDS SUMMARY | 2022-08-26 16:27 | XMS_ITS | Encounter Summary ---
:2000 Author Organization [facility] Address [address] [place] [id number] Care Team Providers Name Role Phone Kumar Celestin MD Primary Care Provider Reason for Referral - Closed Specialty Diagnoses / Procedures Referred By Contact Refer red To Contact Diagnoses Foot pain Kumar Celestin MD [address] [place] [address] Referral ID Status Reason Start Date Expiration Date Visits Requ ested Visits Authorized [id number] Closed 12/13/2009 11/18/2011 1 1 ING WHEEL OPERATOR Reason for Visit Reason Comments Musculoskeletal Problem Patient here with bilateral foot pain for the last two months - has been getting worse rec ently. Pain is in arch, on top near toes and near ankle are a. Encounter Details Date Type Department Care Team Description 12/13/2009 Office Visit [facility] Kumar Celestin Foo t Pain (Primary Clinic Patricia [facility]EV[facility] Dx) [address] [place] [address] [place] [phone] (Wo rk) Social History [...] - - Temperature 36.7 ??C (98 ??F) 12/13/2009 11:33 AM BURRING WHEEL OPERATOR Respiratory Rate - - Oxygen Saturation - - Inhaled Oxygen Concentration - - Weight 27.9 kg (61 lb 8 oz) 12/13/2009 11:33 AM BURRING WHEEL OPERATOR Height 130.2 cm (4' 3.25) 12/13/2009 11:33 AM BURRING WHEEL OPERATOR Body Mass Index 16.46 12/13/2009 11:33 AM BURRING WHEEL OPERATOR Body Mass Index Percentile 68.78 % 12/13/2009 11:[address] Growth Chart: [facility] (Boys, 2-20 Years) documented in this encounter Progress Notes Kumar Celestin - 12/13/2009 11:49 AM CST Foot pain for copule months. Starting to sit out of sports. No other joint pain issues. No swelling noted. No rashes. Objective: Temp (Src) 98 ??F (36.7 ??C) (Oral) Ht 4' 3.25 (1.302 m) Wt 61 lb 8 oz (27.896 kg) High arch. Insertion point pain in foot only finding. Hint of eczema. No swelling or joints noted. No loss of ROM elbow, knee, ankle.no rash or swelling. ASSESSMENT: ?high arch and plantar fascitis vs enesthitis. PLAN: See podiatry. If not helpful would look at rheumatology. ING WHEEL OPERATOR documented in this encounter Nursing Notes 12/13/2009 11:30 AM CST >> LASHONDA ESTEBAN Mon Dec 13, 2009 11:35 AM Patient presents with: Musculoskeletal Problem - Patient here with bilateral foot pain for the last two months - has been getting worse recently. Pain is in arch, on top near toes and near ankle area. Initial Temp (Src) 98 ??F (36.7 ??C) (Oral) Ht 4' 3.25 (1.302 m) Wt 61 lb 8 oz (27.896 kg) Body mass index is 16.46 kg/(m^2). BP completed using cuff size: NA (Not Taken). Lashonda Nabor CALCULATOR OPERATOR documented in this encounter Plan of Treatment Not on filedocumented as of this encounter Visit Diagnoses Diagnosis Foot pain - Primary Pain in limb documented in this encounter Care Teams Glue Reel Operator Relationship Specialty Start Date End Date Kumar Celestin MD PCP - General 02 12/26/18 [address] [facility] [address] [place] [phone] documented as of this encounter
--- OUTSIDE RECORDS SUMMARY | 2022-08-26 16:27 | XMS_ITS | Encounter Summary ---
:2000 Author Organization [facility] Address [address] [place] [address]. [place] [address] Care Team Providers Name Role Phone Kumar Celestin MD Primary Care Provider Reason for Referral Referral not Required - Closed Specialty Diagnoses / Procedures Referred By Contact Refer red To Contact Diagnoses Routine child health exam Kumar Celestin MD [facility] [address] [address] [address] [place] [address] Phone: [phone] Fax: Referral ID Status Reason Start Date Expiration Date Visits Requ ested Visits Authorized [id number] Closed 07/30/2008 11/18/2011 1 1 Reason for Visit Reason Comments Well Child 8 yr px Encounter Details Date Type Department Care Team Description 07/30/2008 Office Visit [facility] Kumar Celestin [facility] [place] MD Exam (Primary Dx) [address] [place] [address] [place] [address] [place] [phone] (Wo rk) Social History Tobacco Use Types Packs/Day Years Used Date Never Smoker Alcohol Use Standard Drinks/Week Comments Not Asked 0 (1 standard drink = 0.6 oz pure alcoho l) Sex Assigned at Date Recorded Not on file documented as of this encounter Last Filed Vital Signs Vital Sign Reading Time Taken Comments Blood Pressure 88/46 07/30/2008 1:30 PM CDT Pulse - - Temperature 36.8 ??C (98.3 ??F) 07/30/2008 1:30 PM CDT Respiratory Rate - - Oxygen Saturation - - Inhaled Oxygen Concentration - - Weight 23.1 kg (51 lb) 07/30/2008 1:30 PM CDT Height 121.3 cm (3' 11.75) 07/30/2008 1:30 PM CDT Laapym-uvu-Rdsznh Percentile 58.25 % 07/30/2008 1:30 PM CDT Growth Chart: [facility] (Boys, 2-20 Years) Body Mass Index 15.73 07/30/2008 1:30 PM CDT Body Mass Index Percentile 59.86 % 07/30/2008 1:30 PM CD T Growth Chart: [facility] (Boys, 2-20 Years) documented in this encounter Progress Notes Kumar Celestin - 07/30/2008 1:31 PM CDT KG 3 days per week. Fruit. Almost failed vision screen at school and has to use +4 to focus retina. Cameron is an 8 year old male here for a routine health maintenance visit. There are concerns as listed above. No current health concerns. DAILY ACTIVITIES: Cameron is making satisfactory [...] environmental risk factors identified. PHYSICAL EXAMINATION: BP 88/46 Temp (Src) 98.3 ??F (36.8 ??C) (Oral) Ht 3' 11.75 (1.213 m) Wt 51 lb (23.133 kg) GENERAL: Alert, vigorous, in no acute [...] Play/development issues including demonstrating interest in child's activities, discouraging TV timeand sport issues. Health issues including regular dental care. Nutrition issues including balanced diet and healthy snacks. Safety issues including accident prevention. IMMUNIZATIONS: Immunizations reviewed. No immunizations given today. ASSESSMENT: 8 year old Well Child Visit with normal growth. Some issues around vision screen failed. PLAN: No prescriptions given. Referred. RTC 1-2 years for next health maintenance visit. documented in this encounter Nursing Notes 07/30/2008 1:30 PM CDT >> LASHONDA NABOR Ángela Jul 30, 2008 2:27 PM Vision attempted, unsuccessful. Lashonda Nabor INSIDE SALES ASSISTANT >> LASHONDA NABOR Ángela Jul 30, 2008 1:13 PM Cameron is an 8 year old male here for a routine health maintenance visit, accompanied by his Parent(s). There are no concerns. No changes in family history since last physical. No recent social changes/stressors. Dazey Prescreen: Not applicable. Lead Risk Questionaire: Not applicable. 4 years and older - Vision, hearing: No concerns. documented in this encounter Plan of Treatment Not on filedocumented as of this encounter Visit Diagnoses Diagnosis Routine child health exam - Primary Routine infant or child health check documented in this encounter Care Teams Center Line Cutter Operator Relationship Specialty Start Date End Date Kumar Celestin MD PCP - General 02 12/26/18 [address] [place] [address] documented as of this encounter
--- OUTSIDE RECORDS SUMMARY | 2022-08-26 16:27 | XMS_ITS | Encounter Summary ---
:2000 Author Organization [place] Address [id number] [place] [address] Care Team Providers Name Role Phone Kumar Celestin MD Primary Care Provider Encounter Details Date Type Department Care Team Description 01/19/2010 [facility] Josh Parekh MD [facility] [address] [facility] [place] [address] [facility] [address] [place] [address] [address] [place] [phone] Social History Tobacco Use Types Packs/Day Years Used Date Never Smoker Alcohol Use Standard Drinks/Week Comments Not Asked 0 (1 standard drink = 0.6 oz pure alcoho l) Sex Assigned at Date Recorded Not on file documented as of this encounter Progress Notes oJsh Parekh - 01/19/2010 12:40 PM CST Fire Investigator: Josh Parekh Status: Amended, Final Encounter: 19 Jan 2010 Type: Peds Visit Division of Pediatric Rheumatology Department of Pediatrics [place] Mail [address] [place] [address] Office: [phone] Pediatric [facility]ty [facility] - [facility] Fourth Floor, Clinic [address] [place] [address] RE: Cameron Manuel : 2000 JULIAN: 01/19/2010 OUTPATIENT VISIT NOTE MEDICATIONS: Naproxen 250 mg po twice daily with food, Cefdinir (dose unknown). INTERIM HISTORY: Cameron is a previously-healthy ervgw-hkjg-fry male who presents accompanied by his mother for followup of bilateral limb pain and enthesalgias. We initially saw Cameron on January 14, 2010. Two days ago, the pain seemed to be significant worse. I spoke with Cameron's mother by phone yesterday, and a plan was made for further evaluation in clinic today. The day following our visit was reportedly uneventful; Cameron was visiting his father. On Sunday whenback at home with his mother, while playing he started to complain that his legs hurt. During the day he had had about 10 minutes of no symptoms, during which he was rambunctiously playing with his sister. However, he seemed to pay for it shortly thereafter, when he sat on the couch crying due to leg pain. His mother recalls that he had a bad night, and feels that it was particularly bad because Cameron realized that he needs to keep taking medication and that he was not going to get prompt relief. During dinner that evening, he complained of pain in his right jaw while chewing. On Sunday morning (two days ago) after leaving out of the door to go to school, his mother returned to find him sitting on the garage floor and crying. Cameron reports that he had been limping down the stairs because it allows him to put less pressure on his feet. While doing so, he twisted his leg which caused a significant amount of pain. He finished a course of amoxicillin for otitis media during the weekend. On Sunday, he was seen at his primary clinic for followup of recent otitis media. It was felt that he had persistence of right otitis media despite completing courses of both azithromycin and amoxicillin. He was prescribed Cefdinir. His last fever was 9 days ago. He has had no rash. He had loose bowel movements while taking amoxicillin; this has resolved. Over the past few days, in addition to the discomfort of the right jaw, he has had most prominent complaints of pain at the right lower back, both hands, the thighs, dorsum of the feet, and base of theneck. He and his mother have noticed that he is cracking his joints more frequently, including his back and his neck. The hand complaints are significant enough that he no longer wants to write at home, which is atypical for him. He reports discomfort at the fingertips. He has also continued to complain of abdominal pain. When describing the abdominal pain, he reports that it feels like someone is pushing on it with a hammer. Initially, he states that this is in the muscles and points to the periumbilical area; however, he has continued to have some pain in the suprapubic area after voiding and after having bowel movements. His mother notes that his abdomen appears bloated. Yesterday, she witnessed him have a normal bowel movement. He had a normal bowel movement this morning as well. There has been no hematochezia. He reports that the color of his urine is yellow. He has been tolerating the naproxen; although, he has not noted a significant benefit. He reports that stretching feels good. Vernell 10-point visual analog scale for how much pain he has had in the past week, he miranda between a 5 and a 6, with 10 being very severe pain and 0 being no pain. On a 10-point visual analog scale of wellhe has been doing this past week, he miranda between a 4 and a 5, with 10 being very poorly and 0 being very well. Today, Cameron and his mother report that he is having a good day. For the first time in weeks, he went down the stairs this morning on his feet, rather than on his buttocks or stomach. He has been smiling, running, and jumping around today. His appetite has markedly improved as well; he ate a large breakfast and two sandwiches for lunch. His jaw still gets sore with eating. Laboratory studies at the last visit were remarkable for mildly elevated IgA level at 288 (with 200 being upper limit of normal), an elevated ESR at 54 and elevated CRP at 18. Platelet count was 489,000. In comparison to previous values, the platelet count and ESR had increased. With these inflammatory markers out of proportion to his findings, a potential occult process such as IBD or infection werefelt to be important considerations. REVIEW OF SYSTEMS: A comprehensive 12-point review of systems was obtained, is as noted above, and is otherwise negative. PHYSICAL EXAMINATION: VITAL SIGNS: Temperature is 98.4 degrees Fahrenheit, blood pressure 101/62, pulse rate 100, and respiratory rate is 24. Height is 130.3 cm, and weight is 27.9 kg. APPEARANCE: Cameron appears to be in excellent health and comfortable throughout the visit. While taking his history, he sits style on the chair in the exam room. HEENT: Head is normocephalic. There is no alopecia. Sclerae and conjunctivae are clear. Pupils are equal, round, and reactive to light. Nasal turbinates are mildly edematous and erythematous with a very small amount of dried mucoid drainage adherent. There are no nasopharyngeal or oral lesions. Mucousmembranes are moist and there is a good saliva pool. The right TM is dull but no longer injected. The left TM is normal. The gingiva and dentition appear healthy. The oropharynx is clear. NECK: Supple. No mass. NODES: No cervical, occipital, supraclavicular, or axillary lymphadenopathy. Tonsillar nodes are palpable, but are not abnormal. LUNGS: Normal pattern and effort of respiration. Clear to auscultation bilaterally. HEART: Regular rate and rhythm. Normal S1 and S2. No murmurs, gallops, or rubs. The hands and feet are warm and well perfused. No edema. ABDOMEN: Flat. Bowel sounds are present. No hepatosplenomegaly. No mass. No guarding. Nontender to palpation throughout. SKIN: Dry patches of skin over the anterior aspect of the knees as well as extensor surfaces of the elbows and arms. There are no excoriations. Nails and nail folds appear normal. There continues to befaint erythema noted over the lateral aspects of the cheeks. There is no malar rash. No nodules. NEURO: Alert. Cameron asks and answers questions appropriately. Cranial nerves III-XII are intact. There are no focal deficits appreciated. Coordination is normal. MUSCULOSKELETAL: The mandible appears symmetric. Cameron is able to open his mouth wide with ease and there is no malalignment appreciated. He is able to fit four fingers between his incisors. There is no swelling or pain with pressure at the temporomandibular, sternoclavicular, or acromioclavicular joints. There is no pain on range of motion, and range of motion is normal at the C-spine. There is no swelling, no pain with range of motion or pressure, and range of motion is full at the shoulders, elbows, wrists, knees, ankles, MCPs, MTPs, PIPs, and DIPs. Cameron reports that pressure at both sacroiliacjoints is ticklish, but he is noted to grimace particularly with pressure at the right sacroiliac joint. There is no tenderness along the tendon insertions onto the pelvis. There is some mild discomfort reported on pressure along the Liverpool's tendons, at the right more so than the left. There is pain at the plantar fascia insertions bilaterally, at the left foot more so than the right. There is nopain elicited on palpation of any of his muscles, and there are no additional tender points elicited. Motor strength testing is normal in the upper and lower extremities. Cameron is able to do six situpswith ease. Neck flexor strength is within normal limits. He is able to duck-walk. Cameron hyperextends his elbows, but not greater than 10 degrees. He is nearly able to touch his thumbs to the ipsilateral forearms. He is hypermobile at the hips, with approximately 180-degree rotational ability per hip. He is also able to hyperextend both knees, but not as remarkably. He is not able to touch his toes when keeping his knees straight, although modified Clifton's distance is normal. Straight leg raising is 45 degrees bilaterally. On standing, he continues to flatten his arches but doesnot have prominent pronation. He climbs onto the examination table with ease, but on getting down iscareful on putting pressure on his feet. IMPRESSION: In summary, Cameron is a previously-healthy utyws-keew-onl with arthralgias and enthesalgias. On exam, he continues to have evidence for hypermobility in several joints as well as enthesitis.Although he does not have evidence for synovitis (arthritis) on exam today, enthesitis may be part of a spondyloarthropathy, for which his family history increases his risk. His clinical improvement over the last 24 hours after starting antibiotic therapy raises the suspicion that infection, such as otitis media, was the precipitant of the elevated inflammatory markers. Although occult processes suchas IBD or malignancy are considerations, they are felt to be much less likely. It is suspected that the pain that Cameron has been experiencing is related to hypermobility, pes planus, as well as enthesitis. The intensity of this pain is likely increased related to the recent illness. Management of hypermobility, pes planus, and enthesitis were discussed again today. PLAN: 1. Laboratory studies were obtained for further evaluation of the above considerations and are highly reassuring. The LDH and uric acid are normal at 555 and 3.6, respectively. White blood cell count is 8,400 with a normal differential, hemoglobin is 11.8, and platelet count is 484,000 (which is 5,000 less than the previous measurement). The ESR has improved to 17 and a CRP has normalized to 7.9. ALT, AST, CK, and aldolase levels are normal at 14, 35, 70, and 4.6, respectively. Given the abdominal complaints and bloating as well as the mildly elevated IgA, serologic screening for celiac disease was sent. TTG (IgA, IgG) and GGT (IgA, IgG) are negative. For treatment of enthesitis, Cameron should continue naproxen 250 mg po b.i.d. with food. For symptomatic relief for episodes of more severe pain, Tylenol and additional supportive measures such as use of a heating pad can be used. As mentioned in our previous note, we concur with the recommendation for supportive footwear, including orthotics. An order for physical therapy to address hypermobility (injury prevention and muscle strengthening) as well as stretching of hamstrings has been provided. The importance of this as part of management of his pain was discussed today. An order for occupational therapy for evaluation and treatment for the hand complaints was provided today. For followup, we have asked that Cameron return in six weeks. His mother was encouraged to call shouldproblems arise in the interim. Thank you for allowing us to take part in the care of Cameron. Please feel free to contact us if you have questions regarding the above or if we may be of further assistance. I have personally examined the patient, reviewed and edited the fellow's note and agree with the plan of care. Josh Parekh M.D. Plastics Factory Worker of Pediatrics Pediatric Rheumatology [phone] Dictated by Natalya Newell M.D. Pediatric Rheumatology Fellow [id number] cc: Kumar Celestin MD [facility] [address] [address] [place] [id number] [address] [place] [id number] DD 01/19/2010 Electronically signed by:Josh Parekh M.D. Jan 24 2010 8:54AM PRINCIPAL ANDROID DEVELOPER AMENDMENTS: 1. Endomesial antibody (IgA) is negative. Electronically signed by:Josh Parekh M.D. Jan 25 2010 1:51PM PRINCIPAL ANDROID DEVELOPER CIPAL ANDROID DEVELOPER documented in this encounter Plan of Treatment Not on filedocumented as of this encounter Visit Diagnoses Not on filedocumented in this encounter Care Teams Integrity Engineer Relationship Specialty Start Date End Date Kumar Celestin MD PCP - General 02 12/26/[address] [facility] [address] [place] [id number] documented as of this encounter
--- OUTSIDE RECORDS SUMMARY | 2022-08-26 16:27 | XMS_ITS | Encounter Summary ---
:2000 Author Organization [place] Address [address] [place] [address] Care Team Providers Name Role Phone Kumar Celestin MD Primary Care Provider Encounter Details Date Type Department Care Team Description 10/21/2006 Historic Results INTERFACED REPORT Vijay Rider MD [facility] [address] [place] [address] (Wo rk) Social History Tobacco Use Types Packs/Day Years Used Date Never Smoker Alcohol Use Standard Drinks/Week Comments Not Asked 0 (1 standard drink = 0.6 oz pure alcoho l) Sex Assigned at Date Recorded Not on file documented as of this encounter Plan of Treatment Not on filedocumented as of this encounter Procedures Procedure Name Priority Date/Time Associated Diagnosis Comme nts BASIC METABOLIC STAT 10/21/2006 8:30 PM Result s for this PANEL BUSHEL WORKER procedure are i n the results section. documented in this encounter Results Basic metabolic panel (10/21/2006 8:30 PM BUSHEL WORKER) [facility] Method Time Signature Sodium 135 133 - 143 MISYS mmol/L Potassium 3.9 3.4 - 5.3 MISYS mmol/L Chloride 99 98 - 110 MISYS mmol/L Carbon Dioxide 23 20 - 32 MISYS mmol/L Glucose 70 60 - 110 MISYS mg/dL Urea Nitrogen 10 5 - 24 MISYS mg/dL Creatinine 0.42 0.20 - MISYS 0.70 mg/dL GFR Estimate GFR not mL/min/1. MISYS calculated, 7m2 patient <16 years old. GFR Estimate If GFR not mL/min/1. MISYS Black calculated, 7m2 patient <16 years old. Calcium 9.1 8.7 - MISYS 10.8 mg/dL Anion Gap 13 6 - 17 MISYS mmol/L Specimen Anatomical Collection Method Collection Time Receive d Time (Source) Location / / Volume Laterality 10/21/2006 8:30 PM 6 8:36 BUSHEL WORKER PM BUSHEL WORKER Vijay Rider MD LAB - BLOOD ORDERABLES Performing Organization Address City/State/ZIP Code Phon e Number MISYS documented in this encounter Visit Diagnoses Not on filedocumented in this encounter Care Teams Assembly Lead Person Relationship Specialty Start Date End Date Kumar Celestin MD PCP - General 02 12/26/18 [address] [place] [address] documented as of this encounter
--- OUTSIDE RECORDS SUMMARY | 2022-08-26 16:27 | XMS_ITS | Encounter Summary ---
:2000 Author Organization [facility] Address [address] [place] [address] Care Team Providers Name Role Phone Kumar Celestin MD Primary Care Provider Reason for Visit Reason Comments Fever fevers ongoing - was seen in u/c, achey body, cough Encounter Details Date Type Department Care Team Description 01/10/2010 Office Visit [facility] Simón Coello Fever ( Primary Dx); Clinic Emmetttabatha Sinha MD Acute Otitis Media-resolving [address] [place] [address] Social History Tobacco Use Types Packs/Day Years Used Date Never Smoker Alcohol Use Standard Drinks/Week Comments Not Asked 0 (1 standard drink = 0.6 oz pure alcoho l) Sex Assigned at Date Recorded Not on file documented as of this encounter Last Filed Vital Signs Vital Sign Reading Time Taken Comments Blood Pressure - - Pulse - - Temperature 37.7 ??C (99.8 ??F) 01/10/2010 2:32 PM CAREER DEVELOPMENT COORDINATOR Respiratory Rate - - Oxygen Saturation - - Inhaled Oxygen Concentration - - Weight 26.3 kg (58 lb) 01/10/2010 2:32 PM CAREER DEVELOPMENT COORDINATOR Height 130.2 cm (4' 3.25) 01/10/2010 2:32 PM CAREER DEVELOPMENT COORDINATOR Body Mass Index 15.53 01/10/2010 2:32 PM CAREER DEVELOPMENT COORDINATOR Body Mass Index Percentile 46.76 % 01/10/2010 2:32 PM CS T Growth Chart: CDC (Boys, 2-20 Years) documented in this encounter Progress Notes Simón Coello R - 01/12/2010 9:17 AM CST Cameron is here today for cold symptoms of 5-6 days days duration. Main symptom(s) congestion and cough. Fever present, up to 102 degrees for 2 days initaly and then better but again since yesterday. Associated symptoms include fatigue, lethargy, decreased appetite and headache. Pertinent negatives include shortness of breath, wheezing, or lethargy. Seen at an urgent care last week and had CBC,CXR,influenza,strep,mono and all negative-given zithromax,then developed ear pain ans seen again for ear infection and has been on amoxicillin but still fever yesterday and cough and just not feeling well Physical Exam: 9 year old well developed, well nourished male in no apparent distress. Ears Right TMinjected and dull but not significant-likely getting better Throat and pharynx normal. Neck supple. No adenopathy or masses in the neck or supraclavicular regions. Sinuses non tender.. Nasal drainage congestion. Lungs clear to auscultation. Heart regular rate and rhythm without murmurs. No tachycardia. The abdomen is soft without tenderness, guarding, mass or organomegaly. Bowel sounds are normal. No CVA tenderness or inguinal adenopathy noted.. Assessment: Viral Upper Respiratory Infection fever Acute Otitis Media -resolving Plan: No prescriptions or referals given. Lab workup as ordered.due to continuation of symptoms for a week-CBC:slightly elevated white count Sed rate slightly high UA normal CXR:negative Reassurence and symptomatic treatment advised and recheck if not better in 3-4 days Does have an appointment with rheumatology due to ongoing joint pains later this week and f/u there if fever continues OTC medications for respiratory symptom control. Examples and dosages reviewed. Follow up if symptomduration greater than two weeks or worsening symptoms. Otherwise per orders. ER DEVELOPMENT COORDINATOR documented in this encounter Nursing Notes 01/10/2010 2:30 PM CST >> PETER IVERSON Mon Jan 10, 2010 2:33 PM Patient presents with: Fever - fevers ongoing - was seen in u/c, achey body, cough initial Temp(Src) 99.8 ??F (37.7 ??C) (Oral) Ht 4' 3.25 (1.302 m) Wt 58 lb (26.309 kg) Estimated Body mass index is 15.53 kg/(m^2) as calculated from the following: Height as of this encounter: 4' 3.25(1.302 m). Weight as of this encounter: 58 lb(26.309 kg).. bp completed using cuff size NA (Not Taken) Madeline Man MA documented in this encounter Plan of Treatment Not on filedocumented as of this encounter Procedures Procedure Name Priority Date/Time Associated Comments Diagnosis HC CHEST TWO VIEWS, Routine 01/10/2010 3:18 PM Fever Re sults for this FRONT/LAT CAREER DEVELOPMENT COORDINATOR procedure are i n the results section. ZZHC CAPILLARY BLOOD Routine 01/10/2010 3:06 PM Fever COLLECTION CAREER DEVELOPMENT COORDINATOR CL AFF CBC WITH Routine 01/10/2010 2:59 PM Fever Result s for this PLATELETS, DIFF CAREER DEVELOPMENT COORDINATOR procedure ar e in the results section. HCL URINALYSIS WITH Routine 01/10/2010 2:59 PM Fever Re sults for this MICROSCOPIC CAREER DEVELOPMENT COORDINATOR procedure are i n the results section. HCL SED RATE (ESR) Routine 01/10/2010 2:59 PM Fever Res ults for this CAREER DEVELOPMENT COORDINATOR procedure are i n the results section. documented in this encounter Results CHEST X-RAY 2 VW (01/10/2010 3:18 PM CAREER DEVELOPMENT COORDINATOR) Anatomical Region Laterality Modality Other Specimen (Source) Anatomical Collection Method Collection Time Re ceived Time Location / / Volume Laterality 01/10/2010 3:18 PM CAREER DEVELOPMENT COORDINATOR Impressions 01/11/2010 7:37 AM CAREER DEVELOPMENT COORDINATOR CHEST TWO VIEW* ??Jan 10, 2010 3:18:00 P M HISTORY: ??Fever. COMPARISON: ??01/06/2009. IMPRESSION: ??Negative. Simón Coello MD GENERAL IMAGING UA WITH MICRO (01/10/2010 2:59 PM CAREER DEVELOPMENT COORDINATOR) [facility] gist Method Time Signature Color Urine Yellow [facility] Appearance Urine Clear [facility] Glucose Urine Negative NEG mg/dL [facility] Bilirubin Urine Negative NEG [facility] Ketones Urine Negative NEG mg/dL [facility] Specific [place] 1.025 1.003 - [place] Urine 1.035 [facility] pH Urine 6.5 5.0 - 7.0 [place] pH [facility] Protein Albumin Negative NEG mg/dL [place] Urine [facility] Urobilinogen 0.2 0.2 - 1.0 [place] Urine EU/dL [facility] Nitrite Urine Negative NEG [facility] Blood Urine Negative NEG [facility] Leukocyte Negative NEG [place] Esterase Urine [facility] Source Midstream [place] Urine [facility] WBC Urine O - 2 0 - 2 [place] [facility] RBC Urine O - 2 0 - 2 [place] [facility] Specimen Anatomical Collection Method Collection Time Receive d Time (Source) Location / / Volume Laterality 01/10/2010 2:59 PM 0 3:05 CAREER DEVELOPMENT COORDINATOR PM CAREER DEVELOPMENT COORDINATOR Simón Coello MD LABORATORY Performing Organization Address City/[facility]/ZIP [facility] Phon e Number [place] [address], [place] [address] [address] [facility] (ABNORMAL) SED RATE, AUTO (01/10/2010 2:59 PM CAREER DEVELOPMENT COORDINATOR) P athologist Signature Sed Rate 37 (H) 0 - 15 mm/h [facility] Specimen Anatomical Collection Method Collection Time Receive d Time (Source) Location / / Volume Laterality 01/10/2010 2:59 PM 0 3:04 CAREER DEVELOPMENT COORDINATOR PM CAREER DEVELOPMENT COORDINATOR Simón Coello MD LABORATORY Performing Organization Address City/[facility]/ZIP [facility] Phon e Number [facility] [address], [place] [address] [address] [facility] (ABNORMAL) CBC WITH PLATELETS, DIFF (01/10/2010 2:59 PM CAREER DEVELOPMENT COORDINATOR) Patholo gist Method Time Signature WBC 13.2 5.0 - [place] 14.5 [facility] 10e9/L [facility] RBC Count 4.83 3.7 - 5.3 [place] 10e12/L [facility] Hemoglobin 12.4 10.5 - [place] 14.0 g/dL [facility] Hematocrit 36.7 31.5 - [place] 43.0 % [facility] MCV 76 70 - 100 [place] fl [facility] MCH 25.7 (L) 26.5 - [place] 33.0 pg [facility] MCHC 33.8 31.5 - [place] 36.5 g/dL [facility] RDW 13.3 10.0 - [place] 15.0 % [facility] Platelet Count 301 150 - 450 [place] 10e9/L [facility] Diff Method Automated [place] Method [facility] % Neutrophils 70 (H) 32 - 54 % [facility] % Lymphocytes 18 (L) 27 - 57 % [facility] % Monocytes 12 (H) 0 - 10 % [facility] % Eosinophils 0 0 - 6 % [facility] % Basophils 0 0 - 1 % [facility] Absolute 9.2 (H) 1.3 - 8.1 [place] Neutrophil 10e9/L [facility] Absolute 2.4 1.1 - 8.6 [place] Lymphocytes 10e9/L [facility] Absolute 1.6 (H) 0.0 - 1.1 [place] Monocytes 10e9/L [facility] Absolute 0.1 0.0 - 0.7 [place] Eosinophils 10e9/L [facility] Absolute 0.0 0.0 - 0.2 [place] Basophils 10e9/L [facility] Specimen Anatomical Collection Method Collection Time Receive d Time (Source) Location / / Volume Laterality 01/10/2010 2:59 PM 0 3:04 CAREER DEVELOPMENT COORDINATOR PM CAREER DEVELOPMENT COORDINATOR Simón Coello MD LABORATORY Performing Organization Address City/State/ZIP Code Phon e Number [facility] [address], [place] [address] [address] [facility] documented in this encounter Visit Diagnoses Diagnosis Fever - Primary Fever, unspecified Acute Otitis Media-resolving Unspecified otitis media documented in this encounter Care Teams Hat Brim [employer] Crown Laminating Operator Relationship Specialty Start Date End Date Kumar Celestin MD PCP - General 02 12/26/18 [address] [facility] [address] [place] [address] documented as of this encounter
--- OUTSIDE RECORDS SUMMARY | 2022-08-26 16:27 | XMS_ITS | Encounter Summary ---
:2000 Author Organization [facility] Address [address] [place] [address] Care Team Providers Name Role Phone Kumar Celestin MD Primary Care Provider Reason for Visit Reason Comments Developmental Survey Encounter Details Date Type Department Care Team Description 02/12/2006 Abstract [facility] Msiael cassidy, Sarah Ponce MD [facility] [address] [place] [phone] [phone] [place], [place] [phone] (Wo rk) Social History Tobacco Use Types Packs/Day Years Used Date Never Smoker Sex Assigned at Date Recorded Not on file documented as of this encounter Plan of Treatment Not on filedocumented as of this encounter Visit Diagnoses Not on filedocumented in this encounter Care Teams Roll Winder Relationship Specialty Start Date End Date Kumar Celestin MD PCP - General 02 12/26/[address] [place] [address] documented as of this encounter
--- OUTSIDE RECORDS SUMMARY | 2022-08-26 16:27 | XMS_ITS | Encounter Summary ---
:2000 Author Organization [facility] Address [address] [place] [address] Care Team Providers Name Role Phone Kumar Celestin MD Primary Care Provider Reason for Visit Reason Comments Well Child 5-yr Encounter Details Date Type Department Care Team Description 08/28/2005 Office Visit [facility] Sarah Blackmon [facility] [place] MD Rosario EXAM (Primary Dx) [address] [facility] [place], [place] [address] [address] [place], [place] [phone] (Wo rk) Social History Tobacco Use Types Packs/Day Years Used Date Never Smoker Sex Assigned at Date Recorded Not on file documented as of this encounter Last Filed Vital Signs Vital Sign Reading Time Taken Comments Blood Pressure - - Pulse - - Temperature 36.6 ??C (97.9 ??F) 08/28/2005 11:30 AM CDT Respiratory Rate - - Oxygen Saturation - - Inhaled Oxygen Concentration - - Weight 15 kg (33 lb) 08/28/2005 11:30 AM CDT Height 100.3 cm (3' 3.5) 08/28/2005 11:30 AM CDT Qewdfy-nzq-Quvvmb Percentile 24.18 % 08/28/2005 11:30 AM CDT Growth Chart: CDC (Boys, 2-20 Years) Body Mass Index 14.87 08/28/2005 11:30 AM CDT Body Mass Index Percentile 16.21 % 08/28/2005 11:30 AM C DT Growth Chart: [facility] (Boys, 2-20 Years) documented in this encounter Patient Instructions Patient Avlotdbuyyjz13/10/2005 11:30 AM CDT [age]-YEAR OLD VISITDate: 08/28/2005 Measurements: Temperature 97.9, temperature source Axillary, height 3' 3.5 (1.00 m), weight 33 lbs(15.0 kg). Acetaminophen dose Today's visit includes: ??Physical examination. ??Review of your child's health, growth and development. ??Blood pressure, vision and hearing check. Some things you might discuss at this visit: ??How things are going at home; child-care arrangements. ??Toilet training. ??Keeping your child safe - car seat, crib, smoke-free environment, foods that cause choking, dealing with strangers. ??Your child's eating and sleeping habits. ??Thoughts about setting limits, child guidance and discipline; temper tantrums. ??Oral health - assist with brushing teeth - visit the dentist. Your toddler's growth and development, what to expect: ??Increasing vocabulary (about 1000 words), sentences of about four words. ??Learning to sing, count and say the alphabet. ??It's normal to be curious about body parts - can learn correct terms. ??Showing signs of readiness for preschool, Sunday school and other opportunities. ??Likes routine in daily activity. ??Can dress and undress self; can ride a tricycle. The next visit will include: ??Physical examination. ??Your child's vision, hearing and blood pressure will be checked. Getting ready for the [age] year visit: ??Keep track of illnesses and injuries, including visits to other health care facilities, emergencyrooms, urgent care, etc. ??Bring in questions and observations about your child's sleeping and eating behaviors and possiblefood allergies. ??Visit the dentist. ??Be ready to talk about the safety of your home and neighborhood. ??Keep a list of things you would like to discuss at the visit. ??Fill out and bring in preschool health forms for the doctor to complete if appropriate. ??Bring your child's Health and Immunization Record. NOTES: documented in this encounter Progress Notes Sarah Mercado - 08/28/2005 1:42 PM CDT Cameron Manuel is an 5 year old male here for a routine health maintenance visit, accompanied by his mother, father and sister. QUESTIONS/CONCERNS: speech. Improving, still with some difficulty with certain sounds. parents understand everything, other people most words. Skin- bumps on arms, legs adn cheeks. Mom with similar rash. FAMILY/ SOCIAL HISTORY Child lives with: mother, father and sister primary care nurse: Day care Recent family changes/social stressors: none Family History: No changes since last physical Language(s) spoken at home: Korean ENVIRONMENTAL RISK ASSESSMENT Is your child around anyone who smokes? NO Car seat/ booster seat? YES Bike/sport helmet? YES CHICKEN POX HISTORY: Previously vaccinated DEVELOPMENTAL/Behavioral Screening form: Form given. HEARING/VISION HEARING: No hearing concerns, subjectively normal VISION: Child unable to perform vision test REQUIRED VITAL SIGNS COMPLETED: no (child uncooperative) Temp (Src) 97.9 (Axillary) Ht 3' 3.5 (1.00m) Wt 33 lbs (15.0kg) 80.96% of growth percentile based on bhfnxvy-dnb-zhy. 54.81% of growth percentile based on oimaxo-lvp-lja. 16.20% of growth percentile based on BMI-for-age. HEALTH HISTORY SINCE LAST VISIT No surgery, major illness or injury since last physical exam Previous Medical History: SPEECH DISTURBANCE NEC Immunization History: Comvax (HIB/HepB) 2002 2002 06/05/2003 DTaP 2002 2002 2002 09/07/2003 IPV 2002 2002 03/06/2003 MMR 09/07/2003 Prevnar (Ped. Pneumococcal) 2002 2002 03/06/2003 06/05/2003 Varicella 06/05/2003 ALLERGIES No Known Drug Aller* DAILY ACTIVITIES NUTRITION: good appetite, eats variety of foods and dairy/ calcium: whole milk SLEEP: No concerns, sleeps well through night ELIMINATION: Normal bowel movements, Normal urination and Toilet trained - day, not night EXERCISE/ RECREATION: Age appropriate activities TV/ MEDIA: < 2 hours/ day DEVELOPMENT Screening tool used, reviewed with parent/guardian: PDQ- Sundar: passed VISION: For details see above, normal HEARING: For details see above, normal ROS GENERAL: See health history, nutrition and daily activities SKIN: No rash, hives or significant lesions HEENT: Hearing/vision: see above. No eye redness/discharge, nasal congestion, sneezing, snoring RESP: No cough, wheezing, SOB CV: No [...] discussed: SOCIAL/ FAMILY: Toilet training Positive discipline Power struggles Speech/ Stuttering Imagination-(reality/fantasy) Outdoor activity/ physical play Reading to child Limit TV Sharing/ playmates NUTRITION: Avoid food struggles Age related decreased appetite HEALTH/ SAFETY: Dental care Sleep issues Car seat Good touch/ bad touch Stranger safety ASSESSMENT 1. Well child with normal growth and development 2. Patient Active Problem List: SPEECH DISTURBANCE NEC[784.5]- will cotninue to follow recommended speech therapy through school district if not improving. PLAN Immunizations: Reviewed, up to date [facility] Referrals/Ongoing Specialty care: No Dental visit recommended: YES RTC: 6 y RHM visit documented in this encounter Nursing Notes 08/28/2005 11:30 AM CDT >> TIERRA MIRANDA 08/28/2005 12:09 pm Not able to accurately assess BP d/t lack of cooperation. >> TIERRA MIRANDA 08/28/2005 12:08 pm Cameron is an 5 year old male here for a routine health maintenance visit, accompanied by his Parent(s) and sister(s). There are concerns about speech follow up & eczema follow up. No recent social changes/stressors. Sundar Prescreen: Form not completed at time roomed. Lead Risk Questionaire: Form not completed at time roomed 5 years old - Parents report subjectively normal hearing. Vision: Tierra Miranda RN documented in this encounter Plan of Treatment Not on filedocumented as of this encounter Visit Diagnoses Diagnosis Routine or child health check - P rimary documented in this encounter Care Teams Timing Inspector Relationship Specialty Start Date End Date Kumar Celestin MD PCP - General 02 12/26/18 [address] [facility] [address] [place] [address] documented as of this encounter
--- OUTSIDE RECORDS SUMMARY | 2022-08-26 16:27 | XMS_ITS | Encounter Summary ---
:2000 Author Organization [facility] Address [address] [place] [address]. [place] [address] Care Team Providers Name Role Phone Kumar Celestin MD Primary Care Provider Encounter Details Date Type Department Care Team Description 10/21/2006 Emergency room Deshawn Rider MD EMERGENCY PHYSIC [facility] [address] [place], [place] [phone] (Wo rk) Social History Tobacco Use Types Packs/Day Years Used Date Never Smoker Alcohol Use Standard Drinks/Week Comments Not Asked 0 (1 standard drink = 0.6 oz pure alcoho l) Sex Assigned at Date Recorded Not on file documented as of this encounter Progress Notes Interface, Passenger Car Inspector - 11/14/2006 2:57 PM INSTRUMENT MECHANIC [employer] FINAL CHIEF COMPLAINT: Vomiting. HISTORY OF PRESENT ILLNESS: This 6-year-old comes to the emergency department with report of vomiting 4-5 times today. This all started on Sunday. He seemed to get better, though on 10/20. He started having diarrhea again last night. There has been no blood, no fevers. He has had a little bit of rash on his arm and neck but no sick exposures except for other people with vomiting in his preschool. Otherwise playful and healthy. His parents have also succumbed to GI illness with the diarrhea. They have largely gotten better and bring Tahmina in now just because he does not seem to be recovering as quickly as everyone else. There has been no travel and patient has no known immunologic issues. MEDICATIONS: None. ALLERGIES: None. PAST MEDICAL HISTORY: Fairly unremarkable. Has had some ear infections as a child but has not been sick recently. FAMILY HISTORY: Noncontributory. REVIEW OF SYSTEMS: As discussed above pertinent things. All other systems Negative. SOCIAL HISTORY: As above with significant exposures noted. PHYSICAL EXAMINATION: VITAL SIGNS: Pulse 110, respiratory rate 22, temperature 99.4 and sats 99%, weight 17.3 kilos. GENERAL: He is alert, oriented, mild amount of distress when I see him. HEENT: His pupils are equal and react to light. Extraocular movements are full and intact. There isno icterus or pallor. Nose, mouth and oropharynx with some dry mucosa but no oral sores or other abnormalities. Rest of HEENT including ears are normal. NECK, SPINE AND BACK: Normal. CHEST: Rise equal. LUNGS: Sounds are clear. HEART: Sounds normal S1, S2. I do not hear any murmurs, rubs or gallops. Pulses are strong. ABDOMEN: Soft and nontender. Bowel sounds are present. There is no mass or organomegaly. He has normal bowelsounds. /RECTAL: Unremarkable. No rashes. EXTREMITIES: Extremities x4 normal. NEUROLOGIC: Nonfocal. PSYCHIATRIC: Normal. The rest of physical exam is all unremarkable. EMERGENCY DEPARTMENT DIAGNOSTICS: Basic metabolic panel which is normal. EMERGENCY DEPARTMENT COURSE: This is a 6-year-old who presents with ongoing vomiting and diarrhea. We will rehydrate him at 20 cc per kilo. With his basic metabolic panel being normal, I think his parents' effort to keep him hydrated at home are working and they are reassured. We will not use any antidiarrheals or antiemetics. I did give him some information on the Noro virus. Will also use Tylenol,Motrin as needed for discomfort and keep him hydrated at home. Dad is comfortable with this plan. Child stable at the time of discharge. I do not find any abdominal tenderness to suggest any other abdominal issues. The patient has not been on any antibiotics recently. EMERGENCY DEPARTMENT DISPOSITION: To home. Return if worsening. Follow with primary MD in 5-7 days if not better, continue to hydrate. Tylenol, Motrin as needed. Advance diet as tolerated. EMERGENCY DEPARTMENT FINAL IMPRESSION: Vomiting, diarrhea, suspect viral illness. Electronically signed on 11/14/2006 14:56 by DESHAWN RIDER MD MT: [id number] Name: TAHMINA MARY MRN: [id number] Account: [id number] : 2000 Visit Date: 10/21/2006 Document: [id number] [employer] documented in this encounter Plan of Treatment Not on filedocumented as of this encounter Visit Diagnoses Not on filedocumented in this encounter Care Teams River Transportation Worker Relationship Specialty Start Date End Date Kumar Celestin MD PCP - General 02 12/26/18 [address] [address] documented as of this encounter
--- OUTSIDE RECORDS SUMMARY | 2022-08-26 16:27 | XMS_ITS | Encounter Summary ---
:2002 Author Organization [facility] Address [address] [place] [address]. [place] [address] Care Team Providers Name Role Phone Kumar Celestin MD Primary Care Provider Encounter Details Date Type Department Care Team Description 01/19/2010 Office Visit-[facility] INTERFACE [facility] DEPT Provider, [facility] Nurs e Social History Tobacco Use Types Packs/Day Years Used Date Never Smoker Alcohol Use Standard Drinks/Week Comments Not Asked 0 (1 standard drink = 0.6 oz pure alcoho l) Sex Assigned at Date Recorded Not on file documented as of this encounter Progress Notes Provider, [facility] Nurse - 01/19/2010 12:40 PM CST Label Coder: Gemma Chambers Status: Final Encounter: 19 Jan 2010 Type: Rooming Note Informant Parent is informant unless otherwise noted. Reason For Visit Arthritis. Do you have any other appointments, tests or procedures within the [facility] system for this same day? No. Pain Eval Current history of pain associated with this visit is as follows: Location: rt. jaw, neck, elbow, back, and hip, knees, and heels. Quality: burning. Severity: 5 (Pain scale 1-10, with 10 being the worst) Duration: on and off. Timing: continously since last visit. Jaw-2 days. Context: activities. Modifying factors: rest. Associated signs/symptoms: stiffness. Personal Hx Behavioral history: No tobacco use. Home environment: No secondhand tobacco smoke in home. Vital Signs Position for height measurement: standing Blood pressure taken with: electronic BP machine. Recorded by Gemma Chambers on 19 Jan 2010 12:40 PM BP:101/62, RUE, Sitting, HR: 100 b/min, Resp: 24 r/min, Temp: 98.4 F, Oral, Height: 130.3 cm, Weight: 27.9 kg, BMI: 16.4 kg/m2, Pain Scale: 5. Immunizations Immunizations are reported as current. Allergies No Known Drug Allergy. Current Meds Meds List Printed and given to patient. Amoxicillin 250 MG Capsule;TAKE 3 CAPSULE TWICE DAILY 10 day regimen for otitis media.; RPT Naproxen 125 MG/5ML Suspension;TAKE 10 ML TWICE DAILY WITH FOOD; Rx AAA-MED RECONCILE;; RPT. Signature Signed By: Gemma Chambers MA; 01/19/2010 1:02 PM PERSONAL INJURY LAW SPECIALIST. documented in this encounter Plan of Treatment Not on filedocumented as of this encounter Visit Diagnoses Not on filedocumented in this encounter Care Teams Car Driver Relationship Specialty Start Date End Date Kumar Celestin MD PCP - General 02 12/26/18 [facility] [address] [place] [address] documented as of this encounter
--- OUTSIDE RECORDS SUMMARY | 2022-08-26 16:27 | XMS_ITS | Encounter Summary ---
:2002 Author Organization [facility] Address [address] [place] [address]. [place] [address] Care Team Providers Name Role Phone Kumar Celestin MD Primary Care Provider Encounter Details Date Type Department Care Team Description 01/19/2010 Historic Results Specialty Infusion and Vehe, Ri drew Newman MD Procedure Center [address] [place] [address] [address] [place] [phone] Social History Tobacco Use Types Packs/Day [...] Comments Diagnosis CBC WITH PLATELETS & Routine 01/19/2010 1:51 Resu lts for this DIFFERENTIAL PM SALES TEACHER procedure are i n the results section. URIC ACID Routine 01/19/2010 1:51 Results for this PM SALES TEACHER procedure are i n the results section. TISSUE TRANSGLUTAMINASE Routine 01/19/2010 1:51 R esults for this JODY IGA AND IGG PM SALES TEACHER procedure ar e in the results section. LACTATE DEHYDROGENASE Routine 01/19/2010 1:51 Res ults for this TOTAL PM SALES TEACHER procedure are i n the results section. IGA Routine 01/19/2010 1:51 Results for this PM SALES TEACHER procedure are i n the results section. GLIADIN ANTIBODY IGA IGG Routine 01/19/2010 1:51 Results for this PM SALES TEACHER procedure are i n the results section. ERYTHROCYTE Routine 01/19/2010 1:51 Results for this SEDIMENTATION RATE AUTO PM SALES TEACHER proc edure are in the results section. ENDOMYSIAL ANTIBODY IGA Routine 01/19/2010 1:51 R esults for this PM SALES TEACHER procedure are i n the results section. CRP INFLAMMATION Routine 01/19/2010 1:51 Results for this PM SALES TEACHER procedure are i n the results section. CK TOTAL Routine 01/19/2010 1:51 Results for this PM SALES TEACHER procedure are i n the results section. AST Routine 01/19/2010 1:51 Results for this PM SALES TEACHER procedure are i n the results section. ALT Routine 01/19/2010 1:51 Results for this PM SALES TEACHER procedure are i n the results section. ALDOLASE Routine 01/19/2010 1:51 Results for this PM SALES TEACHER procedure are i n the results section. documented in this encounter Results Aldolase (01/19/2010 1:51 PM SALES TEACHER) athologist Signature Aldolase 4.6 MISYS Comment: Reference range: 3.3 to 9.7 Unit: U/L (Note) Performed by [facility], [address] [place] [id number] [email or web address], Precious Canales MD, Lab. Director Specimen Anatomical Collection Method Collection Time Receive d Time (Source) Location / / Volume Laterality 01/19/2010 1:51 PM 0 1:54 SALES TEACHER PM SALES TEACHER Josh Parekh MD LAB - BLOOD ORDERABLES Performing Organization Address City/State/ZIP Code Phon e Number MISYS ALT (01/19/2010 1:51 PM SALES TEACHER) athologist Signature ALT 14 0 - 50 U/L MISYS Specimen Anatomical Collection Method Collection Time Receive d Time (Source) Location / / Volume Laterality 01/19/2010 1:51 PM 0 1:54 SALES TEACHER PM SALES TEACHER Josh Parekh MD LAB - BLOOD ORDERABLES Performing Organization Address City/[facility]/ZIP Code Phon e Number MISYS AST (01/19/2010 1:51 PM SALES TEACHER) athologist Signature AST 35 0 - 50 U/L MISYS Specimen Anatomical Collection Method Collection Time Receive d Time (Source) Location / / Volume Laterality 01/19/2010 1:51 PM 0 1:54 SALES TEACHER PM SALES TEACHER Josh Parekh MD LAB - BLOOD ORDERABLES Performing Organization Address City/[facility] Code Phon e Number MISYS (ABNORMAL) CBC with platelets differential (01/19/2010 1:51 PM SALES TEACHER) [facility] gist Method Time Signature MCV 78 70 - 100 MISYS fl MCH 25.7 (L) 26.5 - MISYS 33.0 pg MCHC 32.9 31.5 - MISYS 36.5 g/dL RDW 13.6 10.0 - MISYS 15.0 % WBC 8.4 5.0 - MISYS 14.5 10e9/L RBC Count 4.60 3.7 - 5.3 MISYS 10e12/L Hemoglobin 11.8 10.5 - MISYS 14.0 g/dL Hematocrit 35.9 31.5 - MISYS 43.0 % % Neutrophils 51 32 - 54 % MISYS % Lymphocytes 38 27 - 57 % MISYS % Monocytes 10 0 - 10 % MISYS % Eosinophils 1 0 - 6 % MISYS % Basophils 0 0 - 1 % MISYS Platelet Count 484 (H) 150 - 450 MISYS 10e9/L Absolute 4.2 1.3 - 8.1 MISYS Neutrophil 10e9/L Absolute 3.2 1.1 - 8.6 MISYS Lymphocytes 10e9/L Absolute 0.8 0.0 - 1.1 MISYS Monocytes 10e9/L Absolute 0.1 0.0 - 0.7 MISYS Eosinophils 10e9/L Absolute 0.0 0.0 - 0.2 MISYS Basophils 10e9/L Diff Method Automated MISYS Method Specimen Anatomical Collection Method Collection Time Receive d Time (Source) Location / / Volume Laterality 01/19/2010 1:51 PM 0 1:54 SALES TEACHER PM SALES TEACHER Josh Parekh MD LAB - BLOOD ORDERABLES Performing Organization Address [facility] Phon e Number MISYS CK total (01/19/2010 1:51 PM SALES TEACHER) athologist Signature CK Total 70 45 - 300 U/L MISYS Specimen Anatomical Collection Method Collection Time Receive d Time (Source) Location / / Volume Laterality 01/19/2010 1:51 PM 0 1:54 SALES TEACHER PM SALES TEACHER Josh Parekh MD LAB - BLOOD ORDERABLES Performing Organization Address [facility] Phon e Number MISYS CRP inflammation (01/19/2010 1:51 PM SALES TEACHER) athologist Signature CRP Inflammation 7.9 0.0 - 8.0 MISYS mg/L Specimen Anatomical Collection Method Collection Time Receive d Time (Source) Location / / Volume Laterality 01/19/2010 1:51 PM 0 1:54 SALES TEACHER PM SALES TEACHER Josh Parekh MD LAB - BLOOD ORDERABLES Performing Organization Address [facility] Phon e Number MISYS Endomysial antibody IgA (01/19/2010 1:51 PM SALES TEACHER) athologist Signature Endomysial IgA (Note) MISYS Antibody Comment: Test ? Resul ts ?Reference Range Endomysial Abs, S (IGA): Negative ? Negative Analyte Specific Reagent This test was developed and its performa nce characteristics determined by Laboratory Medicine and Pa thology, [facility]. This test has not been cleared or approved by the [place] Food and Drug Administration. Assayed at [facility], [place] [address] Specimen Anatomical Collection Method Collection Time Receive d Time (Source) Location / / Volume Laterality 01/19/2010 1:51 PM 0 1:54 SALES TEACHER PM SALES TEACHER Josh Parekh MD LAB - BLOOD ORDERABLES Performing Organization Address [facility] Phon e Number MISYS Gliadin antibody IgA IgG (01/19/2010 1:51 PM SALES TEACHER) athologist Signature Gliadin <1.0 U/mL MISYS Antibody IgA Comment: Interpretation: Negative Gliadin Antibody IgG 1.4 U/mL MISYS Comment: Interpretation: Negative Specimen Anatomical Collection Method Collection Time Receive d Time (Source) Location / / Volume Laterality 01/19/2010 1:51 PM 0 1:54 SALES TEACHER PM SALES TEACHER Josh Parekh MD LAB - BLOOD ORDERABLES Performing Organization Address City/State/ZIP Code Phon e Number MISYS (ABNORMAL) IgA (01/19/2010 1:51 PM SALES TEACHER) athologist Signature IGA 287 (H) 30 - 200 MISYS mg/dL Specimen Anatomical Collection Method Collection Time Receive d Time (Source) Location / / Volume Laterality 01/19/2010 1:51 PM 0 1:54 SALES TEACHER PM SALES TEACHER Josh Parekh MD LAB - BLOOD ORDERABLES Performing Organization Address City/State/ZIP Code Phon e Number MISYS Lactate dehydrogenase total (01/19/2010 1:51 PM SALES TEACHER) athologist Signature LD 555 325 - 750 MISYS U/L Specimen Anatomical Collection Method Collection Time Receive d Time (Source) Location / / Volume Laterality 01/19/2010 1:51 PM 0 1:54 SALES TEACHER PM SALES TEACHER Josh Parekh MD LAB - BLOOD ORDERABLES Performing Organization Address City/State/ZIP Code Phon e Number MISYS Tissue transglutaminase jody IgA and IgG (01/19/2010 1:51 PM SALES TEACHER) [facility] Method Time Signature Tissue <1.0 U/mL MISYS Transglutaminase Antibody IgA Comment: Interpretation: Negative Tissue Transglutaminase Jody IgG <1.0 U/mL MISYS Comment: Interpretation: Negative Specimen Anatomical Collection Method Collection Time Receive d Time (Source) Location / / Volume Laterality 01/19/2010 1:51 PM 0 1:54 SALES TEACHER PM SALES TEACHER Josh Parekh MD LAB - BLOOD ORDERABLES Performing Organization Address City/State/ZIP Code Phon e Number MISYS Uric acid (01/19/2010 1:51 PM SALES TEACHER) athologist Signature Uric Acid 3.6 1.8 - 5.1 MISYS mg/dL Specimen Anatomical Collection Method Collection Time Receive d Time (Source) Location / / Volume Laterality 01/19/2010 1:51 PM 03/03/201 0 1:54 SALES TEACHER PM SALES TEACHER Josh Parekh MD LAB - BLOOD ORDERABLES Performing Organization Address City/State/ZIP Code Phon e Number MISYS (ABNORMAL) Erythrocyte sedimentation rate auto (01/19/2010 1:51 PM SALES TEACHER) P athologist Signature Sed Rate 17 (H) 0 - 15 mm/h MISYS Specimen Anatomical Collection Method Collection Time Receive d Time (Source) Location / / Volume Laterality 01/19/2010 1:51 PM 0 1:54 SALES TEACHER PM SALES TEACHER Josh Parekh MD LAB - BLOOD ORDERABLES Performing Organization Address City/[facility] Phon e Number MISYS documented in this encounter Visit Diagnoses Not on filedocumented in this encounter Care Teams Medical Administrative Assistant Relationship Specialty Start Date End Date Kumar Celestin MD PCP - General 02 12/26/18 [address] [place] [phone] documented as of this encounter
--- OUTSIDE RECORDS SUMMARY | 2022-08-26 16:27 | XMS_ITS | Encounter Summary ---
:2002 Author Organization [facility] Address [address] [place] [address] Care Team Providers Name Role Phone Kumar Celestin MD Primary Care Provider Reason for Visit Reason Comments Trauma fiberglass in Rt hand times 2 hours Encounter Details Date Type Department Care Team Description 03/01/2010 Office Visit [facility] Provider [place] Gilma IAGNOSIS NOT YET Urgent Care Hernesto Hubbard MD DEFINED (Primary Dx) [address] [place] [phone] Social History Tobacco Use Types Packs/Day Years Used Date Never Smoker Alcohol Use Standard Drinks/Week Comments Not Asked 0 (1 standard drink = 0.6 oz pure alcoho l) Sex Assigned at Date Recorded Not on file documented as of this encounter Progress Notes Ute Camacho - 03/01/2010 6:21 PM CDT See nurses note. Ute Camacho RN documented in this encounter Nursing Notes 03/01/2010 6:15 PM CDT >> UTE Steele Mar 01, 2010 6:21 PM Pt was triaged with Dr. Whitmore- requested pt to go to the ER. [facility] per Mom. Ute Camacho RN documented in this encounter Plan of Treatment Not on filedocumented as of this encounter Visit Diagnoses Diagnosis DIAGNOSIS NOT YET DEFINED - Primary documented in this encounter Care Teams Dairy Inspector Relationship Specialty Start Date End Date Kumar Celestin MD PCP - General 02 12/26/18 [address] [facility] [address] [place] [phone] documented as of this encounter
--- OUTSIDE RECORDS SUMMARY | 2022-08-26 16:27 | XMS_ITS | Encounter Summary ---
:2002 Author Organization [facility] Address [address] [place] [address] Care Team Providers Name Role Phone Kumar Celestin MD Primary Care Provider Reason for Visit Reason Comments Cough deep cough x2wks; throws up when cough too hard, worse when lieingt down or running; has taken delsym, t ylenol cough did not help Encounter Details Date Type Department Care Team Description 11/22/2006 Office Visit [facility] Nayeli Centeno COUGH (Primary Dx) Clinic [place] MD Michelle [address] [place], [place] [phone] [place], [place] [phone] (Wo rk) Social History Tobacco Use Types Packs/Day Years Used Date Never Smoker Alcohol Use Standard Drinks/Week Comments Not Asked 0 (1 standard drink = 0.6 oz pure alcoho l) Sex Assigned at Date Recorded Not on file documented as of this encounter Last Filed Vital Signs Vital Sign Reading Time Taken Comments Blood Pressure - - Pulse - - Temperature 36.6 ??C (97.8 ??F) 11/22/2006 3:15 PM UNEMPLOYMENT BENEFITS CLAIMS TAKER Respiratory Rate 22 11/22/2006 3:15 PM UNEMPLOYMENT BENEFITS CLAIMS TAKER Oxygen Saturation - - Inhaled Oxygen Concentration - - Weight 17.2 kg (38 lb) 11/22/2006 3:15 PM UNEMPLOYMENT BENEFITS CLAIMS TAKER Height 109.2 cm (3' 7) 11/22/2006 3:15 PM UNEMPLOYMENT BENEFITS CLAIMS TAKER Dolnqv-bir-Xrlloa Percentile 19.61 % 11/22/2006 3:15 PM UNEMPLOYMENT BENEFITS CLAIMS TAKER Growth Chart: [facility] (Boys, 2-20 Years) Body Mass Index 14.45 11/22/2006 3:15 PM UNEMPLOYMENT BENEFITS CLAIMS TAKER Body Mass Index Percentile 14.74 % 11/22/2006 3:15 PM CS T Growth Chart: [facility] (Boys, 2-20 Years) documented in this encounter Progress Notes Nayeli Centeno - 12/09/2006 10:22 PM CST Subjective: Cameron is here today for cold symptoms for the last 2 + weeks. Main symptom(s) include cough that is consistant with Parainfectious Bronchospasm. He coughs significantly when running and exercise and inthe middle of the night. This has happened to hiim before. He has had viral croup in the past, but no diagnosis of RAD. Fever absent. Parent has noted fussiness. All symptoms are persistent. Cameron has not been in respiratory distress. There has been exposure to others with URI. Objective: Well developed, well nourished male in no apparent distress. HEENT: Sclera clear. TM's have normal color and landmarks. Nasal drainage absent. Throat and pharynxnormal. Neck: supple. No adenopathy or masses. Lungs: clear to auscultation. Heart: regular rate and rhythm without murmurs. Abdomen:soft without tenderness, guarding, mass or organomegaly. Bowel sounds are normal. Assessment: Viral Upper Respiratory Infection Parainfectious Bronchospasm Plan: Prescription(s) given today as per orders. Follow-up in clinic if no improvment 48-72 hours, sooner if worsening. Symptomatic care recommended. Push fluids. Normal saline to nostrils PRN. Elevate head of bed, humidify air. PLOYMENT BENEFITS CLAIMS TAKER documented in this encounter Nursing Notes 11/22/2006 3:15 PM CST >> YRIS LIZARRAGA 11/22/2006 3:10 pm Patient presents with: Cough - deep cough x2wks; worse when lying down or running throws up when cough too hard; has takendelsym, tylenol cough did not help Initial Temp (Src) 97.8 (Axillary) Resp 22 Ht 3' 7 (1.09m) Wt 38 lbs (17.2kg) Body mass index is 14.45 kg/(m^2). BP completed using cuff size. NA (Not Taken). Miesha Lizarraga MA documented in this encounter Plan of Treatment Not on filedocumented as of this encounter Visit Diagnoses Diagnosis Cough - Primary documented in this encounter Care Teams Electrophysiology Technician Relationship Specialty Start Date End Date Kumar Celestin MD PCP - General 02 12/26/18 [address] [facility] [facility] [address] [place] [address] documented as of this encounter
--- OUTSIDE RECORDS SUMMARY | 2022-08-26 16:27 | XMS_ITS | Encounter Summary ---
:2002 Author Organization [facility] Address [address] [place] [address] Care Team Providers Name Role Phone Kumar Celetsin MD Primary Care Provider Reason for Referral Specialty Diagnoses / Procedures Referred By Contact Refer red To Contact Miguel Lopez DPM [address] [place] [address] Referral ID Status Reason Start Date Expiration Date Visits Requ ested Visits Authorized TRANSMISSION SPECIALIST Reason for Visit Reason Comments Musculoskeletal Problem pt states he has been having pain in the bottoms of his feet for about two months. Encounter Details Date Type Department Care Team Description 12/15/[address] [facility] Miguel Lopez Pain i n Soft Tissues of Limb (Primary Dx); Clinic Creolatabatha Farr DPM Flat Foot [address] [place], [place] [address] [phone] [place], [place] [id number] Social History Tobacco Use Types Packs/Day Years Used Date Never Smoker Alcohol Use Standard Drinks/Week Comments Not Asked 0 (1 standard drink = 0.6 oz pure alcoho l) Sex Assigned at Date Recorded Not on file documented as of this encounter Progress Notes Miguel Lopez - 12/24/2009 9:31 PM CST Subjective: Pt is seen today as a new pt consult from Dr. Celestin with the c/c of b/l foot pain. This has been present for several wks-months. Pt denies any history of injury. Here today with his mother. PMH, meds, all, PSH, PFH, and soc hx were reviewed REVIEW OF SYSTEMS: CONSTITUTIONAL:NEGATIVE for fever, chills, change in weight INTEGUMENTARY/SKIN: NEGATIVE for worrisome rashes, moles or lesions MUSCULOSKELETAL:See HPI above NEURO: NEGATIVE for weakness, dizziness or paresthesias Objective: Pulses are palpable +2/4 DP & PT bilateral. Sensation to light touch is intact. Excellent musclestrength with inversion on the b/l foot and no pain upon palpation. Pt is able to perform double-limb heel rise test. With wt. bearing there is a significant decrease in the medial longitudinal arch onthe b/l. Deformity is flexible in nature. No pain upon palpation today to lesser MTPJ's. No edema orerythema noted. X-rays taken 3 views bilateral weightbearing which show no sign of osseous pathology. Assessment: Flexible pes planus b/l Plan: Discussed etiology and treatment options at detail with the patient. Recommended changing shoewear to a more supportive type, not going barefoot, and limiting activity. [facility], yet a relatively negative examination today. Also suggested Pediatric Rheumatology. Thank you for the consultation Copy sent TRANSMISSION SPECIALIST documented in this encounter Nursing Notes 12/15/2009 11:30 AM CST >> HALEY VILLARREAL Wed Dec 15, 2009 11:39 AM Patient presents with: Musculoskeletal Problem - pt states he has been having pain in the bottoms of his feet for about two months. Haley Villarreal CMA documented in this encounter Plan of Treatment Not on filedocumented as of this encounter Procedures Procedure Name Priority Date/Time Associated Diagnosis Comme nts RUST RT X-RAY FOOT Routine 12/15/2009 12:24 PM Pain in limb Res ults for this 3+ VW AUTO TRANSMISSION SPECIALIST procedure are i n the results section. RUST LT X-RAY FOOT Routine 12/15/2009 12:24 PM Pain in limb Res ults for this 3+ VW AUTO TRANSMISSION SPECIALIST procedure are i n the results section. documented in this encounter Results LT X-RAY FOOT 3+ VW (12/15/2009 12:24 PM AUTO TRANSMISSION SPECIALIST) Anatomical Region Laterality Modality Other Specimen (Source) Anatomical Collection Method Collection Time Re ceived Time Location / / Volume Laterality 12/15/2009 12:24 PM AUTO TRANSMISSION SPECIALIST Impressions 12/15/2009 3:49 PM AUTO TRANSMISSION SPECIALIST FOOT THREE OR MORE VIEWS LEFT November 12:24:00 PM HISTORY: Pain in soft tissues of limb.We ight-bearing. COMPARISON: None. FINDINGS: No fracture or malalignment. B ones of the left foot are radiographically within normal limits. IMPRESSION: No specific finding to expla in the patient's pain. Miguel Lopez DPM GENERAL IMAGING RT X-RAY FOOT 3+ VW (12/15/2009 12:24 PM AUTO TRANSMISSION SPECIALIST) Anatomical Region Laterality Modality Other Specimen (Source) Anatomical Collection Method Collection Time Re ceived Time Location / / Volume Laterality 12/15/2009 12:24 PM AUTO TRANSMISSION SPECIALIST Impressions 12/15/2009 3:49 PM AUTO TRANSMISSION SPECIALIST RIGHT FOOT THREE OR MORE VIEWS ??Dec 15, 2009 12:24:00 PM HISTORY: Pain in soft tissues. COMPARISON: None. FINDINGS: No fracture or malalignment. B ones of the right foot are radiographically within normal limits. IMPRESSION: No specific finding to expla in the patient's pain. Miguel Lopez DPM GENERAL IMAGING documented in this encounter Visit Diagnoses Diagnosis Pain in limb - Primary Flat foot([id number]) Flat foot documented in this encounter Care Teams Research & Insights Executive Relationship Specialty Start Date End Date Kumar Celestin MD PCP - General 02 12/26/18 [address] [facility] [address] [place] [phone] documented as of this encounter
--- OUTSIDE RECORDS SUMMARY | 2022-08-26 16:27 | XMS_ITS | Encounter Summary ---
:2000 Author Organization [facility] Address [address] [place] [address]. [place] [address] Care Team Providers Name Role Phone Kumar Celestin MD Primary Care Provider Encounter Details Date Type Department Care Team Description 02/10/2005 Telephone [facility] Henny te, Yajaira Ponce MD [facility] [address] [place] [phone] [phone] [place] [address] (Wo rk) Social History Tobacco Use Types Packs/Day Years Used Date Never Assessed Sex Assigned at Date Recorded Not on file documented as of this encounter Miscellaneous Notes Telephone Encounter - Yajaira Mercado - 02/10/2005 2:19 PM CST Approved Prescriptions: Disp Refills OCUFLOX 0.3 % OP SOLN one 0 Sig: Place 1 drops into affected eye bid x 5 days or until clear Authorizing Provider: YAJAIRA MERCADO I sent the Rx to the pharmacy. SIS MECHANIC Telephone Encounter - KiaVenus - 02/10/2005 1:54 PM CST left eye pink ; just started cough today; dad had pink eye 2 weeks ago. ;no temp; mom is just fine if you treat just the eyes ; fax to radha Adam MA SIS MECHANIC documented in this encounter Plan of Treatment Not on filedocumented as of this encounter Visit Diagnoses Not on filedocumented in this encounter Care Teams Candy Cooker Helper Relationship Specialty Start Date End Date Kumar Celestin MD PCP - General 02 12/26/18 [address] [address] documented as of this encounter
--- OUTSIDE RECORDS SUMMARY | 2022-08-26 16:27 | XMS_ITS | Encounter Summary ---
:2000 Author Organization [facility] Address [address] [place] [address] Care Team Providers Name Role Phone Kumar Celestin MD Primary Care Provider Encounter Details Date Type Department Care Team Description 03/02/2010 Consultation [facility] Katy Sanchez, PT [facility] Results [address] [facility] [address] [place], [place] [address] (Wo rk) Social History Tobacco Use Types Packs/Day Years Used Date Never Smoker Alcohol Use Standard Drinks/Week Comments Not Asked 0 (1 standard drink = 0.6 oz pure alcoho l) Sex Assigned at Date Recorded Not on file documented as of this encounter Procedure Notes Thi Sanchez - 03/03/2010 1:01 PM CDTAssociated Order(s): CONSULT MOO (PT & CHIRO) FINAL PEDIATRIC PHYSICAL THERAPY EVALUATION [facility] Total Evaluation Time: One hour. EVALUATION Summary: Tahmina Mary was referred to physical therapy by Dr. Josh Parekh with a diagnosis ofenthesitis and hypermobility. During today's evaluation, Tahmina showed tightness in his lumbar spine,tightness in bilateral hamstrings. Significant time was spent with Tahmina and his mother in discussion of seating positions to be more comfortable in school with potential modifications made to chair and floor sitting. It is also recommended that Tahmina attend regular physical therapy for a few sessionsto work on core trunk strength, to assist with sitting balance. It is also recommended that Tahmina have supramalleolar orthosis in preference to arch supports in his shoes. PT Diagnosis: Painful joints. Practice Pattern: Musculoskeletal. Impairments: Tahmina has difficulty sitting for prolonged periods of time as this causes him back pain and hip pain. Tahmina does have some difficulty with long distance walking or aggressive activities in gym, with painful joints and especially painful heels. Prognosis: Good. Plan of Care: Recommend physical therapy for 4-6 visits to work on core trunk strength and to develop an activity and home exercise program. Potential seating adaptations for Tahmina's chair at school were discussed with parent and pictures were given to the parent for the therapist in the school district to choose the best option for the chairs available to Tahmina in school. Recommendations for floor sitters and mats were given, as Tahmina spends considerable time on the floor in 1st grade for his reading. Recommendations were also given for supramalleolar orthosis rather than just arch supports to help align feet. Short Term Goals For Physical Therapy: These goals are to be met by 05/18/2010. 1. Tahmina will show improved trunk strength with the ability to maintain and upright seated posture for 5 minutes. 2. Tahmina will have decreased hip and foot pain with (B) orthotics for distance walking and running for morefunctional community mobility. 3. Tahmina will be able to sit without pain in an adapted chair at school for 1 class session before requiring a postion change/rest break. Help Desk Support Goal(s): 1. Minimal pain with daily sitting, standing and walking activities Interventions this session: Evaluation as well as education on seating positions. Patient, (Family, Staff) are in agreement with Plan of Care. EXAMINATION: Physical Therapy Order: Evaluate and treat Medical Diagnosis:enthesitis. Chief Complaint: Pain in back, hips and feet. Functional Limitations: Tahmina has some difficulty staying in a prolonged standing position. He occasionally needs to have decreased activity in gym and often has painful back and hips in prolonged sitting. Pain: There is a history of pain and stiffness early in the morning. There is also a history of pain with prolonged sitting. Medical History: Recent diagnosis of enthesitis. Living/ Social History: Tahmina lives with his parents and 1 sibling. Patient Educational Assessment: Learning Barriers: None noted other than young age. Educational Needs: How to ask for help when it is needed for position changes or adaptations so he can continue to participate in activities withoutpain. Patient/Caregiver Stated Goals for Physical Therapy: To help Tahmina be active with less pain. SYSTEMS REVIEW: MUSCULOSKELETAL SYSTEM Gross Symmetry: Tahmina is grossly symmetrical. Gross ROM: Tahmina does show hypermobility in his hips with the ability to put his feet behind his head when in supine. Tahmina shows hypermobility in both ankles with passive dorsiflexion with knee extended to 30 degrees. Tahmina does show some hypermobility in his upper trunk, but this is all the mobility within his spine. In forward bending, there is very little lumbar flexion noted. In forward bending, Tahmina's fingertips are approximately 6 inches from the floor. Tahmina shows bilateral hamstring tightness with tightness noted on both the left and right at approximately a 45-degree straight leg raise. Gross Strength: Tahmina has functional strength for mobility. However he shows some decreased controlof posture and positions, especially in his upper trunk. Gross Motor Skills - Tests and Measures: Tahmina is an independent ambulator. He is able to climb stairs and perform all transfers and transitional movements on his own. He is able to squat and maintaina squat. He is able to perform single leg stance as well as heel walk and toe walk without loss of balance, appropriate for his age. However, Tahmina does experience difficulty with prolonged sitting, prolonged standing, running and jumping as these all produce pain in his back and lower extremities. His activities and activity level is limited each day by this pain. Thank you for referring Tahmina Mary to physical therapy. Please call [phone] with any questions. Electronically signed on 03/04/2010 18:12 by THI SANCHEZ PT MT: jeffrey Name: TAHMINA MARY MRN: [id number] Account: [id number] : 2000 Visit Date: 03/02/2010 Sex: M Age: 9 Document: [id number] cc: Parents of Tahmina Mary documented in this encounter Plan of Treatment Not on filedocumented as of this encounter Procedures Procedure Name Priority Date/Time Associated Diagnosis Comme nts [facility] PT AND HAND 03/03/2010 9:52 AM Res ults for this REFERRAL CDT procedure are i n the results section. documented in this encounter Results CONSULT MOO (PT & CHIRO) (03/03/2010 9:52 AM CDT) Transcriptions Thi Sanchez - 03/03/2010 1:01 PM CDT FINAL PEDIATRIC PHYSICAL THERAPY EVALUATION [facility] Total Evaluation Time: One hour. EVALUATION Summary: Tahmina Mary was referred to physical therapy by Dr. Josh Parekh with a diagnosis of enthesitis and hypermobility. During today's evaluation, Tahmina showed tightness in his lumbar spine, tightness in bilateral hamstrings. Significant katerine e was spent with Tahmina and his mother in discussion of seating positions to be more comfortable in school with potential modifications made to chair and floor sitting. It is also recommended that aThmina attend regular ph ysical therapy for a few sessions to work on core trunk strength, to assist with sitting balance. It is also recommended that Tahmina have supramalleolar orthosis in preference to arch supports in his shoes. PT Diagnosis: Painful joints. Practice Pattern: Musculoskeletal. Impairments: Tahmina has difficulty sitti ng for prolonged periods of time as this causes him back pain and hip pain. Tahmina does have some difficulty with long distance walking or aggressive activities in gym, with painful joints and especially painful heels. Prognosis: Good. Plan of Care: Recommend physical therap y for 4-6 visits to work on core trunk strength and to develop an activity and home exercise program. Potential seating adaptations for Tahmina's chair at school were discussed with parent and pictures were given to t he parent for the therapist in the school district to choose the best option for the chairs available to Tahmina in school. Recommendations for floor sitters and mats were given, as Tahmina spends considerable time on the fl oor in 1st grade for his reading. Recommendations were also given for supramalleolar orthosis rather than just arch supports to help align feet. Short Term Goals For Physical Therapy: These goals are to be met by 05/18/2010. 1. Tahmina will show improved trunk strength with the ability to maintain and upright seated posture for 5 minutes. 2. Tahmina will have decreased hip and foot pain with (B) ort hotics for distance walking and running for more functional community mobility. 3. Tahmina will be able to sit without pain in an adapted chair at school for 1 class session before requiring a postion change/rest break. Alf Goal(s): 1. Minimal pain with daily sitting, sta nding and walking activities Interventions this session: Evaluation as well as education on seating positions. Patient, (Family, Staff) are in agreeme nt with Plan of Care. EXAMINATION: Physical Therapy Order: Evaluate and tr eat Medical Diagnosis:enthesitis. Chief Complaint: Pain in back, hips and feet. Functional Limitations: Tahmina has some difficulty staying in a prolonged standing position. He occasionally needs to have decreased activity in gym and often has painful back and hips in prolonged sitting. Pain: There is a history of pain and st iffness early in the morning. There is also a history of pain with prolonged sitting. Medical History: Recent diagnosis of en thesitis. Living/ Social History: Tahmina lives wit h his parents and 1 sibling. Patient Educational Assessment: Learning Barriers: None noted other rodolfo n young age. Educational Needs: How to ask for help when it is needed for position changes or adaptations so he can continue to participate in activities without pain. Patient/Caregiver Stated Goals for Phys ical Therapy: To help Tahmina be active with less pain. SYSTEMS REVIEW: MUSCULOSKELETAL SYSTEM Gross Symmetry: Tahmina is grossly symmet rical. Gross ROM: Tahmina does show hypermobilit y in his hips with the ability to put his feet behind his head when in supine. Tahmina shows hypermobility in both ankles with passive dorsiflexion with knee extended to 30 degrees. Tahmina does show some hypermobility in hi s upper trunk, but this is all the mobility within his spine. In forward bending, there is very little lumbar flexion noted. In forward bending, Tahmina's fingertips are approximately 6 inches from the floor. Tahmina shows bilat eral hamstring tightness with tightness noted on both the left and right at approximately a 45-degree straight leg raise. Gross Strength: Tahmina has functional st rength for mobility. However he shows some decreased control of posture and positions, especially in his upper trunk. Gross Motor Skills - Tests and Measures : Tahmina is an independent ambulator. He is able to climb stairs and perform all transfers and transitional movements on his own. He is able to squat and maintain a squat. He is able to perform single leg stance as well as heel walk and toe walk without loss of balance, appropriate for his age. However, Tahmina does experience difficulty with prolonged sitting, prolonged standing, running and jumping as these all produce pain in his back and lower extremities. His activities and activity level is limited each day by this pain. Thank you for referring Tahmina Servin us to physical therapy. Please call [phone] with any questions. Electronically signed on 03/04/2010 18: 12 by THI SANCHEZ PT MT: jeffrey Name: TAHMINA MARY MRN: [id number] Account: [id number] : 2000 Visit Date: 03/02/2010 Sex: M Age: 9 Document: [id number] cc: Parents of Tahmina Mary Thi Sanchez PT REFERRAL documented in this encounter Visit Diagnoses Not on filedocumented in this encounter Care Teams Ladies Locker Room Attendant Relationship Specialty Start Date End Date Kumar Celestin MD PCP - General 02 12/26/18 [address] [facility] [address] [place] [address] documented as of this encounter
--- OUTSIDE RECORDS SUMMARY | 2022-08-26 16:27 | XMS_ITS | Encounter Summary ---
:2000 Author Organization [facility] Address [address] [place] [address]. [place] [address] Care Team Providers Name Role Phone Kumar Celestin MD Primary Care Provider Encounter Details Date Type Department Care Team Description 07/18/2006 Historic Platform Mill Supervisor [facility] Aram Braswell [facility], [facility] s ASSOCIATE DATA SCIENTIST [address] [place], [place] [address] [place] [address] [facility] [phone] [place] [address] Social History Tobacco Use Types Packs/Day Years Used Date Never Smoker Alcohol Use Standard Drinks/Week Comments Not Asked 0 (1 standard drink = 0.6 oz pure alcoho l) Sex Assigned at Date Recorded Not on file documented as of this encounter Progress Notes Interface, Platform Mill Supervisor - 10/24/2011 9:54 PM ALLERGIST/PEDIATRIC PULMONOLOGIST FINAL SPEECH/LANGUAGE PATHOLOGY OUTPATIENT PEDIATRIC EVALUATION [facility] Total Evaluation Time: 60 minutes PATIENT INFORMATION Current Diagnosis: Speech-language disturbance NEC, speech disturbance NEC. Date of Onset: 05/17/2006 Background Information: Tahmina Mary is a 6-year, 1-month old boy referred for a speech evaluation by his mother, Dionne Mary, and his animal cop, Simón Coello, based on concerns about his speech articulation skill. Past Medical History is significant for pre-term by at 36-1/2 weeks. According to Tahmina's mother, Tahmina reached his speech articulation developmental milestones later than expected: babbling at 18-months, first words at 2-1/2 years, and sentences at 2-3/4 years. Tahmina's mother reports concerns about speech issues. She would like help to improve Tahmina's speech and to make it easier for others to understand him when he is talking. Tahmina's mother reported a family history of speech problems in that Tahmina's father had speech therapy as a boy until he was 9-years-old. Tahmina's mother reported no concerns regarding Tahmina's hearing, vision, feeding or swallowing at the present time. Previous Treatment: This is Tahmina's second speech and language evaluation. His first speech and language evaluation was completed on 06/30/2004 by Dionne Cano [facility] when Tahmina was 4-years, 1-month of age. At that time, Tahmina participated in short-term speech and language therapy designed to get his expressive language and speech skills started. IMPRESSIONS The impressions and recommendations are based on the assessment data recorded on the attached pages. Please refer to the specific areas evaluated and the actual scores this patient received for detailed information. Diagnosis: Moderate speech articulation delay. Recommendations: It is recommended that speech therapy be initiated on a 1x/week basis for 12 visits for 45-60 minute treatment sessions with need for further treatment to be determined beyond that time. Prognosis: Very good due to family support, as well as Tahmina's previous success in responding to speech and language therapy as a 4-year-old. Barriers to Learning: None. GOALS: Account Services Specialist Goals: 1. Tahmina will improve his speech intelligibility from a level of being 60% intelligible to an unfamiliar listener to a level of being 90% or better intelligible to an unfamiliar listener within 6-months from initial evaluation date. 2. Tahmina will increase his speech intelligibility by facilitating the emergence of the following phonological patterns: fronting, gliding, and cluster reduction. Short Term Goals: 1. When given direct instruction in speech articulation and when presented with visual verbal stimuli, Tahmina will clearly articulate /k, g/ sounds in the initial position of words at both the word and phrase levels of difficulty with at least 80% accuracy as measured by a speech-language pathologist within 3-months from the initial evaluation date. 2. When given direct instruction in speech articulation and when presented with visual verbal stimuli, Tahmina will clearly produce words containing /y/ sounds in the initial position of words at both the word and sentence levels of difficulty with at least 80% accuracy as measured by a speech-language pathologist within 3-months from the initial evaluation date. 3. When given direct instruction in speech articulation and when presented with visual verbal stimuli, Tahmina will clearly pronounce /s/ blend sounds at both the word and sentence levels of difficulty with at least 80% accuracy as measured by a speech-language pathologist within 3-months from initial evaluation date. 4. New goals as indicated, including work to reduce the phonological processes of gliding including work on /l, r/ sounds and work to reduce the presence of the phonological process and cluster reduction including /r/ blends, /l/ blends, and further /s/ blends. Patient's Rehab Goal: Not stated by patient due to age. Tahmina's parents would like him to be more easily understood by others when he is talking. Caregiver Education/Home Programming: The results of this evaluation were discussed with Tahmina's mother. She was provided with a handout on when specific speech sounds typically develop within children. She was encouraged to provide clear speech articulation verbal models for Tahmina and encouraged to ask him to try to clearly articulate words containing speech sounds that are presently in error. EVALUATION RESULTS Behavioral Observations: Tamhina presented as a very kind, polite and interesting 6-year-old boy. He willingly put forth his best effort on all speech articulation tasks presented. He appeared interested and eager to work on improving the clarity of his speech. Orofacial Functional Evaluation A brief oral motor evaluation was completed with the following results. Tahmina's oral structures appeared adequate to produce clear speech. His mother reported that Tahmina has a fork-tip tip of his tongue, which was observed by the examiner. The range of motion of Tahmina's speech articulators was judged to be within functional limits for a child his age. The strength of his tongue appeared to be mildly reduced; however, his lip strength appeared to be adequate for producing clear speech. The coordination of Tahmina's articulators appeared moderately reduced at the present time. Tahmina presented poor awareness and differentiation of mouth, lip and tongue movements from the rest of his body. For example, he pushed his whole body and head forward when asked to stick his tongue out of his mouth. Examiner elicited a hyperactive gag reflex during the oral motor examination and Tahmina's mother further reported that he does not like it when he has some foods or certain types of textures within his mouth, such as corn. The Romero Fristoe Test of Articulation, Second Edition (GFTA-2) was administered to assess Tahmina's ability to produce speech sounds within single words. Tahmina's total number of errors as measured by the GFTA-2 was 28. This corresponds to a standard score of 92 and a percentile rank of 26. This means that Tahmina earned a score where 26% of age-matched peers would be expected to score at or below his present level of performance. This is indicative of average speech articulation skills for a child his age. However, closer examination of the speech articulation errors that Tahmina is presently exhibiting suggest that his speech articulation skills are not as well developed as they should be for a child 6-years of age. For example, Tahmina is exhibiting the phonological processing of fronting producing a /t/ for /k/ and a /d/ for /g/ sound substitution in the initial positions of words. This process should be eliminated at 3-years of age and certainly by the time a child is 4-years of age. Also, Tahmina is not placing the /y/ sounds in the initial position of words when speaking. This is a speech articulation skill that certainly should be developed and in place for a child who is 6-years of age. Finally, Tahmina is exhibiting the phonological processes of cluster reduction and gliding of liquids, both of which should be eliminated as soon as possible. Based on Tahmina's performance measured by the GFTA-2, the following speech sounds were noted to be in error: k and g in the initial positions of words, y in the initial positions of words, s blend, l blend and r blend sounds, l at the beginning and end of words and th within all positions of words. He also exhibited errors producing /v/ in the initial positions of words. Stimulability testing revealed that Tahmina is able to produce the following sounds immediately following visual verbal models of the sounds in isolation from the examiner: /k, g, y, voiceless th/. Stimulability testing also revealed that Tahmina is not yet able to clearly produce the following sounds immediately following a visual verbal model from the examiner: /k, voiced th, r/. Based on the results of the present evaluation, Tahmina presently requires direct speech articulation therapy in order to improve the intelligibility of his speech and to reduce the presence of several phonological processes, which should be eliminated by Tahmina's present age of 6-years, 1-month. Speech therapy will rely on teaching the family and setting up a positive home practice to increase the intelligibility of Tahmina's speech. The risks and benefits of treatment have been explained to the patient, family, and/or caregiver. These results, goals, and recommendations were discussed and agreed upon. Thank you for your referral of this patient. Electronically signed on 07/25/2006 08:53 by DEB BRASWELL M.S.CCC-ASSOCIATE DATA SCIENTIST MT: margaret Name: TAHMINA MARY MRN: [id number] Account: [id number] : 2000 Visit Date: 07/18/2006 Sex: M Age: 6 Document: [id number] cc: Dionne Mary RGIST/PEDIATRIC PULMONOLOGIST documented in this encounter Plan of Treatment Not on filedocumented as of this encounter Visit Diagnoses Not on filedocumented in this encounter Care Teams Tongue And Quarter Stitcher Relationship Specialty Start Date End Date Kumar Celestin MD PCP - General 02 12/26/18 [address] [address] documented as of this encounter
--- OUTSIDE RECORDS SUMMARY | 2022-08-26 16:27 | XMS_ITS | Encounter Summary ---
:2000 Author Organization [place] Address [address] [place] [address] Care Team Providers Name Role Phone Kumar Celestin MD Primary Care Provider Encounter Details Date Type Department Care Team Description 03/01/2010 Emergency room [facility] Sandra Peter MD [facility] Results [facility] [address] [place] [address] (Wo rk) Social History Tobacco Use Types Packs/Day Years Used Date Never Smoker Alcohol Use Standard Drinks/Week Comments Not Asked 0 (1 standard drink = 0.6 oz pure alcoho l) Sex Assigned at Date Recorded Not on file documented as of this encounter Progress Notes Shady Peter - 03/03/2010 3:41 PM CDT FINAL CHIEF COMPLAINT: Right hand pain. HISTORY OF PRESENT ILLNESS: Tahmina Mary is a 9-year-old brought in by his mother with concerns of having multiple splinters to his right hand. He reached out to touch the top of a fire hydrant that was made of rough fiberglass. He brought his hand away and then started to complain to his mom that his hand was hurting. As his mother looked at it, she found thousands of tiny little splinters of fiberglass in the palm of his hand. She tried to pull some of them out with a tweezers without any real success. She brings her to the emergency department to be evaluated and to see if there is any other way that we can help get these out. Tahmina denies any other trauma. He notes that as long as he is not moving his hand that he has no pain. However, if he touches his hand he notes that it feels very rough and prickly. He has not received anything for pain. PAST MEDICAL HISTORY: Pertinent for enthesitis. . MEDICATIONS: Naproxen. ALLERGIES: None. SOCIAL HISTORY: Immunizations are all up-to-date. REVIEW OF SYSTEMS: Positives and negatives as above. All other systems reviewed as negative. PHYSICAL EXAMINATION: VITAL SIGNS: Heart rate of 94, respiratory rate of 20, temperature 96 orally, satting 97% on room air. GENERAL: Tahmina is a healthy, well-appearing 9-year-old who is alert and oriented and appropriate with me. MUSCULOSKELETAL: My exam focused on the right hand. He is able to move his hand in all directions without any difficulty. He has normal strength. SKIN: As I look at his hand, he has multiple very small splinters of fiberglass through all fingers and across the distal palm. There is no sign of redness or swelling. As I lightly brush these, he notes that he can feel that it is a little prickly but is in no real distress as I press through that area. NEUROLOGIC: Patient has normal sensation all through his hand. EMERGENCY DEPARTMENT COURSE AND MEDICAL DECISION MAKING: Nursing notes were reviewed and agreed with. The patient did not require any medication while in the department. I grabbed some athletic tape and put it over the top of each 1 of his fingers. I then pulled the tape back after it was allowed to sit for a short while. This resulted in getting a large number of thesplinters out. I repeated this x1. After the second time around, he noted that he could still feel some of the tingling and some prickles to his fingers but notes that it was much better. Looking at itunder a light, I see far fewer of the splinters, the way he had before. Looking this issue up online, it does appear as though people do get some relief with soaking their hand vinegar and also aggressively scrubbing their hand. Tahmina noted he did not want his hand scrubbed, at this point. They will though try the vinegar and water at home to see if that makes any difference. All of their questions are answered and they were comfortable with the plan of going home. I do think that there is anything more serious at play here. I think he simply has a number of microscopic splinters to the hand, which will likely resolve as his skin sloughs and regenerates. PLAN OF INTERIM CARE AND FOLLOWUP: Amol will follow up with his regular doctor as needed. I recommended the use of Motrin and Tylenol and the vinegar soaks. They will return to emergency department for increased redness, swelling, pain or any other emergent complaints. DIAGNOSIS: Fiberglass splinters to the right hand. CONDITION ON DISCHARGE: Stable. Electronically signed on 03/03/2010 15:40 by SHADY PETER MD MT: [id number]#[id number] Name: TAHMINA MARY Account: [id number] : 2000 Visit Date: 03/01/2010 Document: [id number] documented in this encounter Plan of Treatment Not on filedocumented as of this encounter Visit Diagnoses Not on filedocumented in this encounter Care Teams Separator Operator [employer] Relationship Specialty Start Date End Date Kumar Celestin MD PCP - General 02 12/26/18 Timbo FUNG [address] [id number] documented as of this encounter
--- OUTSIDE RECORDS SUMMARY | 2022-08-26 16:27 | XMS_ITS | Encounter Summary ---
:2000 Author Organization [facility] Address [address] [place] [id number] Care Team Providers Name Role Phone Kumar Celestin MD Primary Care Provider Reason for Visit Reason Comments Cough Encounter Details Date Type Department Care Team Description 02/22/2005 Office Visit [facility] Sarah Blackmon, COUGH; Patricia [facility] [address] [place], [place] [facility] [place] [address] [phone] [place] [address] (Wo rk) Social History Tobacco Use Types Packs/Day Years Used Date Never Smoker Sex Assigned at Date Recorded Not on file documented as of this encounter Last Filed Vital Signs Vital Sign Reading Time Taken Comments Blood Pressure - - Pulse - - Temperature 36.9 ??C (98.4 ??F) 02/22/2005 11:15 AM CDT Respiratory Rate - - Oxygen Saturation - - Inhaled Oxygen Concentration - - Weight 14.5 kg (32 lb) 02/22/2005 11:15 AM CDT Height - - Body Mass Index - - documented in this encounter Progress Notes Sarah Mercado - 02/22/2005 11:49 AM CDT Cameron Manuel is a 4 year old male here with mother with concerns regarding cold symptoms of 7-8 days duration. It has been unchanged since that time. Main symptom(s) runny nose, cough, post-tussive vomiting. cough only a problem when laying down sleeping, will start couging until vomiting. Fever absent. Parent's observations of him at home are reduced activity, reduced appetite, normal fluid intake and frequent night waking. Treatments tried include OTC cough suppressants Physical Exam: Temp (Src) 98.4 (Axillary) Wt 32 lbs (14.5kg) General appearance: healthy, alert and no distress Eyes: normal Ears: R TM - normal: no effusions, no erythema, and normal landmarks, L TM - normal: no effusions, no erythema, and normal landmarks Nose: clear rhinorrhea Oropharynx: moist mucosa, no erythema or exudates Neck: normal, supple and no adenopathy Lungs: clear to auscultation bilaterally and no wheezes, crackles, rhonchi or stridor Heart: regular rate and rhythm and no murmurs, clicks, or gallops Assessment: Viral Upper Respiratory Infection Plan: recommended Delsym otc cough supressant, script for codiene given if otc meds not helping Symptomatic treatment reviewed. Follow-up in clinic if symptoms not resolving 1-2 weeks. Follow up if symptom duration greater than two weeks or worsening symptoms. documented in this encounter Nursing Notes 02/22/2005 11:15 AM CDT >> TIERRA MIRANDA 02/22/2005 11:24 am Mom states pt with cough x1 week, post-tussive emesis at [facility], pt has been afebrile. Tierra Miranda RN documented in this encounter Plan of Treatment Not on filedocumented as of this encounter Visit Diagnoses Diagnosis Cough Acute upper respiratory infections of un specified site documented in this encounter Care Teams Blood Bank Credit Clerk Relationship Specialty Start Date End Date Kumar Celestin MD PCP - General 02 12/26/18 [address] [facility] [address] [place] [phone] documented as of this encounter
--- OUTSIDE RECORDS SUMMARY | 2022-08-26 16:28 | XMS_ITS | Encounter Summary ---
:2000 Author Organization [facility] Address [address] [place] [address] Care Team Providers Name Role Phone Unavailable Primary Care Provider Unavailable Reason for Visit Reason Comments NO B.M. IN 4 DAYS Encounter Details Date Type Department Care Team Description 2002 Telephone [facility] Monster Laguerre MD [address] [phone] (Wo rk) Social History Tobacco Use Types Packs/Day Years Used Date Never Assessed Sex Assigned at Date Recorded Not on file documented as of this encounter Miscellaneous Notes Telephone Encounter - 2002 11:59 PM DRAFTER [employer] >> ESTHER CAMILO Mon 2002 7:58 PM Discussed with mom. Advised to start dark Daphne syrup, try rectal stimulation tonight et if no improvement, then try enema. Will call if no improvements. Esther Camilo RN >> MONSTER GARCIA SunOct 06, 2002 5:47 PM I recommend baby lax enema, 1 pr times one may repeat in one hour. I also recommend dark kayro syrup. 2-3 tsp po qd as initial dose, may increase to 2 tbsp per day. Please inform patient. >> ALYX FITZGERALD SunOct 06, 2002 5:13 PM >> CALL RECEIVED. Contact: ALIRIO [phone] PLEASE CALL:RE: MOM STATES CHILD HAD LAST B.M. LAST THURS A.M. STARTED RICE CEREAL, ABOUT 1 WK AGO.BREAST FED, HAVING ALOT OF WET DIAPERS. APPEARS MORE UNCOMFORTABLE, ? WHAT TO DO. Alyx Fitzgerald LPN documented in this encounter Plan of Treatment Not on filedocumented as of this encounter Visit Diagnoses Not on filedocumented in this encounter
--- OUTSIDE RECORDS SUMMARY | 2022-08-26 16:28 | XMS_ITS | Encounter Summary ---
:2000 Author Organization [facility] Address [address] [place] [address] Care Team Providers Name Role Phone Unavailable Primary Care Provider Unavailable Reason for Visit Reason Comments Well Child 2 month well check Encounter Details Date Type Department Care Team Description [address] [facility] Sarah Blackmon [facility] [place] MD Rosario EXAM (Primary Dx) [facility] [address] CLINIC AND SP CTR [place], [place] [address] [facility] [address] [place], [place] [phone] (Wo rk) Social History Tobacco Use Types Packs/Day Years Used Date Never Assessed Sex Assigned at Date Recorded Not on file documented as of this encounter Last Filed Vital Signs Vital Sign Reading Time Taken Comments Blood Pressure - - Pulse - - Temperature 37.3 ??C (99.1 ??F) 2002 2:00 PM CDT Respiratory Rate - - Oxygen Saturation - - Inhaled Oxygen Concentration - - Weight 5.372 kg (11 lb 13.5 oz) 2002 2:00 PM CDT Height 56.5 cm (1' 10.25) 2002 2:00 PM CDT Jfwslz-zkz-Axpbxl Percentile 81.05 % 2002 2:00 PM CDT Growth Chart: WHO (Boys, 0-2 years) Head Circumference 38.7 cm 2002 2:00 PM CDT Head Circumference Percentile 28.66 % 2002 2:00 PM CDT Growth Chart: WHO (Boys, 0-2 years) Body Mass Index 16.82 2002 2:00 PM CDT Body Mass Index Percentile 61.06 % 2002 2:00 PM CD T Growth Chart: WHO (Boys, 0-2 years) documented in this encounter Progress Notes 2002 2:00 PM CDT Cameron Manuel is an 2 month old male here for a 2 month routine health maintenance visit, accomp anied by His mother and father QUESTIONS / CONCERNS: NO HEALTH HISTORY SINCE LAST VISIT: Health his tory since last visit: No Change FAMILY / SOCIAL HISTORY: Recent family changes/stresses: No Child lives with: mother and father. career placement services counselor: Home with family member: mother DAILY ACTIVITIES: NUTRIT ION: Breast: feeding frequency: every 3 hours SLEEP: Arrangement/patterns: bassinet and car seat On back: YES ELIMINATION: Stool pattern: QD: 3 per day Urination: normal wet diapers. RO S: Negative for: CONSTITUTIONAL: Well nourished, well developed HEENT: Negative for hearing, nasal c ongestion, eye discharge, eye redness SKIN: Negative for rash, birthmarks RESP: Negative for cough, w heezing CV: Negative for cyanosis GI: See appetite and elimination in history : See elimination in history NEURO: see development HEME/ ALLERGY/IMMUNE: Negative PSYCH/ behavior problems: see history a nd development MUSKULOSKELETAL: Negative for swelling DEVELOPMENT: Screening tool used: PDQ- Denve r passed (By observation/exam/report): Personal/ Social/ Cognitive: Regards face, Spontaneous smile and Smile responsibly Language: Vocalizes, Responds to sounds and Squeals, coos Gross Motor: Equal mo vements, Lifts and turns head and Kicks Fine Motor/ Adaptive: Reflexive grasp and Eyes follow to midl ine. . OBJECTIVE: Vitals: Temp 99.1 Temp Src: Rectal Ht 1' 10.25 (0.565m) Wt 11 lbs 14 oz (5 .372 kg) HC 38.7cm Allergies: Review of patient's allergies indicates no known allergies. PHYSIC AL EXAMINATION: GENERAL: Alert, vigorous, is in no acute distress. SKIN: skin is clear. HEAD: The head is normocephalic. The fontanels and sutures are normal EYES: The eyes are normal. The conjunctiv ae and cornea normal. Red reflexes are seen bilaterally. EARS: The external auditory canals are clear and the tympanic membranes are normal. NOSE: Clear THROAT: The throat is clear. NECK: The neck is scott pple LYMPH NODES: There are no palpably enlarged lymph nodes. TRUNK AND THORAX: Appears normal. LUNG S: The lung marquis are clear to auscultation,no rales, rhonchi, no retractions HEART: The precordium is quiet. The heart rhythm is regular. S1 and S2 are normal. There are no murmurs. The femoral pulses are normal. ABDOMEN: The umbilicus is normal. Abdomen is soft. No masses. Neither the liver nor the spleen is enlarged. The bowel sounds are normal. GENITALIA: Caden stage I,infantile, genitalia. No i nguinal herniae are present. EXTREMITIES: The hip exam is normal, with negative Ortolani and Charles e xam NEUROLOGIC: Normal tone throughout. Has normal reflexes for age. ANTICIPATORY GUIDAN CE: The following topics were discussed: Social/Parenting: return to work and mothering/fatheri ng Nutrition: breast feeding, delay solid foods and pumping/ introduce bottle Play and Co mmunication: music and mobiles Health: fevers, skin care, spitting up and sleep patterns Safety: car seat and safe crib PLAN/ ASSESSMENT: Well Child with normal growth & development : YES P revnar not given seconday to vaccine shortage. See todays' orders (lab.immunization and medication). RTC: 4 month RHM visit I have discussed with the patient the risks, benefits, medications , treatment options and modalities. I have instructed the patient to call or schedule a follow-up shantanu ointment if any problems or failure to improve. documented in this encounter Nursing Notes 2002 2:00 PM CDT >> PRINCESS ORTIZ 2002 1:59 pm 2 month well check, doing well. Princess Ortiz RN documented in this encounter Plan of Treatment Not on filedocumented as of this encounter Visit Diagnoses Diagnosis Routine infant or child health check - P rimary documented in this encounter
--- OUTSIDE RECORDS SUMMARY | 2022-08-26 16:28 | XMS_ITS | Encounter Summary ---
:2002 Author Organization [facility] Address [address] [place] [address] Care Team Providers Name Role Phone Kumar Celestin MD Primary Care Provider Encounter Details Date Type Department Care Team Description 01/29/2005 Results [place] [facility] Jose Juárez [facility] Results MD Ulysses [address], [place] [phone] (Wo rk) Social History Tobacco Use Types Packs/Day Years Used Date Never Assessed Sex Assigned at Date Recorded Not on file documented as of this encounter Plan of Treatment Not on filedocumented as of this encounter Procedures Procedure Name Priority Date/Time Associated Diagnosis Comme nts X-RAY ABDOMEN Routine 01/29/2005 4:45 PM Resul ts for this COMPLETE CHAR FILTER TANK TENDER HEAD procedure are i n the results section. documented in this encounter Results X-RAY ABDOMEN 2 VW (01/29/2005 4:45 PM CHAR FILTER TANK TENDER HEAD) Specimen (Source) Anatomical Collection Method Collection Time Re ceived Time Location / / Volume Laterality 01/29/2005 4:45 PM CHAR FILTER TANK TENDER HEAD Impressions RADIOLOGY RESULTS - 01/30/2005 8:[address] 2 VIEW ABDOMEN - 01/29/2005 ?? HISTORY: Abdominal pain. ?? FINDINGS: Distended stomach with a gas f illed colon which is upper limits of normal in size at this point. The abdomen is otherwise unremarkable. Jose Juárez MD GENERAL IMAGING Performing Organization Address City/State/[facility] Code Phon e Number RADIOLOGY RESULTS documented in this encounter Visit Diagnoses Not on filedocumented in this encounter Care Teams Supervisor Waterproofing Relationship Specialty Start Date End Date Kumar Celestin MD PCP - General 02 12/26/18 [address] [place] [address] documented as of this encounter
--- OUTSIDE RECORDS SUMMARY | 2022-08-26 16:28 | XMS_ITS | Encounter Summary ---
:2002 Author Organization [facility] Address [address] [place] [address] Care Team Providers Name Role Phone Unavailable Primary Care Provider Unavailable Reason for Visit Reason Comments Physical 4 mo well check Encounter Details Date Type Department Care Team Description 2002 Office Visit [facility] Sarah Blackmon [facility] Clinic [place] MD Rosario EXAM (Primary Dx) [facility] [address] CLINIC AND SP CTR [place] [address] [address] [facility] [address] [place], [place] [phone] (Wo rk) Social History Tobacco Use Types Packs/Day Years Used Date Never Assessed Sex Assigned at Date Recorded Not on file documented as of this encounter Last Filed Vital Signs Vital Sign Reading Time Taken Comments Blood Pressure - - Pulse - - Temperature 37.2 ??C (98.9 ??F) 2002 10:00 AM CANDLE MAKER Respiratory Rate - - Oxygen Saturation - - Inhaled Oxygen Concentration - - Weight 6.464 kg (14 lb 4 oz) 2002 10:00 AM CANDLE MAKER Height 63.5 cm (2' 1) 2002 10:00 AM CANDLE MAKER Wlpuxn-soz-Wrxbei Percentile 21.02 % 2002 10:00 AM CANDLE MAKER Growth Chart: WHO (Boys, 0-2 years) Head Circumference 41.3 cm 2002 10:00 AM CANDLE MAKER Head Circumference Percentile 37.85 % 2002 10:00 A M CANDLE MAKER Growth Chart: WHO (Boys, 0-2 years) Body Mass Index 16.03 2002 10:00 AM CANDLE MAKER Body Mass Index Percentile 20.67 % 2002 10:[address] Growth Chart: WHO (Boys, 0-2 years) documented in this encounter Progress Notes 2002 10:00 AM SAMMIE Manuel is an 4 month old male here for a routine health maintenance visit, accompanied by his mother and father QUESTIONS / CONCERNS: NO HEALTH HISTORY SINCE LAST VISIT: There have been : No surgeries, major injuries or illnesses since last physical exam FAMILY / SOCIAL HISTORY: Recent family changes/stresses: no Child lives with: mother and father. vp care management: Home with family member : mother and father DAILY ACTIVITIES: NUTRITION: breast: yes SLEEP: Arrangement/patte rns: crib On back: YES ELIMINATION: Stools QD: 3-4 per day Stool consistency is soft Urination: no rmal wet diapers. ROS: CONSTITUTIONAL: See nutrition and daily activities in history HEENT: Negati ve for hearing problems, vision problems, nasal congestion, eye discharge and eye redness SKIN: Negat gilles for rash, birthmarks, acne, pigmentaion changes RESP: Negative for cough, wheezing, SOB CV: Negat gilles for cyanosis, fatigue with feeding GI: See appetite and elimination in history : See eliminatio n in history NEURO: See development ALLERGY/IMMUNE: See allergyin history PSYCH: See history and deve lopment MUSKULOSKELETAL: Negative for swelling, muscle weakness, joint problems. DEVELOPMENT: Scre ening tool used: PDQ- Sundar passed Alternative: Personal/ Social/ Cognitive: Smile responsibly, Loo ks at hands/feet and Recognizes familiar people Language: Responds to sounds, Squeals, coos and Laugh s Gross Motor: Starting to roll, Bears weight and Head more steady Fine Motor/ Adaptive: Eyes follow 180', Grasp rattle or toy and Hands together. . OBJECTIVE: Allergies: Review of patient's aller gies indicates: No Known Drug * PHYSICAL EXAMINATION: Temp 98.9 Temp Src: Rectal Ht 2' 1 (0 .635m) Wt 14 lbs 4 oz (6.464 kg) HC 41.3cm GENERAL: Alert, vigorous, is in no acute distr ess. SKIN: skin is clear, no rash or abnormal pigmentation HEAD: The head is normocephalic. The fonta manuela and sutures are normal EYES: The eyes are normal. The conjunctivae and cornea normal. Red reflex es are seen bilaterally. EARS: The external auditory canals are clear and the tympanic membranes are normal; grayand translucent. NOSE: Clear, no discharge or congestion THROAT: The throat is clear. NEC K: The neck is supple and thyroid is normal, no masses LYMPH NODES: No adenopathy LUNGS: The lung fie lds are clear to auscultation,no rales, rhonchi, wheezing or retractions HEART: The precordium is le et. Rhythm is regular. S1 and S2 are normal. No murmurs. The femoral pulses are normal. ABDOMEN: The umbilicus is normal. The bowel sounds are normal. Abdomen soft, non tender, non distended, no masses or hepatosplenomegaly. M-GENITALIA: Normal male external genitalia. Caden stage I, Testes descende d bilateraly, no herniaor hydrocele. EXTREMITIES: The hip exam is normal, with negative Ortolani and Charles exam. Symmetric extremities no deformities NEUROLOGIC: Normal tone throughout. Has normal ref lexes for age. PLAN/ ASSESSMANT: Well Child with normal growth & development See todays' orders. R TC: 6 month RHM visit I have discussed with the patient the risks, benefits, medications, treatment options and modalities. I have instructed the patient to call or schedule a follow-up appoi ntment if any problems or failure to improve. ANTICIPATORY GUIDANCE: The following topics were di scussed: Social/Parenting: respond to cry/spoiling Nutrition: assess baby's readiness fo r solids, and bottles Play and Communication: reading, music and on stomach to pl ay/on back to sleep Health: teething and sleep patterns Safety: use of infant seat/falls/ rolling and no baby walkers documented in this encounter Nursing Notes 2002 10:00 AM CST >> BELLE CARLOS 2002 10:47 am DTaP, IPV, Comvax, and Prevnar given. Belle Carlos RN >> BELLE CARLOS 2002 10:20 am has continuing nasal congestion and cough. Belle Wheatland, RN documented in this encounter Plan of Treatment Not on filedocumented as of this encounter Visit Diagnoses Diagnosis Routine or child health check - P rimary documented in this encounter
--- OUTSIDE RECORDS SUMMARY | 2022-08-26 16:28 | XMS_ITS | Encounter Summary ---
:2002 Author Organization [place] Address [address] [place] [address] Care Team Providers Name Role Phone Kumar Celestin MD Primary Care Provider Reason for Visit Reason Comments Cough Encounter Details Date Type Department Care Team Description 2002 Office Visit [facility] Sarah Blackmon CROUP; [place] Hernesto STEVENS DERMATITIS NOS [address] [place] [address] [address] [facility] [phone] [place], [place] [phone] (Wo rk) Social History Tobacco Use Types Packs/Day Years Used Date Never Assessed Sex Assigned at Date Recorded Not on file documented as of this encounter Last Filed Vital Signs Vital Sign Reading Time Taken Comments Blood Pressure - - Pulse - - Temperature 37.9 ??C (100.3 ??F) 2002 2:30 PM TALCER Respiratory Rate - - Oxygen Saturation - - Inhaled Oxygen Concentration - - Weight 7.031 kg (15 lb 8 oz) 2002 2:30 PM TALCER Height - - Body Mass Index - - documented in this encounter Progress Notes 2002 2:30 PM TALCER Cameron Manuel is a 5 month old male here with mother with concerns regarding cold symptoms of1 day duration. It has been gradually worsening since that time. 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 Fever present, 101 degrees for 1 day . Associated symptoms include fussiness and decreas ed appetite. Treatments tried include humidified air and OTC cough suppressants She was also concerne d about some red patches on his arms. Physical Exam: Temp 100.3 Temp Src: Rectal Wt 15 lbs 8 oz (7.031 kg) General appearance: healthy, alert and no distress Skin: erythematous lichinified patc hes on the left forearm Eyes: normal Ears: R TM - normal: no effusions, no erythema, and normal landm arks, L TM - normal: no effusions, no erythema, and normal landmarks Nose: clear rhinorrhea and profu se Oropharynx: erythematous posterior pharynx, moist mucosa Neck: normal, supple and no adenopathy Susanna ngs: clear to auscultation bilaterally and inspiratory stridor with agitation Heart: regular rate and rhythm and no murmurs, clicks, or gallops Assessment: Croup eczema Plan: Prescription(s) given today for Current prescriptions: PRELONE 15 MG/5ML OR SYRP Take 1 tsp po qd x 4days Try OTC hydorcort isone and moisturization of skin. . OTC medications for respiratory symptom control. Examples an d dosages reviewed. Follow up if symptom not improving in 48 hours. discussed signs and symptoms of resp distress. and need for er if not better with symptomatic treatment of steam or cold air. documented in this encounter Nursing Notes 2002 2:30 PM CST >> TIERRA MIRANDA 2002 2:36 pm Pt with cough and nasal congestion x3 days, [id number] yesterday. Dimetapp cough at 0900 today. Tierra Miranda RN documented in this encounter Plan of Treatment Not on filedocumented as of this encounter Visit Diagnoses Diagnosis Croup Contact dermatitis and other eczema, due to unspecified cause documented in this encounter Care Teams Skewer Up Relationship Specialty Start Date End Date Kumar Celestin MD PCP - General 02 12/26/18 [address] [facility] [address] [place] [address] documented as of this encounter
--- OUTSIDE RECORDS SUMMARY | 2022-08-26 16:28 | XMS_ITS | Encounter Summary ---
:2002 Author Organization [place] Address [address] [place] [address]. [place] [address] Care Team Providers Name Role Phone Kumar Celestin MD Primary Care Provider Reason for Visit Reason Comments Respiratory Problems Encounter Details Date Type Department Care Team Description 2002 Office Visit [facility] Sarah Blackmon (Primary Dx) Clinic Owankatabatha Ponce MD [address] [facility] CLINIC AND SP CTR [place], [place] [address] [address] [place] [address] (Wo rk) Social History Tobacco Use Types Packs/Day Years Used Date Never Assessed Sex Assigned at Date Recorded Not on file documented as of this encounter Last Filed Vital Signs Vital Sign Reading Time Taken Comments Blood Pressure - - Pulse - - Temperature 37.4 ??C (99.4 ??F) 2002 4:30 PM DOWEL STICKER OPERATOR Respiratory Rate - - Oxygen Saturation - - Inhaled Oxygen Concentration - - Weight 6.988 kg (15 lb 6.5 oz) 2002 4:30 PM DOWEL STICKER OPERATOR Height - - Body Mass Index - - documented in this encounter Progress Notes 2002 4:30 PM DOWEL STICKER OPERATOR Cameron Manuel is a 5 month old male here with mother and father with concerns regarding cough. He was seen two days prior with a history of a barky cough and fever. He was coughing until he gagged. Mom also noted he had a hoarse cry. He was sent home with a diagnosis of croup. He was given P relone but parents state he is spitting it up. They were instructed on symptomatic treatment. Sin ce he has been home he was doing well until today. Today he has been continuously coughing with stri silvia when he is upset after his coughing spells. Steam has not improved his cough. He has also devel oped a runny nose. No fever today. He continues to drink well and overall seems happy. OBJECTIVE: Temp 99.4 Temp Src: Rectal Wt 15 lbs 7 oz (6.988 kg) General appearance: healthy, alert and no d istress Eyes: normal Ears: R TM - normal: no effusions, no erythema, and normal landmarks, L TM - nor mal: no effusions, no erythema, and normal landmarks Nose: clear rhinorrhea Oropharynx: erythematous posterior pharynx Neck: normal, supple and no adenopathy Lungs: clear to auscultation bilaterally and no wheezes, crackles, rhonchi or stridor Heart: regular rate and rhythm and no murmurs, clicks, or gallops Abdomen: soft, non-tender, non-distended, no hepatomegaly, no splenomegaly Assessment: Cyber Special Agent up, not improving with symptomatic treatment, no signs of respiratory distress. PLAN: Decadron IM Di scussed treatment for coughing spells. Holding upright during spells and keepin him calm. discussed signs and symptoms of resp distress. Follow up if not improving in 24hours. documented in this encounter Nursing Notes 2002 4:30 PM CST >> LASHONDA ROSE 2002 3:51 pm Pt was given 4 mg of Deamethasone IM in LUT. Lot# [id number] Exp: 5-04 Lashonda Rose CMA >> LASHONDA ROSE 2002 3:19 pm Pt here for recheck on croup. Is having a hard time today. Mom gave him the prednisone, and tried a shower today, but hasn't helped at all. Lashonda Rose CMA documented in this encounter Plan of Treatment Not on filedocumented as of this encounter Visit Diagnoses Diagnosis Croup - Primary documented in this encounter Care Teams Informatica Mdm Developer Relationship Specialty Start Date End Date Kumar Celestin MD PCP - General 02 12/26/18 [address] [facility] [address] [place] [address] documented as of this encounter
--- OUTSIDE RECORDS SUMMARY | 2022-08-26 16:28 | XMS_ITS | Encounter Summary ---
:2002 Author Organization [place] Address [address] [place] [address] Care Team Providers Name Role Phone Kumar Celestin MD Primary Care Provider Encounter Details Date Type Department Care Team Description 01/29/2005 Historic Results INTERFACED REPORT Jose Juárez MD [address] [place], [place] [address] (Wo rk) Social History Tobacco Use Types Packs/Day Years Used Date Never Assessed Sex Assigned at Date Recorded Not on file documented as of this encounter Plan of Treatment Not on filedocumented as of this encounter Procedures Procedure Name Priority Date/Time Associated Comments Diagnosis ROTAVIRUS ANTIGEN STAT 01/29/2005 5:55 PM Resu lts for this STOOL PHARMACY GENERAL MANAGER procedure are i n the results section. HEMOGRAM DIFFERENTIAL STAT 01/29/2005 4:30 PM Results for this AND PLATELET PHARMACY GENERAL MANAGER procedure are i n the results section. BASIC METABOLIC PANEL STAT 01/29/2005 4:30 PM Results for this PHARMACY GENERAL MANAGER procedure are i n the results section. UA MACROSCOPIC WITH STAT 01/29/2005 4:05 PM Re sults for this REFLEX TO MICRO PHARMACY GENERAL MANAGER procedure ar e in the results section. documented in this encounter Results Rotavirus antigen stool (01/29/2005 5:55 PM PHARMACY GENERAL MANAGER) P athologist Signature Rotavirus AGN Negative NEG [facility] Feces Specimen Anatomical Collection Method Collection Time Receive d Time (Source) Location / / Volume Laterality 01/29/2005 5:55 PM 5 4:05 PHARMACY GENERAL MANAGER PM PHARMACY GENERAL MANAGER Jose Juárez MD LAB - STOOLS ORDERABLES Performing Organization Address City/State/ZIP Code Phon e Number [facility] (ABNORMAL) Hemogram differential and platelet (01/29/2005 4:30 PM PHARMACY GENERAL MANAGER) [facility] 6Scan Method Time Signature MCV 75 70 - 100 [facility] fl MCH 25.3 (L) 26.5 - [facility] 33.0 pg MCHC 33.8 32.0 - [facility] 36.0 g/dL RDW 11.5 10.0 - [facility] 15.0 % WBC 7.1 5.0 - [facility] 17.5 10e9/L RBC Count 5.09 3.7 - 5.3 [facility] 10e12/L Hemoglobin 12.9 10.5 - [facility] 14.0 g/dL Hematocrit 38.1 31.5 - [facility] 43.0 % % Neutrophils 42 15 - 44 % [facility] % Lymphocytes 39 (L) 45 - 76 % [facility] % Monocytes 15 (H) 0 - 10 % [facility] % Eosinophils 1 0 - 6 % [facility] % Basophils 3 (H) 0 - 1 % [facility] Platelet Count 314 150 - 450 [facility] 10e9/L Absolute 3.0 0.8 - 7.7 [facility] Neutrophil 10e9/L Absolute 2.7 2.3 - [facility] Lymphocytes 13.3 10e9/L Absolute 1.1 0.0 - 1.1 [facility] Monocytes 10e9/L Absolute 0.0 0.0 - 0.7 [facility] Eosinophils 10e9/L Absolute 0.2 0.0 - 0.2 [facility] Basophils 10e9/L Diff Method Automated [facility] Method Specimen Anatomical Collection Method Collection Time Receive d Time (Source) Location / / Volume Laterality 01/29/2005 4:30 PM 5 3:50 PHARMACY GENERAL MANAGER PM PHARMACY GENERAL MANAGER Jose Juárez MD LAB - BLOOD ORDERABLES Performing Organization Address City/State/ZIP Code Phon e Number [facility] Basic metabolic panel (01/29/2005 4:30 PM PHARMACY GENERAL MANAGER) [facility] 6Scan Method Time Signature Sodium 137 133 - 143 [facility] mmol/L Potassium 3.9 3.4 - 5.3 [facility] mmol/L Chloride 102 98 - 110 [facility] mmol/L Carbon Dioxide 21 20 - 32 [facility] mmol/L Glucose 84 60 - 110 [facility] mg/dL Urea Nitrogen 13 2 - 19 [facility] mg/dL Creatinine 0.30 0.20 - [facility] 0.70 mg/dL GFR Estimate GFR not mL/min/1. [facility] calculated, 7m2 patient <16 years old. GFR Estimate If GFR not mL/min/1. [facility] Black calculated, 7m2 patient <16 years old. Calcium 9.7 8.7 - [facility] 10.8 mg/dL Anion Gap 13 6 - 17 [facility] mmol/L Specimen Anatomical Collection Method Collection Time Receive d Time (Source) Location / / Volume Laterality 01/29/2005 4:30 PM 5 3:50 PHARMACY GENERAL MANAGER PM PHARMACY GENERAL MANAGER Jose Juárez MD LAB - BLOOD ORDERABLES Performing Organization Address City/State/ZIP Code Phon e Number [facility] (ABNORMAL) UA macroscopic with reflex to micro (01/29/2005 4:05 PM PHARMACY GENERAL MANAGER) Component Value Ref Test Analysis Performed At [facility] Range Method Time Signature Source Unspecified [facility] Urine Color Urine Yellow [facility] Appearance Urine Clear [facility] Glucose Urine Negative NEG [facility] mg/dL Bilirubin Urine Negative NEG [facility] Ketones Urine Negative NEG [facility] mg/dL Specific [place] 1.010 1.001 - [facility] Urine 1.035 Blood Urine Negative NEG [facility] pH Urine 7.5 (H) 5.0 - [facility] 7.0 pH Protein Albumin Negative NEG [facility] Urine mg/dL Urobilinogen 0.2 0.2 - [facility] Urine 1.0 EU/dL Nitrite Urine Negative NEG [facility] Leukocyte Negative NEG [facility] Esterase Urine Specimen Anatomical Collection Method Collection Time Receive d Time (Source) Location / / Volume Laterality 01/29/2005 4:05 PM 5 3:50 PHARMACY GENERAL MANAGER PM PHARMACY GENERAL MANAGER Jose Juárez MD LAB - URINE ORDERABLES Performing Organization Address City/[facility] Phon e Number MISYS documented in this encounter Visit Diagnoses Not on filedocumented in this encounter Care Teams Proposal Manager Relationship Specialty Start Date End Date Kumar Celestin MD PCP - General 02 12/26/18 [address] [facility] [address] [place] [address] documented as of this encounter
--- OUTSIDE RECORDS SUMMARY | 2022-08-26 16:28 | XMS_ITS | Encounter Summary ---
:2002 Author Organization [place] Address [address] [place] [address]. [place] [address] Care Team Providers Name Role Phone Kumar Celestin MD Primary Care Provider Reason for Visit Reason Comments Well Child 15-month Encounter Details Date Type Department Care Team Description 09/07/2003 Office Visit [facility] Sarah Blackmon CHILD HEALTH Clinic [place] MD Rosario EXAM (Primary Dx) [address] [facility] CLINIC AND SP CTR [place], [place] [address] [address] [place], [place] [phone] (Wo rk) Social History Tobacco Use Types Packs/Day Years Used Date Never Assessed Sex Assigned at Date Recorded Not on file documented as of this encounter Last Filed Vital Signs Vital Sign Reading Time Taken Comments Blood Pressure - - Pulse - - Temperature 36.5 ??C (97.7 ??F) 09/07/2003 4:15 PM CDT Respiratory Rate - - Oxygen Saturation - - Inhaled Oxygen Concentration - - Weight 9.724 kg (21 lb 7 oz) 09/07/2003 4:15 PM CDT Height 78.7 cm (2' 7) 09/07/2003 4:15 PM CDT Avnwbf-njp-Mkiauq Percentile 27.70 % 09/07/2003 4:15 PM CDT Growth Chart: WHO (Boys, 0-2 years) Head Circumference 47 cm 09/07/2003 4:15 PM CDT Head Circumference Percentile 54.19 % 09/07/2003 4:15 PM CDT Growth Chart: WHO (Boys, 0-2 years) Body Mass Index 15.68 09/07/2003 4:15 PM CDT Body Mass Index Percentile 28.05 % 09/07/2003 4:15 PM CD T Growth Chart: WHO (Boys, 0-2 years) documented in this encounter Progress Notes 09/07/2003 4:15 PM CDT Cameron Manuel is an 15 month old male here for a 15 month routine health maintenance visit, accompanied by his mother and father QUESTIONS / CONCERNS: YES: speech, no words, says mama and dad a not specific. Babbling and mimiking sounds with inflection. can follow a one step command, seems to understand. identifiying body parts. HEALTH HISTORY SINCE LAST VISIT: There have been: No surge reginald, major injuries or illnesses since last physical exam FAMILY / SOCIAL HISTORY: Recent family ch anges/stresses: yes - expecting second child in December Child lives with: mother and father. Child c are: Home with family member: mother DAILY ACTIVITIES: NUTRITION: milk: whole and table foods SLEEP: Arrangement/patterns: with parents ELIMINATION: Stool consistency is soft ROS: Re view of systems negative for constitutional, HEENT, respiratory, cardiovascular, gastrointestinal, ge nitourinary, endocrine, neurological, skin, and hematologic issues, other than as above. DEVELOPMENT : Screening tool used: PDQ- Echo passed OBJECTIVE: Allergies: Review of the patient's allergies fi nds: No Known Drug Allergies PHYSICAL EXAMINATION: Temp (Src) 97. 7 (Axillary) Ht 2' 7 (0.79m) Wt 21 lbs 7 oz (9.7kg) HC 47.0cm Normal exam: GENERAL: Alert, vigorous, is in no acute distress. SKIN: Skin is clear. HEAD: The head is normocephalic. The fontanels and sutures are normal EYES: The eyes are normal. The conjunctivae and cornea normal. Red r eflexes are seen bilaterally. EARS: The external auditory canals are clear and the tympanic membranes are normal. NOSE: Clear THROAT: The throat is clear. NECK: The neck is supple and thyroid is nonpalp able. LYMPH NODES: There are no palpably enlarged lymph nodes. LUNGS: The lung marquis are clear to au scultation. HEART: The precordium is quiet. Regular rate and rhythm without murmur. S1 and S2 are nor mal. The femoral pulses are normal. ABDOMEN: The umbilicus is normal. Abdomen is soft. No masses. No hepatosplenomegally. The bowel sounds are normal. GENITALIA: Caden stage I, infantile, genitalia. N o inguinal herniae are present. EXTREMITIES: Ortolani and Charles examsnegative. Thigh length symmetr ic. Lateral foot edge straight.FROM all joints. NEUROLOGIC: Normal tone throughout. Has normal ref lexes for age. PLAN/ASSESSMENT: Well Child with normal growth & development Discussed speech develop ment with parents, some delay but making sounds and appears to have normal receptive language, will r e-evaluate at 18month check. See todays' orders. RTC: 18 month RHM visit I have discussed with t he patient the risks, benefits, medications, treatment options and modalities. I have instructed the patient to call or schedule a follow-up appointment if any problems or failure to improve. ANTICIPAT ORY GUIDANCE: The following topics were discussed: Social/ Parenting: Stranger/ separation anxiety, Bedtime routine, Limit setting, Consistency, Distraction as discipline and tantrums Nutrition: Self-f eeding, Table foods, Foods to avoid, Whole milk and Avoid foods conflicts} Play and Communication: Re ading to child and Simple commands Health: Oral hygiene, Lead risk and Sleep issues Safety: child pro of home, use of larger car seat and exploration (falls, stairs, chairs) documented in this encounter Nursing Notes 09/07/2003 4:15 PM CDT >> TIERRA MIRANDA 09/07/2003 4:25 pm Pt is here today with his parents for a well child check. Tierra Miranda RN documented in this encounter Plan of Treatment Not on filedocumented as of this encounter Procedures Procedure Name Priority Date/Time Associated Comments Diagnosis HCL HEMOGLOBIN Routine 09/07/2003 4:44 PM Routine Child Result s for this NONLAB CDT Health Exam procedure are i n the results section. documented in this encounter Results HGB (09/07/2003 4:44 PM CDT) P athologist Signature Hemoglobin 12.7 10.5 - 14.0 [facility] g/dL CLINIC LAB Specimen Anatomical Collection Method Collection Time Receive d Time (Source) Location / / Volume Laterality 09/07/2003 4:44 PM 3 4:49 CDT PM CDT Sarah Blackmon MD LABORATORY Performing Organization Address City/State/ZIP Code Phon e Number [facility] [address] [place], [place] [address] [address] [facility] documented in this encounter Visit Diagnoses Diagnosis Routine infant or child health check - P rimary documented in this encounter Care Teams Dining Room Attendant Relationship Specialty Start Date End Date Kumar Celestin MD PCP - General 02 12/26/18 [address] [place] [address] documented as of this encounter
--- OUTSIDE RECORDS SUMMARY | 2022-08-26 16:28 | XMS_ITS | Encounter Summary ---
:2002 Author Organization [place] Address [address] [place] [address]. [place] [address] Care Team Providers Name Role Phone Kumar Celestin MD Primary Care Provider Reason for Visit Reason Comments Well Child 18-month Encounter Details Date Type Department Care Team Description 12/07/2003 Office Visit [facility] Sarah Blackmon CHILD HEALTH Clinic [place] MD Rosario EXAM (Primary Dx) [address] [facility] CLINIC AND SP CTR [place], [place] [address] [address] [place], [place] [phone] (Wo rk) Social History Tobacco Use Types Packs/Day Years Used Date Never Assessed Sex Assigned at Date Recorded Not on file documented as of this encounter Last Filed Vital Signs Vital Sign Reading Time Taken Comments Blood Pressure - - Pulse - - Temperature 37.2 ??C (98.9 ??F) 12/07/2003 4:30 PM DRY HEAT CABINET ATTENDANT Respiratory Rate - - Oxygen Saturation - - Inhaled Oxygen Concentration - - Weight 10.9 kg (24 lb) 12/07/2003 4:30 PM DRY HEAT CABINET ATTENDANT Height 83.8 cm (2' 9) 12/07/2003 4:30 PM DRY HEAT CABINET ATTENDANT Vjznzn-oiv-Riqvuh Percentile 35.60 % 12/07/2003 4:30 PM DRY HEAT CABINET ATTENDANT Growth Chart: WHO (Boys, 0-2 years) Head Circumference 47.6 cm 12/07/2003 4:30 PM DRY HEAT CABINET ATTENDANT Head Circumference Percentile 55.54 % 12/07/2003 4:30 PM DRY HEAT CABINET ATTENDANT Growth Chart: WHO (Boys, 0-2 years) Body Mass Index 15.49 12/07/2003 4:30 PM DRY HEAT CABINET ATTENDANT Body Mass Index Percentile 30.53 % 12/07/2003 4:30 PM CS T Growth Chart: WHO (Boys, 0-2 years) documented in this encounter Progress Notes 12/07/2003 4:30 PM DRY HEAT CABINET ATTENDANT Cameron Manuel is an 18 month old male here for a 18 month routine health maintenance visit, accompanied by his mother and father QUESTIONS / CONCERNS: yes, speech, has two words, mama and on. Understands speech and follows multiple step commands. No parental concerns with hearing. HEALT H HISTORY SINCE LAST VISIT: There have been: No surgeries, major injuries or illnesses since last phy sical exam FAMILY / SOCIAL HISTORY: Recent family changes/stresses: yes - mom expecting second child in one month Child lives with: mother and father. rn homecare: Home with family member: mother DAILY ACTIVITIES: NUTRITION: FOOD: good variety and milk: whole SLEEP: -arrangements/patterns: with parents ELIMINATION: Stool consistency is soft ROS: Review of systems negative for cons titutional, HEENT, respiratory, cardiovascular, gastrointestinal, genitourinary, endocrine, neurologi walt, skin, and hematologic issues, other than as above. DEVELOPMENT: Screening tool used: PDQ- Denve r not passed for speech OBJECTIVE: Allergies: Review of the patient's allergies finds: No Known Dr matthew Allergies PHYSICAL EXAMINATION: Temp (Src) 98.9 (Axillary) Ht 2' 9 (0.84m) Wt 24 lbs (10.9kg) HC 47.6cm Normal exam: GENERAL: Alert, vigorous, is i n no acute distress. SKIN: Skin is clear. HEAD: The head is normocephalic. The fontanels and sutures are normal EYES: The eyes are normal. The conjunctivae and cornea normal. Red reflexes are seen bilat erally. EARS: The external auditory canals are clear and the tympanic membranes are normal. NOSE: Fabien ar THROAT: The throat is clear. NECK: The neck is supple and thyroid is nonpalpable. LYMPH NODES: The re are no palpably enlarged lymph nodes. LUNGS: The lung marquis are clear to auscultation. HEART: The precordium is quiet. Regular rate and rhythm without murmur. S1 and S2 are normal. The femoral puls es are normal. ABDOMEN: The umbilicus is normal. Abdomen is soft. No masses. No hepatosplenomegally. The bowel sounds are normal. GENITALIA: Caden stage I, infantile, genitalia. No inguinal herniae are present. EXTREMITIES: Ortolani and Charles examsnegative. Thigh length symmetric. Lateral foot edge straight. FROM all joints. NEUROLOGIC: Normal tone throughout. Has normal reflexes for age. PLAN/ASSESMENT: Well Child with normal growth & development immunizations were reviewed See todays' orders. LITERATURE: Age specific RTC: 4 year RHM visit I have discussed with the patient the ris ks, benefits, medications, treatment options and modalities. I have instructed the patient to call or schedule a follow-up appointment if any problems or failure to improve. ANTICIPATORY GUIDANCE: following topics were discussed: Social/ Parenting: Few rules enforced consistently, Stranger/ separation anxiety, Hitting/ biting/ aggressive behavior, Positive discipline, Delay toilet training and Tantrums Nutrition: Healthy food choices, Weaning off bottle and Avoid choke foods Play and Communication: Reading to child Health: Oral hygiene, Lead risk and Sleep issues Safety: Never leave unattended, Exploration/ climbing, [place] and Water safety documented in this encounter Nursing Notes 12/07/2003 4:30 PM CST >> TIERRA MIRANDA 12/07/2003 4:43 pm Pt is here today with his parents for a well child check. Tierra Miranda RN documented in this encounter Plan of Treatment Not on filedocumented as of this encounter Visit Diagnoses Diagnosis Routine or child health check - P rimary documented in this encounter Care Teams Special Diet Cook Relationship Specialty Start Date End Date Kumar Celestin MD PCP - General 02 12/26/18 [address] [facility] [address] [place] [address] documented as of this encounter
--- OUTSIDE RECORDS SUMMARY | 2022-08-26 16:28 | XMS_ITS | Encounter Summary ---
:2002 Author Organization [facility] Address [address] [place] [address]. [place] [address] Care Team Providers Name Role Phone Kumar Celestin MD Primary Care Provider Reason for Visit Reason Comments Well Child 6 mo px Encounter Details Date Type Department Care Team Description 2002 Office Visit [facility] Sarah Blackmon CHILD HEALTH Clinic [place] MD Rosario EXAM (Primary Dx) [facility] [address] [facility] [place], [place] [address] [facility] [address] [place], [place] [phone] (Wo rk) Social History Tobacco Use Types Packs/Day Years Used Date Never Assessed Sex Assigned at Date Recorded Not on file documented as of this encounter Last Filed Vital Signs Vital Sign Reading Time Taken Comments Blood Pressure - - Pulse - - Temperature 37.7 ??C (99.8 ??F) 2002 3:00 PM SERVICE ATTENDANT CA[place] Respiratory Rate - - Oxygen Saturation - - Inhaled Oxygen Concentration - - Weight 6.861 kg (15 lb 2 oz) 2002 3:00 PM SERVICE ATTENDANT [place]FETERIA Height 69.2 cm (2' 3.25) 2002 3:00 PM SERVICE ATTENDANT CAFETERIA Plmlxe-vxh-Uruioz Percentile 1.07 % 2002 3:00 PM SERVICE ATTENDANT [place]FETERIA Growth Chart: WHO (Boys, 0-2 years) Head Circumference 42.5 cm 2002 3:00 PM SERVICE ATTENDANT [place]FETERIA Head Circumference Percentile 23.01 % 2002 3:00 PM SERVICE ATTENDANT [place]IA Growth Chart: WHO (Boys, 0-2 years) Body Mass Index 14.32 2002 3:00 PM SERVICE ATTENDANT [place] Body Mass Index Percentile 0.89 % 2002 3:00 PM CS T Growth Chart: WHO (Boys, 0-2 years) documented in this encounter Progress Notes 2002 3:00 PM SERVICE ATTENDANT CAFETERIA Cameron Manuel is an 6 month old male here for a routine health maintenance visit, accompaniedby his. mother and father QUESTIONS / CONCERNS: YES: Feeding, mom had questions on advancing diet. HEALTH HISTORY SINCE LAST VISIT: There have been: No surgeries, major injuries or illnesses since last physical exam His cough resolved after the decadron injection. FAMILY / SOCIAL HISTORY: Recent family changes/stresses: no Child lives with: mother and father. child care director: Day care center DAILY ACTIVITIES: NUTRITION: breast: SLEEP: Arrangement/patterns: crib On back: YES ELIMINAT ION: Stools QD: 4 per day Urination: normal wet diapers. ROS: CONSTITUTIONAL: See nutrition and daily activities in history HEENT: Negative for hearing problems, vision problems, nasal congestion, eye discharge and eye redness SKIN: Negative for rash, birthmarks, acne, pigmentaion changes RESP: Ne gative for cough, wheezing, SOB CV: Negative for cyanosis, fatigue with feeding GI: See appetite and elimination in history : See elimination in history NEURO: See development ALLERGY/IMMUNE: See antonella rgyin history PSYCH: See history and development MUSKULOSKELETAL: Negative for swelling, muscle weakn ess, joint problems. DEVELOPMENT: Screening tool used: PDQ- Sundar passed OBJECTIVE: AllergIes: R eview of patient's allergies indicates: No Known Drug * PHYSICAL EXAMINATION: Temp 99.8 Temp Src: Rectal Ht 2' 3.25 (0.692m) Wt 15 lbs 2 oz (6.861 kg) HC 42.5cm GENERAL: Alert, vigorous, is in no acute distress. SKIN: skin is clear, no rash or abnormal pigmentation HEAD: The h ead is normocephalic. The fontanels and sutures are normal EYES: The eyes are normal. The conjunctiva e and cornea normal. Red reflexes are seen bilaterally. Eyes(9mo-18mo): Light reflex is symmetric and no eye movement on cover/uncover test EARS: The external auditory canals are clear and the tympanic membranes are normal;merritt and translucent. NOSE: Clear, no discharge or congestion THROAT: The throat is clear. NECK: The neck is supple and thyroid is normal, no masses LYMPH NODES: No adenopathy LUNGS : The lung marquis are clear to auscultation,no rales, rhonchi, wheezing or retractions HEART: The pre cordium is quiet. Rhythm is regular. S1 and S2 are normal. No murmurs. The femoral pulses are normal. ABDOMEN: The umbilicus is normal. The bowel sounds are normal. Abdomen soft, non tender, non disten ded, no masses or hepatosplenomegaly. M-GENITALIA: Normal male external genitalia. Caden stage I, T jung descended bilateraly, no herniaor hydrocele. EXTREMITIES: The hip exam is normal, with negativ e Ortolani and Charles exam. Symmetric extremities no deformities NEUROLOGIC: Normal tone throughout. Has normal reflexes for age. PLAN/ ASSESSMANT: Well Child with normal growth & development Wi ll start fluoride drops as he is exclusively breast feeding. See todays' orders. RTC: 9 month RH M visit I have discussed with the patient the risks, benefits, medications, treatment options and modalities. I have instructed the patient to call or schedule a follow-up appointment if any prob lems or failure to improve. ANTICIPATORY GUIDANCE: The following topics were discussed: Social/ P arenting: comfort/ transitional object, needs of adults and stranger/ separation anxiety Nutrition: a dvancement of solid foods, fluoride (if needed), cup, or formula for 1 year and limit j uice Play and Communication: Reading to child, Pat-a-cake/ peekaboo and Opportunity to explore Health : sleep patterns, smoking exposure, no bottle propping and teething/ dental care Safety: childproof h ome, car seat, avoid choke foods and no walkers documented in this encounter Nursing Notes 2002 3:00 PM CST >> LASHONDA ROSE 2002 3:15 pm Pt here for 6 mo well visit. Things are going well. Has questions about nutrition. Lashonda Rose [facility] documented in this encounter Plan of Treatment Not on filedocumented as of this encounter Visit Diagnoses Diagnosis Routine or child health check - P rimary documented in this encounter Care Teams Law Firm Consultant Relationship Specialty Start Date End Date Kumar Celestin MD PCP - General 02 12/26/18 [address] [place] [phone] documented as of this encounter
--- OUTSIDE RECORDS SUMMARY | 2022-08-26 16:28 | XMS_ITS | Encounter Summary ---
:2002 Author Organization [facility] Address [address] [place] [address] Care Team Providers Name Role Phone Kumar Celestin MD Primary Care Provider Reason for Referral - Closed Specialty Diagnoses / Procedures Referred By Contact Refer red To Contact Diagnoses Other developmental speech or language disorder Sarah Blackmon MD [facility] [address] [place] [address] 4 Referral ID Status Reason Start Date Expiration Date Visits Requ ested Visits Authorized [id number] Closed 06/09/2004 11/18/2011 [address]/MRI (Routine) - Closed Specialty Diagnoses / Procedures Referred By Contact Refer red To Contact Diagnoses Other developmental speech or language disorder Sarah Blackmon, [facility] [address] [place] [address] CLINIC [facility] [place], [place] [address] [facility] [address] [place] [address] 4 Phone: [phone] Referral ID Status Reason Start Date Expiration Date Visits Requ ested Visits Authorized [id number] Closed 06/09/2004 11/18/2004 1 4 Reason for Visit Reason Comments Well Child 4-yr Encounter Details Date Type Department Care Team Description 06/09/2004 Office Visit [facility] Sarah Blackmon CHILD HEALTH EXAM (Primary Dx); Clinic Patricia Ponce MD SPEECH/LANGUAGE DIS NEC [address] [facility] CL[facility] AND [facility] [place], [place] [address] [address] [place], [place] [phone] (Wo rk) Social History Tobacco Use Types Packs/Day Years Used Date Never Assessed Sex Assigned at Date Recorded Not on file documented as of this encounter Last Filed Vital Signs Vital Sign Reading Time Taken Comments Blood Pressure - - Pulse - - Temperature 36.2 ??C (97.1 ??F) 06/09/2004 4:00 PM CDT Respiratory Rate - - Oxygen Saturation - - Inhaled Oxygen Concentration - - Weight 11.7 kg (25 lb 14 oz) 06/09/2004 4:00 PM CDT Height 89.5 cm (2' 11.25) 06/09/2004 4:00 PM CDT Ycjmtf-hoq-Phgafr Percentile 6.32 % 06/09/2004 4:00 PM CDT Growth Chart: CDC (Boys, 2-20 Years) Head Circumference 48.9 cm 06/09/2004 4:00 PM CDT Head Circumference Percentile 55.54 % 06/09/2004 4:00 PM CDT Growth Chart: CDC (Boys, 0-36 Months) Body Mass Index 14.64 06/09/2004 4:00 PM CDT Body Mass Index Percentile 4.13 % 06/09/2004 4:00 PM CD T Growth Chart: CDC (Boys, 2-20 Years) documented in this encounter Progress Notes 06/09/2004 4:00 PM CDT Cameron Manuel is an 4 year old male here for a 4 year routine health maintenance visit, accompa nied by his mother QUESTIONS / CONCERNS: YES: speech, babbling and understanding words only with two to three words he says. HEALTH HISTORY SINCE LAST VISIT: Health history since last visit: No Kathy nge There is no previous medical history on file. FAMILY / SOCIAL HISTORY: Recent family changes/str esses: none. Child lives with: mother and father. home care manager rn: Home with family member: mother and fat her Review of patient's family history indicates: Diabetes Other Comment: paternal family hx of diabetes- great grandfather Heart Paternal Grandfather Comment: pace maker placed when father was in 40's Muscular Paternal Uncle Comment: Arthritis Paternal Grandmother Arthritis Paternal Aunt Cancer Maternal Uncle Comment: lymphoma Heart Ot her Comment: paternal great-grandfather of [place] DAILY ACTIVITIES: NUTRITI ON: DIET: good appetite, eats variety of foods SLEEP: No concerns, sleeps well throu gh night ELIMINATION: Normal bowel movements and Normal urination. TV/ MEDIA: < 2 hours/ day ROS: Review of systems negative for constitutional, HEENT, respiratory, cardiovascular, gastroi ntestinal, genitourinary, endocrine, neurological, skin, and hematologic issues, other than as above. DEVELOPMENT: Screening tool used: PDQ- Martin: passed HEARING: subjectively normal, no concerns V ISION: subjectively normal, no concerns PHYSICAL EXAMINATION: Temp (Src) 97.1 (Axillary) Ht 2' 1 1.25 (0.90m) Wt 25 lbs 14 oz (11.7kg) HC 48.9cm Normal male exam: GENERAL: Alert, vigorous, braulio apparent distress. SKIN: Skin is clear of rashes. HEAD: The head is normocephalic. EYES: The con junctivae and cornea normal. Corneal light reflex symmetric. No abnormalities noted onfundoscopic e xam. EARS: The external auditory canals are clear and the tympanic membranes are normal. NOSE: No david inage. Turbinates normal size and color. THROAT: The throat is clear. No tonsilar hypertrophy. NECK : The neck issupple and thyroid is nonpalpable. LYMPH NODES: There are no palpably enlarged lymph nod es. LUNGS: The lung marquis are clear to auscultation. HEART: The precordium is quiet. Regular rate an d rhythm without murmur. S1 and S2 are normal. ABDOMEN: Abdomen is soft. No masses. No hepatosplenom egally. The bowel sounds are normal. GENITALIA: Caden stage I development with testicles down bilate rally. No inguinal herniae are present. EXTREMITIES:FROM all joints. No marked rotational or angular deformities. NEUROLOGIC: Normal tone throughout. Has normal reflexes for age. ASSESSMENT/PLAN: Keila l Child with normal growth & development SPEECH/LANGUAGE DIS NEC [315.39]- will refer to audiology for hearing screen and speech therapy Immunizations were reviewed. See todays' orders . LITERATURE : AGE APPROPRIATE RTC: One year for well child exam I have discussed with the patient the r isks, benefits, medications, treatment options and modalities. I have instructed the patient to call or schedule a follow-up appointment if any problems or failure to improve. ANTICIPATORY GUIDANCE: Th e following topics were discussed: Social/Parenting: Positive discipline, Tantrums, Provide ch oices, Reinforce limits consistently, Toilet training, Praise child and Expect curiosity Nutrit ion: Variety at mealtime, Appetite fluctuation, Foods to avoid and Avoid food struggles Play an d Communication: Imitation, Reading and Limit TV Health: Fever, Oral hygiene, Toothbrush/ limit toothpaste, Lead and Sleep Safety: Exploration/ climbing, Outside safety/ streets, Choking and Constant Supervision documented in this encounter Nursing Notes 06/09/2004 4:00 PM CDT >> TIERRA MIRANDA 06/09/2004 4:19 pm Cameron is an 4 year old male here for a routine health maintenance visit, accompanied by his Parent(s) and mother. There are concerns about speech development. No recent social changes/stressors. Sundar Prescreen: Form not completed at time roomed. Lead Risk Questionaire: Form not completed at time roomed <3 years old. Parents report subjectively normal hearing and vision. Tierra Miranda RN documented in this encounter Plan of Treatment Not on filedocumented as of this encounter Procedures Procedure Name Priority Date/Time Associated Diagnosis Comme nts ZZ CONSULT PEDS AUDIOLOGY Routine 06/23/2004 Speech/Langu age Dis Nec documented in this encounter Results CONSULT PEDS AUDIOLOGY (06/23/2004) Narrative This result has an attachment that is no t available. Sarah Blackmon MD REFERRAL documented in this encounter Visit Diagnoses Diagnosis Routine infant or child health check - P rimary Other developmental speech or language d isorder documented in this encounter Care Teams Fly Rail Operator Relationship Specialty Start Date End Date Kumar Celestin MD PCP - General 02 12/26/18 [address] [place] [phone] documented as of this encounter
--- OUTSIDE RECORDS SUMMARY | 2022-08-26 16:28 | XMS_ITS | Encounter Summary ---
:2002 Author Organization [facility] Address [address] [place] [address]. [place] [address] Care Team Providers Name Role Phone Kumar Celestin MD Primary Care Provider Reason for Visit Reason Comments Physical Encounter Details Date Type Department Care Team Description 03/06/2003 Office Visit [facility] Sarah Blackmon CHILD HEALTH Clinic [place] MD Rosario EXAM (Primary Dx) [facility] [address] CL[facility] [place], [place] [address] [facility] [address] [place], [place] [phone] (Wo rk) Social History Tobacco Use Types Packs/Day Years Used Date Never Assessed Sex Assigned at Date Recorded Not on file documented as of this encounter Last Filed Vital Signs Vital Sign Reading Time Taken Comments Blood Pressure - - Pulse - - Temperature - - Respiratory Rate - - Oxygen Saturation - - Inhaled Oxygen Concentration - - Weight 8.271 kg (18 lb 3.8 oz) 03/06/2003 3:00 PM CDT Height 72.4 cm (2' 4.5) 03/06/2003 3:00 PM CDT Tvxriu-hke-Jvrnxz Percentile 16.40 % 03/06/2003 3:00 PM CDT Growth Chart: WHO (Boys, 0-2 years) Head Circumference 45.1 cm 03/06/2003 3:00 PM CDT Head Circumference Percentile 50.62 % 03/06/2003 3:00 PM CDT Growth Chart: WHO (Boys, 0-2 years) Body Mass Index 15.78 03/06/2003 3:00 PM CDT Body Mass Index Percentile 14.98 % 03/06/2003 3:00 PM CD T Growth Chart: WHO (Boys, 0-2 years) documented in this encounter Progress Notes 03/06/2003 3:00 PM CDT Cameron Manuel is an 9 month old male here for a routine health maintenance visit, accompaniedby his mother and father QUESTIONS / CONCERNS: NO HEALTH HISTORY SINCE LAST VISIT: There have be en: No surgeries, major injuries or illnesses since last physical exam FAMILY / SOCIAL HISTORY: Rece nt family changes/stresses: no Child lives with: mother and father. nurse behavioral health care: Home with family memb er: mother DAILY ACTIVITIES: NUTRITION: breast: SLEEP: Arrangement/patterns: crib O n back: YES ELIMINATION: Stool consistency is soft ROS: Review of systems negative for con stitutional, HEENT, respiratory, cardiovascular, gastrointestinal, genitourinary, endocrine, neurolog ical, skin, and hematologic issues, other than as above. DEVELOPMENT: Screening tool used: PD Barnes- Sundar passed OBJECTIVE: AllergIes: Review of patient's allergies indicates: No Known Drug * PHYSICAL EXAMINATION: Ht 2' 4.5 (0.724m) Wt 18 lbs 4 oz (8.271 kg) HC 45.1cm Normal ex am: GENERAL: Alert, vigorous, is in no acute distress. SKIN: Skin is clear. HEAD: The head is normoc ephalic. The fontanels and sutures are normal EYES: The eyes are normal. The conjunctivae and cornea normal. Red reflexes are seen bilaterally. EARS: The external auditory canals are clear and the tympa benny membranes are normal. NOSE: Clear THROAT: The throat is clear. NECK: The neck is supple and thyro id is nonpalpable. LYMPH NODES: There are no palpably enlarged lymph nodes. LUNGS: The lung marquis ar e clear to auscultation. HEART: The precordium is quiet. Regular rate and rhythm without murmur. S1 a nd S2 are normal. The femoral pulses are normal. ABDOMEN: The umbilicus is normal. Abdomen is soft. No masses. No hepatosplenomegally. The bowel sounds are normal. GENITALIA: Caden stage I, infantile, genitalia. No inguinal herniae are present. EXTREMITIES: Ortolani and Charles examsnegative. Thigh l ength symmetric. Lateral foot edge straight.FROM all joints. NEUROLOGIC: Normal tone throughout. H as normal reflexes for age. PLAN/ ASSESSMANT: Well Child with normal growth & development See today s' orders. RTC: 12 month RHM visit I have discussed with the patient the risks, benefits, medica tions, treatment options and modalities. I have instructed the patient to call or schedule a follow-u p appointment if any problems or failure to improve. ANTICIPATORY GUIDANCE: The following topic s were discussed: Social/ Parenting: Stranger/ separation anxiety, Bedtime routine, Limit setting, c onsistency and Distraction as discipline Nutrition: Self-feeding, Table foods, Cup, Weaning, Foods to avoid and Whole milk intro at 12 month Play and Communication: Reading Health: Oral hygiene and Slee p issues Safety: childproof home, Ipecac/ poison control, use of larger car seat and exploration (fal ls, stairs, chairs) documented in this encounter Nursing Notes 03/06/2003 3:00 PM CDT >> BETH SAN 03/06/2003 3:07 pm 9 month well child. Beth San MA documented in this encounter Plan of Treatment Not on filedocumented as of this encounter Visit Diagnoses Diagnosis Routine infant or child health check - P rimary documented in this encounter Care Teams Outpatient Receptionist Relationship Specialty Start Date End Date Kumar Celestin MD PCP - General 02 12/26/18 [address] [facility] [address] [place] [phone] documented as of this encounter
--- OUTSIDE RECORDS SUMMARY | 2022-08-26 16:28 | XMS_ITS | Encounter Summary ---
:2002 Author Organization [facility] Address [address] [place] [address]. [place] [address] Care Team Providers Name Role Phone Kumar Celestin MD Primary Care Provider Reason for Visit Reason Comments Ear Problem Encounter Details Date Type Department Care Team Description 2002 Office Visit [facility] Sarah Blackmon SLEEP DISTURBANCE NOS Clinic Patricia Ponce MD (Primary Dx) [address] [facility] [place], [place] [address] [address] [place], [place] [phone] (Wo rk) Social History Tobacco Use Types Packs/Day Years Used Date Never Assessed Sex Assigned at Date Recorded Not on file documented as of this encounter Last Filed Vital Signs Vital Sign Reading Time Taken Comments Blood Pressure - - Pulse - - Temperature 37.4 ??C (99.3 ??F) 2002 4:00 PM CAR REPAIRER APPRENTICE Respiratory Rate - - Oxygen Saturation - - Inhaled Oxygen Concentration - - Weight 7.399 kg (16 lb 5 oz) 2002 4:00 PM CAR REPAIRER APPRENTICE Height - - Body Mass Index - - documented in this encounter Progress Notes 2002 4:00 PM CAR REPAIRER APPRENTICE Cameron Manuel is a 6 month old male here with mother with concerns regarding not sleeping at [facility]. He was previously putting himself to sleep and sleeping through the night. THe past week he stark s been waking every hour at night, screaming. He will usually console when picked up and rocked, heena etimes mom will breastfeed. He is taking 2 naps during the day 45min and 1 1/2 hours. He is not p utting himself to sleep at night now. Mom or dad have to feed and rock him to sleep. He does have so me nasal congestion, no fever. He is not spitting up more. Mom states that he has been very gassy l ately and is not burping well. He is taking rice cereal in the am and 2 jars of vegetables or fruits at night. He continues to breast feed and mom has not changed her diet recently. Mom has tried myl icon drops without much improvement. OBJECTIVE: Temp 99.3 Temp Src: Rectal Wt 16 lbs 5 oz (7.399 kg) General appearance: healthy, alert, no distress and smiling Eyes: normal Ears: R TM - normal: n o effusions, no erythema, and normal landmarks, L TM - normal: no effusions, no erythema, and normal landmarks Nose: normal Oropharynx: moist mucosa, no erythema or exudates Neck: normal, supple and no adenopathy Lungs: clear to auscultation bilaterally Heart: regular rate and rhythm and no murmurs, cl icks, or gallops Abdomen: soft, non-tender, slightly-distended, no hepatomegaly, no splenomegaly . S kin: he has eczematous patches on his upper arms and back. Assessment: Sleep disturbance- discussed possible gas pains vs teething vs itching from eczema. PLAN: recommended trying to keep a regular sl eep routine. Disucssed decreasing amount of baby food for now and advance slowly, continuing mylicon drops. Recommended hydorcortisone and lotion to skin before bed. Follow up if fever or worsening sx . documented in this encounter Nursing Notes 2002 4:00 PM CST >> TIERRA MIRANDA 2002 4:06 pm Per mom, pt has not been sleeping well. Concerned about ears. Tierra Miranda RN documented in this encounter Plan of Treatment Not on filedocumented as of this encounter Visit Diagnoses Diagnosis Sleep disturbance, unspecified - Primary documented in this encounter Care Teams Sports Photographer Relationship Specialty Start Date End Date Kumar Celestin MD PCP - General 02 12/26/18 [address] [facility] [address] [place] [phone] documented as of this encounter
--- OUTSIDE RECORDS SUMMARY | 2022-08-26 16:28 | XMS_ITS | Encounter Summary ---
:2002 Author Organization [facility] Address [address] [place] [address]. [place] [address] Care Team Providers Name Role Phone Kumar Celestin MD Primary Care Provider Reason for Visit Reason Comments Fever Encounter Details Date Type Department Care Team Description 10/19/2003 Office Visit [facility] Sarah Blackmon; Clinic [place] MD Rosario ACUTE SUPP OTITIS MEDIA NOS [address] [facility] [place] [place], [place] [address] [address] [place], [place] [phone] (Wo rk) Social History Tobacco Use Types Packs/Day Years Used Date Never Assessed Sex Assigned at Date Recorded Not on file documented as of this encounter Last Filed Vital Signs Vital Sign Reading Time Taken Comments Blood Pressure - - Pulse - - Temperature 36.8 ??C (98.3 ??F) 10/19/2003 2:30 PM ESTATE PLANNING ATTORNEY Respiratory Rate - - Oxygen Saturation - - Inhaled Oxygen Concentration - - Weight 10.4 kg (23 lb) 10/19/2003 2:30 PM ESTATE PLANNING ATTORNEY Height - - Body Mass Index - - documented in this encounter Progress Notes 10/19/2003 2:30 PM ESTATE PLANNING ATTORNEY SUBJECTIVE: Cameron Manuel is a 16 month old here with mother and father with 2 days history o f cold sx with a barky cough. Cough started last pm with some difficulty breathing, improved with st eam and coldair. Stridor has been present. Temperature has been elevated to 102 degress at home. Par ent's observations of him at home are reduced activity, irritability and fussiness, reduced appetite, reduced fluid intake and increased sleepiness. OBJECTIVE: Temp (Src) 98.3 (Axillary) Wt 23 lbs ( 10.4kg) General appearance: crying, conosolable by dad Eyes: normal and no conjunctival erythema Ea rs: R TM - normal: no effusions, no erythema, and normal landmarks, L TM - distorted light reflexand erythematous Nose: clear rhinorrhea Oropharynx: erythematous posterior pharynx Neck: normal, supple and small, benign anterior cervical nodes bilaterally Lungs: good aeration, inspiratory stridor and n o wheezes or crackles, barky cough Heart: regular rate and rhythm and no murmurs, clicks, or gallops Abdomen: ASSESSMENT: Laryngotracheobronchitis (Croup) Left otitis media PLAN: Discussion regardi ng the viral etiology and course of the illness, as well as helpful treatments, including use of a va porizer, steamed bathroom, or outdoor air. Croup instruction sheet given. Tylenol for fever. Additio nal medications Meds as of 10/19/2003: DECADRON 4 MG/ML IJ SOLN 6mg im x one (0.6mg/kg/dose) AMOXICILL IN 400 MG/5ML OR SUSR 1.25 TSP BID X 1O DAYS He was given decadron secondary to poor po intake of med s at home and refusal of oral steroids in the past. documented in this encounter Nursing Notes 10/19/2003 2:30 PM CST >> TIERRA MIRANDA 10/19/2003 2:54 pm Pulse ox on RA 99%. Tierra Miranda RN >> TIERRA MIRANDA 10/19/2003 2:28 pm Parents state pt has been tpxa-pv-jfbur, not sleeping well, decreased appetite, cough. Last dose of Tylenol at 1200. Tierra Miranda RN documented in this encounter Plan of Treatment Not on filedocumented as of this encounter Visit Diagnoses Diagnosis Croup Acute suppurative otitis media without s pontaneous rupture of eardrum documented in this encounter Care Teams Open Hearth Furnace Laborer Relationship Specialty Start Date End Date Kumar Celestin MD PCP - General 02 12/26/18 [address] [place] [phone] documented as of this encounter
--- OUTSIDE RECORDS SUMMARY | 2022-08-26 16:28 | XMS_ITS | Encounter Summary ---
:2002 Author Organization [facility] Address [address] [place] [address]. [place] [address] Care Team Providers Name Role Phone Kumar Celestin MD Primary Care Provider Reason for Visit Reason Comments Well Child 12-month Encounter Details Date Type Department Care Team Description 06/05/2003 Office Visit [facility] Sarah Blackmon [facility] [place] MD Rosario EXAM (Primary Dx) [facility] [address] [facility] [place], [place] [address] [facility] [address] [place], [place] [phone] (Wo rk) Social History Tobacco Use Types Packs/Day Years Used Date Never Assessed Sex Assigned at Date Recorded Not on file documented as of this encounter Last Filed Vital Signs Vital Sign Reading Time Taken Comments Blood Pressure - - Pulse - - Temperature 35.6 ??C (96 ??F) 06/05/2003 3:30 PM CDT Respiratory Rate - - Oxygen Saturation - - Inhaled Oxygen Concentration - - Weight 8.845 kg (19 lb 8 oz) 06/05/2003 3:30 PM CDT Height 76.8 cm (2' 6.25) 06/05/2003 3:30 PM CDT Dzicod-pfy-Vrqxdn Percentile 9.18 % 06/05/2003 3:30 PM CDT Growth Chart: WHO (Boys, 0-2 years) Head Circumference 45.7 cm 06/05/2003 3:30 PM CDT Head Circumference Percentile 37.27 % 06/05/2003 3:30 PM CDT Growth Chart: WHO (Boys, 0-2 years) Body Mass Index 14.98 06/05/2003 3:30 PM CDT Body Mass Index Percentile 7.39 % 06/05/2003 3:30 PM CD T Growth Chart: WHO (Boys, 0-2 years) documented in this encounter Progress Notes 06/05/2003 3:30 PM CDT Cameron Manuel is an 12 month old male here for a routine health maintenance visit, accompanied by his mother and father QUESTIONS / CONCERNS: NO HEALTH HISTORY SINCE LAST VISIT: There have b een: No surgeries, major injuries or illnesses since last physical exam FAMILY / SOCIAL HISTORY: Rec ent family changes/stresses: no Child lives with: mother and father. healthcare science specialist: Home with family mem yelena: mother DAILY ACTIVITIES: NUTRITION: milk: whole and table foods ELIMINATION: Ther e is no constipation SLEEP: Night waking no ROS: Review of systems negative for constitutional, HE ENT, respiratory, cardiovascular, gastrointestinal, genitourinary, endocrine, neurological, skin, and hematologic issues, other than as above. DEVELOPMENT: Screening tool used: PDQ- [place] passed OBJECTIVE: Allergies: Review of patient's allergies indicates: No Known Drug * PHYSICAL EXAMI NATION: Temp 96 Temp Src: Axillary Ht 2' 6.25 (0.768m) Wt 19 lbs 8 oz (8.845 kg) HC 45.7cm Normal exam: GENERAL: Alert, vigorous, is in [...] clear. NECK: The neck is scott pple and thyroid is nonpalpable. LYMPH NODES: There are no palpably enlarged lymph nodes. LUNGS: The lung marquis are clear to auscultation. HEART: The precordium is quiet. Regular rate and rhythm withou t murmur. S1 and S2 are normal. The femoral pulses are normal. ABDOMEN: The umbilicus is normal. Abd omen is soft. No masses. No hepatosplenomegally. The bowel sounds are normal. GENITALIA: Caden stage I, infantile, genitalia. No inguinal herniae are present. EXTREMITIES: Ortolani and Charles examsnega tive. Thigh length symmetric. Lateral foot edge straight.FROM all joints. NEUROLOGIC: Normal tone throughout. Has normal reflexes for age. PLAN/ ASSESSMANT: Well Child with normal growth & d evelopment See todays' orders . RTC: 15 month RHM visit I have discussed with the patient the ri sks, benefits, medications, treatment options and modalities. I have instructed the patient to call o r schedule a follow-up appointment if any problems or failure to improve. ANTICIPATORY GUIDANCE: The following topics were discussed: Social/ Parenting: Stranger/ separation anxiety, Bedtime routi ne, Limit setting, Consistency, Distraction as discipline and tantrums Nutrition: Self-feeding, Table foods, Weaning off bottle, Foods to avoid, Whole milk and Avoid foodsconflicts} Play and Communicat ion: Reading to child and Simple commands Health: Oral hygiene and Sleep issues Safety: child proof h ome, Ipecac/ poison control, use of larger car seat and exploration (falls, stairs, chairs) documented in this encounter Nursing Notes 06/05/2003 3:30 PM CDT >> TIERRA MIRANDA 06/05/2003 3:42 pm Pt is here with his parents for his well child check. Parents refused rectal temp. Tierra Miranda RN documented in this encounter Plan of Treatment Not on filedocumented as of this encounter Visit Diagnoses Diagnosis Routine or child health check - P rimary documented in this encounter Care Teams Signal Engineer Relationship Specialty Start Date End Date Kumar Celestin MD PCP - General 02 12/26/18 [address] [facility] [address] [place] [phone] documented as of this encounter
--- OUTSIDE RECORDS SUMMARY | 2022-08-26 16:28 | XMS_ITS | Encounter Summary ---
:2002 Author Organization [facility] Address [address] [place] [address]. [place] [address] Care Team Providers Name Role Phone Kumar Celestin MD Primary Care Provider Encounter Details Date Type Department Care Team Description 01/29/2005 Emergency room Jose Juárez MD [address] [place], [place] [address] (Wo rk) Social History Tobacco Use Types Packs/Day Years Used Date Never Assessed Sex Assigned at Date Recorded Not on file documented as of this encounter Progress Notes Interface, Carpet Loom Fixer - 01/29/2005 11:59 PM TRANSACTION COORDINATOR : 02 CHIEF COMPLAINT: Abdominal pain, diarrhea. HISTORY OF PRESENT ILLNESS: This 4-year-old young man has had vomiting and diarrhea since Sunday, this is the fifth day now. He had a fever initially on the first day, but that resolved. He has been having diarrhea 4-5 times every single day; thus far today he has had only two episodes. He did vomit once today. He has not been exposed to anyone else who has been ill other than his 1-year-old sister who only had 24 hours worth of vomiting and diarrhea about one week ago. Today, the child has been refusing to eat or drink anything. Last urine output was last evening sometime. PAST MEDICAL HISTORY: Unremarkable. IMMUNIZATIONS: Up to date. ALLERGIES: None. MEDICATIONS: None currently. REVIEW OF SYSTEMS: See history of present illness and past medical history above, all other systems are negative. SOCIAL HISTORY: He lives with his family. PHYSICAL EXAMINATION: Temperature 98.4, respiratory rate 18, heart rate 104, O2 saturations 97% on room air, weight 14 kg. The child is pale. He is awake and alert sitting up watching television holding his burp doll. EYES: Sunken. Positive tears. PUPILS equal, round and reactive to light, and accomodation. Extraocular muscles intact. Lids and conjunctivae are unremarkable. EAR, NOSE and THROAT: Tympanic membranes and canals are bilaterally negative. NOSE is clear. MOUTH is dry. Posterior pharynx is unremarkable. NECK: Supple without nodes or masses. LUNGS: Clear to auscultation. Breath sounds equal bilaterally. CARDIOVASCULAR: Regular rate and rhythm. No murmur is noted. ABDOMEN: Soft, nontender. No hepatosplenomegaly. No palpable masses. Abdominal skin turgor is diminished. Abdomen is somewhat distended. He is very gassy. NEURO: No focality. SKIN: No rashes, bruises, petechiae and no jaundice. EXTREMITIES: No redness, swelling or tenderness of any joints. COURSE IN THE EMERGENCY ROOM: Clinical impression is that the child is dehydrated. He has not had any urine output since last evening which is about 20 hours now and despite the incidence of diarrhea have not increased today, he has been refusing to eat and drink today. He has had maybe 25% of what is intake has been the other days of his illness. Clinical impression is that the child is significantly dehydrated and that this is likely to get worse at this point if he will not take fluids. I discussed with mom placing an IV and giving him IV fluids, checking his labs, etc. and she was comfortable with this. An IV was placed. He was given two 20 per kilo fluid flushes of normal saline. White count was 7100, hemoglobin 12.9, 42% neutrophils, 39% lymphocytes, 15% monocytes, 3% basophils. Sodium was 137, potassium 3.9, chloride 102, bicarbonate 21, glucose 84, BUN 13, creatinine 0.3 and calcium 9.7. The patient did void urine which showed a specific gravity of 1.010, negative nitrite, negative esterase, negative ketones, negative blood. Flat and upright of the abdomen showed large amounts of gas in the large bowel. Very dilated. Several air fluid levels in the large bowel only. There was gas all the way down into the rectum. By this time, the patient was passing large amounts of gas and did have two further small episodes of diarrhea. We did send stool for a rotavirus. I discussed with mom that this is often a very prolonged episode of vomiting and diarrhea. I suggested we give the patient several Popsicles here and some crackers. He took the Popsicles very eagerly. I discussed use of clear fluids, preferably no plain water as this has no sugar or salt. Try to add things likebananas, rice, cereal, applesauce, toast, crackers, etc. I would avoid apple juice as this tends to cause increased diarrhea. Carrot juice is a good thing, Pedialyte, Popsicles, gatorade, 7-up, kyle josé manuel; these would all be okay. I suggested doing clear liquids and a BRAT diet for 2-3 days and then very slowly begin to advance the diet. Follow up with his physician on Sunday or Sunday. He may have Tylenol every four hours as needed for pain and/or fever. He should be considered contagious until all of the diarrhea has resolved. DIAGNOSES: 1) Dehydration. 2) Gastroenteritis. [id number]_ JOSE JUÁREZ MD MT: Document: [id number] [place], [place] Name: MR#: TAHMINA MARY [id number] EMERGENCY ROOM ENCOUNTER Page 3 of 2 LCN: ERC DSC: 01/29/2005 [place], [place] Name: MR#: TAHMINA MARY -99 : Admit Date: Account #: 2002 01/29/2005 [id number] Doctor: JOSE JUÁREZ MD EMERGENCY ROOM ENCOUNTER Page 1 of 2 SACTION COORDINATOR documented in this encounter Plan of Treatment Not on filedocumented as of this encounter Visit Diagnoses Not on filedocumented in this encounter Care Teams Rehab Nursing Tech Relationship Specialty Start Date End Date Kumar Celestin MD PCP - General 02 12/26/18 [facility] [address] [place] [phone] documented as of this encounter
--- OUTSIDE RECORDS SUMMARY | 2022-08-26 16:28 | XMS_ITS | Encounter Summary ---
:2002 Author Organization [facility] Address [address] [place] [address]. [place] [address] Care Team Providers Name Role Phone Kumar Celestin MD Primary Care Provider Encounter Details Date Type Department Care Team Description 06/25/2004 Emergency room Jose Juárez MD [address] [place], [place] [address] (Wo rk) Social History Tobacco Use Types Packs/Day Years Used Date Never Assessed Sex Assigned at Date Recorded Not on file documented as of this encounter ED Notes Jose Juárez - 06/25/2004 12:00 AM CDT : 2002 CHIEF COMPLAINT: Possible pink eye. HISTORY OF PRESENT ILLNESS: This 4-year-old young man had a red right eye when he awakened this morning. Since then he has had some drainage from the right eye. The left eye does not appear to be involved. He has had no fever, vomiting or diarrhea. He has not been exposed to anyone else who has been ill. He does not attend day care. PAST MEDICAL HISTORY: Unremarkable. Immunizations are up to date. ALLERGIES: None. MEDICATIONS: None. REVIEW OF SYSTEMS: See history of present illness, past medical history as above. The remainder of the review of systems is negative. SOCIAL HISTORY: Lives with his parents and siblings. He does not attend day care. PHYSICAL EXAM: Temperature is 98.6, respiratory rate 24, heart rate 123, O2 saturations 96% on room air. Weight is 12 kilograms. GENERAL: The child is pink, awake, alert, active, happy, playful, very attentive. HEENT: Head is atraumatic and normocephalic. Neck is supple without nodes or masses. Eyes: The pupils equal, round and reactive to light and accommodation, extraocular motion intact. Funduscopic exam is benign. Left eye: There is some slight injection of the conjunctiva. There is no drainage. Right eye: There is a scant amount of drainage at the inner canthus. The conjunctiva is injected. The lids are not swollen, red or warm. There is no increased tearing. The upper and lower lids were retracted and there was no evidence of any foreign body. ENT: TM's and canals are bilaterally negative. Nose is clear. Mouth is moist. Posterior oropharynx is unremarkable. LUNGS: Clear to auscultation. Breath sounds are equal bilaterally. CARDIOVASCULAR: Regular rate and rhythm. No murmur is noted. EMERGENCY DEPARTMENT COURSE: Discussed with mom that he has conjunctivitis and it apparently already is spreading to the left eye. Emphasized the importance of careful hand washing on the part of the child and also on the part of the parent anytime that they handle the child or put drops in his eyes. Mom does have a six month old at home and it is very likely this child will also get this simply because children of this age tend to rubtheir eyes and their noses a lot and then touch another child. DISPOSITION: 1) Gentamicin Ophthalmic drops one drop to each eye four times a day times seven days. Put it in both eyes beginning now, otherwise it will be completely cleared up in the right eye and will be getting much worse in the left eye. 2) Careful hand washing. 3) Recheck in the clinic in seven to ten days or sooner if he is not getting better. Expect him to look worse when he first gets up in the morning as when he has been asleep all night there is likely to be more drainage and redness and it should be much better over the course of the day. Contagious until he has had 24 hours of the drops. DIAGNOSIS: Conjunctivitis. [id number]_ JOSE JUÁREZ MD MT: Document: [id number] [place], [place] Name: USMAN TAHMINA Yoon EMERGENCY ROOM ENCOUNTER Page 2 of 2 LCN: RAFFI DSC: 06/25/2004 [place], [place] Name: MR#: : Admit Date: TAHMINA MARY -99 2002 06/25/2004 Doctor: JOSE JUÁREZ MD EMERGENCY ROOM ENCOUNTER Page 1 of 2 documented in this encounter Plan of Treatment Not on filedocumented as of this encounter Visit Diagnoses Not on filedocumented in this encounter Care Teams Lace Finisher Relationship Specialty Start Date End Date Kumar Celestin MD PCP - General 02 12/26/18 [address] [phone] documented as of this encounter
--- OUTSIDE RECORDS SUMMARY | 2022-08-26 16:28 | XMS_ITS | Encounter Summary ---
:2002 Author Organization [facility] Address [address] [place] [address] Care Team Providers Name Role Phone Unavailable Primary Care Provider Unavailable Reason for Visit Reason Comments Cough Encounter Details Date Type Department Care Team Description 2002 Office Visit [facility] [place], [place], COUGH ( Primary Dx); [facility] [place] [facility] ACUTE URI MULT SITES [address] [address] [phone] Social History Tobacco Use Types Packs/Day Years Used Date Never Assessed Sex Assigned at Date Recorded Not on file documented as of this encounter Last Filed Vital Signs Vital Sign Reading Time Taken Comments Blood Pressure - - Pulse - - Temperature 37.5 ??C (99.5 ??F) 2002 5:15 PM [employer] OF NURSING DIRECTOR Respiratory Rate - - Oxygen Saturation - - Inhaled Oxygen Concentration - - Weight 6.152 kg (13 lb 9 oz) 2002 5:15 PM [employer] NUR[employer] DIRECT[employer] Height - - Body Mass Index - - documented in this encounter Progress Notes 2002 5:15 PM [employer] NUR[employer] DIRECT[employer] Cameron is here today for cold symptoms of > 2 weeks days duration. There has been no fever, shortnes s of breath, wheezing, or lethargy. Personality, activity level, and appetite good. Main symptom( s) inlude runny nose, congestion and cough. Physical Exam: 3 month old well developed, well nourish ed male in no apparent distress. Ears normal. Throat and pharynx normal. Neck supple. No adenopat hy or masses in the neck or supraclavicular regions. Sinuses non tender.. Nasal drainage clear. L ungs clear to auscultation. The abdomen is soft without tenderness, guarding, mass or organomegaly. Bowel sounds are normal. No CVA tenderness or inguinal adenopathy noted.. Assessment: Viral URI P harleen: saline nasal spray humidifier follow up if symptom duration greater than two weeks or worse larry symptoms. documented in this encounter Nursing Notes 2002 5:15 PM CST >> ESTHER CAMILO 2002 5:03 pm Cough, nasal congestion x 3 weeks. Afebrile. Esther Camilo RN documented in this encounter Plan of Treatment Not on filedocumented as of this encounter Procedures Procedure Name Priority Date/Time Associated Diagnosis Comme [facility] CHEST TWO VIEWS, Routine 2002 5:56 PM Cough Re sults for this [employer] procedure are i n the results section. documented in this encounter Results CHEST X-RAY 2 VW (2002 5:56 PM [employer]) Anatomical Region Laterality Modality Other Impressions 2002 5:56 PM [employer] Patient: ??Cameron Manuel Chart: ??[id number] : ??02 RADIOLOGIST'S INTERPRETATION: ??Silvano tijerina MD CHEST 02 ?? Negative. PROVIDER'S INTERPRETATION: ??Saray sellers MD Normal/negative. AC/bjs ?? D&T: ??02 Electronically filed by Belle Jacob ??2002 ??9:27 AM Saray Shah MD GENERAL IMAGING documented in this encounter Visit Diagnoses Diagnosis Cough - Primary Acute upper respiratory infections of ot her multiple sites documented in this encounter
[2022-08-26] MEDS: NAPROXEN 250 MG TABLET 500 MG PO (16:40)
[2022-08-26 17:51] VITALS: BP 124/64; PULSE 79; O2SAT 96
== END 2022-08-26 17:53 | disposition home or self-care (01) ==
PROVIDERS: Emergency Provider Family Medicine; PCP Family Medicine
DX: N45.1 Epididymitis (principal)
CPT/HCPCS: 76870; 93976; 99283; 99284; A9270